=== PATIENT | male | born 1950 | race Caucasian/White ===

== ENCOUNTER 2023-02-26 17:50 | Inpatient (IN) | payer OTHER, SELFPAY ==
[2023-02-26] VITALS (25 sets, daily range): BP systolic 127–138; BP diastolic 64–78; PULSE 65–83; RESP 11–23; TEMP 36.7–37; O2SAT 95–100
--- NOTE | ~2023-02-26 | XR_ITS ---
EXAMINATION: XR chest 1V portable Exam Date/Time: 02/26/2023 20:55 CDT HISTORY: AMS Comparison: 12/03/2018. RESULT: Lines, tubes, and devices: None. Lungs and pleura: Senescent changes. Calcified right lower lung granuloma. Cardiomediastinal silhouette: Stable. Calcified right hilar nodes. Other: No acute osseous or upper abdominal finding. IMPRESSION: No acute cardiopulmonary process. Reviewed, dictated and finalized at location K.
--- NOTE | ~2023-02-26 | US_ITS ---
EXAMINATION: US renal BI DATE: 03/07/2023 17:05 INDICATION: Acute kidney injury. TECHNIQUE: Multiple ultrasound grayscale images of the kidneys were obtained. COMPARISON: CT 03/03/2023 FINDINGS: The right kidney measures 11.1 x 4.8 x 5.8 cm. The left kidney measures 11.1 x 6.1 x 5.4 cm. The kidn eys demonstrate normal parenchymal echogenicity. There is no hydronephrosis. The bladder is normal. IMPRESSION: 1. Normal kidney sizes. No hydronephrosis. Reviewed, dictated and finalized at location E.
--- NOTE | ~2023-02-26 | MR_ITS ---
EXAMINATION: MR brain/brain stem wo/w con DATE: 02/27/2023 10:21 INDICATION: Seizure. TECHNIQUE: Magnetic resonance imaging (MRI) of the brain and brainstem was performed without and with 15 mL MultiHance intravenous contrast. COMPARISON: Head CT 02/26/2023 FINDINGS: There is a focus of increased T2-weighted signal intensity in the left frontal lobe deep wh ite matter that is normal as an isolated finding. There is no intracranial hemorrhage, acute infarcti on, or abnormal intracranial mass lesion. The ventricles are normal in size. There is mild mucosal th ickening in the paranasal sinuses. The orbits are normal. The mastoid air cells are normal. IMPRESSION: 1. Normal brain. Reviewed, dictated and finalized at location A. IMPRESSION: 1. Normal brain.
--- NOTE | ~2023-02-26 | XR_ITS ---
EXAMINATION: XR chest 1V portable DATE: 03/02/2023 08:46 INDICATION: Shortness of breath. TECHNIQUE: A single frontal view of the chest was obtained. COMPARISON: Chest one view 02/28/2023, chest CT 02/26/2023 FINDINGS: There are interstitial opacities and airspace opacities in all lung zones bilaterally. A ca lcified right lung nodule is consistent with old granulomatous disease. No pleural effusion or pneumo thorax. The heart size is normal. IMPRESSION: 1. Diffuse lung disease, consistent with pulmonary edema versus pneumonia. Reviewed, dictated and finalized at location A.
--- NOTE | ~2023-02-26 | US_ITS ---
US abdomen limited INDICATION: Elevated liver function tests. PROCEDURE: Realtime right upper abdominal ultrasound. COMPARISON: No prior studies for comparison. FINDINGS: The pancreas is normal without focal mass or pancreatic ductal dilation. Liver echotexture is normal without focal mass or intrahepatic biliary dilatation. There is normal directional flow i n the portal vein. The gallbladder wall is thickened measuring 5 mm. No gallstones or pericholecystic fluid. Common ramiro e duct measures 5 mm. No sonographic Rowan's sign. IMPRESSION: 1: Gallbladder wall thickening measuring 5 mm. This could indicate interstitial edema, chronic liver disease or chronic cholecystitis. Reviewed, dictated and finalized at location B.
--- NOTE | ~2023-02-26 | XR_ITS ---
Left Knee Technique: AP and lateral views were obtained. Clinical History: Status post fall Findings: No fracture or dislocation is seen. Osseous alignment is anatomic. Joint spaces are preserv ed without degenerative or erosive change. Soft tissues are unremarkable. No joint effusion is seen. Impression: Unremarkable left knee radiographs. Reviewed, dictated and finalized at [facility]. Impression: Unremarkable left knee radiographs.
--- NOTE | ~2023-02-26 | XR_ITS ---
MODIFIED ESOPHAGRAM HISTORY: Aspiration TECHNIQUE: Modified barium esophagram was performed on 03/05/2023. I administered fluoroscopy and perfo rmed the exam with speech pathologist. Patient was seated for lateral fluoroscopic imaging for inges tion of thin liquids, pudding, solids and quantified amounts, followed by thin liquids in uncontrolle d amounts. This was recorded on tape. A single fluoroscopic spot image was also recorded. The DAP for this procedure was 1.863 Gycm2. The amount of fluoroscopy time used during this procedure was 2.8 mi nutes. FINDINGS: Oral stage: Adequate function. Pharyngeal stage: There is reduced laryngeal squeeze and tongue base retraction. There is mild residu e at the vallecula and piriform sinuses with solids. There was laryngeal penetration to the level of the vocal cords, potentially but not definitively with trace aspiration. Cervical/esophageal stage: Adequate function. IMPRESSION: Pharyngeal dysphagia with laryngeal penetration and possible but not definitive trace asp iration. Please correlate with speech pathologist findings and specific feeding recommendations. Reviewed, dictated and finalized at location A. IMPRESSION: Pharyngeal dysphagia with laryngeal penetration and possible but no t definitive trace aspiration. Please correlate with speech pathologist findin gs and specific feeding recommendations.
--- NOTE | ~2023-02-26 | CT_ITS ---
EXAMINATION: CT brain wo con DATE: 02/26/2023 20:53 INDICATION: AMS . TECHNIQUE: Computed tomography (CT) of the head was performed without intravenous contrast. The mA wa s adjusted according to patient size. Iterative reconstruction technique was employed. The dose-lengt h product was 983.67 mGy-cm. COMPARISON: None. FINDINGS: No acute intracranial hemorrhage or extra-axial fluid collection. No hydrocephalus, mass, or herniation. No acute ischemic infarct. Unremarkable dural venous sinus attenuation. No acute osseous abnormality. Right posterior scalp contusion. Left sphenoid retention cyst or polyp, the remaining aerated spaces are clear. Mild atrophy and chronic white matter change. Atherosclerotic intracranial calcification. IMPRESSION: No acute intracranial process. Reviewed, dictated and finalized at location K.
--- NOTE | ~2023-02-26 | XR_ITS ---
EXAMINATION: XR chest 1V portable DATE: 03/03/2023 10:00 INDICATION: Shortness of breath. TECHNIQUE: A single frontal view of the chest was obtained. COMPARISON: Chest single views 03/02/2023 FINDINGS: There are airspace and interstitial opacities throughout the lungs bilaterally. No pleural effusion or pneumothorax. The heart size is normal. IMPRESSION: 1. Stable diffuse lung disease, consistent with pulmonary edema versus pneumonia. Reviewed, dictated and finalized at location A. IMPRESSION: 1. Stable diffuse lung disease, consistent with pulmonary edema versus pneumoni a.
--- NOTE | ~2023-02-26 | XR_ITS ---
Portable chest x-ray Comparison: 02/26/2023 Clinical History: Shortness of breath Findings: Suspected minimal central congestive change and probable minimal alveolar pulmonary edema centrally. Cardiomediastinal silhouette is stable. Bones and soft tissues are unremarkable. Impression: Probable minimal pulmonary edema pattern, as above. Reviewed, dictated and finalized at [facility]. Impression: Probable minimal pulmonary edema pattern, as above.
--- NOTE | ~2023-02-26 | CT_ITS ---
EXAMINATION: CTA chest abdomen pelvis DATE: 02/26/2023 22:00 INDICATION: Found down, severe abdominal pain, seizure . TECHNIQUE: Computed tomography (CT) of the chest, abdomen, and pelvis was performed with 100 mL Omnip aque-350 intravenous contrast, in the arterial phase. Volume rendered imaging created by the brown gist on a separate workstation. Automated exposure control and iterative reconstruction technique wer e employed. The dose-length product was 556.20 mGy-cm. COMPARISON: None FINDINGS: CHEST: Thoracic aorta: No significant dilation. No dissection. Mild calcifications. Lung parenchyma and airways: Motion artifact in the lungs. Dependent atelectasis. Emphysematous gordillo e. Calcified right lung granuloma. Thoracic inlet, axillae and chest wall: No thyroid or soft tissue mass. No axillary lymphadenopathy. Mediastinum: No mass or lymphadenopathy. Heart and pericardium: Normal heart size. No pericardial effusion. Coronary artery calcifications: Mild. Pleura: No effusion or mass. Thoracic bones: Moderate height loss and inferior endplate deformity at T8. ABDOMEN/PELVIS: Liver: Diffuse fatty infiltration Biliary/Gallbladder: Gallbladder is mildly dilated, otherwise normal. No bile duct dilation. Pancreas: No mass or duct dilation. Spleen: Normal. Adrenals:No mass. Kidneys: No mass, stone, or hydronephrosis. GI tract: Uncomplicated appearing rectosigmoid anastomosis. Uniform bowel wall enhancement. Multiple air-fluid levels in the small bowel. No small or large bowel dilation. Appendix not confidently visua lized. Diverticulosis without diverticulitis. Mesentery/Peritoneum: No ascites, mass, or free air. Retroperitoneum: No mass Atherosclerotic abdominal aortic and/or arterial calcifications. No signific ant stenosis. No aneurysm or dissection. Pelvis: Pelvic organs are within normal limits Soft Tissues: Wide necked umbilical hernia containing loops of small bowel without inflammatory gordillo e. Abdominopelvic bones: No acute osseous finding in the abdomen/pelvis. IMPRESSION: Motion limited examination, particularly within the abdomen. Moderate compression deformity at T8, of uncertain age but likely chronic unless accompanied by acute pain/tenderness. Gallbladder hydrops. M ultiple air-fluid levels within nondilated small bowel, possibly secondary to enteritis in the [facility] clinical context. Reviewed, dictated and finalized at location K. IMPRESSION: Motion limited examination, particularly within the abdomen. Moderate compressi on deformity at T8, of uncertain age but likely chronic unless accompanied by a cute pain/tenderness. Gallbladder hydrops. Multiple air-fluid levels within non dilated small bowel, possibly secondary to enteritis in the appropriate clinica l context.
--- NOTE | ~2023-02-26 | CT_ITS ---
EXAMINATION: CT chest abdomen pelvis wo con DATE: 03/03/2023 12:14 INDICATION: Fever. Respiratory failure. TECHNIQUE: Computed tomography (CT) of the chest, abdomen, and pelvis was performed without intraveno us contrast. Automated exposure control and iterative reconstruction technique were employed. The dos e-length product was 1300.04 mGy-cm. COMPARISON: CT chest, abdomen, and pelvis 02/26/2023 FINDINGS: CHEST CT: There are small pleural effusions. There are airspace and interstitial opacities in the upper lobes a nd lower lobes. There is mild atelectasis in right middle lobe. A calcified right lung nodule and cari cified right hilar and mediastinal lymph nodes are consistent with old granulomatous disease. The hea rt size is normal. There are coronary artery calcifications. No pericardial effusion. There are stabl e compression fractures of T5 and T6. There is a stable burst fracture of T7. There is a compression fracture of T9, likely chronic. ABDOMEN/PELVIS CT: Calcifications in the liver and spleen are consistent with old granulomatous disease. The gallbladder is distended. The pancreas, adrenal glands, and kidneys are normal. There is no urolithiasis. The pr ostate is mildly enlarged. There is a Nam catheter in expected position. There is an anastomosis in the rectosigmoid. There is diverticulosis of the colon without evidence of diverticulitis. The appen silvia is not visualized. There are no pathologically enlarged lymph nodes. There is no free intraperito caesar fluid. There is severe lumbar spondylosis. IMPRESSION: 1. Diffuse lung disease, consistent with pneumonia. 2. Small pleural effusions. 3. Gallbladder distention, which may be secondary to fasting. Acute cholecystitis is less likely. 4. Age-indeterminate compression fractures of T5 and T6 and burst fracture of T7, stable from 3. Reviewed, dictated and finalized at location A. IMPRESSION: 1. Diffuse lung disease, consistent with pneumonia. 2. Small pleural effusions. 3. Gallbladder distention, which may be secondary to fasting. Acute cholecystit is is less likely. 4. Age-indeterminate compression fractures of T5 and T6 and burst fracture of T 7, stable from 02/26/2023.
--- NOTE | ~2023-02-26 | MR_ITS ---
MRI of the brain Clinical History: Seizure Technique: Axial and sagittal T1-weighted images were acquired. These were followed by axial T2-weigh chelsie, diffusion weighted, gradient, and FLAIR images. Postcontrast imaging was ordered, however patien t refused to complete postcontrast imaging sequences. COMPARISON: 02/27/2023 Findings: Exam mildly degraded by motion artifact. No acute infarct, trauma, or mass lesion identifie d. There is probable minimal chronic white matter change. Ventricles and subarachnoid spaces are unremarkable. Orbits are unremarkable. Paranasal sinuses and m astoid air cells are essentially clear. Major intracranial flow voids appear intact. Sagittal midline structures are intact. IMPRESSION: Probable minimal chronic white matter changes, otherwise unremarkable exam. Reviewed, dictated and finalized at location M.
--- NOTE | ~2023-02-26 | XR_ITS ---
Right Knee Technique: AP and lateral views were obtained. Clinical History: Status post fall Findings: No fracture or dislocation is seen. Osseous alignment is anatomic. Joint spaces are preserv ed without degenerative or erosive change. Soft tissues are unremarkable. No joint effusion is seen. Impression: Unremarkable right knee radiographs. Reviewed, dictated and finalized at [facility]. Impression: Unremarkable right knee radiographs.
--- NOTE | ~2023-02-26 | XR_ITS ---
EXAMINATION: XR hip BI 2V w AP pelvis DATE: 03/07/2023 13:28 INDICATION: Fall. TECHNIQUE: An anteroposterior view of the pelvis and 2 views of each hip were obtained. COMPARISON: None. FINDINGS: There is lumbar dextrocurvature and severe spondylosis. No fracture. There is mild osteoart hritis of the hips. IMPRESSION: 1. Mild osteoarthritis of the hips. Reviewed, dictated and finalized at location E.
--- NOTE | 2023-02-26 20:41 | ECG_ITS ---
Measurements Intervals [place] Rate: 72 P: 54 NE: 213 QRS: 75 QRSD: 97 T: 68 QT: 419 QTc: 459 Interpretive Statements SINUS RHYTHM WITH FIRST DEGREE AV BLOCK INCOMPLETE RIGHT BUNDLE BRANCH BLOCK ANTEROSEPTAL INFARCT, AGE INDETERMINATE ABNORMAL ECG NO PREVIOUS ECG AVAILABLE FOR COMPARISON Electronically Signed On 02-26-2023 21:27:43 CDT by Elieser Quesada D.O.
[2023-02-26] MEDS: SODIUM CHLORIDE 0.9% IV 2,000 ML 999 ML IV CONT (21:16)
[2023-02-26] MEDS: ACETAMINOPHEN 500 MG TABLET 1000 MG PO (21:18)
[2023-02-26 21:28] LABS: Basophils Percent Auto 0.2 % (0.2-1.2); Hematocrit 47.6 % (42.0-52.0); Hemoglobin 16.3 g/dL (14.0-18.0); Immature Granulocyte Percent A 0.6 % (0-0.5); Immature Platelet Fraction Pct 7.4 % (0.9-11.2); Lymphocytes Absolute Auto 1.61 K/mm3 (0.9-3.2); Lymphocytes Percent Auto 9.5 % (18.3-44.2); Mean Corpuscular HGB Conc 34.2 g/dl (32-36); Mean Corpuscular Hemoglobin 30.6 pg (26-34); Mean Corpuscular Volume 89.3 fl (80-100); Mean Platelet Volume 10.9 fl (7.4-10.4); Monocytes Percent Auto 5.6 % (2.6-8.5); Neutrophils Absolute Auto 14.3 K/mm3 (1.3-6.7); Neutrophils Percent Auto 84.1 % (45.5-73.1); Platelet Count Result 277 k/mm3 (150-375); Red Blood Count 5.33 M/mm3 (4.6-6.20); Red Cell Distribution Width 14.6 % (11.5-14.5)
--- NOTE | 2023-02-26 21:28 | P.HP_ITS ---
H&P: HPI History of Present Illness Date/Time: 02/26/23 21:28 Chief Complaint: 72 years old male with past medical history of alcohol abuse chronic narcotic dependence hypertension on diuretics presented to the hospital with a fall patient workup was found himself next to a bed patient bit his tongue has loss of consciousness denies chest pain or shortness of breath patient denies excessive alcohol abuse patient stated that he drinks 6 beers a week patient d enies history of seizure patient complains of pain between the shoulder plate worsening with movement denies fever or chills patient stated that he had urine incontinence denies stool incontinence at the ER patient was alert and oriented concern for seizure was admitted to the hospital for further evaluation and treatment since patient have pain between the shoulder plate CTA was done to rule out dissection and PE, also discussed with ER physician to get CT scan of the cervical spine. It Review of Systems Review of Systems: Twelve system review negative except above Meds Home Medications and Allergies Allergies Allergy/AdvReac Type Severity Reaction Status Date / Time No Known Allergies Allergy Unverified 12/02/18 00:17 Vital Signs Vital Signs - 24 hr 02/26/23 18:08 Temperature 98.0 F Pulse Rate 75 Respiratory Rate 20 Blood Pressure 137/69 Pulse Oximetry 98 Oxygen Delivery Room Air Exam Narrative: GENERAL: Well appearing, well-nourished, non-toxic, in no acute distress. HEAD: Positive tongue biting. NECK: Supple. No adenopathy, no masses. RESPIRATORY: Airway patent, respirations nonlabored. Clear to auscultation bilaterally, no rales, rhonchi, wheezing. CARDIOVASCULAR: Regular rate and rhythm without murmurs, rubs, or gallops. Peripheral pulses 2+ and equal bilaterally. ABDOMINAL: Soft, nontender, nondistended, no hepatosplenomegaly. Normoactive BS. MUSCULOSKELETAL: Tenderness on thoracic spine palpation. SKIN: Warm, dry, normal color. No rashes. NEURO: A&O X3. Speech clear. Cranial nerves II-XII grossly intact. Steady gait. No ataxic movements. PSYCHIATRIC: Appropriate mood and affect. Normal interaction. Assessment and Plan Assessment and plan (1) Hypertension: Code(s): I10 - Essential (primary) hypertension Status: Acute Assessment and Plan: Pending home medication reconciliation Added p.r.n. hydralazine (2) Alcohol abuse: Code(s): F10.10 - Alcohol abuse, uncomplicated Status: Acute Assessment and Plan: Alcohol withdrawal protocol Vitamin replacement Check CBC CMP magnesium Urine drug screen Alcohol level (3) Hyperlipidemia: Code(s): E78.5 - Hyperlipidemia, unspecified Status: Acute Assessment and Plan: Pending home medication reconciliation (4) Syncopal episodes: Code(s): R55 - Syncope and collapse Status: Acute Assessment and Plan: Probable seizure Seizure precaution [facility] Eeg MRI of the brain (5) Back pain: Code(s): M54.9 - Dorsalgia, unspecified Status: Acute Assessment and Plan: Pending CT of cervical spine and CTA of the chest Pain control
--- NOTE | 2023-02-26 21:41 | ED.GENADULT ---
HPI - General Adult General Chief complaint: Fall Stated complaint: woke up on floor Time Seen by Provider: 02/26/23 19:47 History of Present Illness HPI narrative: This is a 72-year-old male history of hypertension diabetes presenting ED after waking up on the floor. Patient does not remember how he got there. He says that he does have some pain across the top of his shoulders. He did bite his tongue and wet his pants. He says he was too weak to get back into bed was found by his daughter at approximately 1:30 p.m.. At this time the patient has no other complaints. While the patient is A&O x3 he does appear slightly confused when you are talking to him. Related Data Allergies Allergy/AdvReac Type Severity Reaction Status Date / Time No Known Allergies Allergy Unverified 12/02/18 00:17 [facility] Past Medical History Medical History Diabetes Hypertension Exam Narrative: APPEARANCE: Patient is disheveled and slightly confused Head: multiple bite pat to the tongue EYES: EOMI, NOSE: Atraumatic NECK: Trachea midline RESPIRATORY: No increased rate of breathing clear to auscultation CARDIOVASCULAR: RRR, no peripheral edema ABDOMINAL: Non-distended, soft nontender no guarding or rebound MUSCULOSKELETAl: No obvious deformities, Tenderness to palpation over the upper trapezius muscles. No midline spinal tenderness. NEURO: Alert. Cranial nerves 2-12 grossly intact. Sensation light touch, motor function cerebellar function intact for 4 extremities. Gait exam was deferred SKIN:: Warm, dry. Normal color PSYCHIATRIC: Normal affect Course Vital Signs Vital signs: Vital Signs Temperature 98.0 F 02/26/23 18:08 Pulse Rate 75 02/26/23 18:08 Respiratory Rate 20 02/26/23 18:08 Blood Pressure 137/69 02/26/23 18:08 Pulse Oximetry 98 02/26/23 18:08 Oxygen Delivery Room Air 02/26/23 18:08 Temperature 98.0 F 02/26/23 18:08 Pulse Rate 72 02/26/23 21:30 Respiratory Rate 20 02/26/23 21:30 Blood Pressure 138/78 02/26/23 19:51 Pulse Oximetry 98 02/26/23 21:30 Oxygen Delivery Room Air 02/26/23 18:08 Medical Decision Making MDM Narrative Medical decision making narrative: -Presentation: 72-year-old male presenting to ED after being found down on the ground at home. -DDX includes but is not limited to: Seizure, sepsis, pneumonia, UTI, rhabdo -Co-morbidities complicating care: hypertension, diabetes -Social determinants of health: lives with his daughter, retired -External Chart Review: none -Hx from independent Sources: daughter/EMS -Discussion of Management/Consultants: Miles - Hospitalist, Cardiology - Bakari Davis - Neurology -Independent interpretation of studies: CBC showed a white count of 17. Metabolic panel showed potassium 3.3. This will be repleted. Lactic is 2.3. phosphorus 2.1. UA was not indicative of infection. Troponin is 4.02. CPK is 2271. BNP 753 Independent EKG interpretation: Rhythm [sinus], Rate [69], [place] -[normal], [place] -[normal], QRS [narrow], QTC [normal], T waves -[negative for concerning inversions], ST Segments - [Negative for concerning elevations] Final interpretations: [Normal Sinus Rhythm - No STEMI criteria CTA revealed no evidence of pulmonary embolism or dissection. T8 compression fracture although the patient has no pain upon palpation in that area and his back pain is over the musculature. Dx tests considered but not ordered: None -Procedures: none -Interventions: Tylenol, 2 L normal saline, Dilaudid, ceftriaxone and vancomycin started by hospitalist -Shared decision making / Disposition: was discussed with Cardiology. Patient be started on heparin for NSTEMI. Cardiology will see the patient morning. Patient will be admitted to the hospitalist. -RX Vital Signs Vital Signs: Vital Signs Temperature 98.0 F 02/26/23 18:0
[2023-02-26 21:42] LABS: Alanine Aminotransferase 40 U/L (6-50); Albumin Level 4.7 g/dL (3.5-5.1); Alkaline Phosphatase 90 U/L (38-126); Anion Gap 6 mmol/L (8-16); Aspartate Amino Transferase 83 U/L (17-59); Bilirubin,Total 0.9 mg/dL (0.2-1.3); Blood Urea Nitrogen 17 mg/dL (9-20); Calcium 9.2 mg/dL (8.4-10.2); Carbon Dioxide 29 mmol/L (22-30); Chloride 99 mmol/L (98-107); Estimated CRCL calculation 61 ml/min; Estimated Glomerular Filt Rate > 60; Glucose 114 mg/dL (65-110); Lipase 33 U/L (23-300); Magnesium 2.3 mg/dL (1.6-2.3); Phosphorus 2.1 mg/dL (2.5-4.5); Potassium 3.3 mmol/L (3.4-5.0); Sodium 134 mmol/L (137-145)
[2023-02-26 21:46] LABS: Ethanol < 10 mg/dL (<10)
[2023-02-26 21:47] LABS: NT Pro B Type Natriuretic Pept 753 pg/mL (19.9-100)
[2023-02-26 21:51] LABS: Platelet Estimate Adequate (Adequate); Schistocytes None Seen (NORMAL)
[2023-02-26 21:56] LABS: Lactic Acid Reflex 2.3 mmol/L (0.7-2.0)
[2023-02-26 22:02] LABS: Influenza A QL RT-PCR Negative (Negative); Influenza B QL RT-PCR Negative (Negative); RSV RNA, RT-PCR Negative (Negative); SARS-CoV-2 RNA PCR Negative (Negative)
[2023-02-26] MEDS: HYDROmorphone HCL INJ (*CRX) 1 MG/ML SYR 0.5 MG IV PUSH (22:10)
[2023-02-26 22:32] LABS: Creatine Kinase 2271 U/L (55-170)
[2023-02-26 22:32] LABS: Appearance Urine Clear (Clear); Bacteria Urine None Seen /hpf; Bilirubin Urine Negative (Negative); Blood Urine 2+ (Negative); Color Urine Yellow (Yellow); Glucose Urine UA Negative (Negative); Ketones Urine 1+ mg/dL (Negative); Leukocyte Esterase Ur Negative LEU/UL (Negative); Nitrate Urine Negative (Negative); Non Pathogenic Casts 0-2; Protein Urine 1+ mg/dL (Negative); RBC Urine 0-2 /hpf (0-2); Squamous Epithelial Cell Urine None seen /hpf (Few); Urobilinogen Urine 0.2 mg/dL (<2.0); WBC Urine 0-5 /hpf; pH Urine 5.5 (5.0-9.0)
[2023-02-26 22:37] LABS: Specific Grav Ur 1.039 (1.001-1.035)
[2023-02-26 22:38] LABS: Add Urine Microscopic? YES
[2023-02-26 22:49] LABS: Amphetamine Screen Urine Negative (Negative); Barbiturate Screen Urine Negative (Negative); Benzodiazepines Screen Urine Negative (Negative); Cannabinoid Screen Urine Positive (Negative); Cocaine Screen Urine Negative (Negative); Methadone Screen Urine Negative (Negative); Opiate Screen Urine Negative (Negative); Phencyclidine Screen Urine Negative (Negative)
[2023-02-26 22:55] LABS: Creatinine Urine 81.2 mg/dL
[2023-02-26] MEDS: SODIUM CHLORIDE 0.9% IV 1,000 ML 999 ML IV CONT (23:04)
[2023-02-26] MEDS: MORPHINE SULFATE (*CRX) 2 MG/ML INJ IV PUSH (23:14)
[2023-02-26] MEDS: POTASSIUM CHLORIDE 20 MEQ TABLET 40 MEQ PO (23:14)
[2023-02-26 23:16] LABS: Partial Thromboplastin Time 30.6 SECONDS (22.3-36.8); Prothrombin Time 13.3 Seconds (11.1-14.7)
[2023-02-26] MEDS: HEPARIN SODIUM 5,000 UNITS/ML VIAL 4000 UNITS IV PUSH (23:22)
[2023-02-26] MEDS: HEPARIN SOD/D5W 100 UNITS/ML 25,000 UNITS/250 ML BAG 9 UNITS IV CONT (23:30)
[2023-02-26 23:33] LABS: Vitamin D 25 Hydroxy 44.9 ng/mL
[2023-02-26 23:47] LABS: Procalcitonin 0.1 ng/mL
--- NOTE | 2023-02-26 23:50 | ADMGEN ---
This patient, Wes Townsend, was admitted to IMU Room 205-01. Patient/family oriented to hospital policies and general routines including ID bracelet, bed and alarms, visiting hours, pain management, procedures, bathroom and other care routines, personal items, smoking policy, room service/diet, and visiting hours. Information on how to activate the Rapid Response Team has been discussed. Patient/Family are encouraged to report perceived risks to care and to ask questions if they do not understand what they are told or what they should do.
[2023-02-27] VITALS (14 sets, daily range): BP systolic 112–131; BP diastolic 57–68; PULSE 54–76; RESP 16–20; TEMP 36.2–36.9; O2SAT 94–96; BMI 24.8
[2023-02-27 00:24] LABS: Reflex Lactic Acid Yes or No Add Lactic
[2023-02-27] MEDS: HYDROcodone/acetaminophen (*CRX) 5-325 MG TABLET 1 TAB PO ×2 (00:52→05:50)
[2023-02-27 01:21] LABS: Lactic Acid 1.6 mmol/L (0.7-2.0)
[2023-02-27 01:40] LABS: Basophils Percent Auto 0.1 % (0.2-1.2); Hematocrit 43.1 % (42.0-52.0); Hemoglobin 14.5 g/dL (14.0-18.0); Immature Granulocyte Absolute 0.08 K/mm3 (0.00-0.031); Immature Granulocyte Percent A 0.5 % (0-0.5); Lymphocytes Absolute Auto 1.85 K/mm3 (0.9-3.2); Lymphocytes Percent Auto 12.1 % (18.3-44.2); Mean Corpuscular HGB Conc 33.6 g/dl (32-36); Mean Corpuscular Hemoglobin 30.7 pg (26-34); Mean Corpuscular Volume 91.3 fl (80-100); Mean Platelet Volume 11.4 fl (7.4-10.4); Monocytes Absolute Auto 0.9 K/mm3 (0.1-0.6); Monocytes Percent Auto 5.8 % (2.6-8.5); Neutrophils Absolute Auto 12.5 K/mm3 (1.3-6.7); Neutrophils Percent Auto 81.5 % (45.5-73.1); Platelet Count Result 227 k/mm3 (150-375); Red Blood Count 4.72 M/mm3 (4.6-6.20); Red Cell Distribution Width 14.5 % (11.5-14.5); White Blood Count 15.3 K/mm3 (4.5-10.0)
[2023-02-27 04:17] LABS: Basophils Percent Auto 0.1 % (0.2-1.2); Hematocrit 39.8 % (42.0-52.0); Hemoglobin 13.7 g/dL (14.0-18.0); Immature Granulocyte Absolute 0.09 K/mm3 (0.00-0.031); Immature Granulocyte Percent A 0.6 % (0-0.5); Lymphocytes Absolute Auto 2.15 K/mm3 (0.9-3.2); Lymphocytes Percent Auto 13.2 % (18.3-44.2); Mean Corpuscular HGB Conc 34.4 g/dl (32-36); Mean Corpuscular Hemoglobin 31.4 pg (26-34); Mean Corpuscular Volume 91.1 fl (80-100); Mean Platelet Volume 10.8 fl (7.4-10.4); Monocytes Absolute Auto 1.4 K/mm3 (0.1-0.6); Monocytes Percent Auto 8.5 % (2.6-8.5); Neutrophils Absolute Auto 12.6 K/mm3 (1.3-6.7); Neutrophils Percent Auto 77.6 % (45.5-73.1); Platelet Count Result 252 k/mm3 (150-375); Red Blood Count 4.37 M/mm3 (4.6-6.20); Red Cell Distribution Width 14.6 % (11.5-14.5); White Blood Count 16.3 K/mm3 (4.5-10.0)
[2023-02-27 04:31] LABS: Alanine Aminotransferase 39 U/L (6-50); Albumin Level 3.9 g/dL (3.5-5.1); Alkaline Phosphatase 80 U/L (38-126); Anion Gap 7 mmol/L (8-16); Aspartate Amino Transferase 105 U/L (17-59); Bilirubin,Total 0.7 mg/dL (0.2-1.3); Blood Urea Nitrogen 11 mg/dL (9-20); Calcium 7.9 mg/dL (8.4-10.2); Carbon Dioxide 22 mmol/L (22-30); Chloride 110 mmol/L (98-107); Estimated CRCL calculation 67 ml/min; Estimated Glomerular Filt Rate > 60; Glucose 132 mg/dL (65-110); Partial Thromboplastin Time 93.1 SECONDS (22.3-36.8); Potassium 3.2 mmol/L (3.4-5.0); Sodium 139 mmol/L (137-145)
[2023-02-27] MEDS: ONDANSETRON INJ 4 MG/2 ML VIAL IV PUSH (05:53)
--- NOTE | 2023-02-27 08:00 | ECHO_ITS ---
Patient Info Name: Wes Townsend Age: 72 years : 1950 Gender: Male Ht: 70 in Wt: 170 lbs BSA: 1.96 m2 HR: 62 bpm BP: 131 / 64 mmHg Heart Rhythm: Sinus Rhythm Technical Quality: Fair Exam Date: 02/27/2023 11:00 AM Exam Location: [facility] Pulmonary Patient Status: Inpatient Admit Date: 02/26/2023 Staff Ordering Physician: Jaky Guido M.A., MD Chip Separator: Ginna Sykes RDCS Attending Provider: Jaky Guido M.A., MD Referring Physician: Meng MONAE; Exam Type: CA echo doppler color flow Study Info Indications R55 - Syncope and collapse Complete two-dimensional, color flow and Doppler transthoracic echocardiogram is performed. Summary 1. Complete two-dimensional, color flow and Doppler transthoracic echocardiogram is performed. 2. Left ventricular chamber dimension is normal. 3. Left ventricular systolic function is normal, estimated at 55-60% with mid and basal anteroseptal, apical anterior, and apical septal hypokinesis.. 4. There is mildly increased left ventricular wall thickness. 5. The left ventricular diastolic function is normal. 6. There is mild tricuspid valve regurgitation. 7. Moderate pulmonary hypertension, estimated pulmonary arterial systolic pressure is 46 mmHg. 8. There is mild mitral valve regurgitation. Left Ventricle Left ventricular chamber dimension is normal. Left ventricular systolic function is normal, estimated at 55-60% with mid and basal anteroseptal, apical anterior, and apical septal hypokinesis.. There is mildly increased left ventricular wall thickness. The left ventricular diastolic function is normal. Right Ventricle Right ventricular chamber dimension is normal. Right ventricular systolic function is normal. Left Atria Left atrial chamber dimension is normal. Right Atria Right atrial chamber dimension is normal. Aortic Valve The aortic valve is trileaflet. There is mild aortic valve sclerosis. There is no aortic valve stenosis. There is no aortic valve regurgitation. Pulmonic Valve The pulmonic valve is not well visualized. There is mild pulmonic regurgitation. Mitral Valve The mitral valve has normal leaflets. There is mild mitral valve regurgitation. The mitral valve annulus is mildly calcified. Tricuspid Valve The tricuspid valve leaflets are normal. There is mild tricuspid valve regurgitation. Moderate pulmonary hypertension, estimated pulmonary arterial systolic pressure is 46 mmHg. Pericardium/Pleural The pericardium appears normal. There is no pericardial effusion. Inferior Vena Cava Dilated inferior vena cava with >50% collapse upon inspiration consistent with elevated right atrial pressure, 10 mmHg. Aorta The aortic root size at the sinus of Valsalva is mildly dilated. Consider CT chest if clinically indicated. There is mild aortic atherosclerosis. Tricuspid Valve Name Value Normal Estimated PAP/RSVP RA Pressure 10 mmHg <=5 PA Systolic Pressure 46 mmHg <36 Report Signatures
--- NOTE | 2023-02-27 08:45 | ECG_ITS ---
Measurements Intervals [place] Rate: 59 P: 15 MI: 198 QRS: 62 QRSD: 93 T: 101 QT: 468 QTc: 467 Interpretive Statements SINUS BRADYCARDIA INCOMPLETE RIGHT BUNDLE BRANCH BLOCK NONSPECIFIC ST & T-WAVE ABNORMALITY- ANT/HIGH LAT LEADS PROLONGED QT INTERVAL COMPARED TO ECG ABNORMAL ECG3 21:09:07 SINUS BRADYCARDIA NOW PRESENT ST-T WAVE ABNORMALITY NOW PRESENT PROLONGED QT INTERVAL NOW PRESENT Electronically Signed On 02-27-2023 13:39:10 CDT by Elieser Quesada D.O.
--- NOTE | 2023-02-27 08:47 | PM.CNCAR ---
Assessment and Plan Assessment and plan (1) Non-ST elevation [place] (NSTEMI): Code(s): I21.4 - Non-ST elevation (NSTEMI) myocardial infarction Status: Acute Assessment and Plan: Patient presents with an unusual history without clear anginal symptoms although cannot exclude upper back patent as anginal equivalent. Troponin is flat at presentation and significantly elevated with evidence of a prior anteroseptal infarction by ECG but without acute ischemic changes. Given significant troponin elevation at presentation with flag for if related to underlying acute coronary event will be consistent with late presentation subacute infarction possibly at peak troponin when he presented. In that instance I would expect troponin to decline on repeat assessment later today. Given his risk factors, elevated troponin, and abnormal ECG underlying CAD remains a significant likelihood to he does not report symptoms suggestive CHF, arrhythmic event, and/or myocarditis. Continue heparin infusion for now. Aspirin 81 mg daily, statin, beta-darci therapy. 2D echocardiogram to assess LV size/function, wall motion abnormalities, valve pathology pulmonary pressures. Continue neuro workup. MRI brain planned. Will review when available to exclude other contributions. Blood cultures pending. Repeat 12 lead ECG, CK and troponin for trend. If patient remains stable and relatively asymptomatic likely will allow him to eat today but keep NPO after midnight for anticipated coronary angiography if no other plausible explanation identified. Patient verbalized understanding and agreed with plan of care. Reviewed risks, benefits and alternatives with coronary angiography. He agreed with plan of care. Recommendation to follow after review of echocardiogram and patient's clinical course. (2) Altered mental status: Code(s): R41.82 - Altered mental status, unspecified Status: Acute Assessment and Plan: Resolved. Etiology remains unclear. Workup underway per primary service with differential including seizure, infection, and or myocardial infarction it highly unusual and atypical presentation in this regard. MRI of brain pending. CT head no acute hemorrhage or infarction noted. Minimize anxiolytics/sedatives as much as possible. (3) Rhabdomyolysis: Code(s): M62.82 - Rhabdomyolysis Status: Acute Assessment and Plan: Elevated CK 2271 related to his fall. Mild acute renal injury at presentation improved. Continue IV fluids. Repeat CK. Troponin elevation out of proportion to that which may be seen with significant CK elevation. Monitor electrolytes and renal function closely. (4) Diabetes: Qualifiers: Diabetes mellitus type: type 2 Diabetes mellitus registered representative insulin use: without registered representative use Diabetes mellitus complication status: with other specified complication Qualified Code(s): E11.69 - Type 2 diabetes mellitus with other specified complication Code(s): E11.9 - Type 2 diabetes mellitus without complications Status: Acute Assessment and Plan: Stable, management per primary service. Under documentation for severe hyperglycemia or hypoglycemia is a explanation. (5) Hypertension: Code(s): I10 - Essential (primary) hypertension Status: Acute Assessment and Plan: Kirstin has been hemodynamically stable. He takes triamterene hydrochlorothiazide at home for hypertension. I would hold off on additional diuretic medical therapy for his blood pressure the time being. May consider alternative as appropriate depending on patient's clinical course. (6) Hyperlipidemia: Code(s): E78.5 - Hyperlipidemia, unspecified Status: Acute Assessment and Plan: Check lipid panel. Continue atorvastatin 20 mg at bedtime. History of Present Illness History of Present Illness Consult date/time: Date of service: 02/27/23 08:47 Requesting physician: Jaky Guido M.A
[2023-02-27] MEDS: PARoxetine 10 MG TABLET 30 MG PO (08:51)
[2023-02-27] MEDS: POTASSIUM PHOS/SODIUM PHOS 250 MG TABLET PO ×3 (08:51→18:08)
[2023-02-27] MEDS: FAMOTIDINE 20 MG TABLET PO ×2 (08:52→20:02)
[2023-02-27 09:50] LABS: Creatine Kinase 5444 U/L (55-170)
--- NOTE | 2023-02-27 09:51 | P.NEURO_ITS ---
Neurology EEG Report General Information Date of Study: 02/27/23 TEST eeg DIAGNOSIS seizures CONDITION OF RECORDING awake drowsy and sleep EEG NUMBER [id number] CLINICAL HISTORY patient reports he woke up on the floor by his bed yesterday with blood in his mouth and felt very tired and disoriented. EEG DESCRIPTION Basic resting occipital frequency consists of low to medium voltage 8 to 10 hertz per 2nd alpha admixed with low-voltage 15 to 18 hertz per 2nd beta. Bilateral symmetrical sleep activity seen during sleep. Hyperventilation not done. Photic stimulation not done. Non paroxysmal. Nonfocal. Non lateralizing. IMPRESSION Normal record but the normal record does not rule out the possibility of seizures in the patient at this particular time. Clinical correlation recomme nded
[2023-02-27 11:04] LABS: Partial Thromboplastin Time 42.7 SECONDS (22.3-36.8)
[2023-02-27] MEDS: HEPARIN SODIUM 5,000 UNITS/ML VIAL 4000 UNITS IV PUSH (11:46)
[2023-02-27] MEDS: SODIUM CHLORIDE 0.9% IV 1,000 ML 100 ML IV CONT ×2 (11:46→11:52)
[2023-02-27] MEDS: ASPIRIN 81 MG ENTERIC TABLET PO (11:47)
--- NOTE | 2023-02-27 11:54 | WPDNEURCNPN ---
Assessment and Plan Assessment and plan (1) Seizure: Code(s): R56.9 - Unspecified convulsions Status: Acute (2) Altered mental status: Code(s): R41.82 - Altered mental status, unspecified Status: Acute (3) Diabetes: Qualifiers: Diabetes mellitus type: type 2 Diabetes mellitus snf insulin use: without snf use Diabetes mellitus complication status: with other specified complication Qualified Code(s): E11.69 - Type 2 diabetes mellitus with other specified complication Code(s): E11.9 - Type 2 diabetes mellitus without complications Status: Acute (4) Syncopal episodes: Code(s): R55 - Syncope and collapse Status: Acute Plan Diabetic with history of hypertension found on the floor at this stage echocardiogram is being done the MRI of the brain is negative he will be re-examined to see if he has ongoing diabetic neuropathy which could result in the gait dysfunction in the meantime evaluation will be as such Consult date: 02/27/23 HPI: Wes Townsend is a 72 year old male admitted to the hospital for the complaints of fall through the emergency room with ongoing history of 1. Hypertension 2. Diabetes mellitus he did complain of some pain across the top of his shoulder he did bit his tongue and that his pains but he was too weak to get back into his bed and was found by his daughter. He is not known to be allergic to any medication. Initial evaluation in the emergency room revealed a normal vital signs nonfocal neurological examination and evaluation in the ER documented CPK of 2271 with BNP 753 and troponin 4.02 with normal EKG without evidence of atrial fibrillation CTA of the chest revealed no embolism or dissection but there was a T8 compression fracture though he was not complaining of any pain in that area his routine lab studies were with WBC 22089 basic metabolic panel not very significant but sodium 134 potassium 3.3. MRI of the brain is normal so as the CT scan of the head. [facility] Past Medical History Medical History Diabetes Hypertension Social History Social History Smoking status: Never smoker Alcohol intake: current Drinks per week: 6 Substance use: current Substance use type: marijuana Lack of Transportation: No Lack of Food: Never True Current Housing: Decline to Answer Concerned About Future Housing: Decline to Answer Difficulty Paying Gas/Electric Bills: Decline to Answer Difficulty Paying for Meds: Decline to Answer Currently Unemployed: Decline to Answer Education: Don't Know Difficulty w/ Childcare or Family Care: No Spiritual care concerns: No Meds Home Medications and Allergies Home Medications Medication Instructions Recorded Confirmed Type atorvastatin 20 mg tablet 20 mg PO DAILY 02/27/23 02/27/23 History paroxetine HCl 30 mg tablet 30 mg PO DAILY 02/27/23 02/27/23 History tramadol 50 mg tablet 50 mg PO TID PRN Pain 02/27/23 02/27/23 History triamterene 37.5 1 cap PO DAILY 02/27/23 02/27/23 History mg-hydrochlorothiazide 25 mg capsule zolpidem 10 mg tablet 10 mg PO HS PRN Sleep 02/27/23 02/27/23 History Allergies Allergy/AdvReac Type Severity Reaction Status Date / Time No Known Allergies Allergy Unverified 12/02/18 00:17 Vital Signs Vital Signs - 24 hr 02/26/23 18:08 02/26/23 19:45 02/26/23 19:51 Temperature 36.7 C Pulse Rate 75 68 Respiratory Rate 20 22 H Blood Pressure 137/69 138/78 Pulse Oximetry 98 98 99 Oxygen Delivery Room Air 02/26/23 20:00 02/26/23 20:16 02/26/23 20:30 Temperature Pulse Rate 70 83 72 Respiratory Rate 19 Blood Pressure Pulse Oximetry 96 Oxygen Delivery 02/26/23 20:45 02/26/23 21:04 02/26/23 21:18 Temperature Pulse Rate 73 78 68 Respiratory Rate 11 L 21 H 16 Blood Pressure Pulse Oximetry
--- NOTE | 2023-02-27 16:46 | PM.IMPN ---
Progress Note: A&P Assessment and Plan (1) Hypertension: Code(s): I10 - Essential (primary) hypertension Status: Acute Assessment and Plan: Blood pressure reviewed 02/27 (2) Alcohol abuse: Code(s): F10.10 - Alcohol abuse, uncomplicated Status: Acute Assessment and Plan: Resolved (3) Hyperlipidemia: Code(s): E78.5 - Hyperlipidemia, unspecified Status: Acute Assessment and Plan: Stable, continue home meds (4) Syncopal episodes: Code(s): R55 - Syncope and collapse Status: Acute Assessment and Plan: Appreciate neurology consultation (5) Back pain: Code(s): M54.9 - Dorsalgia, unspecified Status: Acute Assessment and Plan: Pain resolved (6) Non-ST elevation [place] (NSTEMI): Code(s): I21.4 - Non-ST elevation (NSTEMI) myocardial infarction Status: Acute Assessment and Plan: Appreciate cardiology consultation, continue heparin drip Plan DVT prophylaxis with heparin GI prophylaxis with H2 darci Code status full code Subjective Date/time seen: 02/27/23 16:46 Interval history: 72 year old male with history of alcohol abuse presenting with a fall, +LOC, and tongue biting. No overnight events noted. No chest pain or shortness of breath. No nausea, vomiting or diarrhea. No fevers or chills. States he no longer feels confused. Review of Systems Review of Systems: 12 point review of systems was assessed and was negative except as noted in the HPI Exam Narrative: General: No acute distress, alert and oriented per baseline HEENT: Atraumatic, normocephalic, mucous membranes moist CV: Regular rate and rhythm, S1, S2 Lungs: Clear to auscultation bilaterally, no rales or crackles noted, no wheezes, good air entry Abdomen: Soft, nontender, nondistended Extremities: Normal to inspection Skin: No rashes noted, no lesions or wounds seen Psych: Euthymic, normal affect Objective Data Vital Signs Vital Signs: Vital Signs - 24 hr 02/26/23 18:08 02/26/23 19:45 02/26/23 19:51 Temperature 98.0 F Pulse Rate 75 68 Respiratory Rate 20 22 H Blood Pressure 137/69 138/78 Pulse Oximetry 98 98 99 Oxygen Delivery Room Air 02/26/23 20:00 02/26/23 20:16 02/26/23 20:30 Temperature Pulse Rate 70 83 72 Respiratory Rate 19 Blood Pressure Pulse Oximetry 96 Oxygen Delivery 02/26/23 20:45 02/26/23 21:04 02/26/23 21:18 Temperature Pulse Rate 73 78 68 Respiratory Rate 11 L 21 H 16 Blood Pressure Pulse Oximetry Oxygen Delivery 02/26/23 21:30 02/26/23 21:45 02/26/23 21:46 Temperature Pulse Rate 72 68 66 Respiratory Rate 20 17 Blood Pressure 134/72 Pulse Oximetry 98 100 100 Oxygen Delivery 02/26/23 22:07 02/26/23 22:20 02/26/23 22:30 Temperature Pulse Rate 70 68 70 Respiratory Rate 13 17 16 Blood Pressure Pulse Oximetry 99 95 Oxygen Delivery 02/26/23 22:31 02/26/23 22:45 02/26/23 22:46 Temperature Pulse Rate 71 69 68 Respiratory Rate 21 H 23 H 22 H Blood Pressure 134/75 131/65 Pulse Oximetry 99 99 Oxygen Delivery 02/26/23 23:00 02/26/23 23:01 02/26/23 23:59 Temperature 98.6 F Pulse Rate 66 68 71 Respiratory Rate 20 16 20 Blood Pressure 132/74 136/64 Pulse Oximetry 97 Oxygen Delivery 02/26/23 23:03 02/26/23 23:15 02/26/23 23:16 Temperature Pulse Rate 77 65 68 Respiratory Rate 15 18 Blood Pressure 127/66 Pulse Oximetry Oxygen Delivery 02/26/23 23:30 02/27/23 00:00 02/27/23 00:00 Temperature Pulse Rate 71 74 Respiratory Rate Blood Pressure Pulse Oximetry Oxygen Delivery Room Air 02/27/23 02:00 02/27/23 04:00 02/27/23 04:00 Temperature 98.5 F Pulse Rate 69 76 Respiratory Rate 16 Blood Pressure 131/64 Pulse Oximetry 94 Oxygen Delivery Room Air 02/27/23 04:00 02/27/23 06:00 02/27/23 09:19 Temperat
[2023-02-27 17:33] LABS: Glucose Point of Care 132 mg/dl (65-105)
[2023-02-27 18:28] LABS: Partial Thromboplastin Time 55.2 SECONDS (22.3-36.8)
[2023-02-27] MEDS: HEPARIN SODIUM 5,000 UNITS/ML VIAL 3000 UNITS IV PUSH (19:21)
[2023-02-27] MEDS: ZOLPIDEM TARTRATE (*CRX) 5 MG TABLET 10 MG PO (20:03)
[2023-02-27] MEDS: MORPHINE SULFATE (*CRX) 2 MG/ML INJ IV PUSH (20:03)
[2023-02-27 21:10] LABS: Glucose Point of Care 136 mg/dl (65-105)
[2023-02-27] MEDS: chlordiazePOXIDE (*CRX) 25 MG CAPSULE PO (22:45)
[2023-02-27] MEDS: LORazepam INJ (*CRX) 2 MG/ML VIAL IV PUSH (23:51)
[2023-02-28] VITALS (21 sets, daily range): BP systolic 117–153; BP diastolic 54–75; PULSE 58–108; RESP 18–34; TEMP 36.1–39.2; O2SAT 92–97
[2023-02-28] MEDS: SODIUM CHLORIDE 0.9% IV 1,000 ML 100 ML IV CONT ×3 (00:01→14:47)
[2023-02-28] MEDS: HEPARIN SOD/D5W 100 UNITS/ML 25,000 UNITS/250 ML BAG 14 UNITS IV CONT (00:02)
[2023-02-28 02:21] LABS: Partial Thromboplastin Time 110.5 SECONDS (22.3-36.8)
[2023-02-28] MEDS: LORazepam INJ (*CRX) 2 MG/ML VIAL IV PUSH ×3 (02:46→06:21)
[2023-02-28 05:18] LABS: Basophils Absolute Auto 0.1 K/mm3 (0.0-0.1); Basophils Percent Auto 0.3 % (0.2-1.2); Eosinophils Percent Auto 0.1 % (0-4.4); Hematocrit 36.4 % (42.0-52.0); Hemoglobin 12.3 g/dL (14.0-18.0); Immature Granulocyte Absolute 0.07 K/mm3 (0.00-0.031); Immature Granulocyte Percent A 0.4 % (0-0.5); Lymphocytes Absolute Auto 2.14 K/mm3 (0.9-3.2); Mean Corpuscular HGB Conc 33.8 g/dl (32-36); Mean Corpuscular Hemoglobin 31.1 pg (26-34); Mean Corpuscular Volume 92.2 fl (80-100); Mean Platelet Volume 11.6 fl (7.4-10.4); Monocytes Absolute Auto 1.5 K/mm3 (0.1-0.6); Monocytes Percent Auto 9.1 % (2.6-8.5); Neutrophils Absolute Auto 12.7 K/mm3 (1.3-6.7); Neutrophils Percent Auto 77.1 % (45.5-73.1); Platelet Count Result 215 k/mm3 (150-375); Red Blood Count 3.95 M/mm3 (4.6-6.20); Red Cell Distribution Width 14.7 % (11.5-14.5); White Blood Count 16.5 K/mm3 (4.5-10.0)
[2023-02-28 05:47] LABS: Alanine Aminotransferase 63 U/L (6-50); Albumin Level 3.6 g/dL (3.5-5.1); Alkaline Phosphatase 78 U/L (38-126); Anion Gap 5 mmol/L (8-16); Aspartate Amino Transferase 174 U/L (17-59); Bilirubin,Total 0.8 mg/dL (0.2-1.3); Blood Urea Nitrogen 8 mg/dL (9-20); Calcium 7.6 mg/dL (8.4-10.2); Carbon Dioxide 25 mmol/L (22-30); Chloride 108 mmol/L (98-107); Cholesterol 111 mg/dL (0-200); Estimated CRCL calculation 75 ml/min; Estimated Glomerular Filt Rate > 60; Glucose 117 mg/dL (65-110); HDL Direct 37 mg/dL; Potassium 2.7 mmol/L (3.4-5.0); Sodium 138 mmol/L (137-145); Triglycerides 110 mg/dL (<150)
[2023-02-28 05:48] LABS: LDL Cholesterol Direct 57 mg/dL
[2023-02-28] MEDS: POTASSIUM CHLORIDE INJ 40 MEQ in SODIUM CHLORIDE 0.9% IV 500 ML 130 MEQ IVPB (07:23)
[2023-02-28 07:36] LABS: Creatine Kinase 9149 U/L (55-170)
[2023-02-28 07:49] LABS: Glucose Point of Care 124 mg/dl (65-105)
[2023-02-28] MEDS: dexmedeTOMIDine 400 MCG/100 ML 400 MCG/100 ML BAG IV CONT (07:52)
--- NOTE | 2023-02-28 08:00 | PC.NURSE ---
This patient, Wes Townsend, was transferred to [ICU room 1 ] on 02/28/23 at 0710. Personal belongings sent with patient. Report given to [NELDA Schmidt ]. Appropriate documentation sent with patient. Notified pt's daughter that pt was transferred to ICU. Pt's daughter, January, states that from her perspective, Pt is not a heavy drinker, and maybe drinks 6 beers/week. January is concerned that pt could have dementia as it runs in their family and that pt was confused at home the day he was brought into the ED.
--- NOTE | 2023-02-28 08:50 | PCOTNOTE ---
Addendum entered by Jami Kaiser, OT 02/28/23 10:38: Spoke with hospitalist who is also in agreement with holding therapy today due to agitation. Original Note: Patient transferred to ICU over night for agitation, RN reports hold today due to being in restraints at this time.
[2023-02-28] MEDS: SODIUM CHLORIDE 0.9% IV 1,000 ML 999 ML IV CONT (08:54)
[2023-02-28] MEDS: FAMOTIDINE 20 MG/2 ML VIAL IV PUSH ×2 (08:56→19:45)
[2023-02-28 08:59] LABS: Partial Thromboplastin Time 33.8 SECONDS (22.3-36.8)
--- NOTE | 2023-02-28 09:53 | PCPTNOTE ---
Addendum entered by Lucía Arciniega, PT 02/28/23 12:41: Spoke with hospitalist who is also in agreement with holding therapy today due to agitation. Original Note: Patient transferred to ICU over night for agitation, RN reports hold today due to being in restraints at this time. Will follow.
[2023-02-28 10:30] LABS: Vancomycin Trough 6.2 ug/mL (10.0-20.0)
[2023-02-28] MEDS: DOXYCYCLINE 100 MG/NS 100 ML 100 MG/100 ML BAG IVPB ×2 (10:33→20:38)
--- NOTE | 2023-02-28 11:37 | PM.IMPN ---
Progress Note: A&P Assessment and Plan (1) Altered mental status: Code(s): R41.82 - Altered mental status, unspecified Status: Acute Assessment and Plan: Appreciate neurology consultation MRI wnl, CTA head and neck wnl, EEG wnl Cont restraints, appreciate parts advisor management Started on empiric abx of rocephin + azithromycin Check PCT, LA, CRP, UA, CXR for possible infectious etiology 02/28: placed in restraints overnight and moved to the ICU, required precedex drip and librium (2) Rhabdomyolysis: Code(s): M62.82 - Rhabdomyolysis Status: Acute Assessment and Plan: Mild elevation at admission with CK 2271, increasing to 5444 02/27, up to 9149 on 02/28 Increase IVF (3) Non-ST elevation [place] (NSTEMI): Code(s): I21.4 - Non-ST elevation (NSTEMI) myocardial infarction Status: Acute Assessment and Plan: Appreciate cardiology consultation, continue heparin drip Troponin has leveled off, slightly up 02/28 to 3.9 from 3.1 on 02/27 (4) Hypertension: Code(s): I10 - Essential (primary) hypertension Status: Acute Assessment and Plan: Blood pressure reviewed 02/28 (5) Alcohol abuse: Code(s): F10.10 - Alcohol abuse, uncomplicated Status: Acute Assessment and Plan: Stable, does not appear to be in withdrawal (6) Hyperlipidemia: Code(s): E78.5 - Hyperlipidemia, unspecified Status: Acute Assessment and Plan: Stable, continue home meds (7) Syncopal episodes: Code(s): R55 - Syncope and collapse Status: Acute (8) Back pain: Code(s): M54.9 - Dorsalgia, unspecified Status: Acute Assessment and Plan: Pain resolved Plan DVT prophylaxis with heparin GI prophylaxis with H2 darci Code status full code Subjective Date/time seen: 02/28/23 11:37 Interval history: 72 year old male with history of alcohol abuse presenting with a fall, +LOC, and tongue biting. Overnight patient became agitated and confused and was placed in restraints. This morning, he was moved to the ICU for closer monitoring. Review of Systems Review of Systems: unable to assess due to ams Exam Narrative: General: In restraints, confused, restless HEENT: Atraumatic, normocephalic, mucous membranes moist CV: Regular rate and rhythm, S1, S2 Lungs: Clear to auscultation bilaterally, no rales or crackles noted, no wheezes, good air entry Abdomen: Soft, nontender, nondistended Extremities: Normal to inspection Skin: No rashes noted, no lesions or wounds seen Psych: Unable to assess Objective Data Vital Signs Vital Signs: Vital Signs - 24 hr 02/27/23 11:51 02/27/23 12:00 02/27/23 16:00 Temperature 98.1 F 97.1 F L Pulse Rate 61 59 L Pulse Rate [Bilateral Pedal (Dorsalis Pedis) Palpation] Respiratory Rate 18 16 Blood Pressure 127/61 123/58 L Pulse Oximetry 96 96 Oxygen Delivery Room Air 02/27/23 12:00 02/27/23 14:00 02/27/23 16:00 Temperature Pulse Rate 59 L 62 59 L Pulse Rate [Bilateral Pedal (Dorsalis Pedis) Palpation] Respiratory Rate Blood Pressure Pulse Oximetry Oxygen Delivery 02/27/23 18:00 02/27/23 16:00 02/27/23 20:00 Temperature 97.6 F Pulse Rate 54 L 66 Pulse Rate [Bilateral Pedal (Dorsalis Pedis) Palpation] Respiratory Rate 20 Blood Pressure 112/57 L Pulse Oximetry 96 Oxygen Delivery Room Air 02/27/23 20:00 02/27/23 20:00 02/27/23 22:00 Temperature Pulse Rate 66 65 Pulse Rate [Bilateral Pedal (Dorsalis Pedis) Palpation] Respiratory Rate Blood Pressure Pulse Oximetry Oxygen Delivery Room Air 02/27/23 23:57 02/28/23 00:00 02/28/23 00:00 Temperature 97.4 F L Pulse Rate 66 65 Pulse Rate [Bilateral Pedal (Dorsalis Pedis) Palpation] Respiratory Rate 18 Blood Pressure 116/61 Pulse Oximetry 94 Oxygen Delivery Room Air 02/28/23 02:00 0
--- NOTE | 2023-02-28 11:44 | PM.PNCARD ---
Progress Note: A&P Assessment and Plan (1) Altered mental status: Code(s): R41.82 - Altered mental status, unspecified Status: Acute Assessment and Plan: Concern for withdrawal. Currently on Precedex drip. (2) Non-ST elevation [place] (NSTEMI): Code(s): I21.4 - Non-ST elevation (NSTEMI) myocardial infarction Status: Acute Assessment and Plan: Patient presented with an unusual history without clear anginal symptoms although cannot exclude upper back pain as anginal equivalent.? Troponin is flat at presentation and significantly elevated with evidence of a prior anteroseptal infarction by ECG but without acute ischemic changes. Given significant troponin elevation at presentation, concern if he had underlying acute coronary syndrome. Given his risk factors, elevated troponin, and abnormal ECG, underlying CAD remains a significant likelihood as he does not report symptoms suggestive CHF, arrhythmic event, and/or myocarditis. Echocardiogram showed LVEF 55-60% with mid and basal anteroseptal, apical anterior and apical septal hypokinesis. Upon our initial consultation on 02/27, Dr. Erwin recommended coronary angiography given concern for underlying CAD and with his significant troponin elevation on presentation. However, patient became quite agitated overnight on 02/27-02/28, and appeared to be going through withdrawal symptoms. He was transferred to the ICU and started on Precedex drip. Patient remains mentally altered. His CK level continues to rise as well. Given this, patient is not a candidate for coronary angiography at this time. Continue heparin infusion for now, recommend Heparin drip for total of 48 hours. To be stopped 02/27 23:59. Continue ASA 81mg once daily. Consider starting statin once his CK levels normalize. Beta darci therapy when able. (3) Rhabdomyolysis: Code(s): M62.82 - Rhabdomyolysis Status: Acute Assessment and Plan: Elevated CK 2271 related to his fall.? Mild acute renal injury at presentation improved.? Continue IV fluids.? Troponin elevation out of proportion to that which may be seen with significant CK elevation.? Monitor electrolytes and renal function closely. His CK level continues to rise at this time (2,271 --> 5,444 --> 9,149) Plan Recommendations / plan discussed with Caddy, Dr. Bush. Subjective Date/time seen: 02/28/23 11:44 Interval history: Reason for visit: Elevated troponin HPI: Patient is a 72-year-old male with a past medical history significant for hypertension, diabetes mellitus with no prior cardiovascular history per his report who presented to the emergency department he states at the behest of his family members after he reports waking up on the floor in his bedroom he believes having falling out of bed although he cannot recall how he got there.? It is reported that he bit his tongue and was incontinent of urine.? He states when he woke up somewhat confused was too weak to get back to bed and later found by his daughter around 130 in the afternoon.? Patient states he initially refused to go the ER in after his family insisted he eventually relented and presented last night.? Patient states he is otherwise very active playing basketball and other sports on a routine basis and has no recent or progressive complaints of dyspnea, chest discomfort, declining activity tolerance, near-syncope or syncope or palpitations.? He states he has never had anything like this happen before.? He has no history of seizures all this is in the differential for which he has been evaluated.? [place] [address], elevated lactic acid a mild hypokalemia.? Urinalysis unremarkable.? BNP was mildly elevated at 753 but CK was 2271 with a significant elevation in his troponin on for an flat on serial evaluation.? His EKG did not reveal acute ischemic changes and CT angio of the chest revealed no aortic dissection or pulmonary embolism.? A T8 com
[2023-02-28 12:02] LABS: Glucose Point of Care 120 mg/dl (65-105)
[2023-02-28 12:04] LABS: CRP 7.6 mg/dL (<1.0)
[2023-02-28 12:12] LABS: Procalcitonin 0.1 ng/mL
[2023-02-28] MEDS: HEPARIN SOD/D5W 100 UNITS/ML 25,000 UNITS/250 ML BAG 12 UNITS IV CONT (12:27)
[2023-02-28 12:35] LABS: Lactic Acid Reflex 1.9 mmol/L (0.7-2.0)
[2023-02-28 12:37] LABS: Appearance Urine Cloudy (Clear); Bacteria Urine None Seen /hpf; Bilirubin Urine Negative (Negative); Blood Urine 3+ (Negative); Color Urine Yellow (Yellow); Glucose Urine UA Negative (Negative); Ketones Urine 2+ mg/dL (Negative); Leukocyte Esterase Ur 2+ LEU/UL (NEGATIVE); Need Manual Microscopic Reviewed; Nitrate Urine Negative (Negative); Protein Urine 1+ mg/dL (Negative); RBC Urine 51-100 /hpf (0-2); Specific Grav Ur 1.018 (1.001-1.035); Squamous Epithelial Cell Urine Occasional /hpf (Few); WBC Urine 51-100 /hpf (0-3); pH Urine 5.5 (5.0-9.0)
[2023-02-28 12:44] LABS: Add Urine Microscopic? YES
--- NOTE | 2023-02-28 14:19 | WPDCNINT ---
Assessment and Plan Assessment and plan (1) Altered mental status: Qualifiers: Altered mental status type: delirium Qualified Code(s): R41.0 - Disorientation, unspecified Code(s): R41.82 - Altered mental status, unspecified Status: Acute Assessment and Plan: Patient with altered mental status, agitation, combativeness, anxious likely related to alcohol withdrawal symptoms, patient was kicking nurses in the intermediate Unit and had to be placed in four-point restraints -patient was transfer the ICU for further management, started on Precedex infusion, patient more calm at this time -will continue thiamine and folic acid -continue Precedex infusion -patient has been placed on Librium (2) Non-ST elevation [place] (NSTEMI): Code(s): I21.4 - Non-ST elevation (NSTEMI) myocardial infarction Status: Acute Assessment and Plan: NSTEMI with elevated troponins but no clear anginal symptoms, the patient was complaining of chest pain and upper back pain. EKG showed anteroseptal infarction without ischemic changes. Patient may have acute coronary syndrome, given risk factors he will require further cardiac workup -echocardiogram showed EF of 55-60% with mid and basal anteroseptal, apical anterior and apical septal hypokinesis -cardiology is recommending coronary angiogram at some point this admission -will continue heparin infusion for now per Cardiology -once his mental status improves he may be a candidate for coronary angiogram (3) Rhabdomyolysis: Code(s): M62.82 - Rhabdomyolysis Status: Acute Assessment and Plan: Rhabdomyolysis most likely related to his fall -CK levels trending up, patient did receive adequate amount of IV fluids, patient given additional 1 L IV fluid bolus 02/28/2023 -will increase maintenance IV fluids -recheck CK level (4) Diabetes: Qualifiers: Diabetes mellitus type: type 2 Diabetes mellitus custodial insulin use: without intermodal truck driver use Diabetes mellitus complication status: with other specified complication Qualified Code(s): E11.69 - Type 2 diabetes mellitus with other specified complication Code(s): E11.9 - Type 2 diabetes mellitus without complications Status: Acute Assessment and Plan: Accu-Cheks and sliding scale insulin (5) Hypertension: Code(s): I10 - Essential (primary) hypertension Status: Acute Assessment and Plan: Essential hypertension, antihypertensives as patient blood pressure is a well controlled since he is on Precedex infusion (6) Alcohol abuse: Code(s): F10.10 - Alcohol abuse, uncomplicated Status: Acute Assessment and Plan: History of alcohol abuse, counseled patient once he is more awake (7) Sepsis: Code(s): A41.9 - Sepsis, unspecified organism Status: Acute Assessment and Plan: Presents with leukocytosis, fever, UTI -ceftriaxone and vancomycin (02/28) 02/26: Blood cultures are negative x2 so far -will deescalate antibiotics Plan DVT prophylaxis: Heparin infusion Stress ulcer prophylaxis: Protonix Nutrition: NPO for now Code Status: Full code Critical Care Time Spent: 47 minutes Discuss with Cardiology, they will continue heparin infusion for a total of 48 hours Due to a high probability of clinically significant, life threatening deterioration, the patient required my highest level of preparedness to intervene emergently and I personally spent this critical care time directly and personally managing the patient. This critical care time included obtaining a history; examining the patient; pulse oximetry; ordering and review of studies; arranging urgent treatment with development of a management plan; evaluation of patient's response to treatment; frequent reassessment; and discussions with other providers. It was exclusive of separately billable procedures and treating other patients and teaching time. Please see Assessment and Plan se
[2023-02-28 14:55] LABS: Creatine Kinase 8014 U/L (55-170)
[2023-02-28 16:38] LABS: Glucose Point of Care 105 mg/dl (65-105)
[2023-02-28] MEDS: traMADol HCL (*CRX) 50 MG TABLET PO (18:31)
[2023-02-28 19:06] LABS: Partial Thromboplastin Time 62.6 SECONDS (22.3-36.8)
[2023-02-28] MEDS: chlordiazePOXIDE (*CRX) 25 MG CAPSULE 50 MG PO (20:00)
[2023-02-28] MEDS: ACETAMINOPHEN 325 MG TABLET 650 MG PO (21:15)
[2023-02-28 21:23] LABS: Glucose Point of Care 112 mg/dl (65-105)
[2023-03-01] VITALS (13 sets, daily range): BP systolic 103–144; BP diastolic 59–111; PULSE 57–91; RESP 19–32; TEMP 36.8–37.4; O2SAT 91–98
[2023-03-01] MEDS: SODIUM CHLORIDE 0.9% IV 1,000 ML 125 ML IV CONT ×2 (02:18→15:07)
[2023-03-01] MEDS: traMADol HCL (*CRX) 50 MG TABLET PO ×2 (02:19→20:46)
[2023-03-01] MEDS: chlordiazePOXIDE (*CRX) 25 MG CAPSULE 50 MG PO ×4 (02:20→20:47)
[2023-03-01 05:51] LABS: Glucose Point of Care 95 mg/dl (65-105)
[2023-03-01 07:13] LABS: Alanine Aminotransferase 63 U/L (6-50); Albumin Level 3.5 g/dL (3.5-5.1); Alkaline Phosphatase 83 U/L (38-126); Anion Gap 7 mmol/L (8-16); Aspartate Amino Transferase 110 U/L (17-59); Bilirubin,Total 1.7 mg/dL (0.2-1.3); Blood Urea Nitrogen 8 mg/dL (9-20); Calcium 7.4 mg/dL (8.4-10.2); Carbon Dioxide 21 mmol/L (22-30); Chloride 110 mmol/L (98-107); Estimated CRCL calculation 75 ml/min; Estimated Glomerular Filt Rate > 60; Glucose 89 mg/dL (65-110); Potassium 2.6 mmol/L (3.4-5.0); Sodium 138 mmol/L (137-145)
[2023-03-01 07:16] LABS: Basophils Absolute Auto 0.1 K/mm3 (0.0-0.1); Basophils Percent Auto 0.4 % (0.2-1.2); Eosinophils Percent Auto 0.1 % (0-4.4); Hematocrit 37.2 % (42.0-52.0); Hemoglobin 12.3 g/dL (14.0-18.0); Immature Granulocyte Absolute 0.11 K/mm3 (0.00-0.031); Immature Granulocyte Percent A 0.7 % (0-0.5); Lymphocytes Absolute Auto 2.69 K/mm3 (0.9-3.2); Mean Corpuscular HGB Conc 33.1 g/dl (32-36); Mean Corpuscular Hemoglobin 30.8 pg (26-34); Mean Platelet Volume 11.6 fl (7.4-10.4); Monocytes Absolute Auto 1.5 K/mm3 (0.1-0.6); Monocytes Percent Auto 9.1 % (2.6-8.5); Neutrophils Absolute Auto 12.4 K/mm3 (1.3-6.7); Neutrophils Percent Auto 73.7 % (45.5-73.1); Platelet Count Result 191 k/mm3 (150-375); Red Cell Distribution Width 14.7 % (11.5-14.5); White Blood Count 16.8 K/mm3 (4.5-10.0)
[2023-03-01] MEDS: POTASSIUM CHLORIDE 20 MEQ TABLET 40 MEQ PO (07:31)
[2023-03-01 07:35] LABS: Creatine Kinase 5264 U/L (55-170)
[2023-03-01] MEDS: POTASSIUM CHLORIDE INJ 40 MEQ in SODIUM CHLORIDE 0.9% IV 500 ML 130 MEQ IVPB (07:44)
[2023-03-01] MEDS: DOXYCYCLINE 100 MG/NS 100 ML 100 MG/100 ML BAG IVPB ×2 (08:11→22:00)
[2023-03-01] MEDS: PARoxetine 10 MG TABLET 30 MG PO (08:11)
[2023-03-01] MEDS: THIAMINE HCL 200 MG/2 ML VIAL 100 MG IV PUSH (08:12)
[2023-03-01] MEDS: ASPIRIN 81 MG ENTERIC TABLET PO (08:12)
[2023-03-01] MEDS: FAMOTIDINE 20 MG/2 ML VIAL IV PUSH ×2 (08:12→20:46)
[2023-03-01] MEDS: PANTOPRAZOLE SODIUM IV 40 MG VIAL IV PUSH (08:13)
[2023-03-01] MEDS: FOLIC ACID 1 MG/0.2 ML INJ IV PUSH (08:13)
--- NOTE | 2023-03-01 08:53 | WPDINTPN ---
Progress Note: A&P Assessment and Plan (1) Altered mental status: Qualifiers: Altered mental status type: delirium Qualified Code(s): R41.0 - Disorientation, unspecified Code(s): R41.82 - Altered mental status, unspecified Status: Acute Assessment and Plan: 02/28/2023: Patient with altered mental status, agitation, combativeness, anxious likely related to alcohol withdrawal symptoms, patient was kicking nurses in the intermediate Unit and had to be placed in four-point restraints, was transferred to the ICU for further management, started on Precedex infusion, patient more calm at this time -will continue thiamine and folic acid -off Precedex, calm and pleasant -continue Librium -p.r.n. Ativan (2) Non-ST elevation [place] (NSTEMI): Code(s): I21.4 - Non-ST elevation (NSTEMI) myocardial infarction Status: Acute Assessment and Plan: NSTEMI with elevated troponins but no clear anginal symptoms, the patient was complaining of chest pain and upper back pain. EKG showed anteroseptal infarction without ischemic changes. Patient may have acute coronary syndrome, given risk factors he will require further cardiac workup -echocardiogram showed EF of 55-60% with mid and basal anteroseptal, apical anterior and apical septal hypokinesis -cardiology is recommending coronary angiogram at some point this admission -patient has been off heparin infusion per Cardiology -will discuss with Cardiology regarding coronary angiogram -will add metoprolol (3) Rhabdomyolysis: Code(s): M62.82 - Rhabdomyolysis Status: Acute Assessment and Plan: Rhabdomyolysis most likely related to his fall -CK levels trending up, patient did receive adequate amount of IV fluids, patient given additional 1 L IV fluid bolus 02/28/2023 -continue maintenance IV fluids -CK levels trending down (4) Diabetes: Qualifiers: Diabetes mellitus type: type 2 Diabetes mellitus terminal gauger supervisor insulin use: without terminal gauger supervisor use Diabetes mellitus complication status: with other specified complication Qualified Code(s): E11.69 - Type 2 diabetes mellitus with other specified complication Code(s): E11.9 - Type 2 diabetes mellitus without complications Status: Acute Assessment and Plan: Accu-Cheks and sliding scale insulin (5) Hypertension: Code(s): I10 - Essential (primary) hypertension Status: Acute Assessment and Plan: Essential hypertension, -will add metoprolol (6) Alcohol abuse: Code(s): F10.10 - Alcohol abuse, uncomplicated Status: Acute Assessment and Plan: History of alcohol abuse, counseled patient on cessation of alcohol use (7) Sepsis: Code(s): A41.9 - Sepsis, unspecified organism Status: Acute Assessment and Plan: Presents with leukocytosis, fever, UTI -ceftriaxone and vancomycin (02/28) 02/26: Blood cultures are negative x2 so far 02/27: MRSA screen was negative (8) Electrolyte imbalance: Code(s): E87.8 - Other disorders of electrolyte and fluid balance, not elsewhere classified Status: Acute Assessment and Plan: Will replace potassium Plan DVT prophylaxis: Heparin infusion Stress ulcer prophylaxis: Protonix Nutrition: NPO for now Code Status: Full code Critical Care Time Spent: 33 minutes Updated patient with his condition and plan of care, he is aware that will be getting an angiogram some point this admission Due to a high probability of clinically significant, life threatening deterioration, the patient required my highest level of preparedness to intervene emergently and I personally spent this critical care time directly and personally managing the patient. This critical care time included obtaining a history; examining the patient; pulse oximetry; ordering and review of studies; arranging urgent treatment with development of a management plan; evaluation of patient's response to treatment;
[2023-03-01] MEDS: METOPROLOL TARTRATE 25 MG TABLET PO ×2 (09:59→20:46)
--- NOTE | 2023-03-01 10:09 | PM.PNCARD ---
Progress Note: A&P Assessment and Plan (1) Altered mental status: Qualifiers: Altered mental status type: delirium Qualified Code(s): R41.0 - Disorientation, unspecified Code(s): R41.82 - Altered mental status, unspecified Status: Acute Assessment and Plan: Resolved. Mental status is back to baseline now. (2) Non-ST elevation [place] (NSTEMI): Code(s): I21.4 - Non-ST elevation (NSTEMI) myocardial infarction Status: Acute Assessment and Plan: Patient presented with an unusual history without clear anginal symptoms although cannot exclude upper back pain as anginal equivalent.? Troponin is flat at presentation and significantly elevated with evidence of a prior anteroseptal infarction by ECG but without acute ischemic changes. Given significant troponin elevation at presentation, concern if he had underlying acute coronary syndrome. Given his risk factors, elevated troponin, and abnormal ECG, underlying CAD remains a significant likelihood as he does not report symptoms suggestive CHF, arrhythmic event, and/or myocarditis. Echocardiogram showed LVEF 55-60% with mid and basal anteroseptal, apical anterior and apical septal hypokinesis. Upon our initial consultation on 02/27, Dr. Erwin recommended coronary angiography given concern for underlying CAD and with his significant troponin elevation on presentation. However, patient became quite agitated overnight on 02/27-02/28, and appeared to be going through withdrawal symptoms. He was transferred to the ICU and started on Precedex drip. His CK level continued to rise as well. Given this, patient was not a candidate for coronary angiography at the time of my evaluation of 02/28. Completed Heparin drip x 48 hours. Continue ASA 81mg once daily. Consider starting statin once his CK levels normalize. Beta darci therapy when able. Will allow patient to recover more prior to coronary angiography. Tentatively will plan for coronary angiography on Sunday 03/04. (3) Rhabdomyolysis: Code(s): M62.82 - Rhabdomyolysis Status: Acute Assessment and Plan: Elevated CK 2271 related to his fall.? Mild acute renal injury at presentation improved.? Troponin elevation out of proportion to that which may be seen with significant CK elevation.? Monitor electrolytes and renal function closely. His CK level is now starting to go down (2,271 --> 5,444 --> 9,149 --> 5,264) Plan Recommendations / plan discussed with Service Station Cashier, Dr. Bush. Subjective Date/time seen: 03/01/23 10:09 Interval history: Reason for visit: Elevated troponin HPI: Patient is a 72-year-old male with a past medical history significant for hypertension, diabetes mellitus with no prior cardiovascular history per his report who presented to the emergency department he states at the behest of his family members after he reports waking up on the floor in his bedroom he believes having falling out of bed although he cannot recall how he got there.? It is reported that he bit his tongue and was incontinent of urine.? He states when he woke up somewhat confused was too weak to get back to bed and later found by his daughter around 130 in the afternoon.? Patient states he initially refused to go the ER in after his family insisted he eventually relented and presented last night.? Patient states he is otherwise very active playing basketball and other sports on a routine basis and has no recent or progressive complaints of dyspnea, chest discomfort, declining activity tolerance, near-syncope or syncope or palpitations.? He states he has never had anything like this happen before.? He has no history of seizures all this is in the differential for which he has been evaluated.? [place] [address], elevated lactic acid a mild hypokalemia.? Urinalysis unremarkable.? BNP was mildly elevated at 753 but CK was 2271 with a significant elevation in his troponin on for an flat on
[2023-03-01] MEDS: ENOXAPARIN 40 MG/0.4 ML SYRINGE SUB-Q (11:10)
--- NOTE | 2023-03-01 11:51 | PCOTNOTE ---
Per RN, patient not following commands very well and just got back into bed. Requested therapy try this PM to see patient for OT. Will continue plan of care.
[2023-03-01] MEDS: QUEtiapine FUMARATE 12.5 MG TABLET PO ×2 (16:10→20:48)
--- NOTE | 2023-03-01 19:35 | PM.IMPN ---
Progress Note: A&P Assessment and Plan (1) Altered mental status: Qualifiers: Altered mental status type: delirium Qualified Code(s): R41.0 - Disorientation, unspecified Code(s): R41.82 - Altered mental status, unspecified Status: Acute Assessment and Plan: Appreciate neurology consultation MRI wnl, CTA head and neck wnl, EEG wnl Cont restraints, appreciate die filer management Started on empiric abx of rocephin + azithromycin Check PCT, LA, CRP, UA, CXR for possible infectious etiology 02/28: placed in restraints overnight and moved to the ICU, required precedex drip and librium 03/01: weaned off Precedex drip, intermittently requiring restraints, start Seroquel, would likely need Aricept and Namenda at discharge for acute delirium superimposed on top of suspected dementia (2) Rhabdomyolysis: Code(s): M62.82 - Rhabdomyolysis Status: Acute Assessment and Plan: Mild elevation at admission with CK 2271, increasing to 5444 02/27, up to 9149 on 02/28, decreasing, monitor (3) Non-ST elevation [place] (NSTEMI): Code(s): I21.4 - Non-ST elevation (NSTEMI) myocardial infarction Status: Acute Assessment and Plan: Appreciate cardiology consultation, continue heparin drip Troponin has leveled off, slightly up 02/28 to 3.9 from 3.1 on 02/27 (4) Hypertension: Code(s): I10 - Essential (primary) hypertension Status: Acute Assessment and Plan: Blood pressure reviewed 03/01 (5) Alcohol abuse: Code(s): F10.10 - Alcohol abuse, uncomplicated Status: Acute Assessment and Plan: Stable, does not appear to be in withdrawal (6) Hyperlipidemia: Code(s): E78.5 - Hyperlipidemia, unspecified Status: Acute Assessment and Plan: Stable, continue home meds (7) Syncopal episodes: Code(s): R55 - Syncope and collapse Status: Acute (8) Back pain: Code(s): M54.9 - Dorsalgia, unspecified Status: Acute Assessment and Plan: Pain resolved Plan DVT prophylaxis with heparin GI prophylaxis with H2 darci Code status full code Subjective Date/time seen: 03/01/23 19:35 Interval history: 72 year old male with history of alcohol abuse presenting with a fall, +LOC, and tongue biting. Patient has been intermittently confused and combative. He states he is trying to get along with everyone but occasionally feels confused what is happening. He is especially triggered by his Nam catheter and IV fluids. Daughter came in and patient has been calm and cooperative since then. She relates a 6-12 month history of progressively worsening short-term memory loss and occasional confusion episodes. Dementia, specifically Alzheimer's, runs in the family. Review of Systems Review of Systems: 12 point review of systems was assessed and was negative except as noted in the HPI Exam Narrative: General: No acute distress, alert and oriented per baseline HEENT: Atraumatic, normocephalic, mucous membranes moist CV: Regular rate and rhythm, S1, S2 Lungs: Clear to auscultation bilaterally, no rales or crackles noted, no wheezes, good air entry Abdomen: Soft, nontender, nondistended Extremities: Normal to inspection Skin: No rashes noted, no lesions or wounds seen Psych: Appears to have limited judgment and insight but is cooperative and calm Objective Data Vital Signs Vital Signs: Vital Signs - 24 hr 02/28/23 20:00 02/28/23 20:00 02/28/23 20:00 Temperature 100.4 F H Pulse Rate 88 Pulse Rate [Bilateral Pedal (Dorsalis Pedis) Palpation] 74 Respiratory Rate 34 H Blood Pressure 152/66 H Pulse Oximetry 95 96 Oxygen Delivery Nasal Cannula Oxygen Flow Rate 4 02/28/23 21:15 02/28/23 20:00 02/28/23 21:59 Temperature 102.6 F H Pulse Rate 82 78 Pulse Rate [Bilateral Pedal (Dorsalis Pedis) Palpation] Respiratory Rate 26 H Blood
[2023-03-01] MEDS: LORazepam INJ (*CRX) 2 MG/ML VIAL IV PUSH ×2 (21:25→23:25)
[2023-03-01 22:28] LABS: Vancomycin Trough 13.1 ug/mL (10.0-20.0)
[2023-03-01] MEDS: HALOPERIDOL LACTATE 5 MG/ML VIAL IM (23:02)
[2023-03-02] VITALS (12 sets, daily range): BP systolic 103–149; BP diastolic 62–86; PULSE 63–96; RESP 14–37; TEMP 36.9–38.3; O2SAT 91–96
--- NOTE | 2023-03-02 00:57 | ECG_ITS ---
Measurements Intervals [place] Rate: 79 P: 57 CO: 164 QRS: 83 QRSD: 92 T: 88 QT: 402 QTc: 463 Interpretive Statements SINUS RHYTHM INCOMPLETE RIGHT BUNDLE BRANCH BLOCK ANTEROSEPTAL INFARCT, AGE INDETERMINATE BORDERLINE ST-T WAVE ABNORMALITY- ANTEROLAT/HIGH LAT LEADS BASELINE WANDER- V3-V6 ABNORMAL ECG COMPARED TO ECG 02/27/2023 13:09:55 NO SIGNIFICANT CHANGES Electronically Signed On 03-02-2023 8:47:19 CDT by Elieser Quesada D.O.
[2023-03-02] MEDS: diphenhydrAMINE HCl INJ 50 MG/ML VIAL IV PUSH (01:34)
[2023-03-02] MEDS: QUEtiapine FUMARATE 25 MG TABLET 75 MG PO (01:34)
[2023-03-02 05:59] LABS: Basophils Percent Auto 0.3 % (0.2-1.2); Eosinophils Percent Auto 0.2 % (0-4.4); Hematocrit 36.9 % (42.0-52.0); Hemoglobin 12.5 g/dL (14.0-18.0); Immature Granulocyte Absolute 0.08 K/mm3 (0.00-0.031); Immature Granulocyte Percent A 0.5 % (0-0.5); Lymphocytes Absolute Auto 2.32 K/mm3 (0.9-3.2); Lymphocytes Percent Auto 14.7 % (18.3-44.2); Mean Corpuscular HGB Conc 33.9 g/dl (32-36); Mean Corpuscular Hemoglobin 31.2 pg (26-34); Mean Platelet Volume 11.4 fl (7.4-10.4); Monocytes Absolute Auto 1.4 K/mm3 (0.1-0.6); Monocytes Percent Auto 8.9 % (2.6-8.5); Neutrophils Absolute Auto 11.9 K/mm3 (1.3-6.7); Neutrophils Percent Auto 75.4 % (45.5-73.1); Nucleated Red Blood Cells Perc 0.2 % (0.0-0.2); Platelet Count Result 220 k/mm3 (150-375); Red Blood Count 4.01 M/mm3 (4.6-6.20); Red Cell Distribution Width 14.6 % (11.5-14.5); White Blood Count 15.8 K/mm3 (4.5-10.0)
[2023-03-02 06:16] LABS: Alanine Aminotransferase 73 U/L (6-50); Albumin Level 3.7 g/dL (3.5-5.1); Alkaline Phosphatase 85 U/L (38-126); Anion Gap 10 mmol/L (8-16); Aspartate Amino Transferase 106 U/L (17-59); Bilirubin,Total 1.7 mg/dL (0.2-1.3); Blood Urea Nitrogen 8 mg/dL (9-20); Carbon Dioxide 25 mmol/L (22-30); Chloride 105 mmol/L (98-107); Estimated CRCL calculation 67 ml/min; Estimated Glomerular Filt Rate > 60; Glucose 95 mg/dL (65-110); Potassium 2.6 mmol/L (3.4-5.0); Sodium 140 mmol/L (137-145)
[2023-03-02 07:10] LABS: Creatine Kinase 4750 U/L (55-170)
[2023-03-02] MEDS: KCL 40 MEQ/0.9% SOD CHL 1,000 ML 100 ML IV CONT ×2 (07:15→17:41)
[2023-03-02 09:24] LABS: Base Excess ABG -1.3 mEq/l (+/-2.0); Fractional Inspired Oxygen 80 %; HCO3 ABG 21.1 mEq/l (22.0-26.0); Oxygen Content ABG 15.7 %vol (16.0-22.0); Oxygen Saturation ABG 90.9 % (95.0-100.0); PCO2 ABG 28.8 mmHg (35.0-45.0); PO2 ABG 54.2 mmHg (80.0-100.0); PO2 FiO2 Ratio Arterial Blood 0.68 %; Total Hemoglobin 12.7 g/dL (12.0-18.0); pH ABG 7.482 (7.350-7.450)
[2023-03-02] MEDS: FOLIC ACID 1 MG/0.2 ML INJ IV PUSH (09:24)
[2023-03-02] MEDS: ASPIRIN 81 MG ENTERIC TABLET PO (09:25)
[2023-03-02] MEDS: PARoxetine 10 MG TABLET 30 MG PO (09:25)
[2023-03-02] MEDS: FAMOTIDINE 20 MG/2 ML VIAL IV PUSH ×2 (09:25→21:13)
[2023-03-02] MEDS: METOPROLOL TARTRATE 25 MG TABLET PO (09:25)
[2023-03-02] MEDS: THIAMINE HCL 200 MG/2 ML VIAL 100 MG IV PUSH (09:25)
[2023-03-02 09:26] LABS: Oxyhemoglobin 87.7 % THb (90.0-100.0)
[2023-03-02] MEDS: ENOXAPARIN 40 MG/0.4 ML SYRINGE SUB-Q (09:26)
[2023-03-02 09:27] LABS: Device HIGH FLOW NASAL CANN; Modified Allen's Test Pass; Site Drawn LEFT RADIAL
[2023-03-02] MEDS: QUEtiapine FUMARATE 12.5 MG TABLET PO (09:27)
[2023-03-02] MEDS: PANTOPRAZOLE SODIUM IV 40 MG VIAL IV PUSH (09:27)
[2023-03-02] MEDS: chlordiazePOXIDE (*CRX) 25 MG CAPSULE 50 MG PO ×2 (09:30→15:08)
[2023-03-02] MEDS: DOXYCYCLINE 100 MG/NS 100 ML 100 MG/100 ML BAG IVPB (09:30)
[2023-03-02] MEDS: POTASSIUM CHLORIDE 20 MEQ TABLET 40 MEQ PO (09:30)
[2023-03-02 10:01] LABS: Magnesium 1.8 mg/dL (1.6-2.3)
--- NOTE | 2023-03-02 10:17 | PM.IMPN ---
Progress Note: A&P Assessment and Plan (1) Respiratory failure: Code(s): J96.90 - Respiratory failure, unspecified, unspecified whether with hypoxia or hypercapnia Status: Acute Assessment and Plan: Originally placed on ropcehin + azithro at admission 02/26, stable on room air at that time Oxygen requirement went up to 3-4L 02/28 with fevers, PCT 0.1, CXR benign, then fevers resolved and patient remained asymptomatic 03/01, then he jumped up to 12-14L hi juve 03/02 03/02: Abx escalated to vanc, zosyn, levaquin, concern for sepsis and asp pna, npo, swallow eval pending, COVID/flu/RSV pending, concern for intubation risk, ambulance attendant aware, start nebs and give lasix, patient noted to be volume overloaded on Is/Os (2) Altered mental status: Qualifiers: Altered mental status type: delirium Qualified Code(s): R41.0 - Disorientation, unspecified Code(s): R41.82 - Altered mental status, unspecified Status: Acute Assessment and Plan: Appreciate neurology consultation MRI wnl, CTA head and neck wnl, EEG wnl Cont restraints, appreciate ambulance attendant management Started on empiric abx of rocephin + azithromycin Check PCT, LA, CRP, UA, CXR for possible infectious etiology 02/28: placed in restraints overnight and moved to the ICU, required precedex drip and librium 03/01: weaned off Precedex drip, intermittently requiring restraints, start Seroquel, would likely need Aricept and Namenda at discharge for acute delirium superimposed on top of suspected dementia 03/02: overnight became combative again and was given benadryl 50 mg IV, seroquel 75 mg, haldol 5 mg, also had resp failure, hypotension and fever, swallow study when more alert, npo for now, concern for sepsis (3) Rhabdomyolysis: Code(s): M62.82 - Rhabdomyolysis Status: Acute Assessment and Plan: Mild elevation at admission with CK 2271, peaked at 9149 on 02/28, down to 4750 03/02, cont to monitor (4) Non-ST elevation [place] (NSTEMI): Code(s): I21.4 - Non-ST elevation (NSTEMI) myocardial infarction Status: Acute Assessment and Plan: Appreciate cardiology consultation, continue heparin drip Troponin has leveled off, slightly up 02/28 to 3.9 from 3.1 on 02/27 (5) Hypertension: Code(s): I10 - Essential (primary) hypertension Status: Acute Assessment and Plan: Blood pressure reviewed 03/02 (6) Alcohol abuse: Code(s): F10.10 - Alcohol abuse, uncomplicated Status: Acute Assessment and Plan: Stable, does not appear to be in withdrawal (7) Hyperlipidemia: Code(s): E78.5 - Hyperlipidemia, unspecified Status: Acute Assessment and Plan: Stable, continue home meds (8) Syncopal episodes: Code(s): R55 - Syncope and collapse Status: Acute (9) Back pain: Code(s): M54.9 - Dorsalgia, unspecified Status: Acute Assessment and Plan: Pain resolved (10) Hypokalemia: Code(s): E87.6 - Hypokalemia Status: Acute Assessment and Plan: Quite low, continue repletion and recheck, unsure of etiology, no diarrhea, check magnesium Plan DVT prophylaxis with heparin GI prophylaxis with H2 darci Code status full code Subjective Date/time seen: 03/02/23 10:17 Interval history: 72 year old male with history of alcohol abuse presenting with a fall, +LOC, and tongue biting. Worsened resp status overnight, satting 91% on 12L hi juve nc, up from 3L yesterday. Low grade fevers noted overnight, Tmax 99.2. Review of Systems Review of Systems: ROS unobtainable: Yes unobtainable due to mental status Exam Narrative: General: Somnolent, difficult to arouse HEENT: Atraumatic, normocephalic, mucous membranes moist CV: Regular rate and rhythm, S1, S2 Lungs: Coarse breath sounds throughout, upper airway gurgling noted Abdomen: Soft, nontender, nondistended Extremities: Normal to in
[2023-03-02] MEDS: FUROSEMIDE INJ 40 MG/4 ML VIAL IV PUSH (11:39)
[2023-03-02 11:52] LABS: Lactic Acid Reflex 0.9 mmol/L (0.7-2.0)
[2023-03-02 11:54] LABS: Potassium 2.7 mmol/L (3.4-5.0)
[2023-03-02 12:04] LABS: NT Pro B Type Natriuretic Pept 12500 pg/mL (19.9-100)
[2023-03-02 12:08] LABS: CRP 25.9 mg/dL (<1.0)
[2023-03-02 12:11] LABS: Magnesium 1.7 mg/dL (1.6-2.3)
[2023-03-02] MEDS: PIPERACILLN/TAZ 3.375GM/NS50ML 3.375 GM/50 ML BAG IVPB ×3 (12:35→23:23)
[2023-03-02 12:37] LABS: Procalcitonin 0.3 ng/mL
[2023-03-02] MEDS: IPRATROPIUM BR 0.02% INH SOLN 0.5 MG/2.5 ML VIAL INHALATION ×2 (13:09→21:00)
[2023-03-02] MEDS: LEVALBUTEROL NEB 1.25 MG/3 ML INHALATION ×2 (13:09→21:01)
[2023-03-02 15:55] LABS: Influenza A QL RT-PCR Negative (Negative); Influenza B QL RT-PCR Negative (Negative); RSV RNA, RT-PCR Negative (Negative); SARS-CoV-2 RNA PCR Negative (Negative)
[2023-03-02] MEDS: POTASSIUM CHLORIDE INJ 40 MEQ in SODIUM CHLORIDE 0.9% IV 500 ML 130 MEQ IVPB (17:00)
[2023-03-02] MEDS: ACETAMINOPHEN 325 MG TABLET 650 MG PO (17:19)
[2023-03-02 22:51] LABS: Vancomycin Trough 20.7 ug/mL (10.0-20.0)
[2023-03-03] VITALS (20 sets, daily range): BP systolic 109–147; BP diastolic 72–91; PULSE 74–91; RESP 16–32; TEMP 36.6–38; O2SAT 91–100
[2023-03-03] MEDS: IPRATROPIUM BR 0.02% INH SOLN 0.5 MG/2.5 ML VIAL INHALATION ×4 (02:43→20:27)
[2023-03-03] MEDS: LEVALBUTEROL NEB 1.25 MG/3 ML INHALATION ×4 (02:44→20:27)
[2023-03-03 03:38] LABS: Basophils Percent Auto 0.3 % (0.2-1.2); Eosinophils Absolute Auto 0.1 K/mm3 (0-0.3); Eosinophils Percent Auto 0.7 % (0-4.4); Hematocrit 37.8 % (42.0-52.0); Hemoglobin 12.7 g/dL (14.0-18.0); Immature Granulocyte Absolute 0.08 K/mm3 (0.00-0.031); Immature Granulocyte Percent A 0.6 % (0-0.5); Lymphocytes Absolute Auto 1.93 K/mm3 (0.9-3.2); Mean Corpuscular HGB Conc 33.6 g/dl (32-36); Mean Corpuscular Hemoglobin 30.9 pg (26-34); Mean Platelet Volume 10.8 fl (7.4-10.4); Monocytes Absolute Auto 1.3 K/mm3 (0.1-0.6); Monocytes Percent Auto 9.5 % (2.6-8.5); Neutrophils Absolute Auto 10.3 K/mm3 (1.3-6.7); Neutrophils Percent Auto 74.9 % (45.5-73.1); Platelet Count Result 254 k/mm3 (150-375); Red Blood Count 4.11 M/mm3 (4.6-6.20); Red Cell Distribution Width 14.6 % (11.5-14.5); White Blood Count 13.8 K/mm3 (4.5-10.0)
[2023-03-03 03:55] LABS: Alanine Aminotransferase 63 U/L (6-50); Albumin Level 3.3 g/dL (3.5-5.1); Alkaline Phosphatase 102 U/L (38-126); Anion Gap 7 mmol/L (8-16); Aspartate Amino Transferase 75 U/L (17-59); Bilirubin,Total 2.1 mg/dL (0.2-1.3); Blood Urea Nitrogen 7 mg/dL (9-20); Calcium 7.6 mg/dL (8.4-10.2); Carbon Dioxide 26 mmol/L (22-30); Chloride 107 mmol/L (98-107); Estimated CRCL calculation 67 ml/min; Estimated Glomerular Filt Rate > 60; Glucose 118 mg/dL (65-110); Potassium 2.7 mmol/L (3.4-5.0); Sodium 140 mmol/L (137-145)
[2023-03-03] MEDS: POTASSIUM CHLORIDE INJ 40 MEQ in SODIUM CHLORIDE 0.9% IV 500 ML 130 MEQ IVPB ×3 (05:16→19:50)
[2023-03-03] MEDS: PIPERACILLN/TAZ 3.375GM/NS50ML 3.375 GM/50 ML BAG IVPB (06:36)
[2023-03-03] MEDS: ASPIRIN 81 MG ENTERIC TABLET PO (09:29)
[2023-03-03] MEDS: chlordiazePOXIDE (*CRX) 25 MG CAPSULE 50 MG PO (09:29)
[2023-03-03] MEDS: THIAMINE HCL 200 MG/2 ML VIAL 100 MG IV PUSH (09:30)
[2023-03-03] MEDS: QUEtiapine FUMARATE 12.5 MG TABLET PO ×2 (09:30→20:36)
[2023-03-03] MEDS: FAMOTIDINE 20 MG/2 ML VIAL IV PUSH ×2 (09:30→20:36)
[2023-03-03] MEDS: ENOXAPARIN 40 MG/0.4 ML SYRINGE SUB-Q (09:30)
[2023-03-03] MEDS: PARoxetine 10 MG TABLET 30 MG PO (09:31)
[2023-03-03] MEDS: METOPROLOL TARTRATE 25 MG TABLET PO ×2 (09:31→20:37)
[2023-03-03] MEDS: PANTOPRAZOLE SODIUM IV 40 MG VIAL IV PUSH (09:31)
--- NOTE | 2023-03-03 09:38 | PM.IMPN ---
Progress Note: A&P Assessment and Plan (1) Respiratory failure: Code(s): J96.90 - Respiratory failure, unspecified, unspecified whether with hypoxia or hypercapnia Status: Acute Assessment and Plan: 02/26: Originally placed on rocephin + azithro at admission 02/26, stable on room air at that time Oxygen requirement went up to 3-4L 02/28 with fevers, PCT 0.1, CXR benign, then fevers resolved and patient remained asymptomatic 03/01, then he jumped up to 12-14L hi juve 03/02. 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 Give another dose of lasix. CXR + CT abd/pelvis consistent with pna vs pulm edema, no other source of infection identified. PCT up to 0.3 from 0.1. CRP up to 31 from 7. F/u blood cultures, cx from 02/26 NGTD, repeat cx from 03/02 pending, speech therapy consult pending. PT/OT. Recheck UA. (2) Altered mental status: Qualifiers: Altered mental status type: delirium Qualified Code(s): R41.0 - Disorientation, unspecified Code(s): R41.82 - Altered mental status, unspecified Status: Acute Assessment and Plan: Neurology consultation noted MRI wnl, CTA head and neck wnl, EEG wnl Cont restraints, appreciate steel detailer management 02/28: placed in restraints overnight and moved to the ICU, required precedex drip and librium 03/01: weaned off Precedex drip, intermittently requiring restraints, start Seroquel, would likely need Aricept and Namenda at discharge for acute delirium superimposed on top of suspected dementia 03/02: overnight became combative again and was given benadryl 50 mg IV, seroquel 75 mg, haldol 5 mg, also had resp failure, hypotension and fever, swallow study when more alert, npo for now, concern for sepsis 03/03: still somewhat altered from baseline, fever noted 100.4 overnight, leuk improving, cont current management, see above (3) Rhabdomyolysis: Code(s): M62.82 - Rhabdomyolysis Status: Acute Assessment and Plan: Mild elevation at admission with CK 2271, peaked at 9149 on 02/28, down to 4750 03/02 Off IVF due to volume overload and receiving lasix, monitor closely (4) Hypokalemia: Code(s): E87.6 - Hypokalemia Status: Acute Assessment and Plan: Quite low, continue repletion and recheck, unsure of etiology, no diarrhea, check magnesium Unsure of etiology, continues to be low despite repletion (5) Non-ST elevation [place] (NSTEMI): Code(s): I21.4 - Non-ST elevation (NSTEMI) myocardial infarction Status: Acute Assessment and Plan: Appreciate cardiology consultation, continue heparin drip Troponin has leveled off, slightly up 02/28 to 3.9 from 3.1 on 02/27 (6) Hypertension: Code(s): I10 - Essential (primary) hypertension Status: Acute Assessment and Plan: Blood pressure reviewed 03/03 (7) Alcohol abuse: Code(s): F10.10 - Alcohol abuse, uncomplicated Status: Acute Assessment and Plan: Stable, does not appear to be in withdrawal Daughter and family state patient is not a daily drinker, no concern for alcohol abuse per family or patient, no signs of alcohol withdrawal, will d/c CIWA D/c librium (8) Hyperlipidemia: Code(s): E78.5 - Hyperlipidemia, unspecified Status: Acute Assessment and Plan: Stable, continue home meds (9) Syncopal episodes: Code(s): R55 - Syncope and collapse Status: Acute (10) Back pain: Code(s): M54.9 - Dorsalgia, unspecified Status: Acute Assessment and Plan: Pain resolved Plan DVT prophylaxis with heparin GI prophylaxis with H2 darci Code status full code Sub
[2023-03-03 10:54] LABS: Lactic Acid Reflex 1.4 mmol/L (0.7-2.0)
[2023-03-03 11:02] LABS: Creatine Kinase 2204 U/L (55-170)
[2023-03-03 11:10] LABS: Procalcitonin 0.3 ng/mL
[2023-03-03 11:25] LABS: CRP 31.6 mg/dL (<1.0)
[2023-03-03] MEDS: FUROSEMIDE INJ 40 MG/4 ML VIAL IV PUSH (11:39)
[2023-03-03] MEDS: FOLIC ACID 1 MG/0.2 ML INJ IV PUSH (11:45)
--- NOTE | 2023-03-03 14:21 | PCSTNOTE ---
Please refer to the Bedside Swallow Evaluation in the EMR. Please note, silent aspiration cannot be ruled out at bedside.
[2023-03-03] MEDS: MEROPENEM 500 MG in SODIUM CHLORIDE 0.9% IV 100 ML 200 ML IVPB ×2 (15:14→23:21)
[2023-03-03 17:59] LABS: Appearance Urine Clear (Clear); Bilirubin Urine Negative (Negative); Color Urine Yellow (Yellow); Glucose Urine UA Negative (Negative); Ketones Urine 1+ mg/dL (Negative); Leukocyte Esterase Ur 1+ LEU/UL (NEGATIVE); Nitrate Urine Negative (Negative); Protein Urine Negative (Negative); Specific Grav Ur 1.011 (1.001-1.035)
[2023-03-03 18:01] LABS: Bacteria Urine None Seen /hpf; Need Manual Microscopic Reviewed; RBC Urine 0-2 /hpf (0-2); Squamous Epithelial Cell Urine None seen /hpf (Few); WBC Urine 0-5 /hpf (0-3)
[2023-03-03 18:02] LABS: Add Urine Microscopic? YES
--- NOTE | 2023-03-03 18:38 | PC.NURSE ---
This patient, Wes Townsend, was received from ICU on 03/03/23 at 1839. Report received from Bisi. Patient/family oriented to unit policies and routines
--- NOTE | 2023-03-03 18:57 | PC.NURSE ---
This patient, Wes Townsend, was transferred to [facility] on 03/03/23 at 1830. Personal belongings sent with patient. Report given to Lucía LUTZ. Appropriate documentation sent with patient.
--- NOTE | 2023-03-03 20:16 | PC.NURSE ---
Had a lengthy conversation with patient's daughter, January soon after patient was brought over from ICU. Daughter was very upset she was not notified of patient being transferred and also let me know that the nurses in ICU have not been updating them on patient test results. I went over patient chest x-ray, plan of care/ treatment for pneumonia, pulmonary edema, speech therapy, as well as potassium replacement. Daughter also expresses concern for patient safety. I explained to them that he has padding on bed incase of thrashing/ seizure precaution, bed alarm, sitter until 11 pm and soft restraints. I notified them that we do hourly assessments on restrained patients. Assured her that he is going to be taken care of to the best of our ability and that we will call her with any concerns over overnight. Notified Sandi (Charge Nurse) who is also primary nurse for this patient.
[2023-03-03] MEDS: LORazepam INJ (*CRX) 2 MG/ML VIAL IV PUSH (21:14)
[2023-03-03] MEDS: KCL 40 MEQ/0.9% SOD CHL 1,000 ML 100 ML IV CONT (23:21)
[2023-03-04] VITALS (17 sets, daily range): BP systolic 107–138; BP diastolic 68–90; PULSE 67–91; RESP 17–25; TEMP 36.4–37.1; O2SAT 90–96
[2023-03-04] MEDS: LORazepam INJ (*CRX) 2 MG/ML VIAL IV PUSH (03:18)
[2023-03-04 03:21] LABS: Basophils Absolute Auto 0.1 K/mm3 (0.0-0.1); Basophils Percent Auto 0.3 % (0.2-1.2); Eosinophils Absolute Auto 0.3 K/mm3 (0-0.3); Eosinophils Percent Auto 1.8 % (0-4.4); Hematocrit 38.9 % (42.0-52.0); Hemoglobin 13.3 g/dL (14.0-18.0); Immature Granulocyte Absolute 0.08 K/mm3 (0.00-0.031); Immature Granulocyte Percent A 0.5 % (0-0.5); Lymphocytes Absolute Auto 1.91 K/mm3 (0.9-3.2); Lymphocytes Percent Auto 11.7 % (18.3-44.2); Mean Corpuscular HGB Conc 34.2 g/dl (32-36); Mean Corpuscular Hemoglobin 31.1 pg (26-34); Mean Corpuscular Volume 91.1 fl (80-100); Mean Platelet Volume 10.5 fl (7.4-10.4); Monocytes Absolute Auto 1.7 K/mm3 (0.1-0.6); Monocytes Percent Auto 10.6 % (2.6-8.5); Neutrophils Absolute Auto 12.3 K/mm3 (1.3-6.7); Neutrophils Percent Auto 75.1 % (45.5-73.1); Platelet Count Result 323 k/mm3 (150-375); Red Blood Count 4.27 M/mm3 (4.6-6.20); Red Cell Distribution Width 14.7 % (11.5-14.5); White Blood Count 16.3 K/mm3 (4.5-10.0)
[2023-03-04 03:37] LABS: Alanine Aminotransferase 67 U/L (6-50); Albumin Level 3.3 g/dL (3.5-5.1); Alkaline Phosphatase 117 U/L (38-126); Anion Gap 8 mmol/L (8-16); Aspartate Amino Transferase 63 U/L (17-59); Bilirubin,Total 1.3 mg/dL (0.2-1.3); Blood Urea Nitrogen 8 mg/dL (9-20); Carbon Dioxide 23 mmol/L (22-30); Chloride 106 mmol/L (98-107); Creatine Kinase 1161 U/L (55-170); Estimated CRCL calculation 75 ml/min; Estimated Glomerular Filt Rate > 60; Glucose 115 mg/dL (65-110); Potassium 3.9 mmol/L (3.4-5.0); Sodium 137 mmol/L (137-145)
[2023-03-04 03:59] LABS: Vancomycin Trough 17.8 ug/mL (10.0-20.0)
[2023-03-04] MEDS: MEROPENEM 500 MG in SODIUM CHLORIDE 0.9% IV 100 ML 200 ML IVPB ×3 (06:31→18:49)
--- NOTE | 2023-03-04 09:07 | PM.IMPN ---
Progress Note: A&P Assessment and Plan (1) Sepsis: Code(s): A41.9 - Sepsis, unspecified organism Status: Acute Assessment and Plan: 02/26: Originally placed on rocephin + azithro at admission 02/26, stable on room air at that time Oxygen requirement went up to 3-4L 02/28 with fevers, PCT 0.1, CXR benign, then fevers resolved and patient remained asymptomatic 03/01, then he jumped up to 12-14L hi juve 03/02. 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 Give another dose of lasix. CXR + CT abd/pelvis consistent with pna vs pulm edema, no other source of infection identified. PCT up to 0.3 from 0.1. CRP up to 31 from 7. F/u blood cultures, cx from 02/26 NGTD, repeat cx from 03/02 pending, speech therapy consult pending. PT/OT. Recheck UA. 03/04: Afebrile, weaned to room air, leuk cont to rise, recheck CRP + PCT 03/05, LFTs improving, check RUQ US. Cont abx with vanc, meropenem, levaquin. D/c vanc tomorrow if leuk comes down and CRP + PCT trending down, MRSA swab negative. Could also wean meropenem and add flagyl. RSV/flu/COVID repeat still negative. Hepatitis panel negative. ST eval pending when patient more alert. (2) Respiratory failure: Code(s): J96.90 - Respiratory failure, unspecified, unspecified whether with hypoxia or hypercapnia Status: Acute Assessment and Plan: Likely 2/2 aspiration pneumonia Weaned to room air 03/04 Given lasix prn, Lasix 40 mg IV x 1 03/04 Cont bronchodilators, ipratropium, no need for steroids See above for details 5/8: IVF started overnight, these were d/c and lasix given this morning, concern for nutrition status, if he cannot pass swallow study tomorrow, he will need ngt and tube feeds to be started (3) Non-ST elevation TN (NSTEMI): Code(s): I21.4 - Non-ST elevation (NSTEMI) myocardial infarction Status: Acute Assessment and Plan: Appreciate cardiology consultation, continue heparin drip--weaned off drip at this time, appreciate cardio consult Troponin has leveled off, slightly up 02/28 to 3.9 from 3.1 on 02/27 Potential [facility] 03/04 if stable Echo from 02/27 showed an EF of 55-60% with normal diastolic function and moderate pulmonary hypertension, no significant valvular disease noted Lasix given p.r.n. (4) Altered mental status: Qualifiers: Altered mental status type: delirium Qualified Code(s): R41.0 - Disorientation, unspecified Code(s): R41.82 - Altered mental status, unspecified Status: Acute Assessment and Plan: Neurology consultation noted MRI wnl, CTA head and neck wnl, EEG wnl Appears to be acute delirium in the setting of chronic dementia, no signs of alcohol withdrawal, managed with seroquel + haldol, sitter and redirection as able 02/28: placed in restraints overnight and moved to the ICU, required precedex drip and librium 03/01: weaned off Precedex drip, intermittently requiring restraints, start Seroquel, would likely need Aricept and Namenda at discharge for acute delirium superimposed on top of suspected dementia 03/02: overnight became combative again and was given benadryl 50 mg IV, seroquel 75 mg, haldol 5 mg, also had resp failure, hypotension and fever, swallow study when more alert, npo for now, concern for sepsis from asp pna 03/03: still somewhat altered from baseline, fever noted 100.4 overnight, leuk improving, cont current management, see above 03/04: improving, afebrile, d/c restraints today, ambien QHS, haldol as needed, avoid benzos, seroquel increased to 25 mg QHS. see above for details. (5) Rhabdomyolysis: Code(s): M62.82 - Rhabdomyolysis Status: Acute Assessment and Plan: Mild el
[2023-03-04] MEDS: ENOXAPARIN 40 MG/0.4 ML SYRINGE SUB-Q (09:38)
[2023-03-04] MEDS: ASPIRIN 81 MG ENTERIC TABLET PO (09:38)
[2023-03-04] MEDS: FAMOTIDINE 20 MG/2 ML VIAL IV PUSH ×2 (09:38→21:51)
[2023-03-04] MEDS: FOLIC ACID 1 MG/0.2 ML INJ IV PUSH (09:39)
[2023-03-04] MEDS: METOPROLOL TARTRATE 25 MG TABLET PO ×2 (09:39→22:06)
[2023-03-04] MEDS: PARoxetine 10 MG TABLET 30 MG PO (09:40)
[2023-03-04] MEDS: PANTOPRAZOLE SODIUM IV 40 MG VIAL IV PUSH (09:40)
[2023-03-04] MEDS: THIAMINE HCL 200 MG/2 ML VIAL 100 MG IV PUSH (09:41)
[2023-03-04] MEDS: QUEtiapine FUMARATE 12.5 MG TABLET PO (09:41)
[2023-03-04] MEDS: LEVALBUTEROL NEB 1.25 MG/3 ML INHALATION ×2 (10:21→20:00)
[2023-03-04] MEDS: IPRATROPIUM BR 0.02% INH SOLN 0.5 MG/2.5 ML VIAL INHALATION ×2 (10:21→20:00)
[2023-03-04 10:31] LABS: Hepatitis B Surface Antigen Negative (Negative)
[2023-03-04 10:37] LABS: HAV RESULT Negative (Negative); Hepatitis B Core IgM Result Negative (Negative)
[2023-03-04 10:48] LABS: Hepatitis C Virus Antibody Negative (Negative)
[2023-03-04] MEDS: FUROSEMIDE INJ 40 MG/4 ML VIAL IV PUSH (11:41)
--- NOTE | 2023-03-04 11:49 | ECG_ITS ---
Measurements Intervals [place] Rate: 83 P: -1 AL: 143 QRS: 51 QRSD: 85 T: 98 QT: 433 QTc: 511 Interpretive Statements SINUS RHYTHM T WAVE ABNORMALITY IN ANT/HIGH LAT LEADS- CONSIDER ISCHEMIA ABNORMAL ECG COMPARED TO ECG 03/02/2023 01:05:32 T WAVE ABNORMALITY NOW PRESENT Electronically Signed On 03-04-2023 13:55:18 CDT by Elieser Quesada D.O.
--- NOTE | 2023-03-04 12:50 | PCSTNOTE ---
Patient has order for modified barium swallow study (MBSS), per nursing patient had Ativan this morning and is not alert enough today. Will plan for MBSS to be done tomorrow.
--- NOTE | 2023-03-04 15:19 | PCCCNOTE ---
On 03/04/23, the student, [Anais Back ], provided care and completed [facility] on [facility]. I have reviewed the student's documentation and agree with the findings.
[2023-03-04] MEDS: SALINE LOCK FLUSH 10 ML IV PUSH ×2 (16:14→22:06)
--- NOTE | 2023-03-04 16:24 | PCRCNOTE ---
past time of scheduled administration. see next scheduled administration.
[2023-03-04] MEDS: ZOLPIDEM TARTRATE (*CRX) 5 MG TABLET PO (22:06)
[2023-03-04] MEDS: QUEtiapine FUMARATE 25 MG TABLET PO (22:07)
[2023-03-05] VITALS (20 sets, daily range): BP systolic 111–129; BP diastolic 44–72; PULSE 64–92; RESP 14–22; TEMP 36.6–37.3; O2SAT 90–97; BMI 24.8
[2023-03-05] MEDS: MEROPENEM 1 GM in SODIUM CHLORIDE 0.9% IV 100 ML 200 ML IVPB ×2 (02:49→21:03)
[2023-03-05] MEDS: SALINE LOCK FLUSH 10 ML IV PUSH ×3 (05:25→21:02)
[2023-03-05 06:06] LABS: Alanine Aminotransferase 58 U/L (6-50); Alkaline Phosphatase 98 U/L (38-126); Anion Gap 8 mmol/L (8-16); Aspartate Amino Transferase 53 U/L (17-59); Blood Urea Nitrogen 17 mg/dL (9-20); Calcium 7.9 mg/dL (8.4-10.2); Carbon Dioxide 20 mmol/L (22-30); Chloride 105 mmol/L (98-107); Creatine Kinase 377 U/L (55-170); Estimated CRCL calculation 44 ml/min; Estimated Glomerular Filt Rate 50; Glucose 123 mg/dL (65-110); Potassium 3.8 mmol/L (3.4-5.0); Sodium 133 mmol/L (137-145)
[2023-03-05] MEDS: IPRATROPIUM BR 0.02% INH SOLN 0.5 MG/2.5 ML VIAL INHALATION ×3 (06:54→20:12)
[2023-03-05 06:55] LABS: Basophils Absolute Auto 0.1 K/mm3 (0.0-0.1); Basophils Percent Auto 0.5 % (0.2-1.2); Eosinophils Absolute Auto 0.5 K/mm3 (0-0.3); Eosinophils Percent Auto 3.4 % (0-4.4); Hematocrit 41.8 % (42.0-52.0); Hemoglobin 13.7 g/dL (14.0-18.0); Immature Granulocyte Absolute 0.07 K/mm3 (0.00-0.031); Immature Granulocyte Percent A 0.5 % (0-0.5); Lymphocytes Absolute Auto 1.86 K/mm3 (0.9-3.2); Lymphocytes Percent Auto 13.6 % (18.3-44.2); Mean Corpuscular HGB Conc 32.8 g/dl (32-36); Mean Corpuscular Hemoglobin 30.3 pg (26-34); Mean Corpuscular Volume 92.5 fl (80-100); Mean Platelet Volume 10.3 fl (7.4-10.4); Monocytes Absolute Auto 1.3 K/mm3 (0.1-0.6); Monocytes Percent Auto 9.8 % (2.6-8.5); Neutrophils Absolute Auto 9.9 K/mm3 (1.3-6.7); Neutrophils Percent Auto 72.2 % (45.5-73.1); Platelet Count Result 361 k/mm3 (150-375); Red Blood Count 4.52 M/mm3 (4.6-6.20); Red Cell Distribution Width 14.7 % (11.5-14.5); White Blood Count 13.7 K/mm3 (4.5-10.0)
[2023-03-05] MEDS: LEVALBUTEROL NEB 1.25 MG/3 ML INHALATION ×3 (06:55→20:12)
--- NOTE | 2023-03-05 07:41 | PM.IMPN ---
Progress Note: A&P Assessment and Plan (1) Sepsis: Code(s): A41.9 - Sepsis, unspecified organism Status: Acute Assessment and Plan: Originally placed on rocephin + azithro admission 02/26, CXR clear and stable on room air at that time, CT abd+pelvis non acute, possible enteritis noted, no diarrhea/abdominal complaints. LFTs mildly elevated, hepatitis panel negative, trending down, RUQ US non acute, possible chronic carlos eduardo? Surgery consult if doesn't improve vs outpatient eval? Repeat CXR + CT abd/pelvis 03/03 consistent with pna vs pulm edema, no other source of infection identified. Blood cx 02/26 negative, repeat blood cx 03/02 NGTD. COVID/flu/RSV negative. MRSA swab negative. 03/02 Increased oxygen requirement to 12-14L hi juve, edema vs asp pna, given lasix + abx escalated to vanc, zosyn, levaquin. 03/03 Still febrile, oxygen weaned to room air, suspect asp pna, change abx to vanc, meropenem and levaquin. 03/04 finally afebrile, stable on room air. 03/05: Leuk down to 13 from 16. D/c vanc. Day 8 total of antibiotics, day 2 of being afebrile, cont meropenem + levaquin for now. Would de-escalate meropenem to flagyl tomorrow and observe if he continues to improve, switch to po as soon as possible. MBS showed need for thickened liquids for now, will advance diet as able, need to re-assess MBS in a couple days. (2) Respiratory failure: Code(s): J96.90 - Respiratory failure, unspecified, unspecified whether with hypoxia or hypercapnia Status: Acute Assessment and Plan: Likely 2/2 aspiration pneumonia Weaned to room air 03/04 Cont bronchodilators, ipratropium, no need for steroids See above for details 03/05: IVF bolus given x 1, recheck BMP this afternoon (3) Non-ST elevation [place] (NSTEMI): Code(s): I21.4 - Non-ST elevation (NSTEMI) myocardial infarction Status: Acute Assessment and Plan: Troponin has leveled off, slightly up 02/28 to 3.9 from 3.1 on 02/27 Potential C on outpatient basis Echo from 02/27 showed an EF of 55-60% with normal diastolic function and moderate pulmonary hypertension, no significant valvular disease noted Appreciate cardiology consultation, s/p heparin drip x 48 hours, cont aspirin 81 mg daily, start statin 5/10 if CK levels normalized and continue metoprolol tartate 25 mg BID (4) Altered mental status: Qualifiers: Altered mental status type: delirium Qualified Code(s): R41.0 - Disorientation, unspecified Code(s): R41.82 - Altered mental status, unspecified Status: Acute Assessment and Plan: Neurology consultation noted, MRI wnl, CTA head and neck wnl, EEG wnl. Appears to be acute delirium in the setting of chronic dementia, was in the ICU on precedex and restraints, no signs of alcohol withdrawal, now on the floor and managed with seroquel + haldol, sitter and redirection as able. Improving. Dementia would be a new diagnosis, family reports 6-12 months of worsening memory issues and concerns, follow up outpatient, consider starting aricept and namenda at discharge. 03/04: improving, afebrile, d/c restraints today, ambien QHS, haldol as needed, avoid benzos, seroquel increased to 25 mg QHS. see above for details. 03/05: continues to slowly improve, off sedation other than seroquel QHS, doing well on ambien, avoid benzos. still quite confused with odd affect, slowed and erratic movements at times, appreciate neuro consult, will recheck MRI w/ and w/o contrast, consider repeating EEG, possibly post ictal states due to tongue biting episode prior to admission? do not suspect infectious etiology nor substance withdrawal contributing to ams, likely delirium, but would like to try to rule out other etiologies, b12 and TSH wnl. could consider LP, but will defer to neuro for final determination. (5) Rhabdomyolysis: Code(s): M62.82 - Rhabdomyolysis Status: Acute Assessment and Plan: Resolved Mild elevation at admission with CK
--- NOTE | 2023-03-05 07:49 | ECG_ITS ---
Measurements Intervals [place] Rate: 73 P: -8 AL: 144 QRS: 55 QRSD: 89 T: 98 QT: 457 QTc: 505 Interpretive Statements SINUS RHYTHM CONSIDER ANTEROSEPTAL INFARCT, AGE INDETERMINATE BORDERLINE T WAVE ABNORMALITY- ANT/HIGH LAT LEADS BASELINE WANDER- I, II ABNORMAL ECG COMPARED TO ECG 03/04/2023 13:27:35 NO SIGNIFICANT CHANGES Electronically Signed On 03-05-2023 12:13:05 CDT by Elieser Quesada D.O.
[2023-03-05] MEDS: SODIUM CHLORIDE 0.9% IV 500 ML IV CONT (08:19)
[2023-03-05] MEDS: ENOXAPARIN 40 MG/0.4 ML SYRINGE SUB-Q (08:21)
[2023-03-05] MEDS: ASPIRIN 81 MG ENTERIC TABLET PO (08:21)
[2023-03-05] MEDS: METOPROLOL TARTRATE 25 MG TABLET PO ×2 (08:21→21:06)
[2023-03-05] MEDS: FOLIC ACID 1 MG/0.2 ML INJ IV PUSH (08:21)
[2023-03-05] MEDS: FAMOTIDINE 20 MG/2 ML VIAL IV PUSH ×2 (08:21→21:01)
[2023-03-05] MEDS: THIAMINE HCL 200 MG/2 ML VIAL 100 MG IV PUSH (08:22)
[2023-03-05] MEDS: PANTOPRAZOLE SODIUM IV 40 MG VIAL IV PUSH (08:22)
[2023-03-05] MEDS: PARoxetine 10 MG TABLET 30 MG PO (08:22)
[2023-03-05 09:26] LABS: CRP 18.4 mg/dL (<1.0)
[2023-03-05 09:31] LABS: Procalcitonin 0.2 ng/mL
[2023-03-05 09:39] LABS: Troponin I 0.132 ng/mL (0.000-0.034)
--- NOTE | 2023-03-05 09:55 | PM.PNCARD ---
Progress Note: A&P Assessment and Plan (1) Altered mental status: Qualifiers: Altered mental status type: delirium Qualified Code(s): R41.0 - Disorientation, unspecified Code(s): R41.82 - Altered mental status, unspecified Status: Acute Assessment and Plan: Resolved. Mental status is back to baseline now. (2) Non-ST elevation CT (NSTEMI): Code(s): I21.4 - Non-ST elevation (NSTEMI) myocardial infarction Status: Acute Assessment and Plan: Patient presented with an unusual history without clear anginal symptoms although cannot exclude upper back pain as anginal equivalent.? Troponin is flat at presentation and significantly elevated with evidence of a prior anteroseptal infarction by ECG but without acute ischemic changes. Given significant troponin elevation at presentation, concern if he had underlying acute coronary syndrome. Given his risk factors, elevated troponin, and abnormal ECG, underlying CAD remains a significant likelihood as he does not report symptoms suggestive CHF, arrhythmic event, and/or myocarditis. Echocardiogram showed LVEF 55-60% with mid and basal anteroseptal, apical anterior and apical septal hypokinesis. Upon our initial consultation on 02/27, Dr. Erwin recommended coronary angiography given concern for underlying CAD and with his significant troponin elevation on presentation. However, patient became quite agitated overnight on 02/27-02/28, and appeared to be going through withdrawal symptoms. He was transferred to the ICU and started on Precedex drip. His CK level continued to rise as well. Given this, patient was not a candidate for coronary angiography at the time of my evaluation of 02/28. Patient became febrile over the weekend with leukocytosis and is being treated for sepsis. Will allow patient to recover more prior to coronary angiography. In the absence of any chest pain, reasonable to plan for outpatient angiogram after patient recovers from sepsis. Completed Heparin drip x 48 hours. Continue ASA 81mg once daily. Consider starting statin once his CK levels normalize. Beta darci therapy when able. Cardiology will sign off. Please do not hesitate to call with questions (3) Rhabdomyolysis: Code(s): M62.82 - Rhabdomyolysis Status: Acute Assessment and Plan: Elevated CK 2271 related to his fall.? Mild acute renal injury at presentation improved.? Troponin elevation out of proportion to that which may be seen with significant CK elevation.? Monitor electrolytes and renal function closely. Subjective Date/time seen: 03/05/23 09:55 Interval history: Reason for visit: Elevated troponin HPI: Patient is a 72-year-old male with a past medical history significant for hypertension, diabetes mellitus with no prior cardiovascular history per his report who presented to the emergency department he states at the behest of his family members after he reports waking up on the floor in his bedroom he believes having falling out of bed although he cannot recall how he got there.? It is reported that he bit his tongue and was incontinent of urine.? He states when he woke up somewhat confused was too weak to get back to bed and later found by his daughter around 130 in the afternoon.? Patient states he initially refused to go the ER in after his family insisted he eventually relented and presented last night.? Patient states he is otherwise very active playing basketball and other sports on a routine basis and has no recent or progressive complaints of dyspnea, chest discomfort, declining activity tolerance, near-syncope or syncope or palpitations.? He states he has never had anything like this happen before.? He has no history of seizures all this is in the differential for which he has been evaluated.? [place] [address], elevated lactic acid a mild hypokalemia.? Urinalysis unremarkable.? BNP was mildly elevated at 753 but CK was
--- NOTE | 2023-03-05 11:01 | PCSTNOTE ---
Please refer to the Modified Barium Swallow Evaluation in the EMR.
[2023-03-05] MEDS: MEROPENEM 1 GM in SODIUM CHLORIDE 0.9% IV 100 ML IVPB (11:04)
[2023-03-05] MEDS: ACETAMINOPHEN 500 MG TABLET 1000 MG PO (18:37)
[2023-03-05] MEDS: ZOLPIDEM TARTRATE (*CRX) 5 MG TABLET PO (21:06)
[2023-03-05] MEDS: QUEtiapine FUMARATE 25 MG TABLET PO (21:07)
[2023-03-05] MEDS: MAGNES & ALUM HYD/SIMETH/DIPHENHYD/LIDOCAINE 119 ML MOUTHWASH BY MOUTH (21:07)
[2023-03-06] VITALS (21 sets, daily range): BP systolic 109–154; BP diastolic 57–82; PULSE 56–86; RESP 16–18; TEMP 36.3–36.8; O2SAT 93–98
[2023-03-06] MEDS: IPRATROPIUM BR 0.02% INH SOLN 0.5 MG/2.5 ML VIAL INHALATION ×4 (02:00→20:45)
[2023-03-06] MEDS: LEVALBUTEROL NEB 1.25 MG/3 ML INHALATION ×4 (02:00→21:21)
[2023-03-06 04:09] LABS: Anion Gap 10 mmol/L (8-16); Blood Urea Nitrogen 18 mg/dL (9-20); Calcium 8.5 mg/dL (8.4-10.2); Carbon Dioxide 22 mmol/L (22-30); Chloride 104 mmol/L (98-107); Estimated CRCL calculation 39 ml/min; Estimated Glomerular Filt Rate 43; Glucose 117 mg/dL (65-110); Potassium 3.7 mmol/L (3.4-5.0); Sodium 136 mmol/L (137-145)
[2023-03-06] MEDS: MAGNES & ALUM HYD/SIMETH/DIPHENHYD/LIDOCAINE 119 ML MOUTHWASH BY MOUTH ×6 (06:18→21:25)
[2023-03-06 06:19] LABS: Basophils Absolute Auto 0.1 K/mm3 (0.0-0.1); Basophils Percent Auto 0.4 % (0.2-1.2); Eosinophils Absolute Auto 0.5 K/mm3 (0-0.3); Eosinophils Percent Auto 4.7 % (0-4.4); Hemoglobin 13.7 g/dL (14.0-18.0); Immature Granulocyte Absolute 0.08 K/mm3 (0.00-0.031); Immature Granulocyte Percent A 0.7 % (0-0.5); Lymphocytes Absolute Auto 1.53 K/mm3 (0.9-3.2); Lymphocytes Percent Auto 13.4 % (18.3-44.2); Mean Corpuscular HGB Conc 33.4 g/dl (32-36); Mean Corpuscular Hemoglobin 30.8 pg (26-34); Mean Corpuscular Volume 92.1 fl (80-100); Neutrophils Absolute Auto 8.2 K/mm3 (1.3-6.7); Neutrophils Percent Auto 71.8 % (45.5-73.1); Platelet Count Result 439 k/mm3 (150-375); Red Blood Count 4.45 M/mm3 (4.6-6.20); Red Cell Distribution Width 14.8 % (11.5-14.5); White Blood Count 11.5 K/mm3 (4.5-10.0)
[2023-03-06] MEDS: SALINE LOCK FLUSH 10 ML IV PUSH ×3 (06:19→21:25)
--- NOTE | 2023-03-06 06:24 | PC.NURSE ---
DOWNTIME TONIGHT FROM [id number] CHARTED ON PAPER AND THEN WAS ABLE TO IN THE COMPUTER. PT WAS RESTLESS ALL NIGHT. AT ONE POINT PT THREW ORANGE JUICE AT THE SITTER. SITTERS CLOTHING WAS SOAKED IN ORANGE JUICE AND PT WAS SUSPICIOUS TO WHY SHE WAS IN THE ROOM. PT AGITATED. DURING MORNING MED PASS PT WAS MORE ALERT AND APOLOGETIC ABOUT BEHAVIOR OVERNIGHT
[2023-03-06 06:41] LABS: Alanine Aminotransferase 58 U/L (6-50); Albumin Level 3.4 g/dL (3.5-5.1); Alkaline Phosphatase 105 U/L (38-126); Anion Gap 6 mmol/L (8-16); Aspartate Amino Transferase 42 U/L (17-59); Bilirubin,Total 0.9 mg/dL (0.2-1.3); Blood Urea Nitrogen 20 mg/dL (9-20); Carbon Dioxide 29 mmol/L (22-30); Chloride 105 mmol/L (98-107); Creatine Kinase 164 U/L (55-170); Estimated CRCL calculation 39 ml/min; Estimated Glomerular Filt Rate 43; Glucose 112 mg/dL (65-110); Potassium 3.6 mmol/L (3.4-5.0); Sodium 140 mmol/L (137-145)
[2023-03-06] MEDS: THIAMINE HCL 100 MG TABLET PO (08:53)
[2023-03-06] MEDS: PARoxetine 10 MG TABLET 30 MG PO (08:53)
[2023-03-06] MEDS: METOPROLOL TARTRATE 25 MG TABLET PO ×2 (08:53→21:25)
[2023-03-06] MEDS: ASPIRIN 81 MG ENTERIC TABLET PO (08:54)
[2023-03-06] MEDS: ENOXAPARIN 40 MG/0.4 ML SYRINGE SUB-Q (08:55)
[2023-03-06] MEDS: MEROPENEM 1 GM in SODIUM CHLORIDE 0.9% IV 100 ML 200 ML IVPB (09:03)
[2023-03-06] MEDS: PANTOPRAZOLE 40 MG TABLET PO (09:54)
--- NOTE | 2023-03-06 10:04 | WPDNEUROPN ---
Progress Note: A&P Assessment and Plan (1) Altered mental status: Qualifiers: Altered mental status type: delirium Qualified Code(s): R41.0 - Disorientation, unspecified Code(s): R41.82 - Altered mental status, unspecified Status: Acute (2) Sepsis: Code(s): A41.9 - Sepsis, unspecified organism Status: Acute (3) Alcohol abuse: Code(s): F10.10 - Alcohol abuse, uncomplicated Status: Acute (4) Non-ST elevation TN (NSTEMI): Code(s): I21.4 - Non-ST elevation (NSTEMI) myocardial infarction Status: Acute Plan Mr. Townsend is a 72 year old male with a history of alcohol abuse, currently admitted due to sepsis thought to be due to aspiration pneumonia. Course has been complicated by altered mental status of unclear etiology. MRI brain and initial routine EEG were normal. Patient overall seems to be clinically improved. Suspect likely delirium related. - As long as mentation continues to improve, I do not feel that lumbar puncture or routine EEG is indicated at this time Subjective Date/time seen: 03/06/23 10:04 Interval history: Mr. Townsend is a 72 year old male with a history of alcohol abuse who presented after sustaining a fall, resulting in loss of consciousness. He was also noted to have an episode of tongue biting. Work-up revealed evidence of rhabdomyolysis and NSTEMI, as well as aspiration pneumonia. There have been ongoing concerns regarding patient's mental status during admission. He became so agitated that he had to be transferred to the ICU for Precedex infusion and four point restraints. His work up including MRI brain and routine EEG were normal. He was initially receiving Librium in the ICU, but now has scheduled Ambien and Seroquel 25mg qhs. Mental status seems to be slowly improving with time. He is still being treated with IV antibiotics (meropenem), for presumed aspiration pneumonia. Additional there have been ongoing concerns in the past year for patient's worsening memory. TSH and B12 levels from this admission are normal. He is receiving maintenance dose Thiamine. Patient's daughter is at bedside this morning. They feels that he has greatly improved, but is still not quite back to baseline. Review of Systems Constitutional: Constitutional: Reports no additional constitutional complaints Eyes: Eyes: Reports no additional eye complaints ENT: Reports system reviewed and no additional complaints, except as documented Cardiovascular: Cardiovascular: Reports no additional cardiovascular complaints Respiratory: Respiratory: Reports no additional respiratory complaints Gastrointestinal: Gastrointestinal: Reports no additional gastrointestinal complaints Genitourinary: Genitourinary: Reports no additional male genitourinary complaints Musculoskeletal: Musculoskeletal: Reports no additional musculoskeletal complaints Integumentary/Breasts: Skin/Breast: Reports system reviewed and no additional complaints, except as docu Neurologic: Reports confusion Psychiatric: Psychiatric: Reports behavioral changes Exam Const: General: comfortable and no acute distress HENMT: Mouth: Yes moist mucous membranes Eyes: EOM: EOMs intact bilaterally Resp: Effort & Inspection: normal respiratory effort Urinary Catheter: Urinary Catheter: patent and draining Skin: General skin exam: normal color Neuro: Other: Awake, alert, oriented to self, hospital, city, and year. Speech is clear and comprehension appears to be intact. Some tangential speech. Face is symmetric, right upper extremity strength is 3/5 (chronic); LUE, LLE, and RLE strength is intact. Sensation is symmetrical throughout. FNF is normal bilaterally. Extrem: General: normal to inspection Psych: Mental Status: mental status grossly normal Objective Data Vital Signs Vital Signs: Vital Signs - 24 hr 03/05/23 10:06 03/05/23 12:00 03/05/23 13:04 Temperature 36.8 C Pulse Rate 72 66 72
[2023-03-06] MEDS: ACETAMINOPHEN 500 MG TABLET 1000 MG PO (12:44)
--- NOTE | 2023-03-06 14:19 | PM.IMPN ---
Progress Note: A&P Assessment and Plan (1) Sepsis: Code(s): A41.9 - Sepsis, unspecified organism Status: Acute Assessment and Plan: Originally placed on rocephin + azithro admission 02/26, CXR clear and stable on room air at that time, CT abd+pelvis non acute, possible enteritis noted, no diarrhea/abdominal complaints. LFTs mildly elevated, hepatitis panel negative, trending down, RUQ US non acute, possible chronic carlos eduardo? Surgery consult if doesn't improve vs outpatient eval? Repeat CXR + CT abd/pelvis 03/03 consistent with pna vs pulm edema, no other source of infection identified. Blood cx 02/26 negative, repeat blood cx 03/02 NGTD. COVID/flu/RSV negative. MRSA swab negative. 03/02 Increased oxygen requirement to 12-14L hi juve, edema vs asp pna, given lasix + abx escalated to vanc, zosyn, levaquin. 03/03 Still febrile, oxygen weaned to room air, suspect asp pna, change abx to vanc, meropenem and levaquin. 03/04 finally afebrile, stable on room air. 03/05: Leuk down to 13 from 16. D/c vanc. Day 8 total of antibiotics, day 2 of being afebrile, cont meropenem + levaquin for now. Would de-escalate meropenem to flagyl tomorrow and observe if he continues to improve, switch to po as soon as possible. MBS showed need for thickened liquids for now, will advance diet as able, need to re-assess MBS in a couple days. 03/06: WBC down to 11.5.. No fevers. Feels well. Remains on room air. Plan to change meropenem to Flagyl. Continue Levaquin and renally dose (2) Respiratory failure: Code(s): J96.90 - Respiratory failure, unspecified, unspecified whether with hypoxia or hypercapnia Status: Acute Assessment and Plan: Resp failure likely 2/2 aspiration pneumonia Weaned to room air 03/04 Cont bronchodilators, ipratropium, no need for steroids See above for details 03/05: IVF bolus given x 1, recheck BMP this afternoon 03/06: Resolved. Follow (3) Non-ST elevation [place] (NSTEMI): Code(s): I21.4 - Non-ST elevation (NSTEMI) myocardial infarction Status: Acute Assessment and Plan: Troponin has leveled off, slightly up 02/28 to 3.9 from 3.1 on 02/27 Echo 02/27 showed an EF of 55-60% with normal diastolic function and moderate pulmonary hypertension, no significant valvular disease noted Appreciate cardiology consultation, s/p heparin drip x 48 hours, cont aspirin 81 mg daily, start statin 03/06 if CK levels normalized and continue metoprolol tartate 25 mg BID. Potential LHC on outpatient basis. 03/06: Cards has signed off. Add statin. QTc prolonged. Stop Seroquel. Repeat EKG in the morning. Stop levaquin if persistently elevated. Only has one more dose of Levaquin. (4) Altered mental status: Qualifiers: Altered mental status type: delirium Qualified Code(s): R41.0 - Disorientation, unspecified Code(s): R41.82 - Altered mental status, unspecified Status: Acute Assessment and Plan: Neurology consultation noted, MRI wnl, CTA head and neck wnl, EEG wnl. Appears to be acute delirium in the setting of chronic dementia, was in the ICU on precedex and restraints, no signs of alcohol withdrawal, now on the floor and managed with seroquel + haldol, sitter and redirection as able. Improving. Dementia would be a new diagnosis, family reports 6-12 months of worsening memory issues and concerns, follow up outpatient, consider starting aricept and namenda at discharge. 03/04: improving, afebrile, d/c restraints today, ambien QHS, haldol as needed, avoid benzos, seroquel increased to 25 mg QHS. see above for details. 03/05: continues to slowly improve, off sedation other than seroquel QHS, doing well on ambien, avoid benzos. still quite confused with odd affect, slowed and erratic movements at times, appreciate neuro consult, will recheck MRI w/ and w/o contrast, consider repeating EEG, possibly post ictal states due to tongue biting episode prior to admission? do not suspect infectious etiology nor substance withdrawal contributing to am
--- NOTE | 2023-03-06 20:54 | PC.NURSE ---
2049 CLIN ASST CALLED STATING SHE NEEDED CLAIMS ATTORNEY FOR THE ED. PT HAS BEEN COOPERATIVE ALL DAY WITH NO JUMPING OR AGITATION. WILL SIT IN ROOM IF NEEDED
[2023-03-06] MEDS: ZOLPIDEM TARTRATE (*CRX) 5 MG TABLET PO (21:25)
[2023-03-06] MEDS: metroNIDAZOLE 250 MG TABLET 500 MG PO (21:25)
[2023-03-07] VITALS (21 sets, daily range): BP systolic 118–130; BP diastolic 54–77; PULSE 57–97; RESP 16–20; TEMP 36.3–36.7; O2SAT 94–98
[2023-03-07] MEDS: SALINE LOCK FLUSH 10 ML IV PUSH ×3 (05:08→20:28)
[2023-03-07] MEDS: MAGNES & ALUM HYD/SIMETH/DIPHENHYD/LIDOCAINE 119 ML MOUTHWASH BY MOUTH ×5 (05:08→20:27)
[2023-03-07] MEDS: metroNIDAZOLE 250 MG TABLET 500 MG PO ×2 (05:08→18:35)
[2023-03-07 05:15] LABS: Basophils Absolute Auto 0.1 K/mm3 (0.0-0.1); Basophils Percent Auto 0.5 % (0.2-1.2); Eosinophils Absolute Auto 0.4 K/mm3 (0-0.3); Eosinophils Percent Auto 3.8 % (0-4.4); Hematocrit 36.4 % (42.0-52.0); Hemoglobin 12.4 g/dL (14.0-18.0); Immature Granulocyte Absolute 0.07 K/mm3 (0.00-0.031); Immature Granulocyte Percent A 0.7 % (0-0.5); Lymphocytes Absolute Auto 1.63 K/mm3 (0.9-3.2); Lymphocytes Percent Auto 16.4 % (18.3-44.2); Mean Corpuscular HGB Conc 34.1 g/dl (32-36); Mean Corpuscular Hemoglobin 31.2 pg (26-34); Mean Corpuscular Volume 91.7 fl (80-100); Mean Platelet Volume 9.6 fl (7.4-10.4); Monocytes Absolute Auto 1.1 K/mm3 (0.1-0.6); Monocytes Percent Auto 10.9 % (2.6-8.5); Neutrophils Absolute Auto 6.7 K/mm3 (1.3-6.7); Neutrophils Percent Auto 67.7 % (45.5-73.1); Platelet Count Result 435 k/mm3 (150-375); Red Blood Count 3.97 M/mm3 (4.6-6.20); Red Cell Distribution Width 14.7 % (11.5-14.5); White Blood Count 9.9 K/mm3 (4.5-10.0)
[2023-03-07 05:26] LABS: Alanine Aminotransferase 50 U/L (6-50); Albumin Level 3.1 g/dL (3.5-5.1); Alkaline Phosphatase 101 U/L (38-126); Anion Gap 4 mmol/L (8-16); Aspartate Amino Transferase 40 U/L (17-59); Bilirubin,Total 0.6 mg/dL (0.2-1.3); Blood Urea Nitrogen 20 mg/dL (9-20); Calcium 8.6 mg/dL (8.4-10.2); Carbon Dioxide 28 mmol/L (22-30); Chloride 105 mmol/L (98-107); Estimated CRCL calculation 39 ml/min; Estimated Glomerular Filt Rate 43; Glucose 118 mg/dL (65-110); Potassium 3.9 mmol/L (3.4-5.0); Sodium 137 mmol/L (137-145)
[2023-03-07] MEDS: IPRATROPIUM BR 0.02% INH SOLN 0.5 MG/2.5 ML VIAL INHALATION ×2 (07:18→13:36)
[2023-03-07] MEDS: LEVALBUTEROL NEB 1.25 MG/3 ML INHALATION ×2 (07:18→13:36)
--- NOTE | 2023-03-07 08:00 | ECG_ITS ---
Measurements Intervals [place] Rate: 68 P: -6 [place]: 169 QRS: 36 QRSD: 88 T: 62 QT: 448 QTc: 479 Interpretive Statements SINUS RHYTHM WITH SINUS ARRHYTHMIA PROLONGED QT INTERVAL ABNORMAL ECG COMPARED TO ECG 03/05/2023 12:03:04 SINUS ARRHYTHMIA NOW PRESENT PROLONGED QT INTERVAL NOW PRESENT Electronically Signed On 03-07-2023 11:19:21 CDT by Elieser Quesada D.O.
[2023-03-07] MEDS: PANTOPRAZOLE 40 MG TABLET PO (08:38)
[2023-03-07] MEDS: ASPIRIN 81 MG ENTERIC TABLET PO (08:38)
[2023-03-07] MEDS: PARoxetine 10 MG TABLET 30 MG PO (08:38)
[2023-03-07] MEDS: METOPROLOL TARTRATE 25 MG TABLET PO ×2 (08:39→20:27)
[2023-03-07] MEDS: ATORVASTATIN 40 MG TABLET PO (08:39)
[2023-03-07] MEDS: ENOXAPARIN 40 MG/0.4 ML SYRINGE SUB-Q (08:40)
[2023-03-07] MEDS: THIAMINE HCL 100 MG TABLET PO (08:40)
--- NOTE | 2023-03-07 09:45 | PCNFU ---
Nutrition Follow-Up Complete: Inadequate intake related to acute illness, swallowing difficulties as evidenced by intakes 0-50%, need for modified diet/thickened liquids. goal: Adequate PO intake at least 50% meals Maintain weight during admission Patient is progressing towards goal. We will continue current goal. Pt current nutrition is Minced and Moist 5/Mildly Thick Level 2. Last recorded weight is 84.5 kg. Bowel Motility: +BM reported 03/06 Labs Reviewed:Glu 118, GFR 43, BUN 1.6, Alb 3.1,Hct 36.5,Hgb 12.4 Meds Noted: Lipitor, Protonix, Lopressor, Thiamine Skin: WNL Additional Notes:Patient diet orders has upgraded to Minced and Moist, Level 5 with Mild Thick Liquids, Level 2. Oral Intake has been fair/poor eating 0-50% of meals. Diet supplements added of Ensure Compact BID providing an additional 220 kcals and 8 gms protein. PO intake encouraged. Monitor intakes, weights, labs, swallowing issues, Follow up in 5 days
--- NOTE | 2023-03-07 11:55 | PM.IMPN ---
Progress Note: A&P Assessment and Plan (1) Sepsis: Code(s): A41.9 - Sepsis, unspecified organism Status: Acute Assessment and Plan: Originally placed on rocephin + azithro on admission 02/26, CXR was clear and stable on room air at that time, CT abd+pelvis non acute, possible enteritis noted but no diarrhea/abdominal complaints so felt unlikely to have enteritis. LFTs mildly elevated, hepatitis panel negative. RUQ US non acute, possible chronic carlos eduardo? Surgery consult if doesn't improve vs outpatient eval? Repeat CXR + CT abd/pelvis 03/03 consistent with pna vs pulm edema, no other source of infection identified. Blood cx 02/26 negative, repeat blood cx 03/02 NGTD. COVID/flu/RSV negative. MRSA swab negative. 03/02 Increased oxygen requirement to 12-14L hi juve, edema vs asp pna, given lasix + abx escalated to vanc, zosyn, levaquin. 03/03 Still febrile, oxygen weaned to room air, suspect asp pna, change abx to vanc, meropenem and levaquin. 03/04 finally afebrile, stable on room air. 03/05: Leuk down to 13 from 16. D/c vanc. Day 8 total of antibiotics, day 2 of being afebrile, cont meropenem + levaquin for now. Would de-escalate meropenem to flagyl tomorrow and observe if he continues to improve, switch to po as soon as possible. MBS showed need for thickened liquids for now, will advance diet as able, need to re-assess MBS in a couple days. 03/06: WBC down to 11.5.. No fevers. Feels well. Remains on room air. Plan to change meropenem to Flagyl. Continue Levaquin and renally dose 03/07: WBC normal now. Abx adjusted to Levaquin and Flagyl. Sepsis has resolved (2) Respiratory failure: Code(s): J96.90 - Respiratory failure, unspecified, unspecified whether with hypoxia or hypercapnia Status: Acute Assessment and Plan: Resp failure likely 2/2 aspiration pneumonia Weaned to room air 03/04 Cont bronchodilators, ipratropium, no need for steroids 03/05: IVF bolus given x 1 See above for details Resolved. Follow (3) Non-ST elevation [place] (NSTEMI): Code(s): I21.4 - Non-ST elevation (NSTEMI) myocardial infarction Status: Acute Assessment and Plan: Troponin up to 4.6 Echo 02/27 showed an EF of 55-60% with normal diastolic function and moderate pulmonary hypertension, no significant valvular disease noted s/p heparin drip x 48 hours Cont aspirin 81 mg daily, metoprolol tartate 25 mg BID, lipitor. EKG showing QTc prolonged. Seroquel stopped. Repeat EKG this morning reviewed showing QTc prolonged but better than prior EKG. Bradycardia noted at night and he has a positive Apnea link. ABG does not show CO2 retention. He will need a sleep study arranged as outpatient. This probably explains his bradycardia. He is having runs of narrow complex tachycardia. Check mag level. Notify cards. Appreciate cardiology consultation, Potential LHC on outpatient basis. (4) JOSELUIS (acute kidney injury): Code(s): N17.9 - Acute kidney failure, unspecified Status: Acute Assessment and Plan: Normal baseline Cr. Cr climbed to 1.6 and has remained stable. Related to rhabdomyolysis? Check urine studies and renal US. (5) Altered mental status: Qualifiers: Altered mental status type: delirium Qualified Code(s): R41.0 - Disorientation, unspecified Code(s): R41.82 - Altered mental status, unspecified Status: Acute Assessment and Plan: Neurology consultation noted, MRI wnl, CTA head and neck wnl, EEG wnl. Appears to be acute delirium in the setting of chronic dementia. Was in the ICU on precedex and restraints, no signs of alcohol withdrawal, now on the floor and was managed with seroquel + haldol, sitter and redirection as able. Improving. Dementia would be a new diagnosis, family reports 6-12 months of worsening memory issues and concerns, follow up outpatient, consider starting aricept and namenda at discharge. Seroquel stopped due to prolonged QTc (also on levaquin). Has [facility] ordered as well.
[2023-03-07 12:41] LABS: Magnesium 2.2 mg/dL (1.6-2.3)
[2023-03-07] MEDS: POTASSIUM CHLORIDE 10 MEQ TABLET PO (12:56)
[2023-03-07 13:51] LABS: Creatinine Urine 67.1 mg/dL; Sodium Urine Random 64 meq/L
[2023-03-07 13:56] LABS: Eosinophil Urine None Seen % (None Seen)
[2023-03-07 13:58] LABS: Urine Eos QC 2nd Tech Confirmed
[2023-03-07] MEDS: ZOLPIDEM TARTRATE (*CRX) 5 MG TABLET PO (20:27)
[2023-03-08] VITALS (12 sets, daily range): BP systolic 110–134; BP diastolic 59–71; PULSE 58–78; RESP 14–18; TEMP 36.6–36.7; O2SAT 95–97
--- NOTE | 2023-03-08 01:54 | PC.NURSE ---
PT REQUESTED NOT TO BE DISTURBED AFTER HE GOES TO SLEEP. PT HAS BEEN RESTLESS PAST FEW NIGHTS. NON ADMINISTERED OVER NIGHT MEDS BECAUSE PT WAS SLEEPING.
[2023-03-08] MEDS: MAGNES & ALUM HYD/SIMETH/DIPHENHYD/LIDOCAINE 119 ML MOUTHWASH BY MOUTH ×5 (05:26→22:17)
[2023-03-08] MEDS: metroNIDAZOLE 250 MG TABLET 500 MG PO ×3 (05:26→22:17)
[2023-03-08] MEDS: SALINE LOCK FLUSH 10 ML IV PUSH ×3 (05:27→22:18)
[2023-03-08 05:36] LABS: Basophils Percent Auto 0.3 % (0.2-1.2); Eosinophils Absolute Auto 0.4 K/mm3 (0-0.3); Eosinophils Percent Auto 4.2 % (0-4.4); Hematocrit 36.6 % (42.0-52.0); Hemoglobin 12.2 g/dL (14.0-18.0); Immature Granulocyte Absolute 0.06 K/mm3 (0.00-0.031); Immature Granulocyte Percent A 0.7 % (0-0.5); Lymphocytes Absolute Auto 1.68 K/mm3 (0.9-3.2); Lymphocytes Percent Auto 19.5 % (18.3-44.2); Mean Corpuscular HGB Conc 33.3 g/dl (32-36); Mean Corpuscular Hemoglobin 30.6 pg (26-34); Mean Corpuscular Volume 91.7 fl (80-100); Mean Platelet Volume 9.7 fl (7.4-10.4); Monocytes Percent Auto 12.1 % (2.6-8.5); Neutrophils Absolute Auto 5.5 K/mm3 (1.3-6.7); Neutrophils Percent Auto 63.2 % (45.5-73.1); Platelet Count Result 484 k/mm3 (150-375); Red Blood Count 3.99 M/mm3 (4.6-6.20); Red Cell Distribution Width 14.7 % (11.5-14.5); White Blood Count 8.6 K/mm3 (4.5-10.0)
[2023-03-08 05:45] LABS: Alanine Aminotransferase 47 U/L (6-50); Albumin Level 3.1 g/dL (3.5-5.1); Alkaline Phosphatase 100 U/L (38-126); Anion Gap 6 mmol/L (8-16); Aspartate Amino Transferase 43 U/L (17-59); Bilirubin,Total 0.5 mg/dL (0.2-1.3); Blood Urea Nitrogen 20 mg/dL (9-20); Calcium 8.4 mg/dL (8.4-10.2); Carbon Dioxide 25 mmol/L (22-30); Chloride 106 mmol/L (98-107); Estimated CRCL calculation 41 ml/min; Estimated Glomerular Filt Rate 46; Glucose 122 mg/dL (65-110); Potassium 3.9 mmol/L (3.4-5.0); Sodium 137 mmol/L (137-145)
[2023-03-08] MEDS: PARoxetine 10 MG TABLET 30 MG PO (09:04)
[2023-03-08] MEDS: METOPROLOL TARTRATE 25 MG TABLET PO ×2 (09:05→22:17)
[2023-03-08] MEDS: ENOXAPARIN 40 MG/0.4 ML SYRINGE SUB-Q (09:05)
[2023-03-08] MEDS: levoFLOXacin 750 MG TABLET PO (09:05)
[2023-03-08] MEDS: ASPIRIN 81 MG ENTERIC TABLET PO (09:05)
[2023-03-08] MEDS: ATORVASTATIN 40 MG TABLET PO (09:05)
[2023-03-08] MEDS: PANTOPRAZOLE 40 MG TABLET PO (09:06)
[2023-03-08] MEDS: THIAMINE HCL 100 MG TABLET PO (09:06)
--- NOTE | 2023-03-08 11:53 | PM.IMPN ---
Progress Note: A&P Assessment and Plan (1) SVT (supraventricular tachycardia): Code(s): I47.1 - Supraventricular tachycardia Status: Acute (2) Rhabdomyolysis: Qualifiers: Rhabdomyolysis type: non-traumatic Qualified Code(s): M62.82 - Rhabdomyolysis Code(s): M62.82 - Rhabdomyolysis Status: Acute (3) Non-ST elevation [place] (NSTEMI): Code(s): I21.4 - Non-ST elevation (NSTEMI) myocardial infarction Status: Acute (4) Electrolyte imbalance: Code(s): E87.8 - Other disorders of electrolyte and fluid balance, not elsewhere classified Status: Acute Plan # sepsis secondary to aspiration pneumonia -antibiotics: Will continue Levaquin, Flagyl, sepsis resolved -patient had extended hospitalization requiring IV vancomycin, meropenem, ICU hospitalization -speech therapy evaluate patient with modified barium swallow 03/05 recommending thickened liquids # likely obstructive sleep apnea -will need outpatient sleep study, positive ApneaLink # elevated troponins # acute kidney injury, likely prerenal # rhabdomyolysis -cardiology recommending outpatient heart catheterization, no chest pain, echo showed normal EF 55% troponin may be elevated due to rhabdomyolysis -outpatient catheterization -creatinine improved to 1.5 -normal kidneys on ultrasound -Lipitor 40 mg daily (CK normalized, okay to take statin), aspirin This metoprolol tartrate # respiratory failure -secondary to aspiration pneumonia -wean to room air on 03/04/2023 -bronchodilators as needed # delirium -resolved -brain MRI probable minimal chronic white matter changes -continue Paxil # hypokalemia -repleted # essential hypertension -metoprolol started Diet: NDD5 minced and moist, thickened liquids DVT prophylaxis: Lovenox GI prophylaxis: Protonix Code status: Full code Disposition: Home with home health tomorrow Subjective Date/time seen: 03/08/23 11:53 Interval history: Patient seen examined. He is doing well with no new complaints, no overnight events. Anticipate discharge tomorrow. He will need outpatient sleep study, outpatient heart catheterization. He will be going home with home health. Vitals stable. Creatinine down to 1.5. Family updated bedside. Review of Systems Review of Systems: 10 point ROS complete, negative other than what is specified in HPI. Exam Narrative: - GENERAL: Pleasant male no acute distress. Well-nourished. - EYES: EOMI. Anicteric. - HENT: Moist mucous membranes. - LUNGS: Clear to auscultation bilaterally, no wheezing, rhonchi, or rales. - CARDIOVASCULAR: Regular rate and rhythm. No murmur. No JVD. - ABDOMEN: Soft, non-tender and non-distended. No palpable masses. - EXTREMITIES: No edema. Peripheral pulses 2+. Non-tender. Right extremity weakness, decreased range of motion - NEUROLOGIC: No focal neurological deficits. CN II-XII grossly intact. - PSYCHIATRIC: Awake, Alert and oriented x 3. Appropriate mood and affect. - SKIN: No rashes or lesions. Warm. - LYMPH: No cervical lymphadenopathy. Objective Data Vital Signs Vital Signs: Vital Signs - 24 hr 03/07/23 13:39 03/07/23 13:46 03/07/23 14:15 Temperature 36.7 C Pulse Rate 65 68 62 Respiratory Rate 16 16 18 Blood Pressure 125/64 Pulse Oximetry 94 Oxygen Delivery 03/07/23 12:00 03/07/23 16:00 03/07/23 18:44 Temperature 36.4 C Pulse Rate 63 65 97 Respiratory Rate 18 Blood Pressure 125/61 Pulse Oximetry 97 Oxygen Delivery 03/07/23 20:27 03/07/23 21:30 03/07/23 20:00 Temperature 36.6 C Pulse Rate 65 63 Respiratory Rate 20 Blood Pressure 130/77 Pulse Oximetry 98 Oxygen Delivery Room Air 03/07/23 20:00 03/08/23 00:00 03/08/23 04:00 Temperature Pulse Rate 64 68 58 L Respiratory Rate Blood Pressure Pulse Oximetry Oxygen Delivery 03/08/23 05:32 03/08/23 10:00 Temperature 36.7 C 36.7 C Pulse Rate 64 62 Respiratory Rat
[2023-03-08] MEDS: ZOLPIDEM TARTRATE (*CRX) 5 MG TABLET PO (22:17)
[2023-03-09] VITALS (8 sets, daily range): BP systolic 102–130; BP diastolic 60–73; PULSE 55–70; RESP 16–18; TEMP 36.5–37.1; O2SAT 94–98
[2023-03-09] MEDS: metroNIDAZOLE 250 MG TABLET 500 MG PO ×2 (06:05→14:09)
[2023-03-09] MEDS: MAGNES & ALUM HYD/SIMETH/DIPHENHYD/LIDOCAINE 119 ML MOUTHWASH BY MOUTH ×3 (06:06→14:10)
[2023-03-09] MEDS: SALINE LOCK FLUSH 10 ML IV PUSH ×2 (06:06→14:10)
[2023-03-09 06:31] LABS: Basophils Percent Auto 0.5 % (0.2-1.2); Eosinophils Absolute Auto 0.3 K/mm3 (0-0.3); Eosinophils Percent Auto 3.8 % (0-4.4); Hematocrit 39.2 % (42.0-52.0); Hemoglobin 12.9 g/dL (14.0-18.0); Immature Granulocyte Absolute 0.05 K/mm3 (0.00-0.031); Immature Granulocyte Percent A 0.6 % (0-0.5); Lymphocytes Absolute Auto 1.81 K/mm3 (0.9-3.2); Lymphocytes Percent Auto 21.3 % (18.3-44.2); Mean Corpuscular HGB Conc 32.9 g/dl (32-36); Mean Corpuscular Volume 91.2 fl (80-100); Mean Platelet Volume 9.8 fl (7.4-10.4); Monocytes Percent Auto 12.3 % (2.6-8.5); Neutrophils Absolute Auto 5.2 K/mm3 (1.3-6.7); Neutrophils Percent Auto 61.5 % (45.5-73.1); Platelet Count Result 530 k/mm3 (150-375); Red Cell Distribution Width 14.6 % (11.5-14.5); White Blood Count 8.5 K/mm3 (4.5-10.0)
[2023-03-09 06:47] LABS: Alanine Aminotransferase 62 U/L (6-50); Albumin Level 3.5 g/dL (3.5-5.1); Alkaline Phosphatase 102 U/L (38-126); Anion Gap 5 mmol/L (8-16); Aspartate Amino Transferase 81 U/L (17-59); Bilirubin,Total 0.5 mg/dL (0.2-1.3); Blood Urea Nitrogen 23 mg/dL (9-20); Carbon Dioxide 29 mmol/L (22-30); Chloride 104 mmol/L (98-107); Estimated CRCL calculation 44 ml/min; Estimated Glomerular Filt Rate 50; Glucose 111 mg/dL (65-110); Potassium 4.1 mmol/L (3.4-5.0); Sodium 138 mmol/L (137-145)
[2023-03-09] MEDS: ASPIRIN 81 MG ENTERIC TABLET PO (10:18)
[2023-03-09] MEDS: ENOXAPARIN 40 MG/0.4 ML SYRINGE SUB-Q (10:19)
[2023-03-09] MEDS: METOPROLOL TARTRATE 25 MG TABLET PO (10:19)
[2023-03-09] MEDS: PANTOPRAZOLE 40 MG TABLET PO (10:19)
[2023-03-09] MEDS: PARoxetine 10 MG TABLET 30 MG PO (10:19)
[2023-03-09] MEDS: THIAMINE HCL 100 MG TABLET PO (10:19)
[2023-03-09] MEDS: ATORVASTATIN 40 MG TABLET PO (10:19)
--- NOTE | 2023-03-09 13:42 | PM.DS ---
DS: Admitting Diagnosis Discharge Date 03/09/23 Admitting Diagnosis Syncope, probable seizure DS: Discharge Diagnosis Discharge Diagnosis (1) JOSELUIS (acute kidney injury): Code(s): N17.9 - Acute kidney failure, unspecified Status: Acute (2) Sepsis: Code(s): A41.9 - Sepsis, unspecified organism Status: Acute (3) Hypokalemia: Code(s): E87.6 - Hypokalemia Status: Acute (4) Respiratory failure: Code(s): J96.90 - Respiratory failure, unspecified, unspecified whether with hypoxia or hypercapnia Status: Acute (5) Electrolyte imbalance: Code(s): E87.8 - Other disorders of electrolyte and fluid balance, not elsewhere classified Status: Acute (6) Altered mental status: Qualifiers: Altered mental status type: delirium Qualified Code(s): R41.0 - Disorientation, unspecified Code(s): R41.82 - Altered mental status, unspecified Status: Acute (7) Seizure: Code(s): R56.9 - Unspecified convulsions Status: Acute (8) Non-ST elevation [place] (NSTEMI): Code(s): I21.4 - Non-ST elevation (NSTEMI) myocardial infarction Status: Acute Plan # sepsis secondary to aspiration pneumonia, resolved -antibiotics:? completed antibiotics Levaquin and Flagyl on discharge -patient had extended hospitalization requiring IV vancomycin, meropenem, ICU hospitalization -speech therapy evaluate patient with modified barium swallow 03/05 recommending thickened liquids - he completed antibiotics prior to discharge # likely obstructive sleep apnea -will need outpatient sleep study, positive ApneaLink # elevated troponins # acute kidney injury, likely prerenal # rhabdomyolysis -cardiology recommending outpatient heart catheterization, no chest pain, echo showed normal EF 55% troponin may be elevated due to rhabdomyolysis -outpatient heart catheterization to be set up by Cardiology -creatinine improved to 1.4, will recheck BMP in a week -normal kidneys on ultrasound -Lipitor 40 mg daily (CK normalized, okay to take statin) - for elevated troponin started on aspirin and beta-darci # respiratory failure -secondary to aspiration pneumonia -wean to room air on 03/04/2023 -bronchodilators as needed - adviser sales had been following # delirium -resolved -brain MRI probable minimal chronic white matter changes -continue Paxil - appreciate neurology recommendations # hypokalemia -repleted # essential hypertension -metoprolol started, held his hydrochlorothiazide and triamterene Diet:? NDD5 minced and moist, thickened liquids, to follow up with speech therapy Code status: Full code Disposition: Home with home health DS: Summary Hospital Course Reason for hospitalization: syncope versus seizure Hospital Course: Patient is a 72-year-old male with possible history of alcohol abuse, chronic narcotic dependence, history of diabetes and hypertension presents to ED being found on the ground. There was some report of him being incontinent of urine and is very confused. EEG showed normal record without seizure findings. On initial workup he had elevated CK concerning for rhabdomyolysis and elevated troponins without chest pain. Rhabdomyolysis CK elevation has resolved with IV fluids and supportive care. Cardiology had recommended starting aspirin 81 mg daily, metoprolol b.i.d., statin when CK levels stabilized, 48 hours of heparin drip. his troponin started to downtrend and recommendation was for outpatient heart catheterization when renal function improves. patient had some altered mental status which was thought to be delirium, was temporarily in ICU on Precedex drip thinking this may be alcohol withdrawal related. Patient also had triggered sepsis and was placed on antibiotics Rocephin azithromycin from 02/26/23, was then transitioned to meropenem and Flagyl for concern of aspiration pneumonia, then finally Levaquin and Flagyl, has completed final course of an
== END 2023-03-09 16:55 | disposition home health service (06) | DRG 871 ==
LOC: ANHED 22:57 → ANHIMU 23:22 → ANHICU 02-28 07:25 → ANH2MED 03-03 18:18
PROVIDERS: Internal Medicine; Internal Medicine Cardiovascular Disease; Nurse Practitioner; Student in an Organized Health Care Education/Training Program; Admitting Provider Internal Medicine; Emergency Provider Emergency Medicine; Visit Provider Student in an Organized Health Care Education/Training Program
DX: A41.9 Sepsis, unspecified organism (principal); I21.4 Non-ST elevation (NSTEMI) myocardial infarction; J18.9 Pneumonia, unspecified organism; J69.0 Pneumonitis due to inhalation of food and vomit; J96.90 Respiratory failure, unspecified, unspecified whether with hypoxia or hypercapnia; N17.9 Acute kidney failure, unspecified; M62.82 Rhabdomyolysis; M48.54XA Collapsed vertebra, not elsewhere classified, thoracic region, initial encounter for fracture; F10.139 Alcohol abuse with withdrawal, unspecified; F05 Delirium due to known physiological condition; R55 Syncope and collapse; F03.90 Unspecified dementia, unspecified severity, without behavioral disturbance, psychotic disturbance, mood disturbance, and anxiety; E87.6 Hypokalemia; R56.9 Unspecified convulsions; Z20.822 Contact with and (suspected) exposure to COVID-19; G47.33 Obstructive sleep apnea (adult) (pediatric); I10 Essential (primary) hypertension; R13.10 Dysphagia, unspecified; E78.5 Hyperlipidemia, unspecified; F10.10 Alcohol abuse, uncomplicated; M54.9 Dorsalgia, unspecified; W19.XXXA Unspecified fall, initial encounter; E11.9 Type 2 diabetes mellitus without complications; D72.829 Elevated white blood cell count, unspecified; Z78.1 Physical restraint status
CPT/HCPCS: 36415; 36569; 36600; 70450; 70553; 71045; 71250; 71275; 73521; 73560; 74174; 74176; 76705; 76775; 80048; 80053; 80061; 80074; 80202; 80307; 81001; 82306; 82550; 82570; 82607; 82746; 82805; 82948; 83605; 83690; 83735; 83880; 84100; 84132; 84145; 84300; 84443; 84484; 85025; 85055; 85610; 85730; 85999; 86140; 87040; 87081; 87637; 92526; 92610; 92611; 93005; 93306; 94640; 94762; 95816; 96374; 96375; 97110; 97161; 97165; 97530; 97535; 99291; A9270; A9577; C1751; C9113; J0696; J1170; J1200; J1630; J1644; J1650; J1940; J1956; J2060; J2185; J2270; J2405; J2543; J3370; J3411; J3475; J3480; J7030; J7040; Q9967

== ENCOUNTER 2023-07-16 04:22 | Day surgery (SDC) | payer OTHER, MEDICAID, SELFPAY ==
[2023-07-15 15:54] VITALS: BMI 23.1
[2023-07-16] VITALS (11 sets, daily range): BP systolic 123–160; BP diastolic 60–92; PULSE 40–46; RESP 12–19; TEMP 36.6; O2SAT 94–98; BMI 23.1
[2023-07-16 07:32] LABS: Basophils Percent Auto 0.4 % (0.2-1.2); Eosinophils Absolute Auto 0.4 K/mm3 (0-0.3); Eosinophils Percent Auto 4.4 % (0-4.4); Hematocrit 47.9 % (42.0-52.0); Hemoglobin 15.9 g/dL (14.0-18.0); Immature Granulocyte Absolute 0.04 K/mm3 (0.00-0.031); Immature Granulocyte Percent A 0.4 % (0-0.5); Lymphocytes Absolute Auto 3.29 K/mm3 (0.9-3.2); Mean Corpuscular HGB Conc 33.2 g/dl (32-36); Mean Corpuscular Hemoglobin 31.1 pg (26-34); Mean Corpuscular Volume 93.7 fl (80-100); Mean Platelet Volume 10.8 fl (7.4-10.4); Monocytes Absolute Auto 0.9 K/mm3 (0.1-0.6); Neutrophils Absolute Auto 4.7 K/mm3 (1.3-6.7); Neutrophils Percent Auto 49.8 % (45.5-73.1); Platelet Count Result 268 k/mm3 (150-375); Red Blood Count 5.11 M/mm3 (4.6-6.20); Red Cell Distribution Width 15.1 % (11.5-14.5); White Blood Count 9.4 K/mm3 (4.5-10.0)
[2023-07-16 07:43] LABS: Anion Gap 6 mmol/L (8-16); Blood Urea Nitrogen 16 mg/dL (9-20); Calcium 9.5 mg/dL (8.4-10.2); Carbon Dioxide 27 mmol/L (22-30); Chloride 105 mmol/L (98-107); Estimated CRCL calculation 62 ml/min; Estimated Glomerular Filt Rate > 60; Glucose 106 mg/dL (65-110); Potassium 4.1 mmol/L (3.4-5.0); Sodium 138 mmol/L (137-145)
--- NOTE | 2023-07-16 09:10 | PM.IMHP ---
H&P: HPI History of Present Illness Date/Time: 07/16/23 09:10 Chief Complaint: Abnormal stress test Narrative: Patient is a 73 year old male who is referred for elective outpatient cardiac catheterization for abnormal stress test. Review of Systems Review of Systems: No chest pain, shortness of breath, palpitations, orthopnea, lower extremity edema PMFSH Past Medical History Medical History Diabetes Hypertension Social History Social History Smoking status: Never smoker Alcohol intake: never Drinks per week: 6 Substance use: current Substance use type: marijuana Last use: 07/14/23 Lack of Transportation: No Lack of Food: Never True Current Housing: Decline to Answer Concerned About Future Housing: Decline to Answer Difficulty Paying Gas/Electric Bills: Decline to Answer Difficulty Paying for Meds: Decline to Answer Currently Unemployed: Decline to Answer Education: Don't Know Difficulty w/ Childcare or Family Care: No Living arrangements: with family Spiritual care concerns: No Meds Home Medications and Allergies Home Medications Medication Instructions Recorded Confirmed Type atorvastatin 20 mg tablet 20 mg PO DAILY 02/27/23 07/16/23 History paroxetine HCl 30 mg tablet 30 mg PO DAILY 02/27/23 07/16/23 History tramadol 50 mg tablet 50 mg PO TID PRN Pain 02/27/23 07/15/23 History zolpidem 10 mg tablet 10 mg PO HS PRN Sleep 02/27/23 07/15/23 History aspirin 81 mg tablet,delayed 81 mg PO QAM 30 days #30 tabs 03/09/23 07/16/23 Rx release metoprolol tartrate 25 mg tablet 25 mg PO Q12HR 30 days #60 tabs 03/09/23 07/16/23 Rx multivit 37-iron 27 mg-Lmfolate 1 cap PO DAILY 07/15/23 07/15/23 History 1.13 mg-algaloil,soy 581.28 mg capsule Allergies Allergy/AdvReac Type Severity Reaction Status Date / Time No Known Allergies Allergy Verified 07/16/23 07:25 Vital Signs Vital Signs - 24 hr 07/16/23 07:27 Temperature 36.6 C Pulse Rate 46 L Respiratory Rate 12 Blood Pressure 140/66 Pulse Oximetry 98 Oxygen Delivery Room Air Exam Const: General: comfortable and no acute distress HENMT: Mouth: Yes moist mucous membranes Eyes: General: appearance normal, both eyes and all related structures Sclera: sclerae normal Neck: Neck: supple Resp: Effort & Inspection: normal respiratory effort Auscultation: clear to auscultation bilaterally Cardio: Rate: regular rate Rhythm: regular rhythm Skin: General skin exam: normal color Neuro: Speech: normal speech Psych: Mental Status: mental status grossly normal Affect: normal affect H&P: Results Labs Labs: Short CBC 07/16/23 Range/Units 07:24 WBC 9.4 (4.5-10.0) K/mm3 Hgb 15.9 D (14.0-18.0) g/dL Hct 47.9 (42.0-52.0) % Plt Count 268 (150-375) k/mm3 [facility] 07/16/23 07:24 Sodium 138 Potassium 4.1 Chloride 105 Carbon Dioxide 27 BUN 16 Creatinine 1.00 Glucose 106 Calcium 9.5 Assessment and Plan Assessment and plan (1) Abnormal stress test: Code(s): R94.39 - Abnormal result of other cardiovascular function study Status: Acute Plan Proceed with [facility]
--- NOTE | 2023-07-16 09:12 | WPDMODSED ---
Moderate Sedation Note-Pt Data Patient Data Diagnosis: Abnormal stress test Present Complaint: Abnormal stress test Procedure to be performed/Plan: Coronary angiography, left heart cath, +/- PCI Allergies Allergy/AdvReac Type Severity Reaction Status Date / Time No Known Allergies Allergy Verified 07/16/23 07:25 Home Medications Medication Instructions Recorded Confirmed Type atorvastatin 20 mg tablet 20 mg PO DAILY 02/27/23 07/16/23 History paroxetine HCl 30 mg tablet 30 mg PO DAILY 02/27/23 07/16/23 History tramadol 50 mg tablet 50 mg PO TID PRN Pain 02/27/23 07/15/23 History zolpidem 10 mg tablet 10 mg PO HS PRN Sleep 02/27/23 07/15/23 History aspirin 81 mg tablet,delayed 81 mg PO QAM 30 days #30 tabs 03/09/23 07/16/23 Rx release metoprolol tartrate 25 mg tablet 25 mg PO Q12HR 30 days #60 tabs 03/09/23 07/16/23 Rx multivit 37-iron 27 mg-Lmfolate 1 cap PO DAILY 07/15/23 07/15/23 History 1.13 mg-algaloil,soy 581.28 mg capsule Current Medications: Active Medications Sodium Chloride (Normal Saline Iv) 500 mls @ 100 mls/hr IV CONT .Q5H MARSHA Sedation/Anesthesia: No previous sedation/anesthesia problems (including family history). [facility] Past Medical History Medical History Diabetes Hypertension Social History Social History Smoking status: Never smoker Alcohol intake: never Drinks per week: 6 Substance use: current Substance use type: marijuana Last use: 07/14/23 Lack of Transportation: No Lack of Food: Never True Current Housing: Decline to Answer Concerned About Future Housing: Decline to Answer Difficulty Paying Gas/Electric Bills: Decline to Answer Difficulty Paying for Meds: Decline to Answer Currently Unemployed: Decline to Answer Education: Don't Know Difficulty w/ Childcare or Family Care: No Living arrangements: with family Spiritual care concerns: No Mod Sed Physical Exam Physical Exam Pre Procedural Exam: Normal: Appearance, Lungs, Heart Rate, Heart Rhythm, Neuro Exam, Abdomen, Extremities and Skin Hours since solid foods: 12 Hours since liquid intake: 8 Mallampati Classification: class II Internal Medicine - PN: Obj Da Vital Signs Vital Signs: Vital Signs - 24 hr 07/16/23 07:27 Temperature 36.6 C Pulse Rate 46 L Respiratory Rate 12 Blood Pressure 140/66 Pulse Oximetry 98 Oxygen Delivery Room Air Meds/Results Medications: Active Medications Generic Name Dose Route Start Last Admin Trade Name Freq PRN Reason Stop Dose Admin Sodium Chloride 500 mls @ 100 mls/hr 07/16/23 07:00 Normal Saline Iv IV CONT .Q5H MARSHA Labs 07/16/23 07:24 07/16/23 07:24 Labs: Laboratory Results - last 24 hr 07/16/23 07:24 WBC 9.4 RBC 5.11 Hgb 15.9 D Hct 47.9 MCV 93.7 MCH 31.1 MCHC 33.2 RDW 15.1 H Plt Count 268 MPV 10.8 H Immature Gran % (Auto) 0.4 Neut % (Auto) 49.8 Lymph % (Auto) 35.0 [place] % (Auto) 10.0 H Eos % (Auto) 4.4 Baso % (Auto) 0.4 Lymph # (Auto) 3.29 H [place] # (Auto) 0.9 H Eos # (Auto) 0.4 H Baso # (Auto) 0.0 Abs Immat Gran (auto) 0.04 H Absolute Neuts (auto) 4.7 Absolute Nucleated RBC 0.0 Nucleated RBC % 0.0 Sodium 138 Potassium 4.1 Chloride 105 Carbon Dioxide 27 Anion Gap 6 L BUN 16 Creatinine 1.00 Estim Creat Clear Calc 62 Estimated GFR > 60 Glucose 106 Calcium 9.5 ASA Classification/Sedation ASA Classification/Sedation ASA Class: II Emergent: No Risks: Risks, benefits and alternatives explained and patient/family accepted plan for sedation. Patient re-evaluated immediately prior to sedation.
--- NOTE | 2023-07-16 09:38 | WPDCARDPROC ---
Cardiac Cath Procedure Note Date of procedure:: 07/16/23 Performing physician:: CATHETERIZATION LABORATORY REPORT Procedure Date: 07/16/2023 Psychopaedic Nurse: Eddie Brian M.D., [facility]? Referring Physician: Trav Erwin M.D. Anesthesia: Versed and Fentanyl were ordered and given in my presence at 09:15, procedure ended at 09:35. Supervision of nurse monitored moderate sedation with Versed and Fentanyl was provided for 20 minutes. Total of Versed 2mg and Fentanyl 50mcg were administered by the Rn Procedures RN Rachell Valdez. Pre-op Diagnosis: Coronary artery disease Post-op Diagnosis: 1. Non-obstructive coronary artery disease. Slow flow noted in the LAD. 2. Left ventricular end-diastolic pressure of 21mmHg Procedure(s): 1. Moderate sedation 2. Ultrasound-guided access of the right radial artery 3. Coronary angiography 4. Left heart cath Access Site: Right radial artery Brief History and Clinical Indications: Patient is a 73 year old male who is referred for elective outpatient [facility] for abnormal stress test. All risks, benefits and alternatives to left heart catheterization with or without percutaneous coronary intervention was discussed at length with the patient. Risk of complications including but not limited to bleeding, infection, arrhythmia, stroke, worsening kidney function, blood loss, groin hematoma, limb loss, emergency coronary artery bypass grafting, and even were discussed with the patient and all questions were answered. The patient understood and wished to proceed. Time out called, patient name, date of , medical record number, allergies, procedure performed, identify Psychopaedic Nurse, patient and staff member concurred with accurate data, procedure carried on. Findings: LEFT HEART CATHETERIZATION FINDINGS: 1. Left main: The left main coronary artery is widely patent without any significant obstructive disease. 2. Left anterior descending: The LAD is a large caliber vessel with mild luminal irregularities without any significant obstructive angiographic disease. Slow flow noted in the LAD. The first diagonal branch is a small caliber vessel without obstructive disease. The second diagonal branch is a small caliber vessel with a moderate 50-60% stenosis in its mid portion. 3. Ramus: Large caliber vessel. Mild luminal irregularities. No significant obstructive angiographic disease. 4. Left circumflex: Large caliber vessel. The left circumflex has mild luminal irregularities. The AV groove circumflex is small caliber and without obstructive angiographic disease. After the bifurcation of the AV groove circumflex, the vessel continues on as obtuse marginal branch. There is mild 30-40% disease immediately distal to the bifurcation. 5. Right coronary artery: Large caliber vessel. The RCA is the dominant vessel. The proximal portion has luminal irregularities. The mid portion has diffuse mild disease. The distal portion has luminal irregularities. The RPDA and RPLV have luminal irregularities. 6. Left ventricle: A. End-diastolic pressure 21mmHg. B. LV gram deferred. C. No significant gradient across aortic valve on catheter pullback. Description of Procedure: Informed consent signed and placed in the chart. Patient transferred to crime laboratory analyst room. Prepped and draped in usual sterile fashion. 2% lidocaine injected subcutaneously in right wrist area. 22-gauge venipuncture catheter used to access the right radial artery under ultrasound guidance. 6-FR slender sheath placed in right radial artery. Nitroglycerine and Verapamil were given intraarterial through the sheath. Versacore wire advanced under fluoroscopy 5F Tig 4 diagnostic catheter engaged Left Main Coronary Artery. 5F Tig 4 diagnostic catheter engaged Right Coronary Artery Multiple orthogonal angiogram obtained and reviewed 5F Pigtail diagnostic catheter crossed aortic valve to obtain LVEDP, LV angiogram deferred. Hemostasis was achieved by ap
== END 2023-07-16 13:17 | disposition home or self-care (01) ==
PROVIDERS: Visit Provider Internal Medicine
PROC: 4A023N7 Measurement of Cardiac Sampling and Pressure, Left Heart, Percutaneous Approach (ICD-10-PCS; CPT 93452; principal; 2023-07-16 08:30)
DX: I25.10 Atherosclerotic heart disease of native coronary artery without angina pectoris (principal); R94.39 Abnormal result of other cardiovascular function study; I10 Essential (primary) hypertension; E11.9 Type 2 diabetes mellitus without complications; F12.90 Cannabis use, unspecified, uncomplicated
CPT/HCPCS: 36415; 80048; 85025; 93458; A9270; C1769; C1887; C1894; J1644; J2250; J2305; J3010; J7040

== ENCOUNTER 2024-01-20 11:41 | Inpatient (IN) | payer OTHER, MEDICAID, SELFPAY ==
[2024-01-20] VITALS (22 sets, daily range): BP systolic 108–144; BP diastolic 71–104; PULSE 69–113; RESP 10–34; TEMP 35.9–36.4; O2SAT 86–98; BMI 23.1
--- NOTE | ~2024-01-20 | XR_ITS ---
EXAMINATION: XR barium swallow modified DATE: 01/29/2024 12:26 INDICATION: Dysphagia. TECHNIQUE: The patient was given barium-containing material of multiple consistencies to swallow by jared mccarty speech pathologist while I performed fluoroscopy. Dose-area product was 1 Gy-cm2. 1.3 minutes fluoroscopy time FINDINGS: Oral Stage: Within functional limits Pharyngeal Phase: Reduced laryngeal elevation Reduced tongue base retraction Moderate vallecular and minimal performed sinus residue Laryngeal penetration with thin liquids, no aspiration Cervical/Esophageal Stage: Within functional limits IMPRESSION: Modified esophagram findings as above. Please refer to the speech therapy report for spec ific recommendations. Reviewed, dictated and finalized at Location A. Reviewed, dictated and finalized at location B. IMPRESSION: Modified esophagram findings as above. Please refer to the speech t herapy report for specific recommendations.
--- NOTE | ~2024-01-20 | XR_ITS ---
EXAMINATION: XR barium swallow modified DATE: 02/07/2024 13:09 INDICATION: Dysphagia. TECHNIQUE: The patient was given barium-containing material of multiple consistencies to swallow by t he speech pathologist while I performed fluoroscopy. Fluoroscopy exposure time was 1.5 minutes. The n umber of fluoroscopy images saved to the PACS was 1. Dose-area product was 1.48 Gy-cm^2. FINDINGS: There is reduced laryngeal elevation. There is laryngeal penetration with thin liquids and nectar thi ck liquids. IMPRESSION: 1. Laryngeal penetration. 2. Please refer to the speech therapy report for recommendations. Reviewed, dictated and finalized at location A.
--- NOTE | ~2024-01-20 | US_ITS ---
EXAMINATION: US abdomen limited DATE: 01/23/2024 17:09 INDICATION: Abnormal liver function tests. TECHNIQUE: Multiple grayscale and Doppler ultrasound images of the abdomen were obtained. COMPARISON: CT abdomen and pelvis 03/03/2023 FINDINGS: The visualized portions of the head of the pancreas are normal. The liver is normal without focal lesion. There is antegrade flow in main portal vein. The gallbladder is distended. No visible gallstones. Gallbladder wall thickening is noted. The common duct is normal and measures 6 mm. There is a right pleural effusion. IMPRESSION: 1. Gallbladder distention and gallbladder wall thickening, which may be secondary to fasting and inte rstitial edema. Acute cholecystitis cannot be excluded. If there is clinical concern for acute cholec ystitis, consider hepatobiliary scintigraphy. 2. Right pleural effusion. Reviewed, dictated and finalized at location A. IMPRESSION: 1. Gallbladder distention and gallbladder wall thickening, which may be seconda ry to fasting and interstitial edema. Acute cholecystitis cannot be excluded. I f there is clinical concern for acute cholecystitis, consider hepatobiliary sci ntigraphy. 2. Right pleural effusion.
--- NOTE | ~2024-01-20 | MR_ITS ---
EXAMINATION: MR brain/brain stem wo/w con DATE: 01/22/2024 14:50 INDICATION: Altered mental status. TECHNIQUE: Magnetic resonance imaging (MRI) of the brain and brainstem was performed without and with 13 mL MultiHance intravenous contrast. COMPARISON: Brain MRI 03/05/2023, head CT 01/20/2024 FINDINGS: There is no intracranial hemorrhage, acute infarction, or abnormal intracranial mass lesion . The ventricles are normal in size. There is mild mucosal thickening in the paranasal sinuses. The o rbits are normal. The mastoid air cells are normal. IMPRESSION: 1. Normal brain. Reviewed, dictated and finalized at location A. IMPRESSION: 1. Normal brain.
--- NOTE | ~2024-01-20 | XR_ITS ---
EXAMINATION: XR chest 1V portable DATE: 01/23/2024 11:08 INDICATION: Pulmonary edema. Dyspnea. TECHNIQUE: A single frontal view of the chest was obtained. COMPARISON: Chest single view 01/22/2024 FINDINGS: A calcified right lung nodule and calcified right hilar lymph nodes are consistent with old granulomatous disease. There is a diffuse interstitial pattern in the lungs, consistent with mild pu lmonary edema. There is a small right pleural effusion. No pneumothorax. The heart size is normal. IMPRESSION: 1. Worsened mild pulmonary edema. 2. Worsened small right pleural effusion. Reviewed, dictated and finalized at location A.
--- NOTE | ~2024-01-20 | XR_ITS ---
EXAMINATION: XR abdomen obstructive series DATE: 01/27/2024 08:31 INDICATION: Acute respiratory failure. TECHNIQUE: Upright and supine views of the abdomen on 3 radiographs were obtained. COMPARISON: None. FINDINGS: There are no dilated loops of bowel. The nasogastric tube tip is in the stomach. No free in traperitoneal gas. Endotracheal tube tip is 3.1 cm above the dante. A right upper extremity peripher ally inserted central venous catheter (PICC) is seen with tip in the superior vena cava. There is a s mall right pleural effusion. There are airspace opacities at the lung bases. IMPRESSION: 1. Nonobstructive bowel gas pattern. 2. Small right pleural effusion. 3. Airspace opacities at the lung bases, consistent with atelectasis versus pneumonia. Reviewed, dictated and finalized at location A. IMPRESSION: 1. Nonobstructive bowel gas pattern. 2. Small right pleural effusion. 3. Airspace opacities at the lung bases, consistent with atelectasis versus pne umonia.
--- NOTE | ~2024-01-20 | XR_ITS ---
EXAMINATION: XR chest 1V portable INDICATION: Respiratory failure TECHNIQUE: Portable AP chest at 0512 hours COMPARISON: 01/23/2024 FINDINGS: The endotracheal tube ends approximately 3.5 cm above the dante. The nasogastric tube is i n the stomach. There is a mild diffuse interstitial pattern without significant change. A small left pleural effusion is present. The cardiomediastinal silhouette is stable. IMPRESSION: 1. Cardiomegaly with stable pulmonary edema. 2. Small left pleural effusion. Reviewed, dictated and finalized at location A.
--- NOTE | ~2024-01-20 | XR_ITS ---
XR chest ET placement 01/23/2024 11:32 Indication: Respiratory distress. Intubation. Procedure: AP portable chest Comparison: Comparison to multiple prior studies sequentially, with oldest reviewed study dated 04/2023. Findings: Endotracheal tube tip 2 cm above the dante. NG tube in the stomach. Cardiomegaly. Mild int erstitial edema no pleural effusion. No pneumothorax. No acute osseous abnormality. Impression: 1: Cardiomegaly with interstitial edema. Reviewed, dictated and finalized at location L. Impression: 1: Cardiomegaly with interstitial edema.
--- NOTE | ~2024-01-20 | XR_ITS ---
XR abdomen/kub 1V DATE: 01/26/2024 06:50 INDICATION: Hypoactive bowel TECHNIQUE: Portable supine AP views COMPARISON: 01/15/2024 limited abdominal ultrasound examination FINDINGS: NG tube tip overlies the distal body or antrum of the stomach. The psoas shadows are intact. No visceromegaly is evident. No evidence of bowel obstruction. Infiltrates and/atelectasis in the lower lung zones, especially evidence of left lower lobe atelectas is. Fracture deformities, including T8 and L1. Prominent degenerative disc disease at L4-5. IMPRESSION: No evidence of bowel obstruction NG tube overlying distal stomach Reviewed, dictated and finalized at Location A. Reviewed, dictated and finalized at location A.
--- NOTE | ~2024-01-20 | XR_ITS ---
EXAMINATION: XR chest 1V portable DATE: 01/22/2024 05:31 INDICATION: Worsening hypoxia. TECHNIQUE: A single frontal view of the chest was obtained. COMPARISON: Chest single view 01/20/2024 FINDINGS: The patient is rotated to his left. A calcified right lung nodule and calcified right hilar lymph nodes are consistent with old granulomatous disease. There are interstitial opacities in right upper lobe. No pleural effusion or pneumothorax. The heart size is normal. IMPRESSION: 1. Interstitial opacities in right upper lobe, likely mild pulmonary edema. Reviewed, dictated and finalized at location A.
--- NOTE | ~2024-01-20 | XR_ITS ---
EXAMINATION: XR chest PICC line INDICATION: PICC insertion TECHNIQUE: Portable AP chest at 0816 hours COMPARISON: 0512 hours FINDINGS: The endotracheal tube ends approximately 2.0 cm above the dante. The nasogastric tube is f ollowed as far as the stomach. Its tip is beyond the inferior margin of the radiograph. A left upper extremity PICC has been inserted which ends with its tip in the distal superior vena cava. The cardio mediastinal silhouette is stable. A mild diffuse interstitial pattern is unchanged. IMPRESSION: 1. Right upper extremity PICC ending in the distal superior vena cava. Otherwise, no significant saleh ge. Reviewed, dictated and finalized at location A. IMPRESSION: 1. Right upper extremity PICC ending in the distal superior vena cava. Otherwis e, no significant change.
--- NOTE | ~2024-01-20 | XR_ITS ---
EXAMINATION: XR lumbar puncture diagnostic DATE: 01/23/2024 14:25 INDICATION: Encephalopathy. Sepsis. TECHNIQUE: Consent was provided by the patient's family member. The skin overlying the L2-L3 level wa s prepped and draped in usual sterile fashion. Subcutaneous 1% lidocaine was used for local anesthes ia. A 20 gauge spinal needle was advanced under fluoroscopic guidance. The needle was removed and th e entry site was cleaned and dressed. There were no immediate complications. Fluoroscopy exposure ti me was 0.1 minutes. The total number of images was 1. FINDINGS: Real-time fluoroscopy demonstrates the needle at the L2-L3 level. The opening pressure was 22 cm water (Normal range is variably defined as 6-20 cm water and up to 25 cm water in obese patient s. Pressure >25 cm water is one of the modified Dandy criteria for idiopathic intracranial hypertensi on). 13 mL of clear, colorless fluid was collected in 4 tubes. IMPRESSION: 1. Successful fluoro-guided lumbar puncture. Reviewed, dictated and finalized at location A.
--- NOTE | ~2024-01-20 | CT_ITS ---
EXAMINATION: CT brain wo con DATE: 01/20/2024 12:43 INDICATION: Altered mental status. TECHNIQUE: Computed tomography (CT) of the head was performed without intravenous contrast. The mA wa s adjusted according to patient size. Iterative reconstruction technique was employed. The dose-lengt h product was 1210.67 mGy-cm. COMPARISON: Head CT 02/26/2023 FINDINGS: There is no intracranial hemorrhage, acute infarction, or abnormal intracranial mass lesion . The ventricles are normal in size. There is mild mucosal thickening in the paranasal sinuses. The o rbits are normal. The mastoid air cells are normal. IMPRESSION: 1. Normal brain. Reviewed, dictated and finalized at location E. IMPRESSION: 1. Normal brain.
--- NOTE | ~2024-01-20 | XR_ITS ---
XR chest 1V portable DATE: 01/26/2024 06:50 INDICATION: Intubation TECHNIQUE: Portable AP chest on 01/26/2024 at 0541 hours COMPARISON: 01/25/2024 portable AP chest at 0514 hours FINDINGS: ET tube in satisfactory position 3.4 cm above dante. NG tube in satisfactory position of t he stomach. Right upper extremity PIC catheter tip overlies the superior vena cava. There is pulmonary vascular congestion and bilateral pulmonary infiltrates, mildly improved since 12/28. There is infiltrate or atelectasis in the lower lung zones, especially left lower lobe. Possi ble minor fissure is consistent with some residual subpleural edema. IMPRESSION: Mild improvement of bilateral pulmonary infiltrates since 01/25/2024 Reviewed, dictated and finalized at location A.
--- NOTE | ~2024-01-20 | XR_ITS ---
Portable chest x-ray Comparison: 01/28/2024 Clinical History: Respiratory failure Findings: Probable minimal pleural effusions and mild bilateral pulmonary edema. Right-sided PICC li ne in place. Cardiomediastinal silhouette is stable. Bones and soft tissues are unremarkable. Impression: Mild pulmonary edema pattern and minimal pleural effusions. Right-sided PICC line. Reviewed, dictated and finalized at location . Impression: Mild pulmonary edema pattern and minimal pleural effusions. Right-sided PICC line.
--- NOTE | ~2024-01-20 | XR_ITS ---
EXAM: XR abdomen gastric tube rechec DATE: 02/01/2024 15:48 HISTORY: pt pulled NG tube partially out . COMPARISON: 02/01/2024. FINDINGS: Left basilar atelectasis/consolidation. NG tube, tip over the stomach, side port at the GE junction. Normal upper abdominal bowel gas pattern. Degenerative changes in the spine. IMPRESSION: Shallow NG tube positioning, consider advancing by 5 cm. Reviewed, dictated and finalized at location K.
--- NOTE | ~2024-01-20 | XR_ITS ---
Portable chest x-ray Comparison: 01/26/2024 Clinical History: Respiratory failure Findings: Endotracheal tube, NG tube, and right-sided PICC line are in place. Small bilateral pleura l effusions are present with moderate pulmonary edema pattern and probable bibasilar atelectasis. Ca rdiomediastinal silhouette is stable. Bones and soft tissues are unremarkable. Impression: Support tubes, as above. Small pleural effusions with probable moderate pulmonary edema pattern and bibasilar atelectasis. Reviewed, dictated and finalized at location M. Impression: Support tubes, as above. Small pleural effusions with probable moderate pulmonary edema pattern and biba silar atelectasis.
--- NOTE | ~2024-01-20 | XR_ITS ---
EXAMINATION: XR chest 1V portable DATE: 01/27/2024 06:06 INDICATION: Intubation. TECHNIQUE: A single frontal view of the chest was obtained on 2 radiographs. COMPARISON: Chest single view 01/26/2024, chest CT 03/03/2023 FINDINGS: There is a diffuse interstitial pattern in the lungs. A calcified right lung nodule and cari cified right hilar lymph nodes are consistent with old granulomatous disease. There are airspace opac ities in the perihilar regions. There is mild peripheral scarring at left lung upper lobe. There are small pleural effusions. No pneumothorax. The heart size is normal. The endotracheal tube tip is 3.8 cm above the dante. A right upper extremity peripherally inserted central venous catheter (PICC) is seen with tip in the superior vena cava. The nasogastric tube tip is in the stomach. There is an old healed fracture of right clavicle. IMPRESSION: 1. Mildly worsened diffuse lung disease, consistent with pulmonary edema versus pneumonia. 2. Stable small pleural effusions. Reviewed, dictated and finalized at location A.
--- NOTE | ~2024-01-20 | XR_ITS ---
XR abdomen gastric tube insert DATE: 02/01/2024 12:14 INDICATION: NG tube placement TECHNIQUE: Portable AP view on February 01, 2024 at 1210 hours COMPARISON: 01/23/2024 KUB FINDINGS: NG tube extends approximately 8 cm into the upper body of the stomach. Radiopaque contrast material is noted in the colon. IMPRESSION: NG tube extends 8 cm into the upper stomach. Reviewed, dictated and finalized at Location A. Reviewed, dictated and finalized at location A.
--- NOTE | ~2024-01-20 | XR_ITS ---
EXAMINATION: XR barium swallow modified DATE: 01/31/2024 10:33 INDICATION: Recent intubation. TECHNIQUE: The patient was given barium-containing material of multiple consistencies to swallow by t bibiana speech pathologist while I performed fluoroscopy. Fluoroscopy exposure time was 3.6 minutes. The n umber of fluoroscopy images saved to the PACS was 1. Dose-area product was 3.338 Gy-cm^2. FINDINGS: There is reduced laryngeal elevation, reduced tongue base retraction, vallecular residue, pyriform si nus residue, pharyngeal wall residue, laryngeal penetration, and aspiration. IMPRESSION: 1. Aspiration. 2. Please refer to the speech therapy report for recommendations. Reviewed, dictated and finalized at location A.
--- NOTE | ~2024-01-20 | XR_ITS ---
EXAMINATION: XR chest 1V DATE: 01/20/2024 12:44 INDICATION: Confusion. TECHNIQUE: A single frontal view of the chest was obtained. COMPARISON: Chest one view 03/03/2023 FINDINGS: A calcified right lung nodule is consistent with old granulomatous disease. No pleural effu paulino or pneumothorax. The heart size is normal. IMPRESSION: 1. No acute cardiopulmonary disease. Reviewed, dictated and finalized at location E.
--- NOTE | ~2024-01-20 | XR_ITS ---
XR chest 1V portable DATE: 01/25/2024 05:26 INDICATION: Intubation TECHNIQUE: Portable AP chest on 01/25/2024 at 0514 hours COMPARISON: 01/23/2014 portable AP chest at 0816 hours FINDINGS: Tip of ET tube is 1.9 cm above dante; ideal range is 205 cm. NG tube in stomach in satisfactory position. Right upper extremity PIC catheter tip overlies superior vena cava. There bilateral infiltrates including patchy infiltrate throughout most of the right lung, most promi nent infiltrate and/or atelectasis in the right mid and both lower lung zones. The infiltrates appear relatively stable on the left, increased on the right. Small pleural effusions are suggested. Heart size appears within normal limits. Aortic arch calcification. IMPRESSION: ET tube tip 1.9 cm above dante NG tube in stomach Bilateral infiltrates, right greater than left, mildly increased since 01/24/2024 Reviewed, dictated and finalized at location A. IMPRESSION: ET tube tip 1.9 cm above dante NG tube in stomach Bilateral infiltrates, right greater than left, mildly increased since 4
--- NOTE | ~2024-01-20 | XR_ITS ---
EXAMINATION: XR abdomen gastric tube insert INDICATION: OG tube insertion TECHNIQUE: Portable AP KUB-NG at 1127 hours COMPARISON: None available FINDINGS: The OG tube is in the stomach. The visualized lung bases demonstrate minimal airspace opaci ties. The bowel gas pattern is unremarkable. IMPRESSION: 1. A G-tube in the stomach. Reviewed, dictated and finalized at location F. IMPRESSION: 1. A G-tube in the stomach.
--- NOTE | ~2024-01-20 | XR_ITS ---
Portable chest x-ray Comparison: 01/29/2024 Clinical History: Respiratory failure Findings: New nodular area of consolidation the right upper lobe, compatible with worsening pneumoni a. There is mild bibasilar haziness which is similar to prior exam, with probable minimal left pleura l effusion. Right-sided PICC line in place. Cardiomediastinal silhouette is stable. Bones and soft t issues are unremarkable. Impression: New nodular consolidation right upper lobe, likely worsening pneumonia. Mild bibasilar pulmonary edema and/or infection. Minimal left pleural effusion. Right-sided PICC line. Reviewed, dictated and finalized at location . Impression: New nodular consolidation right upper lobe, likely worsening pneumonia. Mild bibasilar pulmonary edema and/or infection. Minimal left pleural effusion. Right-sided PICC line.
--- NOTE | ~2024-01-20 | XR_ITS ---
EXAM: XR abdomen gastric tube insert DATE: 02/03/2024 18:18 HISTORY: NG tube placement verification . COMPARISON: 02/01/2024. FINDINGS: Bilateral reticular and left basilar airspace disease. NG tube, tip and side port project over the expected location of the stomach. Normal bowel gas pattern. Contrast in the colon. Enlarged liver. Degenerative changes in the spine. IMPRESSION: NG tube, in good position. Reviewed, dictated and finalized at location K. IMPRESSION: NG tube, in good position.
--- NOTE | 2024-01-20 11:46 | ECG_ITS ---
Measurements Intervals [place] Rate: 87 P: MN: 0 QRS: 5 QRSD: 101 T: 78 QT: 375 QTc: 453 Interpretive Statements SINUS RHYTHM BORDERLINE AV CONDUCTION DELAY DELAYED PRECORDIAL R/S TRANSITION BASELINE ARTIFACT- II, III, AVR, AVL, AVF, V3, V5-V6 BORDERLINE ECG COMPARED TO ECG 03/07/2023 10:15:06 NO SIGNIFICANT CHANGES Electronically Signed On 01-20-2024 12:07:13 CDT by Elieser Quesada D.O.
--- NOTE | 2024-01-20 11:48 | ED.AMS ---
HPI - Altered Mental Status General Chief Complaint: Altered Mental Status Stated Complaint: AMS Time Seen by Provider: 01/20/24 11:45 History of Present Illness HPI narrative: Pt presents with altered mental status and confusion from home by EMS today. Some question of pt smoking something but unable to verify. Pt bit tongue so seizure is possible but no known seizure history. Pt is combative and confused yelling help me but not following commands. Related Data Home Medications Medication Instructions Recorded Confirmed paroxetine HCl 30 mg tablet 30 mg PO DAILY 02/27/23 01/20/24 tramadol 50 mg tablet 50 mg PO TID PRN Pain 02/27/23 01/20/24 zolpidem 10 mg tablet 10 mg PO HS PRN Insomnia 02/27/23 01/20/24 atorvastatin 80 mg tablet 80 mg PO HS 01/20/24 01/20/24 Allergies Allergy/AdvReac Type Severity Reaction Status Date / Time No Known Allergies Allergy Verified 07/16/23 07:25 Review of Systems Review of Systems: ROS unobtainable: Yes unobtainable due to mental status PMFSH Past Medical History Medical History (Updated 01/20/24 @ 14:22 by Lorena Paniagua PA-C) Diabetes Diverticulitis Hyperlipidemia Hypertension Seizure Small bowel obstruction Surgical History Surgical History (Updated 01/20/24 @ 14:24 by Lorena Paniagua PA-C) History of appendectomy History of cardiac catheterization (06/2023) Nonobstructive coronary artery disease, slow flow noted in LAD. History of exploratory laparotomy History of incisional hernia repair History of partial colectomy History of tonsillectomy Family History Family History (Updated 01/20/24 @ 14:22 by Lorena Paniagua PA-C) Other Acute myocardial infarction Alzheimer's dementia Breast cancer Hypertension Social History Social History (Updated 01/20/24 @ 14:45 by Lorena Paniagua PA-C) Social History: Surrogate medical decision maker: Briana Townsend, daughter. Code status: Full code. Smoking status: Never smoker Alcohol intake: current Drinks per week: 3 Substance use: current Substance use type: marijuana Last use: 07/14/23 Do You Feel Safe in your Home?: Yes Lack of Transportation: No Lack of Food: Never True Current Housing: I Have Housing Concerned About Future Housing: No Difficulty Paying Gas/Electric Bills: No Difficulty Paying for Meds: No Currently Unemployed: No Education: High School Diploma/GED Difficulty w/ Childcare or Family Care: No Living arrangements: with family Spiritual care concerns: No Exam Const: General: no acute distress and confusion Limitations: altered mental status HENMT: Head: normal to inspection Eyes: Conjunctivae: conjunctivae normal Resp: Effort & Inspection: normal respiratory effort Auscultation: clear to auscultation bilaterally Cardio: Rate: regular rate Rhythm: regular rhythm GI: GI Palp: Yes Soft to palpation Auscultation: normal bowel sounds Skin: General skin exam: normal color Rashes: no rashes Wounds: no wounds Neuro: General: moves all extremities and no focal motor deficits Extrem: General: normal to inspection and no clubbing, cyanosis or edema Psych: Other: pt combative and confused Course Vital Signs Vital signs: Vital Signs Temperature 97.2 F L 01/20/24 11:44 Pulse Rate 100 01/20/24 11:44 Respiratory Rate 22 H 01/20/24 11:44 Blood Pressure 144/97 H 01/20/24 11:44 Pulse Oximetry 96 01/20/24 11:44 Temperature 96.7 F L 01/20/24 15:04 Pulse Rate 110 H 01/20/24 18:00 Respiratory Rate 20 01/20/24 16:48 Blood Pressure 142/76 H 01/20/24 15:04 Pulse Oximetry 86 L 01/20/24 17:00 Oxygen Delivery High Flow Nasal Cannula 01/20/24 17:00 Oxygen Flow Rate 6 01/20/24 17:00 MDM - Altered Mental Status MDM Narrative Medical decision making narrative: Pt confused and combative bit tongue so could be seizure but no known history. could also be substance abuse related or sepsis or
[2024-01-20] MEDS: HALOPERIDOL LACTATE 5 MG/ML VIAL IM (11:49)
[2024-01-20] MEDS: LORazepam INJ (*CRX) 2 MG/ML VIAL IM (11:50)
[2024-01-20 12:05] LABS: Alveolar/Arterial O2 Gradient 54.4 mmHg; Base Excess ABG -13.2 mEq/l (+/-2.0); Fractional Inspired Oxygen 21 %; HCO3 ABG 8.7 mEq/l (22.0-26.0); Oxygen Saturation ABG 95.6 % (95.0-100.0); Oxyhemoglobin 93.5 % THb (90.0-100.0); PO2 ABG 77.1 mmHg (80.0-100.0); PO2 FiO2 Ratio Arterial Blood 3.67 %; Total Hemoglobin 15.2 g/dL (12.0-18.0); pH ABG 7.377 (7.350-7.450)
[2024-01-20 12:08] LABS: PCO2 ABG 15.2 mmHg (35.0-45.0); Site Drawn LEFT RADIAL
[2024-01-20 12:09] LABS: Device ROOM AIR; Modified Allen's Test Pass
[2024-01-20 12:14] LABS: Basophils Absolute Auto 0.1 K/mm3 (0.0-0.1); Basophils Percent Auto 0.5 % (0.2-1.2); Eosinophils Percent Auto 0.1 % (0-4.4); Hematocrit 44.6 % (42.0-52.0); Hemoglobin 14.6 g/dL (14.0-18.0); Immature Granulocyte Absolute 0.65 K/mm3 (0.00-0.031); Immature Granulocyte Percent A 3.6 % (0-0.5); Lymphocytes Absolute Auto 2.83 K/mm3 (0.9-3.2); Lymphocytes Percent Auto 15.6 % (18.3-44.2); Mean Corpuscular HGB Conc 32.7 g/dl (32-36); Mean Corpuscular Hemoglobin 31.5 pg (26-34); Mean Corpuscular Volume 96.1 fl (80-100); Mean Platelet Volume 11.3 fl (7.4-10.4); Monocytes Absolute Auto 0.5 K/mm3 (0.1-0.6); Neutrophils Percent Auto 77.2 % (45.5-73.1); Nucleated Red Blood Cells Perc 0.1 % (0.0-0.2); Platelet Count Result 235 k/mm3 (150-375); Red Blood Count 4.64 M/mm3 (4.6-6.20); Red Cell Distribution Width 14.5 % (11.5-14.5); White Blood Count 18.1 K/mm3 (4.5-10.0)
[2024-01-20 12:24] LABS: Acetaminophen < 10 ug/mL (10-30); Ammonia 69 umol/L (9-30); Ethanol < 10 mg/dL (<10); Salicylate < 1.0 mg/dL (2-20)
[2024-01-20 12:25] LABS: INR 1.1; Prothrombin Time 14.9 Seconds (11.1-14.7)
[2024-01-20 12:26] LABS: Albumin Level 4.4 g/dL (3.5-5.1); Alkaline Phosphatase 126 U/L (38-126); Anion Gap 19 mmol/L (8-16); Aspartate Amino Transferase 36 U/L (17-59); Bilirubin,Total 0.6 mg/dL (0.2-1.3); Blood Urea Nitrogen 14 mg/dL (9-20); Calcium 9.2 mg/dL (8.4-10.2); Carbon Dioxide 13 mmol/L (22-30); Chloride 105 mmol/L (98-107); Estimated CRCL calculation 52 ml/min; Estimated Glomerular Filt Rate 59; Glucose 256 mg/dL (65-110); Partial Thromboplastin Time 38.6 Seconds (22.3-36.8); Sodium 137 mmol/L (137-145)
--- NOTE | 2024-01-20 12:28 | PC.NURSE ---
Pt daughter, January, called for update at [phone]. She states he has hx of CVA, HTN. Denies substance abuse this AM.
[2024-01-20 12:30] LABS: Bacteria Urine None Seen /hpf; RBC Urine 0-2 /hpf (0-2); Squamous Epithelial Cell Urine Occasional /hpf (Few); WBC Urine 0-5 /hpf (0-3)
[2024-01-20 12:33] LABS: Add Urine Microscopic? YES; Appearance Urine Clear (Clear); Bilirubin Urine Negative (Negative); Blood Urine 1+ (Negative); Color Urine Yellow (Yellow); Glucose Urine UA Trace mg/dL (Negative); Ketones Urine Trace mg/dL (Negative); Leukocyte Esterase Ur Negative LEU/UL (Negative); Nitrate Urine Negative (Negative); Protein Urine 3+ mg/dL (Negative); Specific Grav Ur >= 1.030 (1.001-1.035); Urobilinogen Urine 0.2 mg/dL (<2.0)
[2024-01-20 12:36] LABS: Troponin I 0.021 ng/mL (0.000-0.034)
[2024-01-20 12:39] LABS: Alanine Aminotransferase 38 U/L (6-50)
[2024-01-20 12:40] LABS: Amphetamine Screen Urine Negative (Negative); Barbiturate Screen Urine Negative (Negative); Benzodiazepines Screen Urine Negative (Negative); Cannabinoid Screen Urine Positive (Negative); Cocaine Screen Urine Negative (Negative); Methadone Screen Urine Negative (Negative); Opiate Screen Urine Negative (Negative); Phencyclidine Screen Urine Negative (Negative)
[2024-01-20 12:49] LABS: Lactic Acid Reflex 13.1 mmol/L (0.7-2.0)
[2024-01-20] MEDS: SODIUM CHLORIDE 0.9% IV 1,000 ML 999 ML IV CONT ×2 (13:29→14:03)
--- NOTE | 2024-01-20 13:53 | PC.NURSE ---
staff to room, pt thrashing, not making sense. possibly hallucinating. pt placed in soft restraints, versed 2 mg ivp x1 from Dr Pressley
[2024-01-20] MEDS: MIDAZOLAM HCL (*CRX) 2 MG/2 ML VIAL IV PUSH (13:55)
--- NOTE | 2024-01-20 14:16 | PM.IMHP ---
H&P: HPI History of Present Illness Date/Time: 01/20/24 14:30 Chief Complaint: Altered mental status. Narrative: This is a 73-year-old male with history of suspected seizure in February 2023 with normal MRI and EEG, previously documented history of alcohol abuse although he has cut his alcohol back significantly, hypertension, hyperlipidemia, depression, and anxiety presented to the emergency department via EMS home for evaluation of altered mental status. He is not able to provide an accurate history and a majority the following is obtained via a review of his EMR as well as information provided by his daughter Briana. The last couple of days he has been complaining of an upset stomach and reportedly had several episodes of emesis. He put himself on a bland diet but was back to eating chips yesterday and she presumed that his symptoms had improved. He was in his usual state of health when he went to bed last night. This morning when daughter was talking to him he seemed to not be feeling well and approximately 15 minutes before EMS was summoned he seemed to be confused almost suddenly. Not long thereafter the patient's grandson found him not responsive in bed with profuse sweats and some tremors. Briana ran to his bedside and reports that he was in and out of consciousness and by the time EMS arrived he was more alert but was very confused and agitated. He had similar symptoms last February and it was thought that he perhaps had a seizure but he was not started on any seizure medications. Since that time he has had several ?spells? where he becomes confused and unresponsive for a few seconds. On arrival to the ED repeatedly yelled ?help me? but is unable to provide any meaningful history. He was noted to have dry blood in his mouth with suspected tongue bite. He had also urinated on himself. Prior to his 1st seizure last February he was drinking beer every day but he has cut back significantly. He now only drinks 1 shot of alcohol a couple of times a week. He smokes marijuana but does not use any other illicit substances. Briana does not think he has had any recent change in medications and she is unaware of any fever, lack of sleep, or falls. In the ED: He was afebrile on arrival with stable blood pressures. He has been tachycardic in the low 100s and mildly tachypneic. He was difficult to reorient due to confusion and was combative and uncooperative. He received to mg IM lorazepam, 5 mg IM Haldol and 2 mg IV midazolam. Labs were significant for WBC count of 18.1, lactic acid 13.1, carbon dioxide 13, glucose 256, ammonia 69, troponin 0.021, TSH 1.420. Urine drug screen was positive for cannabinoids. Ethyl alcohol, acetaminophen, and salicylate levels were undetectable. Brain CT showed normal brain and chest x-ray was normal as well. He is being admitted in this setting for further treatment and evaluation. Review of Systems Review of Systems: Unable to be obtained given clinical condition. [facility] Past Medical History Medical History (Updated 01/20/24 @ 20:16 by Lorena Paniagua PA-C) Diverticulitis Hyperlipidemia Hypertension Prediabetes Seizure Small bowel obstruction Surgical History Surgical History (Updated 01/20/24 @ 14:24 by Lorena Paniagua PA-C) History of appendectomy History of cardiac catheterization (06/2023) Nonobstructive coronary artery disease, slow flow noted in LAD. History of exploratory laparotomy History of incisional hernia repair History of partial colectomy History of tonsillectomy Family History Family History (Updated 01/20/24 @ 14:22 by Lorena Paniagua PA-C) Other Acute myocardial infarction Alzheimer's dementia Breast cancer Hypertension Social History Social History (Updated 01/20/24 @ 14:45 by Lorena Paniagua PA-C) Social History: Surrogate medical decision maker: Briana Townsend, daughter. Code status: Full code. Smoking status: Never smoker Alcohol intake: current Drinks per week: 3 Substa
[2024-01-20 15:12] LABS: Reflex Lactic Acid Yes or No Add Lactic
[2024-01-20] MEDS: THIAMINE HCL 200 MG/2 ML VIAL 100 MG IV PUSH (15:12)
[2024-01-20] MEDS: levETIRAcetam 1000MG/NACL100ML 1,000 MG/100 ML BAG 400 MG IVPB (15:12)
[2024-01-20 15:29] LABS: Ammonia < 9 umol/L (9-30); Magnesium 1.8 mg/dL (1.6-2.3)
--- NOTE | 2024-01-20 15:33 | ADMGEN ---
This patient, Wes Townsend, was admitted to IMU Room 231-01. Patient/family oriented to hospital policies and general routines including ID bracelet, bed and alarms, visiting hours, pain management, procedures, bathroom and other care routines, personal items, smoking policy, room service/diet, and visiting hours. Information on how to activate the Rapid Response Team has been discussed. Patient/Family are encouraged to report perceived risks to care and to ask questions if they do not understand what they are told or what they should do.
[2024-01-20] MEDS: LACTATED RINGERS 1,000 ML 999 ML IV CONT ×2 (15:41→16:24)
--- NOTE | 2024-01-20 15:45 | PC.NURSE ---
JORGE Lloyd notified of CIWA score of 18. No new orders received at this time
[2024-01-20 18:18] LABS: Creatine Kinase 1382 U/L (55-170)
[2024-01-20 18:50] LABS: Anion Gap 7 mmol/L (8-16); Blood Urea Nitrogen 12 mg/dL (9-20); Calcium 8.5 mg/dL (8.4-10.2); Carbon Dioxide 18 mmol/L (22-30); Chloride 113 mmol/L (98-107); Estimated CRCL calculation 62 ml/min; Estimated Glomerular Filt Rate > 60; Glucose 124 mg/dL (65-110); Potassium 3.4 mmol/L (3.4-5.0); Sodium 138 mmol/L (137-145)
[2024-01-20 21:28] LABS: Creatine Kinase 232 U/L (55-170)
[2024-01-20] MEDS: LACTATED RINGERS 1,000 ML 100 ML IV CONT (22:09)
[2024-01-20] MEDS: levETIRAcetam 500MG/NACL 100ML 500 MG/100 ML BAG 400 MG IVPB (22:13)
[2024-01-20] MEDS: METOPROLOL TARTRATE 25 MG TABLET PO (23:27)
[2024-01-21] VITALS (18 sets, daily range): BP systolic 92–135; BP diastolic 67–93; PULSE 69–108; RESP 20–32; TEMP 36–36.4; O2SAT 90–96
[2024-01-21 05:12] LABS: Hematocrit 40.7 % (42.0-52.0); Hemoglobin 12.8 g/dL (14.0-18.0); Mean Corpuscular HGB Conc 31.4 g/dl (32-36); Mean Corpuscular Hemoglobin 30.8 pg (26-34); Mean Corpuscular Volume 98.1 fl (80-100); Mean Platelet Volume 12.3 fl (7.4-10.4); Platelet Count Result 199 k/mm3 (150-375); Red Blood Count 4.15 M/mm3 (4.6-6.20); Red Cell Distribution Width 14.8 % (11.5-14.5)
[2024-01-21 05:35] LABS: Lactic Acid Reflex 9.3 mmol/L (0.7-2.0)
[2024-01-21 05:44] LABS: Albumin Level 3.7 g/dL (3.5-5.1); Alkaline Phosphatase 78 U/L (38-126); Anion Gap 16 mmol/L (8-16); Aspartate Amino Transferase 310 U/L (17-59); Bilirubin,Total 1.6 mg/dL (0.2-1.3); Blood Urea Nitrogen 14 mg/dL (9-20); Calcium 8.6 mg/dL (8.4-10.2); Carbon Dioxide 14 mmol/L (22-30); Chloride 111 mmol/L (98-107); Estimated CRCL calculation 50 ml/min; Estimated Glomerular Filt Rate > 60; Glucose 221 mg/dL (65-110); Potassium 3.9 mmol/L (3.4-5.0); Sodium 141 mmol/L (137-145)
[2024-01-21 06:04] LABS: Alanine Aminotransferase 76 U/L (6-50)
[2024-01-21 06:39] LABS: Creatine Kinase > 16000 U/L (55-170)
[2024-01-21] MEDS: LACTATED RINGERS 1,000 ML 100 ML IV CONT (07:39)
[2024-01-21 08:08] LABS: Reflex Lactic Acid Yes or No Add Lactic
[2024-01-21 08:38] LABS: Lactic Acid 6.7 mmol/L (0.7-2.0)
[2024-01-21] MEDS: levETIRAcetam 500MG/NACL 100ML 500 MG/100 ML BAG 400 MG IVPB ×2 (09:24→20:23)
[2024-01-21] MEDS: ASPIRIN 81 MG ENTERIC TABLET PO (09:38)
[2024-01-21] MEDS: METOPROLOL TARTRATE 25 MG TABLET PO ×2 (09:38→20:06)
[2024-01-21] MEDS: PARoxetine 10 MG TABLET 30 MG PO (09:38)
--- NOTE | 2024-01-21 12:07 | WPDNEURCNPN ---
Assessment and Plan Assessment and plan (1) Seizure disorder: Code(s): G40.909 - Epilepsy, unspecified, not intractable, without status epilepticus Status: Acute Plan 1. Change in the mental status most likely secondary to seizures though at present he is arousable and more communicative etiology likely alcohol withdrawal but other etiology needs to be ruled out patient has already been loaded with Keppra. Routine EEG also needed Consult date: 01/21/24 HPI: Wes Townsend is a 73 year old male Admitted to the hospital for the complaints of change in the mental status also with information that he was smoking something but was unable to verify. Patient bit his tongue though he has no history of seizures in the past he was yelling and confused and not following verbal commands. His medications included paroxetine 30mg daily, zolpidem 10mg HS p.r.n., atorvastatin 80mg HS, and tramadol 50mg 3 times a day on PRN basis. he has ongoing history of diabetes mellitus, hypertension, in addition to seizure disorder and also has undergone multiple surgeries in the past as outlined he is never a smoker currently alcohol intake or at least 3 drinks per week also substance use initial exam in the emergency room noted him to be combative and confused, vital signs were normal with him being afebrile but respiration 22 CBC WBCs 18.1 BMP with blood sugar 256 lactic acid 13.1 drug screen on the urine positive for cannabinoids and alcohol level less than 10 he was restrained on arrival with soft restraints , CT of the head negative for the bleed or enlargement of the ventricles also chest x-ray negative has been taking his medication as such in addition to Keppra 500mg q.12 hours, Review of Systems Review of Systems: All systems reviewed & are unremarkable except as noted in HPI and below [facility] Past Medical History Medical History (Updated 01/20/24 @ 20:16 by Lorena Paniagua PA-C) Diverticulitis Hyperlipidemia Hypertension Prediabetes Seizure Small bowel obstruction Surgical History Surgical History (Updated 01/20/24 @ 14:24 by Lorena Paniagua PA-C) History of appendectomy History of cardiac catheterization (06/2023) Nonobstructive coronary artery disease, slow flow noted in LAD. History of exploratory laparotomy History of incisional hernia repair History of partial colectomy History of tonsillectomy Family History Family History (Updated 01/20/24 @ 14:22 by Lorena Paniagua PA-C) Other Acute myocardial infarction Alzheimer's dementia Breast cancer Hypertension Social History Social History (Updated 01/20/24 @ 14:45 by Lorena Paniagua PA-C) Social History: Surrogate medical decision maker: Briana Townsend, daughter. Code status: Full code. Smoking status: Never smoker Alcohol intake: current Drinks per week: 3 Substance use: current Substance use type: marijuana Last use: 07/14/23 Do You Feel Safe in your Home?: Yes Lack of Transportation: No Lack of Food: Never True Current Housing: I Have Housing Concerned About Future Housing: No Difficulty Paying Gas/Electric Bills: No Difficulty Paying for Meds: No Currently Unemployed: No Education: High School Diploma/GED Difficulty w/ Childcare or Family Care: No Living arrangements: with family Spiritual care concerns: No Meds Home Medications and Allergies Home Medications Medication Instructions Recorded Confirmed Type paroxetine HCl 30 mg tablet 30 mg PO DAILY 02/27/23 01/20/24 History tramadol 50 mg tablet 50 mg PO TID PRN Pain 02/27/23 01/20/24 History zolpidem 10 mg tablet 10 mg PO HS PRN Insomnia 02/27/23 01/20/24 History aspirin 81 mg tablet,delayed 81 mg PO QAM 30 days #30 tabs 03/09/23 01/20/24 Rx release metoprolol tartrate 25 mg tablet 25 mg PO Q12HR 30 days #60 tabs 03/09/23 01/20/24 Rx atorvastatin 80 mg tablet 80 mg PO HS 01/20/24 01/20/24 History Allergies Allergy/AdvReac Type Severity
--- NOTE | 2024-01-21 13:09 | PCSTNOTE ---
Please refer to the Bedside Swallow Evaluation in the EMR. Please note, silent aspiration cannot be ruled out at bedside.
[2024-01-21] MEDS: LORazepam INJ (*CRX) 2 MG/ML VIAL 1 MG IV PUSH (13:15)
--- NOTE | 2024-01-21 14:37 | PM.IMPN ---
Progress Note: A&P Assessment and Plan (1) Lactic acidosis: Code(s): E87.20 - Acidosis, unspecified Status: Acute (2) Seizure: Code(s): R56.9 - Unspecified convulsions Status: Acute (3) Acute alteration in mental status: Code(s): R41.82 - Altered mental status, unspecified Status: Acute (4) Hyperlipidemia: Code(s): E78.5 - Hyperlipidemia, unspecified Status: Acute (5) Seizure disorder: Code(s): G40.909 - Epilepsy, unspecified, not intractable, without status epilepticus Status: Acute (6) Electrolyte imbalance: Code(s): E87.8 - Other disorders of electrolyte and fluid balance, not elsewhere classified Status: Acute (7) Rhabdomyolysis: Qualifiers: Rhabdomyolysis type: non-traumatic Qualified Code(s): M62.82 - Rhabdomyolysis Code(s): M62.82 - Rhabdomyolysis Status: Acute (8) Leukocytosis: Code(s): D72.829 - Elevated white blood cell count, unspecified Status: Acute (9) Hypertension: Code(s): I10 - Essential (primary) hypertension Status: Acute (10) Alcohol withdrawal delirium: Code(s): F10.931 - Alcohol use, unspecified with withdrawal delirium Status: Acute Plan Admit patient to IMU under full inpatient status Patient likely has the alcohol withdrawal delirium which may have resulted in withdrawal seizure in the ER Patient started on CIWA protocol last night; Added Ativan coverage as per protocol Continous cardiopulmonary tele monitoring Consider neurology evaluation if patient has recurrent alcohol withdrawal seizures while admitted in the hospital Patient has dehydration with with increasing anion gap with lactic acidosis and rhabdomyolysis Her CPK level was more than 16,000 in the ED Patient received 2 L of IV hydration in the ER Monitor lactic acid and CPK levels closely Lactic acid level is slowly downtrending with IV hydration 13-6-9-7 Continue with IV hydration, increased to 125 cc per hour Monitor IV normal saline bolus ordered Strict I&Os Patient started on IV banana bag daily Ordered oral multi multivitamins supplementation daily PRN meds for nausea and vomiting Patient has mildly elevated LFTs secondary to alcoholic liver disease Started patient on Librium 50 mg p.o. q.6 hours ordered to be titrated down once patient is more stable Monitor labs daily Neurology consult reviewed and appreciated Follow-up closely with neurology regarding seizure workup Obtain MRI of the brain and EEG once patient is more stable and out of his delirium state PT/OT consult when patient is more stable Care coordination consults to be given for coordination with patient regarding placement in an alcohol rehab facility ? Patient seen and examined at bedside during my morning rounds ? Collaborated with patient's nurse at the bedside in detail and addressed all concerns ? Labs, electrolytes, radiology, investigations and test results reviewed ? Consult/Nursing/Ancilliary notes on the chart reviewed and appreciated ? Spoke with patient/family at the bedside and answered all the questions that they had Repeat labs in a.m. Electrolyte replacement as per protocol. Patient will be monitored very closely on the floor. Further recommendations as per the hospital course. Time Spent With Patient Time with patient: 25 - 35 minutes Subjective Date/time seen: 01/21/24 14:37 Interval history: Patient seen and evaluated at bedside earlier today. He remained pleasantly confused since admission yesterday. We ordered 1 dose of IV Ativan on-call to the MRI, but he was jumping off the rails of the MRI bed. He was brought back and and put in soft restraints. No witnessed seizures since admission. He has a history of chronic alcohol use and likely going through withdrawals. Review of Systems Review of Systems: Unable to be obtained. Patient is pleasantly confused All systems reviewed & are unremark
[2024-01-21] MEDS: HALOPERIDOL LACTATE 5 MG/ML VIAL 2 MG IM (14:41)
[2024-01-21] MEDS: SODIUM CHLORIDE 0.9% IV 1,000 ML 999 ML IV CONT (15:14)
[2024-01-21 15:16] LABS: Ammonia < 9 umol/L (9-30)
[2024-01-21 15:32] LABS: Lactic Acid Reflex 6.2 mmol/L (0.7-2.0)
[2024-01-21 18:38] LABS: Creatine Kinase > 16000 U/L (55-170)
[2024-01-21] MEDS: chlordiazePOXIDE (*CRX) 25 MG CAPSULE 50 MG PO (20:06)
--- NOTE | 2024-01-21 20:23 | PC.NURSE ---
1150 - Dr. Villegas into see pt - pt follows simple instructions- disoriented to place/time- oriented to self only.
--- NOTE | 2024-01-21 20:24 | PC.NURSE ---
1200 Unable to do proper CWAL score due to pt Altered mental status
--- NOTE | 2024-01-21 21:21 | PC.NURSE ---
1510- pt increased agitation and confusion- try to get out bed- pulling at Nam-unable to redirect pt- order received for soft wrist restraints; updated on pt urine output since this am,
[2024-01-21] MEDS: OLANZapine 5 MG TABLET PO (22:12)
[2024-01-22] VITALS (22 sets, daily range): BP systolic 102–125; BP diastolic 66–93; PULSE 65–100; RESP 16–28; TEMP 36.4–37.2; O2SAT 90–100
[2024-01-22] MEDS: SODIUM CHLORIDE 0.9% IV 1,000 ML 125 ML IV CONT (00:13)
[2024-01-22] MEDS: chlordiazePOXIDE (*CRX) 25 MG CAPSULE 50 MG PO ×5 (02:05→17:52)
[2024-01-22 04:42] LABS: Alveolar/Arterial O2 Gradient 273.4 mmHg; Base Excess ABG -5.2 mEq/l (+/-2.0); Carboxyhemoglobin 0.3 % THb (0-2.0); Fractional Inspired Oxygen 50 %; HCO3 ABG 17.1 mEq/l (22.0-26.0); Methemoglobin ABG 0.3 %THb (0-1.5); Oxygen Content ABG 16.2 %vol (16.0-22.0); Oxygen Saturation ABG 90.7 % (95.0-100.0); Reduced Hemoglobin 12.6 %THb (0-5.0); Total Hemoglobin 13.3 g/dL (12.0-18.0); pH ABG 7.452 (7.350-7.450)
[2024-01-22 04:45] LABS: Oxyhemoglobin 86.8 % THb (90.0-100.0)
[2024-01-22 04:46] LABS: Modified Allen's Test Pass; Site Drawn RIGHT FEMORAL
[2024-01-22 04:47] LABS: Device HIGH FLOW NASAL CANN
--- NOTE | 2024-01-22 05:00 | PM.EVENT ---
Event Note Event Note Event Note: Nursing staff called as the patient was having multiple episodes of apnea. He would fall asleep and then jerk awake. He seemed to be gasping for air. His oxygen requirement had increased up to 7 L high-flow. Patient was not having any cough. He does have a significant white count but has not had any fevers. A stat ABG was ordered and respiratory therapy had difficulty obtaining so I obtained ABG with femoral stick which demonstrated respiratory alkalosis with underlying metabolic acidosis with low PO2 of 55. Patient's oxygen was increased up to 8 L high-flow. Stat chest x-ray was performed which was relatively unremarkable. The patient is in over rhabdomyolysis with CK greater than 16,000. The patient's serum bicarb on labs from yesterday is down to 14. Patient has had low urine output with only 250 mL of urine output for the shift. Patient had mildly decreased breath sounds anteriorly and moderate tachypnea. He was difficult to redirect, no obvious facial asymmetry, pupils were equal. He was moving all extremities equally and had equal strength. Patient does have multiple abdominal scars but had hyperactive bowel sounds on exam and actually swung at this provider when I was examining his abdomen. A.m. labs had already been ordered but had not yet been obtained. Patient evidently had increased agitation after Ativan administration. Nursing staff reported the patient calmed down after Zyprexa. Patient's clinical condition is consistent with metabolic encephalopathy. Postictal versus withdrawal situation not excluded. Patient did not have any obvious signs of asterixis. The patient is already receiving IV thiamin. At this time of going to discontinue the patient's banana bag and normal saline fluids. Instead of place patient on bicarb drip given his markedly elevated CK and persistent metabolic acidosis. I suspect a portion of the patient's encephalopathy is due to the degree of his metabolic acidosis. A.m. labs are still pending at the time of this documentation. 35 minute spent in critical care activities. Due to a high probability of clinically significant, life threatening deterioration, the patient required my highest level of preparedness to intervene emergently and I personally spent this critical care time directly and personally managing the patient. This critical care time included obtaining a history; examining the patient; pulse oximetry; ordering and review of studies; arranging urgent treatment with development of a management plan; evaluation of patient's response to treatment; frequent reassessment; and discussions with other providers. It was exclusive of separately billable procedures and treating other patients and teaching time. Please see Assessment and Plan section and the rest of the note for further information on patient assessment and treatment.
--- NOTE | 2024-01-22 05:11 | PC.NURSE ---
Spoke to Dr. Scott in patient's room at the beginning of this shift regarding patient not responding well to ativan and continuing to be restless, anxious, confused. New orders received. Spoke to Lorena Paniagua mid shift via telephone. Orders received. Spoke to Dr. Hemphill toward the end of the shift. Dr. Hemphill assessed patient and orders received.
--- NOTE | 2024-01-22 05:14 | WPDPROCEDUR ---
Procedures Other Procedures Procedure 1: Other Procedure: Right femoral ABG performed. Area was senna ties to with rubbing alcohol provided within the kit. Femoral needle was used landmark technique was utilized with sample obtained on 1st attempt. Adequate hemostasis post procedure.
[2024-01-22] MEDS: SODIUM BICARBONATE 8.4% 150 MEQ in DEXTROSE 5% 1,000 ML 950 ML 125 MEQ IV CONT ×2 (05:58→15:45)
[2024-01-22 06:02] LABS: Basophils Percent Auto 0.1 % (0.2-1.2); Hemoglobin 12.1 g/dL (14.0-18.0); Immature Granulocyte Absolute 0.13 K/mm3 (0.00-0.031); Immature Granulocyte Percent A 0.7 % (0-0.5); Lymphocytes Absolute Auto 1.96 K/mm3 (0.9-3.2); Lymphocytes Percent Auto 9.8 % (18.3-44.2); Mean Corpuscular HGB Conc 32.7 g/dl (32-36); Mean Corpuscular Hemoglobin 30.8 pg (26-34); Mean Corpuscular Volume 94.1 fl (80-100); Mean Platelet Volume 11.9 fl (7.4-10.4); Monocytes Absolute Auto 1.2 K/mm3 (0.1-0.6); Neutrophils Absolute Auto 16.6 K/mm3 (1.3-6.7); Neutrophils Percent Auto 83.4 % (45.5-73.1); Nucleated Red Blood Cells Perc 0.4 % (0.0-0.2); Platelet Count Result 176 k/mm3 (150-375); Red Blood Count 3.93 M/mm3 (4.6-6.20); Red Cell Distribution Width 14.7 % (11.5-14.5); White Blood Count 19.9 K/mm3 (4.5-10.0)
[2024-01-22 06:12] LABS: Lactic Acid Reflex 2.7 mmol/L (0.7-2.0)
[2024-01-22 07:20] LABS: Alanine Aminotransferase 246 U/L (6-50); Albumin Level 3.4 g/dL (3.5-5.1); Alkaline Phosphatase 84 U/L (38-126); Anion Gap 6 mmol/L (4-12); Aspartate Amino Transferase 706 U/L (17-59); Bilirubin,Total 1.6 mg/dL (0.2-1.3); Blood Urea Nitrogen 26 mg/dL (9-20); Calcium 8.4 mg/dL (8.4-10.2); Carbon Dioxide 21 mmol/L (22-30); Chloride 115 mmol/L (98-107); Estimated CRCL calculation 46 ml/min; Estimated Glomerular Filt Rate 59; Glucose 121 mg/dL (65-110); Lipase 25 U/L (23-300); Magnesium 2.2 mg/dL (1.6-2.3); Phosphorus 1.9 mg/dL (2.5-4.5); Potassium 3.9 mmol/L (3.4-5.0); Sodium 142 mmol/L (137-145)
[2024-01-22 07:39] LABS: Creatine Kinase > 16000 U/L (55-170)
[2024-01-22 08:58] LABS: Reflex Lactic Acid Yes or No Add Lactic
[2024-01-22] MEDS: PARoxetine 10 MG TABLET 30 MG PO (09:51)
[2024-01-22] MEDS: ASPIRIN 81 MG ENTERIC TABLET PO (09:51)
[2024-01-22 09:52] LABS: Lactic Acid 1.9 mmol/L (0.7-2.0)
[2024-01-22] MEDS: THERAPEUTIC MULTIVITAMINS/MINERALS TAB (*BKC) 1 TABLET PO (09:52)
[2024-01-22] MEDS: METOPROLOL TARTRATE 25 MG TABLET PO ×2 (09:52→20:58)
[2024-01-22] MEDS: levETIRAcetam 500MG/NACL 100ML 500 MG/100 ML BAG 400 MG IVPB ×2 (09:52→20:58)
[2024-01-22] MEDS: POTASSIUM PHOS,M-BASIC-D-BASIC 40 MMOL in SODIUM CHLORIDE 0.9% IV 250 ML 43.89 MMOL IVPB (11:00)
[2024-01-22 11:39] LABS: Glucose Point of Care 153 mg/dl (65-105)
--- NOTE | 2024-01-22 12:40 | PM.CNNEP ---
Assessment and Plan Assessment and plan (1) Rhabdomyolysis: Qualifiers: Rhabdomyolysis type: non-traumatic Qualified Code(s): M62.82 - Rhabdomyolysis Code(s): M62.82 - Rhabdomyolysis Status: Acute Assessment and Plan: as noted by elevated CPK though to be secondary to seizure activity(?) fortunately, renal function remains relatively stable better urine output noted in the last 24 hours statin on hold agree with bicarb gtt for now consider switching to normal saline if CO2 overcorrects follow trend of CPK (2) Metabolic acidosis: Code(s): E87.20 - Acidosis, unspecified Status: Acute Assessment and Plan: due to lactic acidosis from seizure compensating with bicarbonate gtt follow acidosis (3) Seizure: Code(s): R56.9 - Unspecified convulsions Status: Acute Assessment and Plan: Neurology following further testing as outlined - MRI of brain and EEG on antiepiletics at this time (4) Altered mental status: Qualifiers: Altered mental status type: delirium Qualified Code(s): R41.0 - Disorientation, unspecified Code(s): R41.82 - Altered mental status, unspecified Status: Acute Assessment and Plan: due to seizure and possibl alcohol withdrawal on CIWA protocol follow mentation (5) Hypertension: Code(s): I10 - Essential (primary) hypertension Status: Chronic Assessment and Plan: reasonable control follow trend of hemodynamics I will continue to follow the patient with you while he remains hospitalized and make further recommendations as deemed necessary. Thank you for allowing me to participate in the care of this patient. History of Present Illness Reason for Consult Consult date: 01/22/24 Reason for consult: metabolic acidosis and Other (rhabdomyolysis) Chief Complaint Chief complaint: Altered Mental Status History of Present Illness Narrative: The majority of information that have obtained is from review of the electronic medical records as well as discussion with the physicians/nurses involved the patient's care as the patient is unable to provide me with a clear history as to the events that led to this admission given his altered mental status. The patient is a 73-year-old male with a past medical history as outlined below who presented to [facility] Emergency room via EMS from home for further evaluation of altered mental status. Apparently, for the last couple of days, patient has been having issues and problems with a upset stomach in association with nausea and vomiting. An effort to treat these symptoms, he put himself on a bland diet and this seemed to improve his overall clinical situation and he started eating regular food again yesterday. On the morning of admission, the patient's daughter was talking to him and he reportedly admitted to her that he was not feeling very well. He then acutely and suddenly became altered in terms of his mentation. Not long after that, he became unresponsive in association with significant diaphoresis and tremors. He apparently was fluctuating in and out of consciousness when this was occurring and given this acute change in his status, 911 was called and EMS was summoned to their home. By the time of EMS arrival, seen more awake and alert but still was confused and agitated. He was subsequently transferred to the emergency room for further assessment. Workup and evaluation in the emergency room demonstrated the patient to be hemodynamically stable although he was slightly tachycardic and mildly tachypneic. His confusion and agitation limited his exam in general. He received intramuscular lorazepam for his agitation and possible seizure activity and routine blood test demonstrated a centrally normal CBC other than mild anemia with a mildly elevated white blood cell count but he had a significant lactic acidosis of 13.1.
[2024-01-22 18:27] LABS: Albumin Level 3.3 g/dL (3.5-5.1); Anion Gap 6 mmol/L (4-12); Blood Urea Nitrogen 22 mg/dL (9-20); Calcium 8.4 mg/dL (8.4-10.2); Carbon Dioxide 26 mmol/L (22-30); Chloride 112 mmol/L (98-107); Estimated CRCL calculation 55 ml/min; Estimated Glomerular Filt Rate > 60; Glucose 147 mg/dL (65-110); Phosphorus 3.3 mg/dL (2.5-4.5); Potassium 4.1 mmol/L (3.4-5.0); Sodium 144 mmol/L (137-145)
--- NOTE | 2024-01-22 20:48 | PM.IMPN ---
Progress Note: A&P Assessment and Plan (1) Lactic acidosis: Code(s): E87.20 - Acidosis, unspecified Status: Acute (2) Seizure: Code(s): R56.9 - Unspecified convulsions Status: Acute (3) Acute alteration in mental status: Code(s): R41.82 - Altered mental status, unspecified Status: Acute (4) Hyperlipidemia: Code(s): E78.5 - Hyperlipidemia, unspecified Status: Acute (5) Seizure disorder: Code(s): G40.909 - Epilepsy, unspecified, not intractable, without status epilepticus Status: Acute (6) Electrolyte imbalance: Code(s): E87.8 - Other disorders of electrolyte and fluid balance, not elsewhere classified Status: Acute (7) Rhabdomyolysis: Qualifiers: Rhabdomyolysis type: non-traumatic Qualified Code(s): M62.82 - Rhabdomyolysis Code(s): M62.82 - Rhabdomyolysis Status: Acute (8) Leukocytosis: Code(s): D72.829 - Elevated white blood cell count, unspecified Status: Acute (9) Hypertension: Code(s): I10 - Essential (primary) hypertension Status: Acute (10) Alcohol withdrawal delirium: Code(s): F10.931 - Alcohol use, unspecified with withdrawal delirium Status: Acute Plan Admit patient to IMU under full inpatient status Patient likely has the alcohol withdrawal delirium which may have resulted in withdrawal seizure in the ER Patient started on CIWA protocol last night; Added Ativan coverage as per protocol Continous cardiopulmonary tele monitoring Consider neurology evaluation if patient has recurrent alcohol withdrawal seizures while admitted in the hospital Patient has dehydration with with increasing anion gap with lactic acidosis and rhabdomyolysis Her CPK level was still more than 16,000 on the floor Patient received 2 L of IV hydration in the ER Patient received another 1 L normal saline bolus Continue with aggressive IV hydration Lactic acid level is slowly downtrending with IV hydration and now resolved ( 23-1-3-7-6-3-2) Monitor CPK levels closely Strict I&Os Patient started on IV banana bag daily Ordered oral multi multivitamins supplementation daily PRN meds for nausea and vomiting Patient has mildly elevated LFTs secondary to alcoholic liver disease which we will follow Started patient on Librium 50 mg p.o. q.6 hours ordered to be titrated down once patient is more stable Patient has leukocytosis ranging between 18 and 21 over last 3 days, likely reactive in nature Monitor labs daily Neurology consult reviewed and appreciated Follow-up closely with neurology regarding seizure workup Obtain MRI of the brain and EEG once patient is more stable and out of his delirium state PT/OT consult when patient is more stable Care coordination consults to be given for coordination with patient regarding placement in an alcohol rehab facility ? Patient seen and examined at bedside during my morning rounds ? Collaborated with patient's nurse at the bedside in detail and addressed all concerns ? Labs, electrolytes, radiology, investigations and test results reviewed ? Consult/Nursing/Ancilliary notes on the chart reviewed and appreciated ? Spoke with patient/family at the bedside and answered all the questions that they had Repeat labs in a.m. Electrolyte replacement as per protocol. Patient will be monitored very closely on the floor. Further recommendations as per the hospital course. Time Spent With Patient Time with patient: 25 - 35 minutes Subjective Date/time seen: 01/22/24 20:48 Interval history: Patient remains pleasantly confused, getting more at ease today. He is tolerating IV fluid. Nephrology consult given for evaluation regarding his severe rhabdomyolysis and metabolic acidosis. Spoke with patient's sister at bedside. Events from last night noted. Review of Systems Review of Systems: Unable to be obtained. Patient is pleasantly confused All systems reviewed & are un
[2024-01-23] VITALS (36 sets, daily range): BP systolic 83–134; BP diastolic 57–92; PULSE 59–78; RESP 14–36; TEMP 36.2–39; O2SAT 94–100
[2024-01-23] MEDS: SODIUM BICARBONATE 8.4% 150 MEQ in DEXTROSE 5% 1,000 ML 950 ML 70 MEQ IV CONT (01:00)
[2024-01-23 05:07] LABS: Basophils Percent Auto 0.1 % (0.2-1.2); Hematocrit 37.1 % (42.0-52.0); Hemoglobin 12.4 g/dL (14.0-18.0); Immature Granulocyte Percent A 0.6 % (0-0.5); Lymphocytes Absolute Auto 1.96 K/mm3 (0.9-3.2); Lymphocytes Percent Auto 12.2 % (18.3-44.2); Mean Corpuscular HGB Conc 33.4 g/dl (32-36); Mean Corpuscular Hemoglobin 31.5 pg (26-34); Mean Corpuscular Volume 94.2 fl (80-100); Mean Platelet Volume 12.2 fl (7.4-10.4); Monocytes Percent Auto 6.4 % (2.6-8.5); Neutrophils Percent Auto 80.7 % (45.5-73.1); Nucleated Red Blood Cells Perc 3.7 % (0.0-0.2); Platelet Count Result 155 k/mm3 (150-375); Red Blood Count 3.94 M/mm3 (4.6-6.20); Red Cell Distribution Width 14.7 % (11.5-14.5); White Blood Count 16.1 K/mm3 (4.5-10.0)
[2024-01-23 05:35] LABS: Alanine Aminotransferase 663 U/L (6-50); Albumin Level 3.2 g/dL (3.5-5.1); Alkaline Phosphatase 91 U/L (38-126); Anion Gap 1 mmol/L (4-12); Bilirubin,Total 1.4 mg/dL (0.2-1.3); Blood Urea Nitrogen 19 mg/dL (9-20); Calcium 8.4 mg/dL (8.4-10.2); Carbon Dioxide 35 mmol/L (22-30); Chloride 108 mmol/L (98-107); Estimated CRCL calculation 56 ml/min; Estimated Glomerular Filt Rate > 60; Glucose 143 mg/dL (65-110); Lipase 35 U/L (23-300); Magnesium 2.2 mg/dL (1.6-2.3); Phosphorus 2.7 mg/dL (2.5-4.5); Potassium 3.6 mmol/L (3.4-5.0); Sodium 144 mmol/L (137-145)
[2024-01-23 05:54] LABS: Aspartate Amino Transferase 787 U/L (17-59)
[2024-01-23] MEDS: chlordiazePOXIDE (*CRX) 25 MG CAPSULE 50 MG PO (06:11)
[2024-01-23] MEDS: SODIUM CHLORIDE 0.9% IV 1,000 ML 75 ML IV CONT (06:49)
[2024-01-23 07:00] LABS: Creatine Kinase > 16000 U/L (55-170)
[2024-01-23 08:04] LABS: Glucose Point of Care 132 mg/dl (65-105)
[2024-01-23] MEDS: levETIRAcetam 500MG/NACL 100ML 500 MG/100 ML BAG 400 MG IVPB ×2 (08:24→20:07)
[2024-01-23] MEDS: METOPROLOL TARTRATE 25 MG TABLET PO (08:42)
[2024-01-23] MEDS: ASPIRIN 81 MG ENTERIC TABLET PO (08:42)
[2024-01-23] MEDS: THERAPEUTIC MULTIVITAMINS/MINERALS TAB (*BKC) 1 TABLET PO (08:42)
[2024-01-23] MEDS: PARoxetine 10 MG TABLET 30 MG PO (08:42)
--- NOTE | 2024-01-23 11:07 | WPDNEUROPN ---
Progress Note: A&P Assessment and Plan (1) Acute alteration in mental status: Code(s): R41.82 - Altered mental status, unspecified Status: Acute (2) Seizure: Code(s): R56.9 - Unspecified convulsions Status: Acute (3) Acute respiratory failure: Code(s): J96.00 - Acute respiratory failure, unspecified whether with hypoxia or hypercapnia Status: Acute (4) Fever: Code(s): R50.9 - Fever, unspecified Status: Acute Plan Mr. Townsend is a year old male with a history of chronic alcohol use, SVT, NSTEMI, DM, HTN presenting due to concerns for seizure-like activity. He had similar episode in February 2023, but at that time, thought to be seizure in the setting of alcohol withdrawal. Per family, patient now rarely drinks so seems less likely to be alcohol withdrawal related at this point. Mental status also continued to decline during the admission without clear etiology. WBC and CK elevated on admission, thought to be due to seizure. He had lactic acidosis, which has now normalized. Blood cultures are normal. Patient had further decline in mental status today with respiratory failure, requiring intubation. He was also notably febrile to 102.5. Suspect underlying infectious process. With the seizure, mental status changes, and now fever, have to think about meningitis/encephalitis. - Recommend starting meningitic antibiotics -- Rocephin, ampicillin, vancomycin - Start acyclovir - Recommend lumbar puncture for evaluation of bacterial/viral BUTT MAKER infection - Continue Keppra 500mg BID Subjective Date/time seen: 01/23/24 11:07 Interval history: Mr. Townsend is a year old male with a history of chronic alcohol use, SVT, NSTEMI, DM, HTN presenting due to concerns for seizure-like activity. Patient was brought in due to an episode that was witnessed by his daughter -- Initially suddenly confused, followed by unresponsiveness, diaphoresis, and tremors. Unclear how long the episode lasted. EMS was called and by that time, patient was more alert but quite agitated. In the ER he continued to remain altered. He was noted to have dry blood in his mouth, concerning for tongue bite. He had also urinated on himself. In the ED, CT head was unrevealing. Labs were significant for elevated WBC of 18.1, elevated lactic acid of 13.1, CK >16K. UDS was positive for cannabinoids. Alcohol level was negative. Patient received Ativan, Haldol, and Versed for agitation. MRI brain has been done which was read as normal. Patient is currently being treated for rhabdomyolysis. WBC peaked at 21 on 01/20 and has been downtrending, with WBC of 16 today. Lactic acid has normalized. Of note, patient had an admission in February 2023 for altered mental status, in the setting of tongue bite followed by agitation. He was a heavy drinker at the time so the concern was that he had an alcohol withdrawal seizure. His routine EEG and MRI brain were normal. Patient has reportedly cut down on his alcohol intake, and apparently drinks 1 shot of hard liquor a couple of times a week. Patient has been started on Keppra 500mg BID. Spoke with patients nurse -- he was minimally responsive this morning -- with [place] hopkins breathing patter, he was bradycardic down to 30s, making gurgling noises, but she did not witness any seizure like activity. He was transferred to the ICU where he was intubated and started on propofol. He has been febrile to 102.5 today. EEG done today showed slowing but no discharges or electrographic seizures. Review of Systems Review of Systems: ROS unobtainable: Yes unobtainable due to endotracheal tube, unobtainable due to medical condition and unobtainable due to mental status Exam Const: Other: sedated with propofol HENMT: Mouth: Yes moist mucous membranes Eyes: Pupils: Equal, round and reactive pupils present Resp: Other: intubated, mechanically ventillated Skin: General skin exam: normal color Neuro: Other
[2024-01-23] MEDS: PROPOFOL IV EMULSION 100 ML 2.1 MG IV CONT (11:30)
[2024-01-23] MEDS: ETOMIDATE 20 MG/10 ML AMPUL IV PUSH (11:35)
[2024-01-23] MEDS: ROCURONIUM BROMIDE 50 MG/5 ML VIAL IV PUSH (11:35)
--- NOTE | 2024-01-23 11:38 | WPDPROCEDUR ---
Procedures Intubation Intubation Date: 01/23/24 Intubation Time: 11:38 A pre-procedural Time-Out was completed immediately before starting the procedure and confirmed: Patient Identification, Site, Procedure, Patient Position and the Availability of Requisite Equipment: Yes Sedative: etomidate Paralytic: rocuronium Laryngoscope: fiber optic video scope Assist device used: fiber optic device ET tube size: 8 Tube secured depth (cm): 25 Tube secured location: lips Tube placement confirmation: visualized tube passing through cords, equal breath sounds bilaterally, no breath sounds over epigastrium and confirmation by capnometry Patient tolerated procedure: well Intubation complications: none
--- NOTE | 2024-01-23 11:39 | PC.NURSE ---
This patient, Wes Townsend, was received from [[id number]] on 01/23/24 at 1110. Patient/family oriented to unit policies and routines.
--- NOTE | 2024-01-23 11:40 | PC.NURSE ---
Patient minimally responsive, [place] respirations, and heart rate is intermittently bradycardic in the 30's. Dr. Scott notified, and a consult for the meat market manager was ordered. Dr. Mejia notified, and upon assessment noted that the patient needed to be intubated. Dr. Bush notified and patient was transferred to ICU for intubation.
--- NOTE | 2024-01-23 11:40 | WPDCNINT ---
Assessment and Plan Assessment and plan (1) Acute respiratory failure: Code(s): J96.00 - Acute respiratory failure, unspecified whether with hypoxia or hypercapnia Status: Acute Assessment and Plan: Patient with acute respiratory failure likely related to pulmonary edema, aspiration pneumonia, altered mental status, 01/22: Patient intubated for airway protection and hypoxia and increasing oxygen requirement -currently on CMV mode of ventilation, peep of 8 -ABGs showed a mixed venous, will obtain another ABG and adjust ventilator accordingly -will start patient on bronchodilators -chest x-ray has been reviewed -sedation with propofol, maintain RASS of 0 to -2 -daily spontaneous awakening trials and daily spontaneous breathing trials (2) Altered mental status: Qualifiers: Altered mental status type: delirium Qualified Code(s): R41.0 - Disorientation, unspecified Code(s): R41.82 - Altered mental status, unspecified Status: Acute Assessment and Plan: Altered mental status could be multifactorial, seizure activity versus possible alcohol withdrawal (but patient has cut down alcohol significantly according the family) -patient presented with elevated WBC count, lactic acidosis, sepsis -will request interventional radiology to perform an LP -will start antibiotics as below (3) Sepsis: Qualifiers: Sepsis type: sepsis due to unspecified organism Sepsis acute organ dysfunction status: unspecified Qualified Code(s): A41.9 - Sepsis, unspecified organism Code(s): A41.9 - Sepsis, unspecified organism Status: Acute Assessment and Plan: Patient presented with lactic acidosis, leukocytosis, altered mental status rhabdomyolysis -shows could be meningitis versus pneumonia -LP has been ordered per Interventional Radiology -started patient on ceftriaxone, vancomycin, Unasyn, acyclovir (01/22) -lactic acid is normalized, patient has received adequate amount of IV fluids -continue to monitor urine output, maintain adequate blood pressures (4) Seizure disorder: Code(s): G40.909 - Epilepsy, unspecified, not intractable, without status epilepticus Status: Acute Assessment and Plan: Patient has a history of seizures past with negative MRI and negative EEG -this admission again suspect seizure activity given elevated lactic acidosis, tremor-like movements observed by family -01/22: EEG normal but slow, no seizure activities were noted -continue Keppra 500 IV q.12 hours (5) Rhabdomyolysis: Qualifiers: Rhabdomyolysis type: non-traumatic Qualified Code(s): M62.82 - Rhabdomyolysis Code(s): M62.82 - Rhabdomyolysis Status: Acute Assessment and Plan: Patient presented with rhabdomyolysis likely related to possible seizure activity or being unresponsive on the bed. -CK levels remain elevated despite patient receiving adequate IV fluid -patient currently has pulmonary edema, will decrease IV fluids to 50 mL/hour -nephrology following the patient (6) Alcohol withdrawal delirium: Code(s): F10.931 - Alcohol use, unspecified with withdrawal delirium Status: Acute Assessment and Plan: Unknown of this is really alcohol withdrawal delayed able as patient's family states he has cut down alcohol only drinks 1 shot of alcohol a couple of times a week. -continue multivitamin -will add thiamine and folic acid -alcohol levels on admission were negative Plan DVT prophylaxis: SCDs, hold chemoprophylaxis for lumbar puncture Stress ulcer prophylaxis: Protonix IV Nutrition: NPO for now Code Status: Full code Critical Care Time Spent: 51 minutes Discussed with patient's sister and updated her with patient's condition and plan of care. The cyst is aware that patient was supposed to be intubated rightfully due to airway protection in oxygenation to which she was agreeable. I answered all her questions Due to a high probabi
--- NOTE | 2024-01-23 11:50 | WPDNEUROLOGY ---
Neurology EEG Report General Information Date of Study: 01/23/24 TEST Routine EEG DIAGNOSIS Altered mental status, suspected seizure CONDITION OF RECORDING Patient is still clinically encephalopathic. Presence of artifact in posterior leads due to frequent head movement EEG NUMBER [id number] CLINICAL HISTORY Patient presented after episode of confusion and unresponsiveness at home. Noted to have blood in mouth in the ER, raising concern for seizure. He has been agitated since admission and still not at baseline. EEG DESCRIPTION Background consists of mostly alpha and theta range rhythm. Well formed posterior dominant rhythm is not observed. No significant asymmetries of background activities are noted. Sleep spindles are present occasionally throughout recording indicating presence of stage II sleep. There are no epileptiform discharges or seizures during this recording. Hyperventilation and photic stimulation were not performed due to patient's clinical status. There is movement artifact noted intermittently throughout the recording. IMPRESSION This is an abnormal routine EEG due to the absence of normal wake background as evidenced by lack of well-formed posterior dominant rhythm. This can be seen in the setting of mild encephalopathy due to unspecified cause. No epileptiform features or electrographic seizures were noted. Clinical correlation is recommended.
[2024-01-23 12:46] LABS: Alveolar/Arterial O2 Gradient 614.1 mmHg; Base Excess ABG 3.4 mEq/l (+/-2.0); Carboxyhemoglobin 0.3 % THb (0-2.0); Fractional Inspired Oxygen 100 %; HCO3 ABG 28.7 mEq/l (22.0-26.0); Methemoglobin ABG 0.6 %THb (0-1.5); Oxygen Content ABG 15.8 %vol (16.0-22.0); PCO2 ABG 46.3 mmHg (35.0-45.0); PO2 ABG 52.6 mmHg (80.0-100.0); PO2 FiO2 Ratio Arterial Blood 0.53 %; Reduced Hemoglobin 16.6 %THb (0-5.0); Total Hemoglobin 13.6 g/dL (12.0-18.0)
[2024-01-23 12:51] LABS: Oxygen Saturation ABG 87.3 % (95.0-100.0); Oxyhemoglobin 82.5 % THb (90.0-100.0)
[2024-01-23 12:53] LABS: Device VENTILATOR; Site Drawn LEFT RADIAL
[2024-01-23 12:54] LABS: Arterial Blood Gas PEEP 8 cmH2O; Arterial Blood Gas Tidal Volume 400 ml; Arterial Blood Gas Vent Mode CMV; Arterial Blood Gas Ventilator rate 24 /MIN
[2024-01-23 13:16] LABS: Hepatitis B Surface Antigen Negative (Negative)
[2024-01-23 13:19] LABS: Base Excess ABG 3.3 mEq/l (+/-2.0); Carboxyhemoglobin 0.3 % THb (0-2.0); Fractional Inspired Oxygen 100 %; HCO3 ABG 26.7 mEq/l (22.0-26.0); Methemoglobin ABG 0.3 %THb (0-1.5); Oxygen Content ABG 18.2 %vol (16.0-22.0); Oxygen Saturation ABG 98.1 % (95.0-100.0); Oxyhemoglobin 96.6 % THb (90.0-100.0); PCO2 ABG 36.6 mmHg (35.0-45.0); PO2 ABG 103.4 mmHg (80.0-100.0); PO2 FiO2 Ratio Arterial Blood 1.03 %; Reduced Hemoglobin 2.8 %THb (0-5.0); Total Hemoglobin 13.3 g/dL (12.0-18.0); pH ABG 7.481 (7.350-7.450)
--- NOTE | 2024-01-23 13:20 | PM.PNNEP ---
Progress Note: A&P Assessment and Plan (1) Rhabdomyolysis: Qualifiers: Rhabdomyolysis type: non-traumatic Qualified Code(s): M62.82 - Rhabdomyolysis Code(s): M62.82 - Rhabdomyolysis Status: Acute Assessment and Plan: as noted by elevated CPK though to be secondary to seizure activity(?) The CK is above 16,000. The AST and ALT are not improving. Most likely these 2 labs are high because of the rhabdo as the muscle enzymes release AST and ALT. This is usually a reasonable surrogate for the CK. However the numbers are not improving so I wonder if there still something causing a high CK. His atorvastatin was discontinued. He has not had any seizures lately. Consider polymyositis? Will check anti CONSTANCE. Anti LA not available. follow trend of CPK and ALT/AST (2) Metabolic acidosis: Code(s): E87.20 - Acidosis, unspecified Status: Acute Assessment and Plan: resolved. (3) Seizure: Code(s): R56.9 - Unspecified convulsions Status: Acute Assessment and Plan: Neurology following further testing as outlined - MRI of brain and EEG on antiepiletics at this time (4) Altered mental status: Qualifiers: Altered mental status type: delirium Qualified Code(s): R41.0 - Disorientation, unspecified Code(s): R41.82 - Altered mental status, unspecified Status: Acute Assessment and Plan: due to seizure and possibl alcohol withdrawal on WA protocol follow mentation (5) Hypertension: Code(s): I10 - Essential (primary) hypertension Status: Chronic Assessment and Plan: reasonable control follow trend of hemodynamics Subjective Date/time seen: 01/23/24 13:20 Interval history: Patient developed shortness of breath this morning and was intubated. Now in the ICU Exam Narrative: WDWN male on the ventilator in the ICU in NAD skin no rash head ncat lungs mildly coarse cor reg no rub or gallop abd BS+ nontender and soft ext no edema. Objective Data Vital Signs Vital Signs: Vital Signs - 24 hr 01/22/24 14:00 01/22/24 16:00 01/22/24 16:00 Temperature 98.1 F Pulse Rate 68 73 76 Pulse Rate [Monitor] Respiratory Rate 20 Blood Pressure 119/77 Pulse Oximetry 98 Oxygen Delivery Oxygen Flow Rate Fraction of Inspired Oxygen 01/22/24 16:00 01/22/24 18:00 01/22/24 20:52 Temperature 97.5 F L Pulse Rate 79 81 Pulse Rate [Monitor] Respiratory Rate 20 Blood Pressure 104/66 Pulse Oximetry 97 91 Oxygen Delivery High Flow Nasal Cannula Oxygen Flow Rate 9 Fraction of Inspired Oxygen 01/22/24 20:00 01/22/24 20:58 01/22/24 20:00 Temperature Pulse Rate 87 78 Pulse Rate [Monitor] 100 Respiratory Rate Blood Pressure Pulse Oximetry 97 Oxygen Delivery High Flow Nasal Cannula Oxygen Flow Rate 9 Fraction of Inspired Oxygen 01/23/24 00:00 01/23/24 00:00 01/23/24 00:00 Temperature 97.6 F Pulse Rate 78 78 Pulse Rate [Monitor] 64 Respiratory Rate 20 Blood Pressure 105/73 Pulse Oximetry 95 97 Oxygen Delivery High Flow Nasal Cannula Oxygen Flow Rate 9 Fraction of Inspired Oxygen 01/22/24 20:00 01/22/24 22:00 01/23/24 00:00 Temperature Pulse Rate 76 70 68 Pulse Rate [Monitor] Respiratory Rate Blood Pressure Pulse Oximetry Oxygen Delivery Oxygen Flow Rate Fraction of Inspired Oxygen 01/23/24 02:00 01/23/24 04:00 01/23/24 04:00 Temperature 97.2 F L Pulse Rate 66 74 65 Pulse Rate [Monitor] Respiratory Rate 20 Blood Pressure 102/74 Pulse Oximetry 94 Oxygen Delivery Oxygen Flow Rate Fraction of Inspired Oxygen 01/23/24 04:00 01/23/24 04:00 01/23/24 06:00 Temperature Pulse Rate 69 68 Pulse Rate [Monitor] 64 Respiratory Rate Blood Pressure Pulse Oximetry 94 Oxygen Delivery High Flow Nasal Cannula Oxygen Flow Rate
[2024-01-23 13:21] LABS: HAV RESULT Negative (Negative); Hepatitis B Core IgM Result Negative (Negative)
[2024-01-23 13:22] LABS: Device VENTILATOR; Site Drawn RIGHT FEMORAL
[2024-01-23 13:23] LABS: Arterial Blood Gas PEEP 8 cmH2O; Arterial Blood Gas Vent Mode CMV; Arterial Blood Gas Ventilator rate 24 /MIN
[2024-01-23 13:24] LABS: Arterial Blood Gas Tidal Volume 400 ml
[2024-01-23 13:33] LABS: Hepatitis C Virus Antibody Negative (Negative)
[2024-01-23] MEDS: PANTOPRAZOLE SODIUM IV 40 MG VIAL IV PUSH (13:36)
[2024-01-23] MEDS: cefTRIAXone 2 GM/NS 100 ML 2 GM/100 ML BAG IVPB (13:37)
[2024-01-23] MEDS: SODIUM CHLORIDE 0.9% IV 1,000 ML 50 ML IV CONT (14:29)
[2024-01-23] MEDS: VANCOMYCIN 1,750 MG/NS 500 ML 1,750 MG/500 ML BAG 250 MG IVPB (14:29)
[2024-01-23] MEDS: ACYCLOVIR SODIUM IVPB 700 MG in DEXTROSE 5% IN WATER 250 ML 250 MG IVPB ×2 (14:30→22:00)
[2024-01-23 14:33] LABS: Triglycerides 101 mg/dL (<150)
[2024-01-23] MEDS: IPRATROPIUM 0.5 MG/ALBUTEROL SULFATE 2.5 MG AMPUL.NEB 3 ML INHALATION ×2 (14:47→19:57)
[2024-01-23 14:50] LABS: Glucose CSF 94 mg/dL (40-70); Total Protein CSF 58 mg/dL (12-60)
[2024-01-23] MEDS: AMPICILLIN SULB 3 GM/NS 100 ML 3 GM/100 ML VIAL IVPB ×2 (14:55→18:55)
[2024-01-23 15:19] LABS: Appearance CSF Clear (Clear); CSF source CSF; Color CSF Colorless (Colorless); Nucleated Cell CSF 1 /uL (0-5); Red Blood Cell CSF 0 (0-2)
[2024-01-23 15:20] LABS: Lymphocytes CSF 62 % (40-80); Monocytes CSF 24 % (15-45); Neutrophils CSF 14 % (0-6)
[2024-01-23 15:30] LABS: Influenza A QL RT-PCR Negative (Negative); Influenza B QL RT-PCR Negative (Negative); RSV RNA, RT-PCR Negative (Negative); SARS-CoV-2 RNA PCR Negative (Negative)
[2024-01-23 16:04] LABS: MRSA (PCR) NOT DETECTED (NOT DETECTE)
[2024-01-23] MEDS: ACETAMINOPHEN ELIXIR 325 MG/10.15 ML UDC 650 MG FEED TUBE (16:26)
[2024-01-23 17:16] LABS: Glucose Point of Care 125 mg/dl (65-105)
--- NOTE | 2024-01-23 17:59 | PM.IMPN ---
Progress Note: A&P Assessment and Plan (1) Lactic acidosis: Code(s): E87.20 - Acidosis, unspecified Status: Acute (2) Seizure: Code(s): R56.9 - Unspecified convulsions Status: Acute (3) Acute alteration in mental status: Code(s): R41.82 - Altered mental status, unspecified Status: Acute (4) Hyperlipidemia: Code(s): E78.5 - Hyperlipidemia, unspecified Status: Acute (5) Seizure disorder: Code(s): G40.909 - Epilepsy, unspecified, not intractable, without status epilepticus Status: Acute (6) Electrolyte imbalance: Code(s): E87.8 - Other disorders of electrolyte and fluid balance, not elsewhere classified Status: Acute (7) Rhabdomyolysis: Qualifiers: Rhabdomyolysis type: non-traumatic Qualified Code(s): M62.82 - Rhabdomyolysis Code(s): M62.82 - Rhabdomyolysis Status: Acute (8) Leukocytosis: Code(s): D72.829 - Elevated white blood cell count, unspecified Status: Acute (9) Hypertension: Code(s): I10 - Essential (primary) hypertension Status: Chronic (10) Alcohol withdrawal delirium: Code(s): F10.931 - Alcohol use, unspecified with withdrawal delirium Status: Acute Plan 01/23/2024: Patient seen and evaluated at bedside. He was hyperventilating and barely maintaining his sats in 90s on high-flow oxygen. Pulmonary consult given for evaluation who recommended escalation to ICU for higher level of care. Spoke with high lift mule operator and ordered a stat portable chest x-ray which confirmed worsening pulmonary congestion with pulmonary edema. IV fluid discontinued, patient given Lasix 40 mg IV x1 dose, high lift mule operator evaluated the patient at the bedside and patient transferred to ICU for immediate intubation with vent support. Further critical care management as per high lift mule operator in ICU. HOSPITAL COURSE & PLAN ... Date of Admission - 01/22/2024: Admit patient to IMU under full inpatient status Patient likely has the alcohol withdrawal delirium which may have resulted in withdrawal seizure in the ER Patient started on CIWA protocol last night; Added Ativan coverage as per protocol Continous cardiopulmonary tele monitoring Consider neurology evaluation if patient has recurrent alcohol withdrawal seizures while admitted in the hospital Patient has dehydration with with increasing anion gap with lactic acidosis and rhabdomyolysis Her CPK level remains above 16,000 Monitor CPK levels closely Nephrology consult obtained for evaluation of severe rhabdomyolysis Patient received 2 L of IV hydration in the ER Continue with aggressive IV hydration as per Nephrology Lactic acid level is slowly downtrending with IV hydration and now resolved ( 28-9-6-7-6-3-2) Strict I&Os Patient started on IV banana bag daily Ordered oral multi multivitamins supplementation daily PRN meds for nausea and vomiting Patient has mildly elevated LFTs secondary to alcoholic liver disease which we will follow Started patient on Librium 50 mg p.o. q.6 hours ordered to be titrated down once patient is more stable Patient has leukocytosis ranging between 18 and 21 for 3 days since admission, downtrending to 16.1 today Monitor labs daily Neurology consult reviewed and appreciated Follow-up closely with neurology regarding seizure workup Obtain MRI of the brain and EEG once patient is more stable and out of his delirium state PT/OT consult when patient is more stable Care coordination consults to be given for coordination with patient regarding placement in an alcohol rehab facility ? Patient seen and examined at bedside during my morning rounds ? Collaborated with patient's nurse at the bedside in detail and addressed all concerns ? Labs, electrolytes, radiology, investigations and test results reviewed ? Consult/Nursing/Ancilliary notes on the chart reviewed and appreciated ? Spoke with patient/family at the bedside and answered all the questions that t
[2024-01-23] MEDS: MIDAZOLAM 100MG/NS 100ML(*CRX) 100 MG/100 ML BAG IV CONT (18:53)
[2024-01-23] MEDS: FENTANYL 2,500MCG/NS250ML(*CRX 2,500 MCG/250 ML BAG IV CONT (18:54)
--- NOTE | 2024-01-23 19:21 | PM.CNPUL ---
Assessment and Plan Assessment and plan (1) Respiratory failure: Code(s): J96.90 - Respiratory failure, unspecified, unspecified whether with hypoxia or hypercapnia Status: Acute Assessment and Plan: The patient is unable to protect his airway. He was hypoxemic on 15 liters/minute saturation just at 90-91% with [place] respirations. Patient has less of a pulmonary problem than a mental status problem and needs his airway protected. I discussed with Dr. Cuca newell who took over the situation and shortly thereafter intubated the patient. I will see the patient as needed; Dr Bush will manage his acute respiraotyr failure, I can see him when he is less acute and extubated. (2) Altered mental status: Qualifiers: Altered mental status type: delirium Qualified Code(s): R41.0 - Disorientation, unspecified Code(s): R41.82 - Altered mental status, unspecified Status: Acute Assessment and Plan: History of Present Illness History of Present Illness Consult date: 01/23/24 Requesting physician: Kevin Scott MD Chief complaint: worsening respiratory distress, hypoxemia Narrative: Patient was seen January 23, 2024 at 10:35 am in Room 231. I was called urgently to the room by the unit operator, RN is at the bedside. NEW: Wes Townsend is a 73-year-old man admitted January 19 with suspected alcohol withdrawal, rhabdomyolysis, with increased difficulty breathing, on O2 @ 15 L with saturation around 91%. He is not verbally responsive, has [place] respirations, cannot follow commands. Initial head CT was negative on admission. His white blood cell count was 18.1. he initially received Ativan, Haldol and some Versed for agitation. He has severe deterioration, and will need airway protection. I contacted Dr Bush who took over his care with immediate intubation. PMH: Diabetes mellitus, hypertension, SVT, NSTEMI, chronic alcohol use, admitted with sudden confusion and unresponsiveness with diaphoresis and tremors. He arrived by EMS. Review of Systems Review of Systems: ROS unobtainable: Yes unobtainable due to mental status PMFSH Past Medical History Medical History (Updated 01/23/24 @ 16:39 by Amberly Jones MD) Diverticulitis Hyperlipidemia Hypertension Prediabetes Seizure Small bowel obstruction Surgical History Surgical History (Updated 01/20/24 @ 14:24 by Lorena Paniagua PA-C) History of appendectomy History of cardiac catheterization (06/2023) Nonobstructive coronary artery disease, slow flow noted in LAD. History of exploratory laparotomy History of incisional hernia repair History of partial colectomy History of tonsillectomy Family History Family History (Updated 01/20/24 @ 14:22 by Lorena Paniagua PA-C) Other Acute myocardial infarction Alzheimer's dementia Breast cancer Hypertension Social History Social History (Updated 01/20/24 @ 14:45 by Lorena Paniagua PA-C) Social History: Surrogate medical decision maker: Briana Townsend, daughter. Code status: Full code. Smoking status: Never smoker Alcohol intake: current Drinks per week: 3 Substance use: current Substance use type: marijuana Last use: 07/14/23 Do You Feel Safe in your Home?: Yes Lack of Transportation: No Lack of Food: Never True Current Housing: I Have Housing Concerned About Future Housing: No Difficulty Paying Gas/Electric Bills: No Difficulty Paying for Meds: No Currently Unemployed: No Education: High School Diploma/GED Difficulty w/ Childcare or Family Care: No Living arrangements: with family Spiritual care concerns: No Meds Home Medications and Allergies Home Medications Medication Instructions Recorded Confirmed Type paroxetine HCl 30 mg tablet 30 mg PO DAILY 02/27/23 01/20/24 H
[2024-01-23] MEDS: MINERAL OIL/WHITE PETROLATUM OINTMENT 1 APPLIC EACH EYE (20:07)
[2024-01-23 23:50] LABS: Glucose Point of Care 128 mg/dl (65-105)
[2024-01-24] VITALS (82 sets, daily range): BP systolic 73–127; BP diastolic 53–87; PULSE 60–74; RESP 17–34; TEMP 37.4–38.2; O2SAT 10–100; BMI 26.6
--- NOTE | 2024-01-24 | ECHO_ITS ---
Patient Info Name: Wes Townsend Age: 73 years : 1950 Gender: Male Ht: 68 in Wt: 175 lbs BSA: 1.97 m2 HR: 64 bpm BP: 91 / 63 mmHg Heart Rhythm: Sinus Rhythm Technical Quality: Good Exam Date: 01/24/2024 8:54 AM Exam Location: Echo Lab Patient Status: Inpatient Admit Date: 01/22/2024 Staff Ordering Physician: Mauricio Bush MD Limited Radiology Technician: Ginna Sykes RDCS Attending Provider: Kevin Scott MD Referring Physician: Eleazar RODRÍGUEZ; Exam Type: CA echo doppler color flow Study Info Indications - septic shock Complete two-dimensional, color flow and Doppler transthoracic echocardiogram is performed. Summary 1. Complete two-dimensional, color flow and Doppler transthoracic echocardiogram is performed. 2. Mild LV enlargement with significant systolic dysfunction, akinesis of the mid to apical anterior wall and septum ejection fraction 30-35%. 3. Grade 1 diastolic noncompliance. 4. Right ventricular enlargement with systolic dysfunction. 5. Mild left atrial enlarged. 6. No aortic or mitral valve disease of significance. 7. Compared with echocardiogram done in 2022 left ventricular and right ventricular systolic function have declined. Left Ventricle Left ventricular chamber dimension is mildly enlarged. Left ventricular systolic function is severely reduced, estimated at 30-35%. The left ventricular diastolic function is grade I diastolic dysfunction. Right Ventricle Right ventricular chamber dimension is moderately enlarged. Right ventricular systolic function is reduced. Left Atria Left atrial chamber dimension is mildly enlarged. Right Atria Right atrial chamber dimension is mildly enlarged. Aortic Valve The aortic valve is normal. Pulmonic Valve The pulmonic valve is normal. Mitral Valve The mitral valve has normal leaflets. Tricuspid Valve The tricuspid valve leaflets are normal. There is mild tricuspid valve regurgitation. Moderate pulmonary hypertension, estimated pulmonary arterial systolic pressure is 45 mmHg. Pericardium/Pleural The pericardium appears normal. Aorta The aortic root size at the sinus of Valsalva is normal. Left Ventricular Outflow Tract Name Value Normal LVOT 2D LVOT Diameter 2.3 cm LVOT Doppler LVOT Peak Gradient 2 mmHg LVOT Mean Gradient 1 mmHg LVOT VTI 13 cm LVOT VTI/AV VTI Ratio 0.9 LVOT Stroke Volume 55 ml LVOT CO 3.7 l/min LVOT CI 1.9 l/min/m2 Pulmonic Valve Name Value Normal RVOT Doppler RVOT Peak Gradient 1 mmHg PV Doppler PV Peak Gradient 2 mmHg Mitral Valve Name
[2024-01-24] MEDS: AMPICILLIN SULB 3 GM/NS 100 ML 3 GM/100 ML VIAL IVPB ×5 (00:13→23:15)
[2024-01-24] MEDS: cefTRIAXone 2 GM/NS 100 ML 2 GM/100 ML BAG IVPB ×2 (00:52→13:00)
[2024-01-24] MEDS: IPRATROPIUM 0.5 MG/ALBUTEROL SULFATE 2.5 MG AMPUL.NEB 3 ML INHALATION ×4 (02:31→20:12)
[2024-01-24 03:57] LABS: Basophils Percent Auto 0.2 % (0.2-1.2); Eosinophils Percent Auto 0.2 % (0-4.4); Hematocrit 37.4 % (42.0-52.0); Hemoglobin 12.1 g/dL (14.0-18.0); Immature Granulocyte Absolute 0.05 K/mm3 (0.00-0.031); Immature Granulocyte Percent A 0.4 % (0-0.5); Lymphocytes Absolute Auto 1.69 K/mm3 (0.9-3.2); Lymphocytes Percent Auto 13.7 % (18.3-44.2); Mean Corpuscular HGB Conc 32.4 g/dl (32-36); Mean Corpuscular Hemoglobin 31.3 pg (26-34); Mean Corpuscular Volume 96.6 fl (80-100); Mean Platelet Volume 12.1 fl (7.4-10.4); Monocytes Absolute Auto 0.9 K/mm3 (0.1-0.6); Monocytes Percent Auto 7.2 % (2.6-8.5); Neutrophils Absolute Auto 9.6 K/mm3 (1.3-6.7); Neutrophils Percent Auto 78.3 % (45.5-73.1); Nucleated Red Blood Cells Perc 4.8 % (0.0-0.2); Platelet Count Result 141 k/mm3 (150-375); Red Blood Count 3.87 M/mm3 (4.6-6.20); Red Cell Distribution Width 14.8 % (11.5-14.5); White Blood Count 12.3 K/mm3 (4.5-10.0)
[2024-01-24 04:13] LABS: Lactic Acid Reflex 2.1 mmol/L (0.7-2.0)
[2024-01-24 04:21] LABS: Alanine Aminotransferase 551 U/L (6-50); Alkaline Phosphatase 113 U/L (38-126); Anion Gap 0 mmol/L (4-12); Aspartate Amino Transferase 409 U/L (17-59); Blood Urea Nitrogen 18 mg/dL (9-20); Calcium 7.8 mg/dL (8.4-10.2); Carbon Dioxide 32 mmol/L (22-30); Chloride 112 mmol/L (98-107); Estimated CRCL calculation 69 ml/min; Estimated Glomerular Filt Rate > 60; Glucose 111 mg/dL (65-110); Lipase 55 U/L (23-300); Magnesium 2.3 mg/dL (1.6-2.3); Phosphorus 2.9 mg/dL (2.5-4.5); Potassium 3.2 mmol/L (3.4-5.0); Sodium 144 mmol/L (137-145)
[2024-01-24 04:41] LABS: Creatine Kinase 10948 U/L (55-170)
[2024-01-24 04:49] LABS: Alveolar/Arterial O2 Gradient 273.6 mmHg; Base Excess ABG 4.1 mEq/l (+/-2.0); Carboxyhemoglobin 0.3 % THb (0-2.0); Fractional Inspired Oxygen 60 %; HCO3 ABG 28.5 mEq/l (22.0-26.0); Methemoglobin ABG 0.4 %THb (0-1.5); Oxygen Content ABG 16.7 %vol (16.0-22.0); Oxygen Saturation ABG 98.1 % (95.0-100.0); Oxyhemoglobin 96.6 % THb (90.0-100.0); PCO2 ABG 42.1 mmHg (35.0-45.0); PO2 ABG 107.9 mmHg (80.0-100.0); Reduced Hemoglobin 2.7 %THb (0-5.0); Total Hemoglobin 12.2 g/dL (12.0-18.0); pH ABG 7.449 (7.350-7.450)
[2024-01-24 04:53] LABS: Device VENTILATOR; Modified Allen's Test Pass; Site Drawn LEFT RADIAL
[2024-01-24 04:54] LABS: Arterial Blood Gas PEEP 8 cmH2O; Arterial Blood Gas Tidal Volume 400 ml; Arterial Blood Gas Vent Mode CMV; Arterial Blood Gas Ventilator rate 22 /MIN
[2024-01-24] MEDS: ACYCLOVIR SODIUM IVPB 700 MG in DEXTROSE 5% IN WATER 250 ML 250 MG IVPB ×3 (06:40→22:12)
[2024-01-24 06:55] LABS: Reflex Lactic Acid Yes or No Add Lactic
[2024-01-24 07:41] LABS: Lactic Acid 1.5 mmol/L (0.7-2.0)
--- NOTE | 2024-01-24 07:55 | WPDINTPN ---
Progress Note: A&P Assessment and Plan (1) Acute respiratory failure: Code(s): J96.00 - Acute respiratory failure, unspecified whether with hypoxia or hypercapnia Status: Acute Assessment and Plan: Patient with acute respiratory failure likely related to pulmonary edema, aspiration pneumonia, altered mental status, 01/22: Patient intubated for airway protection and hypoxia and increasing oxygen requirement -currently on CMV mode of ventilation, peep of 8 -chest x-ray this mornin. Cardiomegaly with stable pulmonary edema.2. Small left pleural effusion. -ABGs reviewed continue bronchodilators -sedated with fentanyl and Versed infusion, maintain RASS of 0 to -2 -daily spontaneous awakening trials and daily spontaneous breathing trials (2) Altered mental status: Qualifiers: Altered mental status type: delirium Qualified Code(s): R41.0 - Disorientation, unspecified Code(s): R41.82 - Altered mental status, unspecified Status: Acute Assessment and Plan: Altered mental status could be multifactorial, seizure activity versus possible alcohol withdrawal (but patient has cut down alcohol significantly according the family) -patient presented with elevated WBC count, lactic acidosis, sepsis -01/22 LP was performed by intervention Radiology -CSF Gram stain did not show any organisms, rare wbc's -CSF cultures are pending -CSF analysis insert WBC of 1, CSF neutrophils 14, CSF glucose is 94 CSF total protein 58 does not reflect bacterial meningitis, could be viral meningitis/encephalitis -Continue abx as under (3) Sepsis: Qualifiers: Sepsis type: sepsis due to unspecified organism Sepsis acute organ dysfunction status: unspecified Qualified Code(s): A41.9 - Sepsis, unspecified organism Code(s): A41.9 - Sepsis, unspecified organism Status: Acute Assessment and Plan: Patient presented with lactic acidosis, leukocytosis, altered mental status rhabdomyolysis -shows could be meningitis versus pneumonia -LP as above -Continue ceftriaxone, vancomycin, Unasyn, acyclovir (01/22) -lactic acid is normalized, patient has received adequate amount of IV fluids -continue to monitor urine output, maintain adequate blood pressures (4) Seizure disorder: Code(s): G40.909 - Epilepsy, unspecified, not intractable, without status epilepticus Status: Acute Assessment and Plan: Patient has a history of seizures past with negative MRI and negative EEG -this admission again suspect seizure activity given elevated lactic acidosis, tremor-like movements observed by family -01/22: EEG normal but slow, no seizure activities were noted -continue Keppra 500 IV q.12 hours -no seizure activities since admission (5) Rhabdomyolysis: Qualifiers: Rhabdomyolysis type: non-traumatic Qualified Code(s): M62.82 - Rhabdomyolysis Code(s): M62.82 - Rhabdomyolysis Status: Acute Assessment and Plan: Patient presented with rhabdomyolysis likely related to possible seizure activity or being unresponsive on the bed. -patient currently has pulmonary edema, continue IV fluids to 50 mL/hour -CK levels trending down, continue fall -nephrology following the patient (6) Alcohol withdrawal delirium: Code(s): F10.931 - Alcohol use, unspecified with withdrawal delirium Status: Acute Assessment and Plan: Unknown of this is really alcohol withdrawal delayed able as patient's family states he has cut down alcohol only drinks 1 shot of alcohol a couple of times a week. -continue multivitamin -continue thiamine and folic acid -alcohol levels on admission were negative Plan DVT prophylaxis: SCDs, restart Lovenox Stress ulcer prophylaxis: Protonix IV Nutrition: Will start tube feeds today Code Status: Full code Critical Care Time Spent: 34 minutes Will discuss with family Due to a high probability of clinically significant, life threatening de
[2024-01-24] MEDS: PANTOPRAZOLE SODIUM IV 40 MG VIAL IV PUSH (08:29)
[2024-01-24] MEDS: ASPIRIN 81 MG ENTERIC TABLET PO (08:29)
[2024-01-24] MEDS: PARoxetine 10 MG TABLET 30 MG PO (08:29)
[2024-01-24] MEDS: THERAPEUTIC MULTIVITAMINS/MINERALS TAB (*BKC) 1 TABLET PO (08:29)
[2024-01-24] MEDS: THIAMINE HCL 200 MG/2 ML VIAL 100 MG IV PUSH (08:29)
[2024-01-24] MEDS: VANCOMYCIN 1,500 MG/NS 500 ML 1,500 MG/500 ML BAG 250 MG IVPB (08:29)
[2024-01-24] MEDS: POTASSIUM CHLORIDE 20 MEQ PACKET (FOR LIQUID) 40 MEQ FEED TUBE (08:30)
[2024-01-24] MEDS: levETIRAcetam 500MG/NACL 100ML 500 MG/100 ML BAG 400 MG IVPB ×2 (08:30→22:06)
[2024-01-24] MEDS: MINERAL OIL/WHITE PETROLATUM OINTMENT 1 APPLIC EACH EYE ×2 (08:30→22:00)
[2024-01-24] MEDS: SODIUM CHLORIDE 0.9% IV 1,000 ML 50 ML IV CONT (08:40)
[2024-01-24] MEDS: ENOXAPARIN 40 MG/0.4 ML SYRINGE SUB-Q (09:30)
[2024-01-24] MEDS: FOLIC ACID 1 MG/0.2 ML INJ IV PUSH (09:30)
--- NOTE | 2024-01-24 09:47 | P.PNNP_ITS ---
Progress Note: A&P Assessment and Plan (1) Rhabdomyolysis: Qualifiers: Rhabdomyolysis type: non-traumatic Qualified Code(s): M62.82 - Rhabdomyolysis Code(s): M62.82 - Rhabdomyolysis Status: Acute Assessment and Plan: * as noted by elevated CPK * though to be secondary to seizure activity(?) * The CK has finally dropped below 16,000. Today it is 10,000. * The AST and ALT improved as well * His atorvastatin was discontinued. He has not had any seizures lately. * Kidneys are tolerating this quite well. * I talked with Dr. Bush. Since his CK is coming down these getting IV fluids his kidneys should probably do okay. I will sign off. Me know if there is anything I can do in the future. (2) Metabolic acidosis: Code(s): E87.20 - Acidosis, unspecified Status: Acute Assessment and Plan: * resolved. (3) Seizure: Code(s): R56.9 - Unspecified convulsions Status: Acute Assessment and Plan: * Neurology following * further testing as outlined - MRI of brain and EEG * on antiepiletics at this time (4) Altered mental status: Qualifiers: Altered mental status type: delirium Qualified Code(s): R41.0 - Disorientation, unspecified Code(s): R41.82 - Altered mental status, unspecified Status: Acute Assessment and Plan: * due to seizure and possibl alcohol withdrawal * on [facility] protocol * Now on sedative (5) Hypertension: Code(s): I10 - Essential (primary) hypertension Status: Chronic Assessment and Plan: * Blood pressure a little soft. * He is getting IV fluids Subjective Date/time seen: 01/24/24 09:47 Interval history: Patient is on the ventilator and sedated. He is getting an echo Exam Narrative: WDWN male on the ventilator in the ICU in NAD skin no rash or subQ nodules head ncat lungs mildly coarse bilaterally cor reg no rub or gallop abd BS+ nontender and soft ext no edema or cyanosis. Objective Data Vital Signs Vital Signs: Vital Signs - 24 hr 01/23/24 11:30 01/23/24 11:15 01/23/24 11:25 Temperature Pulse Rate 65 73 Respiratory Rate 24 H 24 H Blood Pressure 112/79 Pulse Oximetry 98 Oxygen Delivery Mechanical Ventilation Fraction of Inspired Oxygen 100 01/23/24 13:29 01/23/24 14:48 01/23/24 14:20 Temperature Pulse Rate 63 66 66 Respiratory Rate 31 H Blood Pressure Pulse Oximetry 98 98 Oxygen Delivery Mechanical Ventilation Mechanical Ventilation Fraction of Inspired Oxygen 70 70 01/23/24 12:00 01/23/24 14:00 01/23/24 15:00 Temperature Pulse Rate 75 71 69 Respiratory Rate 32 H Blood Pressure Pulse Oximetry Oxygen Delivery Fraction of Inspired Oxygen 01/23/24 12:00 01/23/24 12:00 01/23/24 16:26 Temperature 99.2 F 102 F H Pulse Rate 75 75 Respiratory Rate 24 H 24 H Blood Pressure 126/92 H Pulse Oximetry 100 100 Oxygen Delivery Mechanical Ventilation Fraction of Inspired Oxygen 70 01/23/24 16:00 01/23/24 16:00 01/23/24 1
--- NOTE | 2024-01-24 09:47 | PM.PNNEP ---
Progress Note: A&P Assessment and Plan (1) Rhabdomyolysis: Qualifiers: Rhabdomyolysis type: non-traumatic Qualified Code(s): M62.82 - Rhabdomyolysis Code(s): M62.82 - Rhabdomyolysis Status: Acute Assessment and Plan: as noted by elevated CPK though to be secondary to seizure activity(?) The CK has finally dropped below 16,000. Today it is 10,000. The AST and ALT improved as well His atorvastatin was discontinued. He has not had any seizures lately. Kidneys are tolerating this quite well. I talked with Dr. Bush. Since his CK is coming down these getting IV fluids his kidneys should probably do okay. I will sign off. Me know if there is anything I can do in the future. (2) Metabolic acidosis: Code(s): E87.20 - Acidosis, unspecified Status: Acute Assessment and Plan: resolved. (3) Seizure: Code(s): R56.9 - Unspecified convulsions Status: Acute Assessment and Plan: Neurology following further testing as outlined - MRI of brain and EEG on antiepiletics at this time (4) Altered mental status: Qualifiers: Altered mental status type: delirium Qualified Code(s): R41.0 - Disorientation, unspecified Code(s): R41.82 - Altered mental status, unspecified Status: Acute Assessment and Plan: due to seizure and possibl alcohol withdrawal on CIWA protocol Now on sedative (5) Hypertension: Code(s): I10 - Essential (primary) hypertension Status: Chronic Assessment and Plan: Blood pressure a little soft. He is getting IV fluids Subjective Date/time seen: 01/24/24 09:47 Interval history: Patient is on the ventilator and sedated. He is getting an echo Exam Narrative: WDWN male on the ventilator in the ICU in NAD skin no rash or subQ nodules head ncat lungs mildly coarse bilaterally cor reg no rub or gallop abd BS+ nontender and soft ext no edema or cyanosis. Objective Data Vital Signs Vital Signs: Vital Signs - 24 hr 01/23/24 11:30 01/23/24 11:15 01/23/24 11:25 Temperature Pulse Rate 65 73 Respiratory Rate 24 H 24 H Blood Pressure 112/79 Pulse Oximetry 98 Oxygen Delivery Mechanical Ventilation Fraction of Inspired Oxygen 100 01/23/24 13:29 01/23/24 14:48 01/23/24 14:20 Temperature Pulse Rate 63 66 66 Respiratory Rate 31 H Blood Pressure Pulse Oximetry 98 98 Oxygen Delivery Mechanical Ventilation Mechanical Ventilation Fraction of Inspired Oxygen 70 70 01/23/24 12:00 01/23/24 14:00 01/23/24 15:00 Temperature Pulse Rate 75 71 69 Respiratory Rate 32 H Blood Pressure Pulse Oximetry Oxygen Delivery Fraction of Inspired Oxygen 01/23/24 12:00 01/23/24 12:00 01/23/24 16:26 Temperature 99.2 F 102 F H Pulse Rate 75 75 Respiratory Rate 24 H 24 H Blood Pressure 126/92 H Pulse Oximetry 100 100 Oxygen Delivery Mechanical Ventilation Fraction of Inspired Oxygen 70 01/23/24 16:00 01/23/24 16:00 01/23/24 16:00 Temperature 101.8 F H Pulse Rate 70 70 Respiratory Rate 26 H Blood Pressure 96/67 L Pulse Oximetry 100 Oxygen Delivery Fraction of Inspired Oxygen 70 01/23/24 16:00 01/23/24 17:26 01/23/24 12:00 Temperature 102.2 F H Pulse Rate 70 75 Respiratory Rate 26 H 24 H Blood Pressure Pulse Oximetry 100 Oxygen Delivery Mechanical Ventilation Fraction of Inspired Oxygen 70 01/23/24 12:45 01/23/24 14:00 01/23/24 16:00 Temperature Pulse Rate 63 71 70 Respiratory Rate 31 H 14 32 H Blood Pressure Pulse Oximetry Oxygen Delivery Fraction of Inspired Oxygen 01/23/24 17:30 01/23/24 17:59 01/23/24 17:18 Temperature Pulse Rate 69 69 69 Respiratory Rate 36 H 26 H Blood Pressure Pulse Oximetry 99 Oxygen Delivery Mechanical Ventilation Fraction of Inspired Oxygen 70 01/23/24 18:00 01/23/24 18:00 01/23/24 1
[2024-01-24] MEDS: CENTRAL LINE FLUSH 10 ML IV PUSH ×2 (13:01→22:05)
--- NOTE | 2024-01-24 14:43 | WPDNEUROPN ---
Progress Note: A&P Assessment and Plan (1) Acute respiratory failure: Code(s): J96.00 - Acute respiratory failure, unspecified whether with hypoxia or hypercapnia Status: Acute (2) Metabolic acidosis: Code(s): E87.20 - Acidosis, unspecified Status: Acute (3) Alcohol withdrawal delirium: Code(s): F10.931 - Alcohol use, unspecified with withdrawal delirium Status: Acute (4) History of seizure: Code(s): Z87.898 - Personal history of other specified conditions Status: Acute (5) Lactic acidosis: Code(s): E87.20 - Acidosis, unspecified Status: Acute (6) Acute alteration in mental status: Code(s): R41.82 - Altered mental status, unspecified Status: Acute Plan The patient is clearly complex with due to multiple medical problems. Liver enzymes were high. He also has gone through spinal tap which did not support diagnosis of any meningitis or encephalitis 3 MRI of the brain and EEG were previously performed did not show any significant abnormalities. He did have a seizure and was started on Keppra and should be continued. He has had 2 years of age station. Lactic acid level also fairly high. I spoke to set up worker physician in charge and discuss the findings with him. The source of infection could be somewhere else but certainly so far there does not appear to be any clear evidence for meningitis or encephalitis. Thank you very much. Subjective Date/time seen: 01/24/24 14:43 Interval history: patient remains unresponsive and on ventilatory support. He does not respond to deep painful stimuli at this time. As the set up worker are attempting to reduce the sedatives to see if this helps. He has not had any witnessed seizures. EEG also did not any evidence for electrographic seizures. Review of Systems Review of Systems: ROS unobtainable: Yes unobtainable due to mental status Exam Narrative: Patient is on ventilator support. Pupils her small and unreactive. Limbs appear to maintain tone but no asymmetry. No posturing was noted. No activity suggestive of seizure was noted. Objective Data Vital Signs Vital Signs: Vital Signs - 24 hr 01/23/24 14:48 01/23/24 15:00 01/23/24 16:26 Temperature 38.8 C H Pulse Rate 66 69 Respiratory Rate 31 H 32 H Blood Pressure Pulse Oximetry Oxygen Delivery Fraction of Inspired Oxygen 01/23/24 16:00 01/23/24 16:00 01/23/24 16:00 Temperature 38.8 C H Pulse Rate 70 70 Respiratory Rate 26 H Blood Pressure 96/67 L Pulse Oximetry 100 Oxygen Delivery Fraction of Inspired Oxygen 70 01/23/24 16:00 01/23/24 17:26 01/23/24 16:00 Temperature 39.0 C H Pulse Rate 70 70 Respiratory Rate 26 H 32 H Blood Pressure Pulse Oximetry 100 Oxygen Delivery Mechanical Ventilation Fraction of Inspired Oxygen 70 01/23/24 17:30 01/23/24 17:59 01/23/24 17:18 Temperature Pulse Rate 69 69 69 Respiratory Rate 36 H 26 H Blood Pressure Pulse Oximetry 99 Oxygen Delivery Mechanical Ventilation Fraction of Inspired Oxygen 70 01/23/24 18:00 01/23/24 18:00 01/23/24 18:15 Temperature Pulse Rate 67 67 66 Respiratory Rate 29 H 28 H Blood Pressure 88/61 L Pulse Oximetry 100 Oxygen Delivery Fraction of Inspired Oxygen 01/23/24 18:37 01/23/24 18:53 01/23/24 18:54 Temperature Pulse Rate 63 66 67 Respiratory Rate 27 H 31 H 29 H Blood Pressure Pulse Oximetry Oxygen Delivery Fraction of Inspired Oxygen 01/23/24 19:58 01/23/24 20:00 01/23/24 20:00 Temperature Pulse Rate 68 66 66 Respiratory Rate 28 H 27 H Blood Pressure Pulse Oximetry 97 Oxygen Delivery Mechanical Ventilation Fraction of Inspired Oxygen 70 01/23/24 20:00 01/23/24 20:20 01/23/24 20:30 Temperature Pulse Rate 67 69 67 Respiratory Rate 29 H 27 H 28 H Blood Pressure Pulse Oximetry Oxygen Delivery Fraction of Insp
[2024-01-24] MEDS: ACETAMINOPHEN ELIXIR 325 MG/10.15 ML UDC 650 MG FEED TUBE (16:02)
--- NOTE | 2024-01-24 17:23 | PM.IMPN ---
Progress Note: A&P Assessment and Plan (1) Lactic acidosis: Code(s): E87.20 - Acidosis, unspecified Status: Acute (2) Seizure: Code(s): R56.9 - Unspecified convulsions Status: Acute (3) Acute alteration in mental status: Code(s): R41.82 - Altered mental status, unspecified Status: Acute (4) Hyperlipidemia: Code(s): E78.5 - Hyperlipidemia, unspecified Status: Acute (5) Seizure disorder: Code(s): G40.909 - Epilepsy, unspecified, not intractable, without status epilepticus Status: Acute (6) Electrolyte imbalance: Code(s): E87.8 - Other disorders of electrolyte and fluid balance, not elsewhere classified Status: Acute (7) Rhabdomyolysis: Qualifiers: Rhabdomyolysis type: non-traumatic Qualified Code(s): M62.82 - Rhabdomyolysis Code(s): M62.82 - Rhabdomyolysis Status: Acute (8) Leukocytosis: Code(s): D72.829 - Elevated white blood cell count, unspecified Status: Acute (9) Hypertension: Code(s): I10 - Essential (primary) hypertension Status: Chronic (10) Alcohol withdrawal delirium: Code(s): F10.931 - Alcohol use, unspecified with withdrawal delirium Status: Acute Plan 01/24/2024: Patient remains intubated and sedated Monitored closely by manual writer Leukocytosis is slowly downtrending 21 -> 12.3 Electrolytes being replaced In continue with IV antibiotics Weaning off vent as per manual writer 01/23/2024: Patient seen and evaluated at bedside. He was hyperventilating and barely maintaining his sats in 90s on high-flow oxygen. Pulmonary consult given for evaluation who recommended escalation to ICU for higher level of care. Spoke with manual writer and ordered a stat portable chest x-ray which confirmed worsening pulmonary congestion with pulmonary edema. IV fluid discontinued, patient given Lasix 40 mg IV x1 dose, manual writer evaluated the patient at the bedside and patient transferred to ICU for immediate intubation with vent support. Further critical care management as per manual writer in ICU. HOSPITAL COURSE & PLAN ... Date of Admission - 01/22/2024: Admit patient to IMU under full inpatient status Patient likely has the alcohol withdrawal delirium which may have resulted in withdrawal seizure in the ER Patient started on CIWA protocol last night; Added Ativan coverage as per protocol Continous cardiopulmonary tele monitoring Consider neurology evaluation if patient has recurrent alcohol withdrawal seizures while admitted in the hospital Patient has dehydration with with increasing anion gap with lactic acidosis and rhabdomyolysis Her CPK level remains above 16,000 Monitor CPK levels closely Nephrology consult obtained for evaluation of severe rhabdomyolysis Patient received 2 L of IV hydration in the ER Continue with aggressive IV hydration as per Nephrology Lactic acid level is slowly downtrending with IV hydration and now resolved ( 98-4-6-7-6-3-2) Strict I&Os Patient started on IV banana bag daily Ordered oral multi multivitamins supplementation daily PRN meds for nausea and vomiting Patient has mildly elevated LFTs secondary to alcoholic liver disease which we will follow Started patient on Librium 50 mg p.o. q.6 hours ordered to be titrated down once patient is more stable Patient has leukocytosis ranging between 18 and 21 for 3 days since admission, downtrending to 16.1 today Monitor labs daily Neurology consult reviewed and appreciated Follow-up closely with neurology regarding seizure workup Obtain MRI of the brain and EEG once patient is more stable and out of his delirium state PT/OT consult when patient is more stable Care coordination consults to be given for coordination with patient regarding placement in an alcohol rehab facility ? Patient seen and examined at bedside during my morning rounds ? Collaborated with patient's nurse at the bedside in detail and addressed all amarilys
[2024-01-24] MEDS: SODIUM CHLORIDE 0.9% IV 1,000 ML 75 ML IV CONT (22:10)
[2024-01-25] VITALS (94 sets, daily range): BP systolic 74–144; BP diastolic 52–101; PULSE 53–97; RESP 19–95; TEMP 36.9–37.9; O2SAT 24–100
[2024-01-25] MEDS: cefTRIAXone 2 GM/NS 100 ML 2 GM/100 ML BAG IVPB ×2 (00:20→12:31)
[2024-01-25] MEDS: IPRATROPIUM 0.5 MG/ALBUTEROL SULFATE 2.5 MG AMPUL.NEB 3 ML INHALATION ×4 (02:21→20:00)
[2024-01-25 02:44] LABS: Vancomycin Trough 6.7 ug/mL (10.0-20.0)
[2024-01-25] MEDS: VANCOMYCIN 2,000 MG/NS 500 ML 2,000 MG/500 ML BAG 250 MG IVPB ×2 (03:13→13:59)
[2024-01-25] MEDS: AMPICILLIN SULB 3 GM/NS 100 ML 3 GM/100 ML VIAL IVPB ×3 (05:24→17:26)
[2024-01-25] MEDS: CENTRAL LINE FLUSH 10 ML IV PUSH ×3 (05:25→22:00)
[2024-01-25 05:41] LABS: Alveolar/Arterial O2 Gradient 153.7 mmHg; Base Excess ABG 0.4 mEq/l (+/-2.0); Carboxyhemoglobin 0.2 % THb (0-2.0); Device VENTILATOR; Fractional Inspired Oxygen 40 %; HCO3 ABG 24.6 mEq/l (22.0-26.0); Methemoglobin ABG 0.3 %THb (0-1.5); Modified Allen's Test Pass; Oxygen Content ABG 19.3 %vol (16.0-22.0); Oxygen Saturation ABG 96.9 % (95.0-100.0); Oxyhemoglobin 95.3 % THb (90.0-100.0); PCO2 ABG 38.3 mmHg (35.0-45.0); PO2 ABG 87.5 mmHg (80.0-100.0); PO2 FiO2 Ratio Arterial Blood 2.19 %; Reduced Hemoglobin 4.2 %THb (0-5.0); Site Drawn LEFT RADIAL; Total Hemoglobin 14.4 g/dL (12.0-18.0); pH ABG 7.426 (7.350-7.450)
[2024-01-25 05:42] LABS: Arterial Blood Gas PEEP 8 cmH2O; Arterial Blood Gas Tidal Volume 400 ml; Arterial Blood Gas Vent Mode CMV; Arterial Blood Gas Ventilator rate 22 /MIN
[2024-01-25] MEDS: ACYCLOVIR SODIUM IVPB 700 MG in DEXTROSE 5% IN WATER 250 ML 250 MG IVPB ×3 (06:08→23:47)
[2024-01-25 06:29] LABS: Basophils Percent Auto 0.2 % (0.2-1.2); Eosinophils Absolute Auto 0.5 K/mm3 (0-0.3); Eosinophils Percent Auto 3.7 % (0-4.4); Hematocrit 35.7 % (42.0-52.0); Hemoglobin 11.5 g/dL (14.0-18.0); Immature Granulocyte Absolute 0.05 K/mm3 (0.00-0.031); Immature Granulocyte Percent A 0.4 % (0-0.5); Lymphocytes Absolute Auto 3.02 K/mm3 (0.9-3.2); Lymphocytes Percent Auto 23.1 % (18.3-44.2); Mean Corpuscular HGB Conc 32.2 g/dl (32-36); Mean Corpuscular Hemoglobin 31.6 pg (26-34); Mean Corpuscular Volume 98.1 fl (80-100); Mean Platelet Volume 12.1 fl (7.4-10.4); Monocytes Percent Auto 7.3 % (2.6-8.5); Neutrophils Absolute Auto 8.6 K/mm3 (1.3-6.7); Neutrophils Percent Auto 65.3 % (45.5-73.1); Platelet Count Result 173 k/mm3 (150-375); Red Blood Count 3.64 M/mm3 (4.6-6.20); White Blood Count 13.1 K/mm3 (4.5-10.0)
[2024-01-25 06:39] LABS: Lactic Acid Reflex 1.8 mmol/L (0.7-2.0)
[2024-01-25 06:42] LABS: Alanine Aminotransferase 349 U/L (6-50); Albumin Level 2.6 g/dL (3.5-5.1); Alkaline Phosphatase 123 U/L (38-126); Anion Gap 3 mmol/L (4-12); Aspartate Amino Transferase 152 U/L (17-59); Bilirubin,Total 0.7 mg/dL (0.2-1.3); Blood Urea Nitrogen 13 mg/dL (9-20); Calcium 7.5 mg/dL (8.4-10.2); Carbon Dioxide 26 mmol/L (22-30); Chloride 112 mmol/L (98-107); Estimated CRCL calculation 78 ml/min; Estimated Glomerular Filt Rate > 60; Glucose 129 mg/dL (65-110); Lipase 152 U/L (23-300); Magnesium 2.2 mg/dL (1.6-2.3); Phosphorus 3.5 mg/dL (2.5-4.5); Potassium 3.1 mmol/L (3.4-5.0); Sodium 141 mmol/L (137-145)
--- NOTE | 2024-01-25 07:15 | PHAR ---
Fentanyl and Versed drips help for sedation holiday.
[2024-01-25 07:30] LABS: Creatine Kinase 2924 U/L (55-170)
[2024-01-25] MEDS: KCL 40 MEQ/WATER 100 ML 100 ML 25 ML IVPB (07:59)
[2024-01-25] MEDS: PARoxetine 10 MG TABLET 30 MG PO (08:00)
[2024-01-25] MEDS: ASPIRIN 81 MG ENTERIC TABLET PO (08:00)
[2024-01-25] MEDS: ENOXAPARIN 40 MG/0.4 ML SYRINGE SUB-Q (08:00)
[2024-01-25] MEDS: PANTOPRAZOLE SODIUM IV 40 MG VIAL IV PUSH (08:00)
[2024-01-25] MEDS: THIAMINE HCL 200 MG/2 ML VIAL 100 MG IV PUSH (08:00)
[2024-01-25] MEDS: POTASSIUM CHLORIDE 20 MEQ PACKET (FOR LIQUID) 40 MEQ FEED TUBE (08:00)
[2024-01-25] MEDS: THERAPEUTIC MULTIVITAMINS/MINERALS TAB (*BKC) 1 TABLET PO (08:01)
[2024-01-25] MEDS: levETIRAcetam 500MG/NACL 100ML 500 MG/100 ML BAG 400 MG IVPB ×2 (08:01→20:10)
[2024-01-25] MEDS: MINERAL OIL/WHITE PETROLATUM OINTMENT 1 APPLIC EACH EYE ×3 (08:02→20:14)
[2024-01-25] MEDS: FOLIC ACID 1 MG/0.2 ML INJ IV PUSH (08:04)
--- NOTE | 2024-01-25 08:16 | WPDINTPN ---
Progress Note: A&P Assessment and Plan (1) Acute respiratory failure: Code(s): J96.00 - Acute respiratory failure, unspecified whether with hypoxia or hypercapnia Status: Acute Assessment and Plan: Patient with acute respiratory failure likely related to pulmonary edema, aspiration pneumonia, altered mental status, 01/22: Patient intubated for airway protection and hypoxia and increasing oxygen requirement -currently on CMV mode of ventilation, peep of 8 -chest x-ray this morning: ET tube tip 1.9 cm above dante,NG tube in stomach. Bilateral infiltrates, right greater than left, mildly increased since 01/24/2024 -ABGs reviewed -continue bronchodilators -sedated with fentanyl and Versed infusion, maintain RASS of 0 to -2 -daily spontaneous awakening trials and daily spontaneous breathing trials (2) Altered mental status: Qualifiers: Altered mental status type: delirium Qualified Code(s): R41.0 - Disorientation, unspecified Code(s): R41.82 - Altered mental status, unspecified Status: Acute Assessment and Plan: Altered mental status could be multifactorial, seizure activity versus possible alcohol withdrawal (but patient has cut down alcohol significantly according the family) -patient presented with elevated WBC count, lactic acidosis, sepsis -01/22 LP was performed by intervention Radiology -01/22: CSF Gram stain did not show any organisms, rare wbc's -01/22: CSF cultures are pending -CSF analysis : WBC of 1, CSF neutrophils 14, CSF glucose is 94, CSF total protein 58 does not reflect bacterial meningitis, could be viral meningitis/encephalitis -Continue abx as under (3) Sepsis: Qualifiers: Sepsis type: sepsis due to unspecified organism Sepsis acute organ dysfunction status: unspecified Qualified Code(s): A41.9 - Sepsis, unspecified organism Code(s): A41.9 - Sepsis, unspecified organism Status: Acute Assessment and Plan: Patient presented with lactic acidosis, leukocytosis, altered mental status rhabdomyolysis -shows could be meningitis versus pneumonia -LP as above -Continue ceftriaxone, vancomycin, Unasyn, acyclovir (01/22) -lactic acid is normalized, patient has received adequate amount of IV fluids -continue to monitor urine output, maintain adequate blood pressures -01/23: Sputum culture healthcare representative of lower respiratory tract -01/19: Blood cultures negative x2 (4) Seizure disorder: Code(s): G40.909 - Epilepsy, unspecified, not intractable, without status epilepticus Status: Acute Assessment and Plan: Patient has a history of seizures past with negative MRI and negative EEG -this admission again suspect seizure activity given elevated lactic acidosis, tremor-like movements observed by family -01/22: EEG normal but slow, no seizure activities were noted -continue Keppra 500 IV q.12 hours -no seizure activities since admission (5) Rhabdomyolysis: Qualifiers: Rhabdomyolysis type: non-traumatic Qualified Code(s): M62.82 - Rhabdomyolysis Code(s): M62.82 - Rhabdomyolysis Status: Acute Assessment and Plan: Patient presented with rhabdomyolysis likely related to possible seizure activity or being unresponsive on the bed. -patient currently has pulmonary edema, continue IV fluids to 50 mL/hour -CK levels trending down nicely, continue to monitor -nephrology following the patient (6) Alcohol withdrawal delirium: Code(s): F10.931 - Alcohol use, unspecified with withdrawal delirium Status: Acute Assessment and Plan: Unknown of this is really alcohol withdrawal delayed able as patient's family states he has cut down alcohol only drinks 1 shot of alcohol a couple of times a week. -continue multivitamin -continue thiamine and folic acid -alcohol levels on admission were negative Plan DVT prophylaxis: SCDs, Lovenox SQ Stress ulcer prophylaxis: Protonix IV Nutrition: Tolerating tube fe
[2024-01-25] MEDS: ACETAMINOPHEN ELIXIR 325 MG/10.15 ML UDC 650 MG FEED TUBE (08:49)
[2024-01-25] MEDS: dexmedeTOMIDine 400 MCG/100 ML 400 MCG/100 ML BAG IV CONT (09:05)
--- NOTE | 2024-01-25 10:06 | PM.CNCAR ---
Assessment and Plan Assessment and plan (1) Cardiomyopathy: Code(s): I42.9 - Cardiomyopathy, unspecified Status: Acute Assessment and Plan: New moderate LV systolic dysfunction EF 30-35% previously EF greater than 55% by echocardiogram February 2023. Nonobstructive CAD by [facility] 02/2023. Patient presents critically ill with multiorgan system failure rhabdomyolysis, altered mental status, acute respiratory failure requiring intubation, concern for meningitis versus pneumonia and septic shock requiring pressor support. LV dysfunction may be secondary to acute critical illness no clear evidence for acute myocardial infarction is contribution at this time. Unable to initiate guideline directed medical therapy given septic shock/hypotension requiring pressors at this time. Patient has mild peripheral edema but does not appear to be acutely or significant volume overloaded at this time. Continue to monitor volume status closely as patient will be at elevated risk for heart failure. When able will initiate guideline directed medical therapy with further recommendations to follow as appropriate. Continue conservative medical management at present. Monitor renal function electrolytes closely. When able plan to change metoprolol tartrate to metoprolol succinate, GERARD-inhibitor versus ARB At this time, patient remains critically ill complicated by new LV dysfunction. Further recommendation to follow. Will follow with you as appropriate. Please not hesitate to contact us with any additional questions or concerns. (2) CAD (coronary artery disease): Code(s): I25.10 - Atherosclerotic heart disease of [place] coronary artery without angina pectoris Status: Acute Assessment and Plan: History of nonobstructive CAD by [facility] 02/2023. Continue aspirin 81 mg daily, resume atorvastatin when able given significant LFT elevation this has been on hold. Unable resume beta-darci therapy however would prefer metoprolol succinate. (3) Septic shock: Code(s): A41.9 - Sepsis, unspecified organism; R65.21 - Severe sepsis with septic shock Status: Acute Assessment and Plan: Management per critical care. Wean pressor support as able. Continue broad-spectrum IV antibiotics with IV vancomycin, ceftriaxone, ampicillin. (4) Acute respiratory failure: Code(s): J96.00 - Acute respiratory failure, unspecified whether with hypoxia or hypercapnia Status: Acute Assessment and Plan: Respiratory management per Critical Care. As above, continue IV vancomycin, ceftriaxone, ampicillin. Continue bronchodilator therapy. Wean ventilator support as able. (5) Rhabdomyolysis: Qualifiers: Rhabdomyolysis type: non-traumatic Qualified Code(s): M62.82 - Rhabdomyolysis Code(s): M62.82 - Rhabdomyolysis Status: Acute Assessment and Plan: CKD remains elevated but improving. Renal function stable. (6) JOSELUIS (acute kidney injury): Code(s): N17.9 - Acute kidney failure, unspecified Status: Acute Assessment and Plan: Stable at this time. Continue to monitor by BMP. (7) Altered mental status: Qualifiers: Altered mental status type: delirium Qualified Code(s): R41.0 - Disorientation, unspecified Code(s): R41.82 - Altered mental status, unspecified Status: Acute Assessment and Plan: Remains problematic. Patient continues to be unresponsive off sedation. Neurology following. EEG results noted. Continue Kewendyra. (8) Diabetes: Qualifiers: Diabetes mellitus complication status: with other specified complication Diabetes mellitus usp insulin use: without ad terminal makeup operator use Diabetes mellitus type: type 2 Qualified Code(s): E11.69 - Type 2 diabetes mellitus with other specified complication Code(s): E11.9 - Type 2 diabetes mellitus without complications Status: Acute Assessment and Plan: Management per primary service.
--- NOTE | 2024-01-25 10:09 | PM.IMPN ---
Progress Note: A&P Assessment and Plan (1) Acute respiratory failure: Code(s): J96.00 - Acute respiratory failure, unspecified whether with hypoxia or hypercapnia Status: Acute Assessment and Plan: 01/25/2024 Patient with acute respiratory failure likely related to pulmonary edema, aspiration pneumonia, altered mental status, Will continue with vent support and monitor oxygenation closely. (2) Altered mental status: Qualifiers: Altered mental status type: delirium Qualified Code(s): R41.0 - Disorientation, unspecified Code(s): R41.82 - Altered mental status, unspecified Status: Acute Assessment and Plan: Altered mental status could be multifactorial, seizure activity versus possible alcohol withdrawal (but patient has cut down alcohol significantly according the family) -patient presented with elevated WBC count, lactic acidosis, sepsis -01/22 LP was performed by intervention Radiology -01/22: CSF Gram stain did not show any organisms, rare wbc's -01/22: CSF cultures are pending -CSF analysis : WBC of 1, CSF neutrophils 14, CSF glucose is 94, CSF total protein 58 does not reflect bacterial meningitis, could be viral meningitis/encephalitis -continue antibiotics and monitor cultures. (3) Sepsis: Qualifiers: Sepsis type: sepsis due to unspecified organism Sepsis acute organ dysfunction status: unspecified Qualified Code(s): A41.9 - Sepsis, unspecified organism Code(s): A41.9 - Sepsis, unspecified organism Status: Acute Assessment and Plan: Patient presented with lactic acidosis, leukocytosis, altered mental status rhabdomyolysis -shows could be meningitis versus pneumonia -LP as above -Continue ceftriaxone, vancomycin, Unasyn, acyclovir (01/22) -lactic acid is normalized, patient has received adequate amount of IV fluids -continue to monitor urine output, maintain adequate blood pressures -blood culture negative so far. (4) Seizure disorder: Code(s): G40.909 - Epilepsy, unspecified, not intractable, without status epilepticus Status: Acute Assessment and Plan: Patient has a history of seizures past with negative MRI and negative EEG -continue Keppra 500 IV q.12 hours -no seizure activities since admission (5) Rhabdomyolysis: Qualifiers: Rhabdomyolysis type: non-traumatic Qualified Code(s): M62.82 - Rhabdomyolysis Code(s): M62.82 - Rhabdomyolysis Status: Acute Assessment and Plan: Patient presented with rhabdomyolysis likely related to possible seizure activity or being unresponsive on the bed. -patient currently has pulmonary edema, continue IV fluids to 50 mL/hour -CK levels trending down nicely, continue to monitor -nephrology following the patient (6) Alcohol withdrawal delirium: Code(s): F10.931 - Alcohol use, unspecified with withdrawal delirium Status: Acute Assessment and Plan: Stable, continue vitamins and IV fluid Plan DVT prophylaxis: SCDs, Lovenox SQ Stress ulcer prophylaxis: Protonix IV Nutrition: Tolerating tube feeds Code Status: Full code Subjective Date/time seen: 01/25/24 10:09 Interval history: Patient was seen during the morning rounds today. Patient remains intubated and sedated. No new overnight complaints. Review of Systems Review of Systems: Unable to obtain. Patient is intubated and sedated All systems reviewed & are unremarkable except as noted in HPI and below ROS unobtainable: Yes unobtainable due to endotracheal tube, unobtainable due to medical condition and unobtainable due to mental status Exam Narrative: General: Intubated and sedated HEENT:? Pupils equal reactive, sclera is clear, ETT in place Neck:? Supple Respiratory:? Air entry decreased, few rales at bases. Cardiac:? S1-S2 normal, regular rate and rhythm Abdomen:? Soft, nontender, nondistended, hypoactive bowel sounds Extremities:? No edema, palpable peda
[2024-01-25 12:57] LABS: Triglycerides 104 mg/dL (<150)
[2024-01-25 16:20] LABS: Cryptococcus Antigen Not Detected (Not Detected); Cryptococcus Specimen Source CSF
[2024-01-25] MEDS: SODIUM CHLORIDE 0.9% IV 1,000 ML 75 ML IV CONT (17:26)
[2024-01-26] VITALS (108 sets, daily range): BP systolic 83–152; BP diastolic 54–115; PULSE 48–88; RESP 15–36; TEMP 36.3–37.7; O2SAT 94–100
[2024-01-26] MEDS: AMPICILLIN SULB 3 GM/NS 100 ML 3 GM/100 ML VIAL IVPB ×5 (00:28→23:21)
[2024-01-26] MEDS: cefTRIAXone 2 GM/NS 100 ML 2 GM/100 ML BAG IVPB ×2 (01:04→12:13)
[2024-01-26] MEDS: IPRATROPIUM 0.5 MG/ALBUTEROL SULFATE 2.5 MG AMPUL.NEB 3 ML INHALATION ×4 (02:02→21:27)
[2024-01-26] MEDS: VANCOMYCIN 1,500 MG/NS 500 ML 1,500 MG/500 ML BAG 250 MG IVPB ×3 (03:04→18:37)
[2024-01-26 05:33] LABS: Alveolar/Arterial O2 Gradient 89.4 mmHg; Base Excess ABG -2.5 mEq/l (+/-2.0); Carboxyhemoglobin 0.3 % THb (0-2.0); Fractional Inspired Oxygen 30 %; HCO3 ABG 20.9 mEq/l (22.0-26.0); Methemoglobin ABG 0.2 %THb (0-1.5); Oxygen Content ABG 16.9 %vol (16.0-22.0); Oxyhemoglobin 95.5 % THb (90.0-100.0); PCO2 ABG 31.9 mmHg (35.0-45.0); Total Hemoglobin 12.5 g/dL (12.0-18.0); pH ABG 7.434 (7.350-7.450)
[2024-01-26 05:34] LABS: Device VENTILATOR; Modified Allen's Test Unable to perform; Site Drawn RIGHT RADIAL
[2024-01-26 05:35] LABS: Arterial Blood Gas PEEP 8 cmH2O; Arterial Blood Gas Tidal Volume 400 ml; Arterial Blood Gas Vent Mode CMV; Arterial Blood Gas Ventilator rate 22 /MIN
[2024-01-26 06:10] LABS: Basophils Percent Auto 0.1 % (0.2-1.2); Eosinophils Absolute Auto 0.4 K/mm3 (0-0.3); Hematocrit 35.7 % (42.0-52.0); Hemoglobin 11.4 g/dL (14.0-18.0); Immature Granulocyte Absolute 0.08 K/mm3 (0.00-0.031); Immature Granulocyte Percent A 0.6 % (0-0.5); Lymphocytes Absolute Auto 2.86 K/mm3 (0.9-3.2); Lymphocytes Percent Auto 21.1 % (18.3-44.2); Mean Corpuscular HGB Conc 31.9 g/dl (32-36); Mean Corpuscular Hemoglobin 31.1 pg (26-34); Mean Corpuscular Volume 97.3 fl (80-100); Mean Platelet Volume 11.4 fl (7.4-10.4); Monocytes Absolute Auto 1.2 K/mm3 (0.1-0.6); Monocytes Percent Auto 8.6 % (2.6-8.5); Neutrophils Percent Auto 66.6 % (45.5-73.1); Nucleated Red Blood Cells Perc 1.9 % (0.0-0.2); Platelet Count Result 204 k/mm3 (150-375); Red Blood Count 3.67 M/mm3 (4.6-6.20); Red Cell Distribution Width 15.4 % (11.5-14.5); White Blood Count 13.6 K/mm3 (4.5-10.0)
[2024-01-26] MEDS: ACYCLOVIR SODIUM IVPB 700 MG in DEXTROSE 5% IN WATER 250 ML 250 MG IVPB ×3 (06:14→22:22)
[2024-01-26] MEDS: dexmedeTOMIDine 400 MCG/100 ML 400 MCG/100 ML BAG IV CONT (06:18)
[2024-01-26 06:19] LABS: Lactic Acid Reflex 1.5 mmol/L (0.7-2.0)
[2024-01-26] MEDS: CENTRAL LINE FLUSH 10 ML IV PUSH ×3 (06:38→20:37)
[2024-01-26 07:22] LABS: Alanine Aminotransferase 246 U/L (6-50); Albumin Level 2.5 g/dL (3.5-5.1); Alkaline Phosphatase 146 U/L (38-126); Anion Gap 3 mmol/L (4-12); Aspartate Amino Transferase 98 U/L (17-59); Bilirubin,Total 0.6 mg/dL (0.2-1.3); Blood Urea Nitrogen 11 mg/dL (9-20); CRP 20.4 mg/dL (<1.0); Calcium 7.8 mg/dL (8.4-10.2); Carbon Dioxide 24 mmol/L (22-30); Chloride 113 mmol/L (98-107); Creatine Kinase 1904 U/L (55-170); Estimated CRCL calculation 69 ml/min; Estimated Glomerular Filt Rate > 60; Glucose 116 mg/dL (65-110); Lipase 143 U/L (23-300); Magnesium 2.2 mg/dL (1.6-2.3); Phosphorus 3.2 mg/dL (2.5-4.5); Potassium 3.6 mmol/L (3.4-5.0); Sodium 140 mmol/L (137-145)
--- NOTE | 2024-01-26 07:52 | WPDINTPN ---
Progress Note: A&P Assessment and Plan (1) Acute respiratory failure: Code(s): J96.00 - Acute respiratory failure, unspecified whether with hypoxia or hypercapnia Status: Acute Assessment and Plan: Patient with acute respiratory failure likely related to pulmonary edema, aspiration pneumonia, altered mental status, 01/22: Patient intubated for airway protection and hypoxia and increasing oxygen requirement -currently on CMV mode of ventilation, peep of 8 -chest x-ray this morning: Stable Bilateral infiltrates -ABGs reviewed -continue bronchodilators -sedated with Precedex infusion, maintain RASS of 0 to -2 -daily spontaneous awakening trials and daily spontaneous breathing trials (2) Altered mental status: Qualifiers: Altered mental status type: delirium Qualified Code(s): R41.0 - Disorientation, unspecified Code(s): R41.82 - Altered mental status, unspecified Status: Acute Assessment and Plan: Altered mental status could be multifactorial, seizure activity versus possible alcohol withdrawal (but patient has cut down alcohol significantly according the family), according the patient's daughter she states that he has been having some cognitive impairment, early dementia -patient presented with elevated WBC count, lactic acidosis, sepsis -01/22 LP was performed by intervention Radiology -01/22: CSF Gram stain did not show any organisms, rare wbc's -01/22: CSF cultures are pending -CSF analysis : WBC of 1, CSF neutrophils 14, CSF glucose is 94, CSF total protein 58 does not reflect bacterial meningitis, could be viral meningitis/encephalitis -Continue abx as under (3) Sepsis: Qualifiers: Sepsis type: sepsis due to unspecified organism Sepsis acute organ dysfunction status: unspecified Qualified Code(s): A41.9 - Sepsis, unspecified organism Code(s): A41.9 - Sepsis, unspecified organism Status: Acute Assessment and Plan: Patient presented with lactic acidosis, leukocytosis, altered mental status rhabdomyolysis -shows could be meningitis versus pneumonia -LP as above -Continue ceftriaxone, vancomycin, Unasyn, acyclovir (01/22) -lactic acid is normalized, patient has received adequate amount of IV fluids -continue to monitor urine output, maintain adequate blood pressures -01/19: Blood cultures negative x2 -01/23: Sputum culture growing staph aureus (MSSA), pansensitive -currently on Jhony-Synephrine, maintain mean arterial pressures > 65 mmHg or SBP > 100 mmHg for adequate end organ perfusion -will switch Jhony-Synephrine to Levophed (4) Seizure disorder: Code(s): G40.909 - Epilepsy, unspecified, not intractable, without status epilepticus Status: Acute Assessment and Plan: Patient has a history of seizures in the past with negative MRI and negative EEG -this admission again suspect seizure activity given elevated lactic acidosis, tremor-like movements observed by family -01/22: EEG normal but slow, no seizure activities were noted -continue Keppra 500 IV q.12 hours -no seizure activities since admission (5) Rhabdomyolysis: Qualifiers: Rhabdomyolysis type: non-traumatic Qualified Code(s): M62.82 - Rhabdomyolysis Code(s): M62.82 - Rhabdomyolysis Status: Acute Assessment and Plan: Patient presented with rhabdomyolysis likely related to possible seizure activity or being unresponsive on the bed. -decrease IV fluids to 50 mL/hour for total of 1000 ml -CK levels trending down nicely, continue to monitor -nephrology following the patient -renal function is within normal limits (6) Alcohol withdrawal delirium: Code(s): F10.931 - Alcohol use, unspecified with withdrawal delirium Status: Acute Assessment and Plan: Unknown of this is really alcohol withdrawal delayed able as patient's family states he has cut down alcohol only drinks 1 shot of alcohol a couple of times a week. -continue multivitamin
[2024-01-26] MEDS: SODIUM CHLORIDE 0.9% IV 1,000 ML 50 ML IV CONT (07:58)
[2024-01-26] MEDS: NOREPINEPHRINE 8 MG/D5W 250 ML 8 MG/250 ML BAG 9.38 MG IV CONT (07:58)
[2024-01-26] MEDS: THERAPEUTIC MULTIVITAMINS/MINERALS TAB (*BKC) 1 TABLET PO (08:03)
[2024-01-26] MEDS: levETIRAcetam 500MG/NACL 100ML 500 MG/100 ML BAG 400 MG IVPB ×2 (08:03→20:37)
[2024-01-26] MEDS: PANTOPRAZOLE SODIUM IV 40 MG VIAL IV PUSH (08:03)
[2024-01-26] MEDS: ASPIRIN 81 MG ENTERIC TABLET PO (08:04)
[2024-01-26] MEDS: ENOXAPARIN 40 MG/0.4 ML SYRINGE SUB-Q (08:04)
[2024-01-26] MEDS: THIAMINE HCL 200 MG/2 ML VIAL 100 MG IV PUSH (08:04)
[2024-01-26] MEDS: MINERAL OIL/WHITE PETROLATUM OINTMENT 1 APPLIC EACH EYE ×2 (08:05→20:56)
[2024-01-26] MEDS: POTASSIUM CHLORIDE 20 MEQ PACKET (FOR LIQUID) 40 MEQ FEED TUBE (08:18)
[2024-01-26] MEDS: PARoxetine 10 MG TABLET 30 MG PO (08:19)
[2024-01-26] MEDS: polyethylene glycoL 3350 17 GM POWD.PACK PO (08:22)
[2024-01-26] MEDS: SENNA/DOCUSATE SODIUM TABLET 1 TAB PO ×2 (08:22→20:33)
[2024-01-26] MEDS: FOLIC ACID 1 MG/0.2 ML INJ IV PUSH (08:22)
[2024-01-26 09:35] LABS: JO 1 Antibody <1.0
--- NOTE | 2024-01-26 10:22 | PM.IMPN ---
Progress Note: A&P Assessment and Plan (1) Acute respiratory failure: Code(s): J96.00 - Acute respiratory failure, unspecified whether with hypoxia or hypercapnia Status: Acute Assessment and Plan: Patient with acute respiratory failure likely related to pulmonary edema, aspiration pneumonia, altered mental status, 01/26/2024 Patient intubated for airway protection and hypoxia and increasing oxygen requirement -currently on CMV mode of ventilation, peep of 8 -chest x-ray this morning: Stable Bilateral infiltrates -ABGs reviewed -continue bronchodilators -sedated with Precedex infusion, maintain RASS of 0 to -2 -daily spontaneous awakening trials and daily spontaneous breathing trials (2) Altered mental status: Qualifiers: Altered mental status type: delirium Qualified Code(s): R41.0 - Disorientation, unspecified Code(s): R41.82 - Altered mental status, unspecified Status: Acute Assessment and Plan: Intubated and sedated Continue antibiotics (3) Sepsis: Qualifiers: Sepsis type: sepsis due to unspecified organism Sepsis acute organ dysfunction status: unspecified Qualified Code(s): A41.9 - Sepsis, unspecified organism Code(s): A41.9 - Sepsis, unspecified organism Status: Acute Assessment and Plan: Patient presented with lactic acidosis, leukocytosis, altered mental status rhabdomyolysis -shows could be meningitis versus pneumonia -LP as above -Continue ceftriaxone, vancomycin, Unasyn, acyclovir (01/22) (4) Seizure disorder: Code(s): G40.909 - Epilepsy, unspecified, not intractable, without status epilepticus Status: Acute Assessment and Plan: Stable on current medication, continue current treatmen (5) Rhabdomyolysis: Qualifiers: Rhabdomyolysis type: non-traumatic Qualified Code(s): M62.82 - Rhabdomyolysis Code(s): M62.82 - Rhabdomyolysis Status: Acute Assessment and Plan: Improving (6) Alcohol withdrawal delirium: Code(s): F10.931 - Alcohol use, unspecified with withdrawal delirium Status: Acute Assessment and Plan: Unknown of this is really alcohol withdrawal delayed able as patient's family states he has cut down alcohol only drinks 1 shot of alcohol a couple of times a week. -continue multivitamin -continue thiamine and folic acid -alcohol levels on admission were negative (7) Cardiomyopathy: Code(s): I42.9 - Cardiomyopathy, unspecified Status: Acute Assessment and Plan: New LV dysfunction with EF of 30 through 35% on echocardiogram is under. Previous EF was 55% by echocardiogram in February 2023. -patient also has a nonobstructive CAD coronary artery disease, status post left heart catheterization in February 2023 -appreciate cardiology evaluation and recommendations -unable to start any guideline directed medical therapy for cardiomyopathy given patient on pressors -continue aspirin -hold atorvastatin given elevated LFTs. Will resume once LFTs normalize ? Plan DVT prophylaxis: SCDs, Lovenox SQ Stress ulcer prophylaxis: Protonix IV Nutrition: Tube feeds on a high tube feed residuals, patient's QT prolonged, so no Reglan for now. Last bowel movement on 01/23. 01/25: Obstructive series with evidence of bowel obstruction Code Status: Full code Subjective Date/time seen: 01/26/24 10:22 Interval history: 01/22: Intubated 01/22: Lumbar puncture was done by IR 01/26/2024 Patient was seen during the morning rounds today. Still intubated, slightly awake. No new overnight complaints. Review of Systems Review of Systems: Unable to obtain. Patient is intubated and sedated All systems reviewed & are unremarkable except as noted in HPI and below ROS unobtainable: Yes unobtainable due to endotracheal tube, unobtainable due to medical condition and unobtainable due to mental status Exam Narrative: General: Intubated and s
[2024-01-26] MEDS: MIDAZOLAM HCL (*CRX) 2 MG/2 ML VIAL IV PUSH (12:12)
[2024-01-26 14:08] LABS: Herpes Simplex Type 1 DNA PCR Not Detected (Not Detected); Herpes Simplex Type 2 DNA PCR Not Detected (Not Detected)
[2024-01-26 14:25] LABS: Varicella IgG Antibody >4000.00 Index (>=165.00); Varicella IgM Antibody <=0.90 (<=0.90)
[2024-01-26 15:29] LABS: Epstein Barr Virus DNA PCR Not Detected (Not Detected); Source Epstein Barr Virus CSF
[2024-01-26] MEDS: dexmedeTOMIDine 400 MCG/100 ML 400 MCG/100 ML BAG 6.57 MCG IV CONT (19:01)
[2024-01-26] MEDS: LORazepam INJ (*CRX) 2 MG/ML VIAL 1 MG IV PUSH (20:32)
[2024-01-26 20:58] LABS: Glucose Point of Care 121 mg/dl (65-105)
[2024-01-27] VITALS (81 sets, daily range): BP systolic 85–133; BP diastolic 56–88; PULSE 55–92; RESP 14–40; TEMP 36.5–37.6; O2SAT 94–100
[2024-01-27] MEDS: cefTRIAXone 2 GM/NS 100 ML 2 GM/100 ML BAG IVPB ×2 (00:15→12:41)
[2024-01-27] MEDS: IPRATROPIUM 0.5 MG/ALBUTEROL SULFATE 2.5 MG AMPUL.NEB 3 ML INHALATION ×4 (02:51→20:45)
[2024-01-27] MEDS: VANCOMYCIN 1,500 MG/NS 500 ML 1,500 MG/500 ML BAG 250 MG IVPB (03:52)
[2024-01-27] MEDS: SODIUM CHLORIDE 0.9% IV 1,000 ML 50 ML IV CONT (03:57)
[2024-01-27 04:21] LABS: Lactic Acid Reflex 1.1 mmol/L (0.7-2.0)
[2024-01-27 04:25] LABS: Alanine Aminotransferase 173 U/L (6-50); Albumin Level 2.3 g/dL (3.5-5.1); Alkaline Phosphatase 136 U/L (38-126); Anion Gap 4 mmol/L (4-12); Aspartate Amino Transferase 74 U/L (17-59); Bilirubin,Total 0.5 mg/dL (0.2-1.3); Blood Urea Nitrogen 7 mg/dL (9-20); Calcium 7.7 mg/dL (8.4-10.2); Carbon Dioxide 21 mmol/L (22-30); Chloride 111 mmol/L (98-107); Creatine Kinase 1165 U/L (55-170); Estimated CRCL calculation 69 ml/min; Estimated Glomerular Filt Rate > 60; Glucose 108 mg/dL (65-110); Phosphorus 3.4 mg/dL (2.5-4.5); Potassium 3.6 mmol/L (3.4-5.0); Sodium 136 mmol/L (137-145)
[2024-01-27 04:41] LABS: CRP 16.6 mg/dL (<1.0)
[2024-01-27 04:45] LABS: Basophils Percent Auto 0.2 % (0.2-1.2); Eosinophils Absolute Auto 0.3 K/mm3 (0-0.3); Eosinophils Percent Auto 3.3 % (0-4.4); Hematocrit 31.9 % (42.0-52.0); Hemoglobin 10.3 g/dL (14.0-18.0); Immature Granulocyte Absolute 0.04 K/mm3 (0.00-0.031); Immature Granulocyte Percent A 0.5 % (0-0.5); Lymphocytes Absolute Auto 1.72 K/mm3 (0.9-3.2); Lymphocytes Percent Auto 19.8 % (18.3-44.2); Mean Corpuscular HGB Conc 32.3 g/dl (32-36); Mean Corpuscular Hemoglobin 30.9 pg (26-34); Mean Corpuscular Volume 95.8 fl (80-100); Mean Platelet Volume 11.3 fl (7.4-10.4); Monocytes Absolute Auto 0.9 K/mm3 (0.1-0.6); Monocytes Percent Auto 10.1 % (2.6-8.5); Neutrophils Absolute Auto 5.7 K/mm3 (1.3-6.7); Neutrophils Percent Auto 66.1 % (45.5-73.1); Platelet Count Result 227 k/mm3 (150-375); Red Blood Count 3.33 M/mm3 (4.6-6.20); Red Cell Distribution Width 15.4 % (11.5-14.5); White Blood Count 8.7 K/mm3 (4.5-10.0)
[2024-01-27] MEDS: AMPICILLIN SULB 3 GM/NS 100 ML 3 GM/100 ML VIAL IVPB (05:03)
[2024-01-27] MEDS: dexmedeTOMIDine 400 MCG/100 ML 400 MCG/100 ML BAG 8.76 MCG IV CONT (05:18)
[2024-01-27 05:34] LABS: Alveolar/Arterial O2 Gradient 98.8 mmHg; Base Excess ABG -1.4 mEq/l (+/-2.0); Carboxyhemoglobin 0.4 % THb (0-2.0); Fractional Inspired Oxygen 30 %; HCO3 ABG 22.4 mEq/l (22.0-26.0); Methemoglobin ABG 0.4 %THb (0-1.5); Oxygen Content ABG 19.3 %vol (16.0-22.0); Oxygen Saturation ABG 95.3 % (95.0-100.0); Oxyhemoglobin 92.7 % THb (90.0-100.0); PCO2 ABG 35.1 mmHg (35.0-45.0); PO2 ABG 73.9 mmHg (80.0-100.0); PO2 FiO2 Ratio Arterial Blood 2.46 %; Reduced Hemoglobin 6.5 %THb (0-5.0); Total Hemoglobin 14.8 g/dL (12.0-18.0); pH ABG 7.423 (7.350-7.450)
[2024-01-27 05:35] LABS: Arterial Blood Gas Vent Mode CMV; Arterial Blood Gas Ventilator rate 20 /MIN; Device VENTILATOR; Modified Allen's Test Pass; Site Drawn LEFT RADIAL
[2024-01-27 05:36] LABS: Arterial Blood Gas PEEP 8 cmH2O; Arterial Blood Gas Tidal Volume 400 ml
[2024-01-27] MEDS: ACYCLOVIR SODIUM IVPB 700 MG in DEXTROSE 5% IN WATER 250 ML 250 MG IVPB (06:01)
[2024-01-27] MEDS: CENTRAL LINE FLUSH 10 ML IV PUSH ×3 (06:02→22:36)
[2024-01-27] MEDS: ASPIRIN 81 MG ENTERIC TABLET PO (08:13)
[2024-01-27] MEDS: PARoxetine 10 MG TABLET 30 MG PO (08:13)
[2024-01-27] MEDS: levETIRAcetam 500MG/NACL 100ML 500 MG/100 ML BAG 400 MG IVPB ×2 (08:15→22:24)
[2024-01-27] MEDS: THIAMINE HCL 200 MG/2 ML VIAL 100 MG IV PUSH (08:18)
[2024-01-27] MEDS: PANTOPRAZOLE SODIUM IV 40 MG VIAL IV PUSH (08:18)
--- NOTE | 2024-01-27 08:40 | WPDINTPN ---
Progress Note: A&P Assessment and Plan (1) Acute respiratory failure: Code(s): J96.00 - Acute respiratory failure, unspecified whether with hypoxia or hypercapnia Status: Acute Assessment and Plan: Patient with acute respiratory failure likely related to pulmonary edema, aspiration pneumonia, altered mental status, 01/22: Patient intubated for airway protection and hypoxia and increasing oxygen requirement -currently on CMV mode of ventilation, peep of 8 -chest x-ray this mornin. Mildly worsened diffuse lung disease, consistent with pulmonary edema versus pneumonia. 2. Stable small pleural effusions. -ABGs reviewed -continue bronchodilators -sedated with Precedex infusion, maintain RASS of 0 to -2 -daily spontaneous awakening trials and daily spontaneous breathing trials -will diurese patient today -placed patient on ASV mode of ventilation (2) Altered mental status: Qualifiers: Altered mental status type: delirium Qualified Code(s): R41.0 - Disorientation, unspecified Code(s): R41.82 - Altered mental status, unspecified Status: Acute Assessment and Plan: Altered mental status could be multifactorial, seizure activity versus possible alcohol withdrawal (but patient has cut down alcohol significantly according the family), according the patient's daughter she states that he has been having some cognitive impairment, early dementia -patient presented with elevated WBC count, lactic acidosis, sepsis -01/22 LP was performed by intervention Radiology -01/22: CSF Gram stain did not show any organisms, rare wbc's -01/22: CSF cultures pending -CSF analysis : WBC of 1, CSF neutrophils 14, CSF glucose is 94, CSF total protein 58 does not reflect bacterial meningitis, could be viral meningitis/encephalitis -CSF EBV, CSF herpes 1 and CSF herpes 2 1 not detected -CSF cryptococcus Ag not detected -CSF VDRL, [place] pending -Continue abx as under (3) Sepsis: Qualifiers: Sepsis type: sepsis due to unspecified organism Sepsis acute organ dysfunction status: unspecified Qualified Code(s): A41.9 - Sepsis, unspecified organism Code(s): A41.9 - Sepsis, unspecified organism Status: Acute Assessment and Plan: Patient presented with lactic acidosis, leukocytosis, altered mental status, rhabdomyolysis - could be meningitis versus pneumonia -LP as above -Continue ceftriaxone, vancomycin, Unasyn, acyclovir (01/22) -lactic acid has normalized, patient has received adequate amount of IV fluids -continue to monitor urine output, maintain adequate blood pressures -01/19: Blood cultures negative x2 -01/23: Sputum culture growing staph aureus (MSSA), pansensitive -remains on low-dose Levophed infusion, maintain SBP > 100 mmHg (4) Seizure disorder: Code(s): G40.909 - Epilepsy, unspecified, not intractable, without status epilepticus Status: Acute Assessment and Plan: Patient has a history of seizures in the past with negative MRI and negative EEG -this admission again suspect seizure activity given elevated lactic acidosis, tremor-like movements observed by family -01/22: EEG normal but slow, no seizure activities were noted -continue Keppra 500 IV q.12 hours -no seizure activities since admission (5) Rhabdomyolysis: Qualifiers: Rhabdomyolysis type: non-traumatic Qualified Code(s): M62.82 - Rhabdomyolysis Code(s): M62.82 - Rhabdomyolysis Status: Acute Assessment and Plan: Patient presented with rhabdomyolysis likely related to possible seizure activity or being unresponsive on the bed. -CK levels trending down nicely, continue to monitor -nephrology following the patient -renal function is within normal limits -DC IV fluids (6) Alcohol withdrawal delirium: Code(s): F10.931 - Alcohol use, unspecified with withdrawal delirium Status: Acute Assessment and Plan: Unknown if this is really alcohol withdrawal
[2024-01-27] MEDS: THERAPEUTIC MULTIVITAMINS/MINERALS TAB (*BKC) 1 TABLET PO (08:50)
[2024-01-27] MEDS: MINERAL OIL/WHITE PETROLATUM OINTMENT 1 APPLIC EACH EYE ×2 (08:51→22:36)
[2024-01-27] MEDS: KCL 40 MEQ/WATER 100 ML 100 ML 25 ML IVPB (09:00)
[2024-01-27] MEDS: FUROSEMIDE INJ 40 MG/4 ML VIAL IV PUSH (09:01)
[2024-01-27] MEDS: FOLIC ACID 1 MG/0.2 ML INJ IV PUSH (09:08)
[2024-01-27] MEDS: LORazepam INJ (*CRX) 2 MG/ML VIAL IV PUSH ×2 (09:08→19:26)
[2024-01-27] MEDS: NOREPINEPHRINE 8 MG/D5W 250 ML 8 MG/250 ML BAG 5.63 MG IV CONT (09:30)
[2024-01-27] MEDS: ENOXAPARIN 40 MG/0.4 ML SYRINGE SUB-Q (09:51)
[2024-01-27] MEDS: SENNA/DOCUSATE SODIUM TABLET 1 TAB PO ×2 (09:51→22:24)
[2024-01-27] MEDS: polyethylene glycoL 3350 17 GM POWD.PACK PO (09:52)
[2024-01-27 10:14] LABS: Triglycerides 138 mg/dL (<150)
--- NOTE | 2024-01-27 10:45 | PCFNICU ---
ICU Rounding Note: Pt current nutrition is Vital AF 1.2. Nutrition recommendation: Plans to restart tube feedings at 10 ml/hr. Last recorded weight is 85 kg, up from 79.6 kg on admit. Bowel Motility: Last BM reported 01/23-Reglan started. Labs Reviewed: Na 136, Hct 31.9, Hgb 10.3,Alb 2.3 Meds Noted:Reglan, Lasix,Levophed, Precedex, Miralax, Folic Acid, MVI, Thiamine. Skin: WNL Additional Notes: Patient remains on mechanical vent. Tube feedings have been off due to elevated residuals. Plans to restart tube feedings at 10 ml/hr and Reglan has been added for GI Motility. Agree with diet orders. Following daily in ICU rounds. Monitoring labs, weights, tube feeding tolerance, plan of care and reassess Tuesdays and Fridays per policy.
[2024-01-27] MEDS: METOCLOPRAMIDE HCL INJ 10 MG/2 ML VIAL IV PUSH (11:00)
[2024-01-27 11:28] LABS: Glucose Point of Care 130 mg/dl (65-105)
[2024-01-27] MEDS: dexmedeTOMIDine 400 MCG/100 ML 400 MCG/100 ML BAG 13.14 MCG IV CONT ×2 (13:07→20:45)
[2024-01-27 15:43] LABS: West Nile Virus, IgM <0.90 index (<0.90)
[2024-01-27 17:43] LABS: Source CSF
[2024-01-27 20:37] LABS: RNP Antibodies <1.0
[2024-01-28] VITALS (42 sets, daily range): BP systolic 83–127; BP diastolic 50–90; PULSE 55–92; RESP 14–30; TEMP 36.6–38.2; O2SAT 96–100
[2024-01-28] MEDS: dexmedeTOMIDine 400 MCG/100 ML 400 MCG/100 ML BAG 13.14 MCG IV CONT ×2 (01:07→06:53)
[2024-01-28] MEDS: cefTRIAXone 2 GM/NS 100 ML 2 GM/100 ML BAG IVPB ×2 (01:11→12:54)
[2024-01-28] MEDS: IPRATROPIUM 0.5 MG/ALBUTEROL SULFATE 2.5 MG AMPUL.NEB 3 ML INHALATION ×4 (02:14→19:55)
[2024-01-28 05:19] LABS: Base Excess ABG -1.6 mEq/l (+/-2.0); Carboxyhemoglobin 0.3 % THb (0-2.0); Fractional Inspired Oxygen 30 %; HCO3 ABG 21.7 mEq/l (22.0-26.0); Methemoglobin ABG 0.4 %THb (0-1.5); Oxygen Saturation ABG 95.4 % (95.0-100.0); Oxyhemoglobin 92.7 % THb (90.0-100.0); PCO2 ABG 31.9 mmHg (35.0-45.0); PO2 ABG 72.4 mmHg (80.0-100.0); PO2 FiO2 Ratio Arterial Blood 2.41 %; Reduced Hemoglobin 6.6 %THb (0-5.0); Total Hemoglobin 11.5 g/dL (12.0-18.0)
[2024-01-28 05:20] LABS: Arterial Blood Gas PEEP 5 cmH2O; Arterial Blood Gas Vent Mode ASV; Device VENTILATOR; Modified Allen's Test Unable to perform; Site Drawn RIGHT RADIAL
[2024-01-28 06:03] LABS: Basophils Percent Auto 0.3 % (0.2-1.2); Eosinophils Absolute Auto 0.2 K/mm3 (0-0.3); Hematocrit 30.6 % (42.0-52.0); Immature Granulocyte Absolute 0.06 K/mm3 (0.00-0.031); Immature Granulocyte Percent A 0.9 % (0-0.5); Lymphocytes Absolute Auto 1.35 K/mm3 (0.9-3.2); Lymphocytes Percent Auto 20.4 % (18.3-44.2); Mean Corpuscular HGB Conc 32.7 g/dl (32-36); Mean Corpuscular Hemoglobin 30.9 pg (26-34); Mean Corpuscular Volume 94.4 fl (80-100); Mean Platelet Volume 10.6 fl (7.4-10.4); Monocytes Absolute Auto 0.7 K/mm3 (0.1-0.6); Monocytes Percent Auto 10.6 % (2.6-8.5); Neutrophils Absolute Auto 4.3 K/mm3 (1.3-6.7); Neutrophils Percent Auto 64.8 % (45.5-73.1); Nucleated Red Blood Cells Perc 0.5 % (0.0-0.2); Platelet Count Result 261 k/mm3 (150-375); Red Blood Count 3.24 M/mm3 (4.6-6.20); Red Cell Distribution Width 15.2 % (11.5-14.5); White Blood Count 6.6 K/mm3 (4.5-10.0)
[2024-01-28] MEDS: CENTRAL LINE FLUSH 10 ML IV PUSH ×3 (06:25→22:51)
[2024-01-28 06:37] LABS: Alanine Aminotransferase 125 U/L (6-50); Albumin Level 2.4 g/dL (3.5-5.1); Alkaline Phosphatase 126 U/L (38-126); Anion Gap 7 mmol/L (4-12); Aspartate Amino Transferase 63 U/L (17-59); Bilirubin,Total 0.6 mg/dL (0.2-1.3); Blood Urea Nitrogen 8 mg/dL (9-20); Calcium 7.9 mg/dL (8.4-10.2); Carbon Dioxide 21 mmol/L (22-30); Chloride 108 mmol/L (98-107); Creatine Kinase 624 U/L (55-170); Estimated CRCL calculation 78 ml/min; Estimated Glomerular Filt Rate > 60; Glucose 108 mg/dL (65-110); Phosphorus 3.7 mg/dL (2.5-4.5); Sodium 136 mmol/L (137-145)
[2024-01-28 06:40] LABS: Potassium 3.4 mmol/L (3.4-5.0)
[2024-01-28 07:19] LABS: Vancomycin Trough 10.4 ug/mL (10.0-20.0)
[2024-01-28] MEDS: SODIUM CHLORIDE 0.9% IV 1,000 ML 50 ML IV CONT (07:24)
[2024-01-28] MEDS: SENNA/DOCUSATE SODIUM TABLET 1 TAB PO (08:19)
[2024-01-28] MEDS: PARoxetine 10 MG TABLET 30 MG PO (08:19)
[2024-01-28] MEDS: THERAPEUTIC MULTIVITAMINS/MINERALS TAB (*BKC) 1 TABLET PO (08:19)
[2024-01-28] MEDS: PANTOPRAZOLE SODIUM IV 40 MG VIAL IV PUSH (08:19)
[2024-01-28] MEDS: polyethylene glycoL 3350 17 GM POWD.PACK PO (08:19)
[2024-01-28] MEDS: THIAMINE HCL 200 MG/2 ML VIAL 100 MG IV PUSH (08:19)
[2024-01-28] MEDS: ENOXAPARIN 40 MG/0.4 ML SYRINGE SUB-Q (08:19)
[2024-01-28] MEDS: levETIRAcetam 500MG/NACL 100ML 500 MG/100 ML BAG 400 MG IVPB ×2 (08:20→20:47)
[2024-01-28] MEDS: MINERAL OIL/WHITE PETROLATUM OINTMENT 1 APPLIC EACH EYE ×2 (08:20→22:51)
[2024-01-28] MEDS: ASPIRIN 81 MG ENTERIC TABLET PO (08:21)
[2024-01-28] MEDS: FOLIC ACID 1 MG/0.2 ML INJ IV PUSH (08:24)
[2024-01-28] MEDS: METOCLOPRAMIDE HCL 10 MG/10 ML SOLN UDC PO ×2 (08:55→13:53)
--- NOTE | 2024-01-28 08:59 | WPDINTPN ---
Progress Note: A&P Assessment and Plan (1) Acute respiratory failure: Code(s): J96.00 - Acute respiratory failure, unspecified whether with hypoxia or hypercapnia Status: Acute Assessment and Plan: Patient with acute respiratory failure likely related to pulmonary edema, aspiration pneumonia, altered mental status, 01/22: Patient intubated for airway protection and hypoxia and increasing oxygen requirement -currently on ASV mode of ventilation, peep of 5 30% FiO2. ABG reviewed -chest x-ray reviewed - Support tubes, as above.Small pleural effusions with probable moderate pulmonary edema pattern and bibasilar atelectasis. -continue bronchodilators -sedated with Precedex infusion, maintain RASS of 0 to -2 -will try spontaneous awakening trials and spontaneous breathing trial -continue diuretics. DC IV fluids -placed patient on ASV mode of ventilation (2) Altered mental status: Qualifiers: Altered mental status type: delirium Qualified Code(s): R41.0 - Disorientation, unspecified Code(s): R41.82 - Altered mental status, unspecified Status: Acute Assessment and Plan: Altered mental status could be multifactorial, seizure activity versus possible alcohol withdrawal (but patient has cut down alcohol significantly according the family), according the patient's daughter she states that he has been having some cognitive impairment, early dementia -patient presented with elevated WBC count, lactic acidosis, sepsis -01/22 LP was performed by [facility] -01/22: CSF Gram stain did not show any organisms, rare wbc's -01/22: CSF cultures pending negative till now -CSF analysis : WBC of 1, CSF neutrophils 14, CSF glucose is 94, CSF total protein 58 does not reflect bacterial meningitis, could be viral meningitis/encephalitis -CSF EBV, CSF herpes 1 and CSF herpes 2 1 not detected, [place] RNA negative -CSF cryptococcus Ag not detected -CSF VDRL pending -Continue abx as under -brain MRI was negative -ammonia has normalized -patient does have history of seizures and is on Keppra (3) Sepsis: Qualifiers: Sepsis type: sepsis due to unspecified organism Sepsis acute organ dysfunction status: unspecified Qualified Code(s): A41.9 - Sepsis, unspecified organism Code(s): A41.9 - Sepsis, unspecified organism Status: Acute Assessment and Plan: Patient presented with lactic acidosis, leukocytosis, altered mental status, rhabdomyolysis - could be meningitis versus pneumonia -LP as above -patient was initially started on ceftriaxone, vancomycin, Unasyn, acyclovir (01/22) -lactic acid has normalized, patient has received adequate amount of IV fluids -continue to monitor urine output, maintain adequate blood pressures -01/19: Blood cultures negative x2 -01/23: Sputum culture growing staph aureus (MSSA), pansensitive -continue ceftriaxone but off of other antiviral and antibiotics -remains on low-dose Levophed infusion, maintain SBP > 100 mmHg (4) Seizure disorder: Code(s): G40.909 - Epilepsy, unspecified, not intractable, without status epilepticus Status: Acute Assessment and Plan: Patient has a history of seizures in the past with negative MRI and negative EEG -this admission again suspect seizure activity given elevated lactic acidosis, tremor-like movements observed by family -01/22: EEG normal but slow, no seizure activities were noted -continue Keppra 500 IV q.12 hours -no seizure activities since admission (5) Rhabdomyolysis: Qualifiers: Rhabdomyolysis type: non-traumatic Qualified Code(s): M62.82 - Rhabdomyolysis Code(s): M62.82 - Rhabdomyolysis Status: Acute Assessment and Plan: Patient presented with rhabdomyolysis likely related to possible seizure activity or being unresponsive on the bed. -CK levels trending down nicely, continue to monitor -nephrology following the patient -renal function is within normal l
--- NOTE | 2024-01-28 09:09 | ECG_ITS ---
Measurements Intervals [place] Rate: 58 P: 2 LA: 189 QRS: 38 QRSD: 84 T: 50 QT: 455 QTc: 451 Interpretive Statements SINUS BRADYCARDIA SEPTAL MYOCARDIAL INFARCTION [40+ ms Q WAVE IN V1/V2], OF INDETERMINATE AGE MODERATE T-WAVE ABNORMALITY, CONSIDER ANTERIOR ISCHEMIA [-0.1+ mV T WAVE IN V3/V4] COMPARED TO ECG 01/20/2024 11:49:13 SINUS BRADYCARDIA NOW PRESENT Electronically Signed On 01-28-2024 12:34:21 CDT by Eddie Brian M.D.
--- NOTE | 2024-01-28 09:56 | PM.PNCARD ---
Progress Note: A&P Assessment and Plan (1) Cardiomyopathy: Code(s): I42.9 - Cardiomyopathy, unspecified Status: Acute Assessment and Plan: New moderate LV systolic dysfunction EF 30-35%, previously EF greater than 55% by echocardiogram February 2023.? Nonobstructive CAD by [facility] 02/2023.? Patient presents critically ill with multiorgan system failure rhabdomyolysis, altered mental status, acute respiratory failure requiring intubation, concern for meningitis versus pneumonia and septic shock requiring pressor support.? LV dysfunction may be secondary to acute critical illness; no clear evidence for acute myocardial infarction is contribution at this time.? Unable to initiate guideline directed medical therapy given septic shock/hypotension requiring pressors at this time.? When able will initiate guideline directed medical therapy with further recommendations to follow as appropriate.? Continue conservative medical management at present.? Monitor renal function electrolytes closely. When able plan to change metoprolol tartrate to metoprolol succinate, GERARD-inhibitor versus ARB versus ARNI. At this time, patient remains critically ill complicated by new LV dysfunction.? Further recommendation to follow.? Will follow with you as appropriate.? Please not hesitate to contact us with any additional questions or concerns. (2) CAD (coronary artery disease): Code(s): I25.10 - Atherosclerotic heart disease of [place] coronary artery without angina pectoris Status: Acute Assessment and Plan: History of nonobstructive CAD by [facility] 02/2023.? Continue aspirin 81 mg daily, resume atorvastatin when LFTs improve.? Unable to resume beta-darci therapy given pressor requirment, however, would prefer metoprolol succinate. (3) Septic shock: Code(s): A41.9 - Sepsis, unspecified organism; R65.21 - Severe sepsis with septic shock Status: Acute Assessment and Plan: Management per critical care.? Wean pressor support as able. (4) Acute respiratory failure: Code(s): J96.00 - Acute respiratory failure, unspecified whether with hypoxia or hypercapnia Status: Acute Assessment and Plan: Intubated, as per ICU team (5) Rhabdomyolysis: Qualifiers: Rhabdomyolysis type: non-traumatic Qualified Code(s): M62.82 - Rhabdomyolysis Code(s): M62.82 - Rhabdomyolysis Status: Acute Assessment and Plan: CK levels are improving (6) Diabetes: Qualifiers: Diabetes mellitus type: type 2 Diabetes mellitus custodial insulin use: without custodial use Diabetes mellitus complication status: with other specified complication Qualified Code(s): E11.69 - Type 2 diabetes mellitus with other specified complication Code(s): E11.9 - Type 2 diabetes mellitus without complications Status: Acute Assessment and Plan: Management per primary service. Subjective Date/time seen: 01/28/24 09:56 Interval history: Reason for visit: Cardiomyopathy HPI: Patient is a 73-year-old male with a past medical history syncope for hypertension, diverticulitis, hyperlipidemia, seizure disorder, history of alcohol abuse, history of nonobstructive CAD with preserved EF 55% by echocardiogram 02/2023 who presented the emergency department 01/20/2024 with altered mental status concern for seizures reported urinary incontinence with waxing and waning mental status and agitation.? Patient unable to provide any history as he is intubated, sedated on mechanical ventilatory support.? History obtained through review electronic medical record discussed with critical care and supporting staff.? He was found to be dehydrated with rhabdomyolysis, acute kidney injury [place] [address] for which he received IV fluid boluses.? Urine drug screen positive for cannabinoids.? Patient was started on Keppra and underwent LP for concern for meningitis.? Neurology was consulted.? Patient had leukocytos
[2024-01-28] MEDS: FUROSEMIDE INJ 40 MG/4 ML VIAL IV PUSH (09:59)
--- NOTE | 2024-01-28 11:00 | PCNFU ---
Nutrition Follow-Up Complete: Inadequate energy intake related to increased needs from mechanical ventilation, NPO as evidenced by need for full tube feeding Goal: Meet estimated protein energy needs Patient has limited progress towards goal. We will continue current goal. Pt current nutrition is Vital AF 1.2 Nutrition recommendation: 10 ml/hr. Last recorded weight is 89.1 kg, up from 79.6 kg on admit Bowel Motility: Last BM reported 01/23 Labs Reviewed:Na 136, Alb 2.4,Hct 30.6,Hgb 10.0 Meds Noted: Reglan, Keppra, Lovenox, Folic Acid, MVI, Lopressor Skin: WNL Additional Notes: Patient remains on mechanical vent and tube feedings have been restarted at 10 ml/hr. Patient had high residuals reported over night at 10 ml/hr. Reglan given. Recommending tube feedings 65 ml/hr when able to reach goal. Flush 30 ml q 4 hours. Monitoring labs, weights, tube feeding tolerance, plan of care Follow daily in ICU rounds, reassess Tuesdays and Fridays per policy
[2024-01-28] MEDS: ACETAMINOPHEN ELIXIR 325 MG/10.15 ML UDC 650 MG FEED TUBE (13:50)
[2024-01-28 14:09] LABS: Alveolar/Arterial O2 Gradient 103.4 mmHg; Base Excess ABG 2.1 mEq/l (+/-2.0); Fractional Inspired Oxygen 30 %; HCO3 ABG 25.3 mEq/l (22.0-26.0); Oxygen Content ABG 16.4 %vol (16.0-22.0); Oxygen Saturation ABG 95.2 % (95.0-100.0); PCO2 ABG 34.8 mmHg (35.0-45.0); PO2 ABG 69.6 mmHg (80.0-100.0); PO2 FiO2 Ratio Arterial Blood 2.32 %; Total Hemoglobin 12.5 g/dL (12.0-18.0)
[2024-01-28 14:10] LABS: Device VENTILATOR; Modified Allen's Test Pass; Site Drawn RIGHT RADIAL
[2024-01-28 14:11] LABS: Arterial Blood Gas PEEP 5 cmH2O; Arterial Blood Gas Vent Mode SPONTANEOUS
[2024-01-28 14:12] LABS: Arterial Blood Gas Pressure Support 5 cmH2O
[2024-01-29] VITALS (25 sets, daily range): BP systolic 96–139; BP diastolic 63–94; PULSE 79–96; RESP 15–25; TEMP 36.6–38.9; O2SAT 94–100; BMI 10.0
[2024-01-29] MEDS: cefTRIAXone 2 GM/NS 100 ML 2 GM/100 ML BAG IVPB ×2 (01:15→22:20)
[2024-01-29] MEDS: IPRATROPIUM 0.5 MG/ALBUTEROL SULFATE 2.5 MG AMPUL.NEB 3 ML (02:01)
[2024-01-29] MEDS: IPRATROPIUM 0.5 MG/ALBUTEROL SULFATE 2.5 MG AMPUL.NEB 3 ML INHALATION ×2 (02:01→07:35)
[2024-01-29 05:03] LABS: Basophils Percent Auto 0.2 % (0.2-1.2); Eosinophils Percent Auto 0.2 % (0-4.4); Hematocrit 35.2 % (42.0-52.0); Hemoglobin 11.4 g/dL (14.0-18.0); Immature Granulocyte Absolute 0.05 K/mm3 (0.00-0.031); Immature Granulocyte Percent A 0.5 % (0-0.5); Lymphocytes Absolute Auto 1.33 K/mm3 (0.9-3.2); Lymphocytes Percent Auto 13.2 % (18.3-44.2); Mean Corpuscular HGB Conc 32.4 g/dl (32-36); Mean Corpuscular Hemoglobin 30.9 pg (26-34); Mean Corpuscular Volume 95.4 fl (80-100); Mean Platelet Volume 10.1 fl (7.4-10.4); Monocytes Percent Auto 9.9 % (2.6-8.5); Neutrophils Absolute Auto 7.6 K/mm3 (1.3-6.7); Platelet Count Result 306 k/mm3 (150-375); Red Blood Count 3.69 M/mm3 (4.6-6.20); Red Cell Distribution Width 15.6 % (11.5-14.5)
[2024-01-29 05:12] LABS: Triglycerides 131 mg/dL (<150)
[2024-01-29 05:16] LABS: Alanine Aminotransferase 139 U/L (6-50); Alkaline Phosphatase 167 U/L (38-126); Anion Gap 7 mmol/L (4-12); Aspartate Amino Transferase 107 U/L (17-59); Bilirubin,Total 0.9 mg/dL (0.2-1.3); Blood Urea Nitrogen 7 mg/dL (9-20); Calcium 8.4 mg/dL (8.4-10.2); Carbon Dioxide 24 mmol/L (22-30); Chloride 105 mmol/L (98-107); Creatine Kinase 1485 U/L (55-170); Estimated CRCL calculation 78 ml/min; Estimated Glomerular Filt Rate > 60; Glucose 92 mg/dL (65-110); Phosphorus 3.4 mg/dL (2.5-4.5); Potassium 3.3 mmol/L (3.4-5.0); Sodium 136 mmol/L (137-145)
[2024-01-29 05:33] LABS: Alveolar/Arterial O2 Gradient 146.3 mmHg; Base Excess ABG 0.3 mEq/l (+/-2.0); Carboxyhemoglobin 0.2 % THb (0-2.0); Fractional Inspired Oxygen 36 %; HCO3 ABG 23.7 mEq/l (22.0-26.0); Methemoglobin ABG 0.4 %THb (0-1.5); Oxygen Content ABG 16.7 %vol (16.0-22.0); Oxygen Saturation ABG 95.1 % (95.0-100.0); Oxyhemoglobin 92.4 % THb (90.0-100.0); PCO2 ABG 34.4 mmHg (35.0-45.0); PO2 ABG 70.5 mmHg (80.0-100.0); PO2 FiO2 Ratio Arterial Blood 1.96 %; Total Hemoglobin 12.8 g/dL (12.0-18.0); pH ABG 7.456 (7.350-7.450)
[2024-01-29 05:34] LABS: Device NASAL CANNULA; Modified Allen's Test Pass; Site Drawn RIGHT RADIAL
--- NOTE | 2024-01-29 08:40 | WPDINTPN ---
Progress Note: A&P Assessment and Plan (1) Acute respiratory failure: Code(s): J96.00 - Acute respiratory failure, unspecified whether with hypoxia or hypercapnia Status: Acute Assessment and Plan: Patient with acute respiratory failure likely related to pulmonary edema, aspiration pneumonia, altered mental status, 01/22: Patient intubated for airway protection and hypoxia and increasing oxygen requirement /2 extubated after a successful weaning trial 01/28 on 3 L nasal, weak cough p.r.n. suctioning, incentive spirometer, get him up in chair and have Physical therapy work with him Chest x-ray reviewed Since patient had more than 7 later urine output in last 24 hours will hold Lasix at this time and resume from tomorrow -continue bronchodilators p.r.n. (2) Altered mental status: Qualifiers: Altered mental status type: delirium Qualified Code(s): R41.0 - Disorientation, unspecified Code(s): R41.82 - Altered mental status, unspecified Status: Acute Assessment and Plan: Altered mental status could be multifactorial, seizure activity versus possible alcohol withdrawal (but patient has cut down alcohol significantly according the family), according the patient's daughter she states that he has been having some cognitive impairment, early dementia -patient presented with elevated WBC count, lactic acidosis, sepsis -01/22 LP was performed by [facility]iology -01/22: CSF Gram stain did not show any organisms, rare wbc's -01/22: CSF cultures pending negative till now -CSF analysis : WBC of 1, CSF neutrophils 14, CSF glucose is 94, CSF total protein 58 does not reflect bacterial meningitis, could be viral meningitis/encephalitis -CSF EBV, CSF herpes 1 and CSF herpes 2 1 not detected, [place] RNA negative -CSF cryptococcus Ag not detected -CSF VDRL pending -Continue abx as under -brain MRI was negative -ammonia has normalized -patient does have history of seizures and is on Keppra -patient now AO x3 (3) Sepsis: Qualifiers: Sepsis type: sepsis due to unspecified organism Sepsis acute organ dysfunction status: unspecified Qualified Code(s): A41.9 - Sepsis, unspecified organism Code(s): A41.9 - Sepsis, unspecified organism Status: Acute Assessment and Plan: Patient presented with lactic acidosis, leukocytosis, altered mental status, rhabdomyolysis - could be meningitis versus pneumonia -LP as above -patient was initially started on ceftriaxone, vancomycin, Unasyn, acyclovir (01/22) -lactic acid has normalized, patient has received adequate amount of IV fluids -continue to monitor urine output, maintain adequate blood pressures -01/19: Blood cultures negative x2 -01/23: Sputum culture growing staph aureus (MSSA), pansensitive -continue ceftriaxone but off of other antiviral and antibiotics - mOff vasopressors (4) Seizure disorder: Code(s): G40.909 - Epilepsy, unspecified, not intractable, without status epilepticus Status: Acute Assessment and Plan: Patient has a history of seizures in the past with negative MRI and negative EEG -this admission again suspect seizure activity given elevated lactic acidosis, tremor-like movements observed by family -01/22: EEG normal but slow, no seizure activities were noted -continue Keppra 500 IV q.12 hours -no seizure activities since admission (5) Rhabdomyolysis: Qualifiers: Rhabdomyolysis type: non-traumatic Qualified Code(s): M62.82 - Rhabdomyolysis Code(s): M62.82 - Rhabdomyolysis Status: Acute Assessment and Plan: Patient presented with rhabdomyolysis likely related to possible seizure activity or being unresponsive on the bed. -CK levels trending down nicely, continue to monitor -nephrology following the patient -renal function is within normal limits -off IV fluids (6) Alcohol withdrawal delirium: Code(s): F10.931 - Alcohol use, unspecified with withdrawal de
[2024-01-29] MEDS: ENOXAPARIN 40 MG/0.4 ML SYRINGE SUB-Q (09:02)
[2024-01-29] MEDS: KCL 40 MEQ/WATER 100 ML 100 ML 25 ML IVPB (09:02)
[2024-01-29] MEDS: levETIRAcetam 500MG/NACL 100ML 500 MG/100 ML BAG 400 MG IVPB ×2 (09:03→22:20)
[2024-01-29] MEDS: THIAMINE HCL 200 MG/2 ML VIAL 100 MG IV PUSH (09:03)
[2024-01-29] MEDS: PANTOPRAZOLE SODIUM IV 40 MG VIAL IV PUSH (09:03)
[2024-01-29] MEDS: FOLIC ACID 1 MG/0.2 ML INJ IV PUSH (09:03)
[2024-01-29] MEDS: CENTRAL LINE FLUSH 10 ML IV PUSH ×3 (09:04→22:20)
[2024-01-29 11:46] LABS: VDRL Quantitative CSF Nonreactive (Nonreactive)
--- NOTE | 2024-01-29 13:31 | PCSTNOTE ---
Please refer to the Modified Barium Swallow Evaluation in the EMR. The pt was seated for a lateral view and presented with thin liquids in 5cc amounts via a spoon, pudding via a spoon, thin liquid via a cup (controlled), and thin liquids via a straw. Solids were not tested due to pt is on a puree diet at baseline. Oral preparatory and transit stages were essentially within functional limits; however premature spill occurred with thin liquid upon the initial trial. Pharyngeal stage symptoms: poor tongue base retraction as evidenced by vallecular residue which was severe at times; reduced laryngeal elevation as evidenced by: 1) laryngeal penetration during the swallow of thin liquids (intermittent) which the pt was able to clear; & 2) trace/mild pyriform sinus residue. The pt independently triggered (delayed) dry swallows which partially cleared residual. The chin tuck posture was used to reduced vallecular residue but it was not effective. Transglottic aspiration was not exhibited but it is felt the pt is at risk. Swallow guidelines will be need to be adhered to in order to prevent aspiration. Impressions: mild/moderate dysphagia Recommendations: pureed diet; thin liquids, position pt upright with all oral intake, small sips and bites and extra dry swallow between sips/bites.
--- NOTE | 2024-01-29 14:10 | PCNFU ---
Nutrition Follow-Up Complete: Inadequate energy intake related to increased needs from mechanical ventilation, NPO as evidenced by need for full tube feeding Goal: Meet estimated protein energy needs Patient has limited progress to goal. We will continue current goal. Pt current nutrition is Health Healthy/Pureed Level 4. Nutrition recommendation: Ensure Enlive TID Last recorded weight is 78.6 kg, down from 79.6 kg on admit. Bowel Motility: +Bm reported 01/28 Labs Reviewed:K 3.3,Na 136, Alb 3.0 Meds Noted:Miralax, Thiamine, Keppra, ,Lovenox, Lopressor Skin: WNL Additional Notes: Patient extubated 01/27. Bedside swallow performed /-recommending MBS. MBS /-recommending pureed, Level 4 diet. MD Orders for Ensure Enlive TID providing an additional 350 kcals and 20 gms protein. Agree with diet orders. Monitoring labs, weights, tube feeding tolerance, plan of care Follow daily in ICU rounds, reassess every 3 days per policy
--- NOTE | 2024-01-29 15:32 | PM.IMPN ---
Progress Note: A&P Assessment and Plan (1) Acute respiratory failure: Code(s): J96.00 - Acute respiratory failure, unspecified whether with hypoxia or hypercapnia Status: Acute (2) Alcohol withdrawal delirium: Code(s): F10.931 - Alcohol use, unspecified with withdrawal delirium Status: Acute (3) Seizure: Code(s): R56.9 - Unspecified convulsions Status: Acute (4) Sepsis: Code(s): A41.9 - Sepsis, unspecified organism Status: Acute (5) Rhabdomyolysis: Qualifiers: Rhabdomyolysis type: non-traumatic Qualified Code(s): M62.82 - Rhabdomyolysis Code(s): M62.82 - Rhabdomyolysis Status: Acute Plan (1) Acute respiratory failure: ?Code(s): J96.00 - Acute respiratory failure, unspecified whether with hypoxia or hypercapnia ?Status:?Acute ?Assessment and Plan: Patient with acute respiratory failure likely related to pulmonary edema, aspiration pneumonia, altered mental status, 01/22:? Patient intubated for airway protection and hypoxia and increasing oxygen requirement 4/2 extubated after a successful weaning trial 01/28 on 3 L nasal, weak cough p.r.n. suctioning, incentive spirometer, get him up in chair and have Physical therapy work with him Chest x-ray reviewed Since patient had more than 7 later urine output in last 24 hours will hold Lasix at this time and resume from tomorrow -continue?bronchodilators p.r.n. Patient tolerated extubation well (2) Altered mental status: ?Qualifiers: ?Altered mental status type:?delirium? Qualified Code(s):?R41.0 - Disorientation, unspecified ?Code(s): R41.82 - Altered mental status, unspecified ?Status:?Acute ?Assessment and Plan: Altered mental status could be multifactorial, seizure activity versus possible alcohol withdrawal (but patient has cut down alcohol significantly according the family), according the patient's daughter she states that he has been having some cognitive impairment, early dementia -patient presented with elevated WBC count, lactic acidosis, sepsis -01/22 LP was performed by intervention Radiology -01/22: CSF Gram stain did not show any organisms, rare wbc's -01/22: CSF cultures pending negative till now -CSF analysis : WBC of 1, CSF neutrophils 14, CSF glucose is 94, CSF total protein 58 does not reflect bacterial meningitis, could be viral meningitis/encephalitis -CSF EBV, CSF herpes 1 and CSF herpes 2 1 not detected, [place] RNA negative -CSF cryptococcus Ag not detected -CSF VDRL pending -Continue abx as under -brain MRI was negative -ammonia has normalized -patient does have history of seizures and is on Keppra -patient now AO x3 (3) Sepsis: ?Qualifiers: ?Sepsis type:?sepsis due to unspecified organism??Sepsis acute organ dysfunction status:?unspecified? Qualified Code(s):?A41.9 - Sepsis, unspecified organism ?Code(s): A41.9 - Sepsis, unspecified organism ?Status:?Acute ?Assessment and Plan: Patient presented with lactic acidosis, leukocytosis, altered mental status, rhabdomyolysis - could be meningitis versus pneumonia -LP as above -patient was initially started on?ceftriaxone, vancomycin, Unasyn, acyclovir (01/22) -lactic acid has normalized, patient has received adequate amount of IV fluids -continue to monitor urine output, maintain adequate blood pressures -01/19:? Blood cultures negative x2 -01/23:? Sputum culture growing staph aureus (MSSA), pansensitive -continue ceftriaxone but off of other antiviral and antibiotics - mOff vasopressors 01/28: pt has fever in the past 48 hrs cxr no consultation Repeat urine analysis, repeat blood culture Continue ceftriaxone IV (4) Seizure disorder: ?Code(s): G40.909 - Epilepsy, unspecified, not intractable, without status epilepticus ?Status:?Acute ?Assessment and Plan: Patient has a history of seizures in the past with negative MRI and negative EEG -this admission ag
[2024-01-29] MEDS: ACETAMINOPHEN ELIXIR 325 MG/10.15 ML UDC 650 MG FEED TUBE (16:00)
[2024-01-29 16:38] LABS: Appearance Urine Clear (Clear); Bacteria Urine None Seen /hpf; Bilirubin Urine Negative (Negative); Blood Urine 1+ (Negative); Color Urine Yellow (Yellow); Glucose Urine UA Negative (Negative); Ketones Urine 3+ mg/dL (Negative); Leukocyte Esterase Ur Negative LEU/UL (Negative); Nitrate Urine Negative (Negative); Non Pathogenic Casts 0-2; Protein Urine Negative (Negative); RBC Urine 0-2 /hpf (0-2); Specific Grav Ur 1.013 (1.001-1.035); Squamous Epithelial Cell Urine None Seen /hpf (Few); Urobilinogen Urine 0.2 mg/dL (<2.0); WBC Urine 0-5 /hpf (0-3); pH Urine 6.5 (5.0-9.0)
[2024-01-29 16:44] LABS: Add Urine Microscopic? YES
--- NOTE | 2024-01-29 18:25 | PC.NURSE ---
This patient, Wes Townsend, was transferred to [[id number]] on 01/29/24 at 1825. Personal belongings sent with patient. Report given to [Michaela LUTZ]. Appropriate documentation sent with patient. Daughter January was called and notified of patient moving to new room
[2024-01-30] VITALS (17 sets, daily range): BP systolic 106–124; BP diastolic 59–78; PULSE 80–102; RESP 20–32; TEMP 36.3–37.2; O2SAT 91–99
[2024-01-30 05:30] LABS: Basophils Percent Auto 0.2 % (0.2-1.2); Eosinophils Absolute Auto 0.1 K/mm3 (0-0.3); Eosinophils Percent Auto 0.4 % (0-4.4); Hematocrit 35.9 % (42.0-52.0); Hemoglobin 12.1 g/dL (14.0-18.0); Immature Granulocyte Absolute 0.06 K/mm3 (0.00-0.031); Immature Granulocyte Percent A 0.4 % (0-0.5); Lymphocytes Absolute Auto 1.41 K/mm3 (0.9-3.2); Lymphocytes Percent Auto 9.9 % (18.3-44.2); Mean Corpuscular HGB Conc 33.7 g/dl (32-36); Mean Corpuscular Hemoglobin 31.5 pg (26-34); Mean Corpuscular Volume 93.5 fl (80-100); Mean Platelet Volume 10.2 fl (7.4-10.4); Monocytes Absolute Auto 1.1 K/mm3 (0.1-0.6); Monocytes Percent Auto 7.7 % (2.6-8.5); Neutrophils Absolute Auto 11.6 K/mm3 (1.3-6.7); Neutrophils Percent Auto 81.4 % (45.5-73.1); Platelet Count Result 363 k/mm3 (150-375); Red Blood Count 3.84 M/mm3 (4.6-6.20); Red Cell Distribution Width 15.4 % (11.5-14.5); White Blood Count 14.3 K/mm3 (4.5-10.0)
[2024-01-30] MEDS: CENTRAL LINE FLUSH 10 ML IV PUSH ×3 (05:50→23:38)
[2024-01-30 05:56] LABS: Alanine Aminotransferase 121 U/L (6-50); Alkaline Phosphatase 159 U/L (38-126); Anion Gap 3 mmol/L (4-12); Aspartate Amino Transferase 89 U/L (17-59); Bilirubin,Total 1.1 mg/dL (0.2-1.3); Blood Urea Nitrogen 8 mg/dL (9-20); Calcium 8.4 mg/dL (8.4-10.2); Carbon Dioxide 29 mmol/L (22-30); Chloride 104 mmol/L (98-107); Estimated CRCL calculation 78 ml/min; Estimated Glomerular Filt Rate > 60; Glucose 109 mg/dL (65-110); Phosphorus 2.7 mg/dL (2.5-4.5); Potassium 3.8 mmol/L (3.4-5.0); Sodium 136 mmol/L (137-145)
[2024-01-30] MEDS: PANTOPRAZOLE SODIUM IV 40 MG VIAL IV PUSH (09:04)
[2024-01-30] MEDS: THIAMINE HCL 200 MG/2 ML VIAL 100 MG IV PUSH (09:04)
[2024-01-30] MEDS: ENOXAPARIN 40 MG/0.4 ML SYRINGE SUB-Q (09:04)
[2024-01-30] MEDS: levETIRAcetam 500MG/NACL 100ML 500 MG/100 ML BAG 400 MG IVPB ×2 (09:09→22:00)
[2024-01-30] MEDS: FOLIC ACID 1 MG/0.2 ML INJ IV PUSH (09:18)
--- NOTE | 2024-01-30 09:45 | PM.IMPN ---
Progress Note: A&P Assessment and Plan (1) Acute respiratory failure: Code(s): J96.00 - Acute respiratory failure, unspecified whether with hypoxia or hypercapnia Status: Acute (2) Alcohol withdrawal delirium: Code(s): F10.931 - Alcohol use, unspecified with withdrawal delirium Status: Acute (3) Seizure: Code(s): R56.9 - Unspecified convulsions Status: Acute (4) Sepsis: Code(s): A41.9 - Sepsis, unspecified organism Status: Acute (5) Rhabdomyolysis: Qualifiers: Rhabdomyolysis type: non-traumatic Qualified Code(s): M62.82 - Rhabdomyolysis Code(s): M62.82 - Rhabdomyolysis Status: Acute Plan (1) Acute respiratory failure: ?Code(s): J96.00 - Acute respiratory failure, unspecified whether with hypoxia or hypercapnia ?Status:?Acute ?Assessment and Plan: Patient with acute respiratory failure likely related to pulmonary edema, aspiration pneumonia, altered mental status, 01/22:? Patient intubated for airway protection and hypoxia and increasing oxygen requirement 4/2 extubated after a successful weaning trial 01/28 on 3 L nasal, weak cough p.r.n. suctioning, incentive spirometer, get him up in chair and have Physical therapy work with him Chest x-ray reviewed Since patient had more than 7 later urine output in last 24 hours will hold Lasix at this time and resume from tomorrow -continue?bronchodilators p.r.n. Patient tolerated extubation well (2) Altered mental status: ?Qualifiers: ?Altered mental status type:?delirium? Qualified Code(s):?R41.0 - Disorientation, unspecified ?Code(s): R41.82 - Altered mental status, unspecified ?Status:?Acute ?Assessment and Plan: Altered mental status could be multifactorial, seizure activity versus possible alcohol withdrawal (but patient has cut down alcohol significantly according the family), according the patient's daughter she states that he has been having some cognitive impairment, early dementia -patient presented with elevated WBC count, lactic acidosis, sepsis -01/22 LP was performed by intervention Radiology -01/22: CSF Gram stain did not show any organisms, rare wbc's -01/22: CSF cultures pending negative till now -CSF analysis : WBC of 1, CSF neutrophils 14, CSF glucose is 94, CSF total protein 58 does not reflect bacterial meningitis, could be viral meningitis/encephalitis -CSF EBV, CSF herpes 1 and CSF herpes 2 1 not detected, West Nile RNA negative -CSF cryptococcus Ag not detected -CSF VDRL pending -Continue abx as under -brain MRI was negative -ammonia has normalized -patient does have history of seizures and is on Keppra (3) Sepsis: ?Qualifiers: ?Sepsis type:?sepsis due to unspecified organism??Sepsis acute organ dysfunction status:?unspecified? Qualified Code(s):?A41.9 - Sepsis, unspecified organism ?Code(s): A41.9 - Sepsis, unspecified organism ?Status:?Acute ?Assessment and Plan: Patient presented with lactic acidosis, leukocytosis, altered mental status, rhabdomyolysis - could be meningitis versus pneumonia -LP as above -patient was initially started on?ceftriaxone, vancomycin, Unasyn, acyclovir (01/22) -lactic acid has normalized, patient has received adequate amount of IV fluids -continue to monitor urine output, maintain adequate blood pressures -01/19:? Blood cultures negative x2 -01/23:? Sputum culture growing staph aureus (MSSA), pansensitive -continue ceftriaxone but off of other antiviral and antibiotics - mOff vasopressors 01/28: pt has fever in the past 48 hrs cxr no consultation Repeat urine analysis, repeat blood culture Continue ceftriaxone IV Mouth thrush, sputum culture grows yeast Start clotrimazole eh 10 mg 5 times daily for 14 days Aspiration pneumonia Patient was noted choking today, Repeated CXR 01/29 showed New nodular consolidation right upper lobe, likely worsening pneumonia. Continue ceftriaxone 2 g I
--- NOTE | 2024-01-30 09:58 | PM.PNCARD ---
Progress Note: A&P Assessment and Plan (1) Cardiomyopathy: Code(s): I42.9 - Cardiomyopathy, unspecified Status: Acute Assessment and Plan: New moderate LV systolic dysfunction EF 30-35%, previously EF greater than 55% by echocardiogram February 2023.? Nonobstructive CAD by [facility] 02/2023.? Patient presented critically ill with multiorgan system failure, rhabdomyolysis, altered mental status, acute respiratory failure requiring intubation, concern for meningitis versus pneumonia and septic shock requiring pressor support.? LV dysfunction may be secondary to acute critical illness; no clear evidence for acute myocardial infarction.? Unable to initiate guideline directed medical therapy at this time as patient is not able to swallow pills currently.? When able, will initiate guideline directed medical therapy with further recommendations to follow as appropriate.? Continue conservative medical management at present.? Will give him a one time dose of IV Lasix today. (2) CAD (coronary artery disease): Code(s): I25.10 - Atherosclerotic heart disease of ramona coronary artery without angina pectoris Status: Acute Assessment and Plan: History of nonobstructive CAD by [facility] 02/2023.? Continue Aspirin 81 mg daily, resume Atorvastatin when LFTs improve.? (3) Septic shock: Code(s): A41.9 - Sepsis, unspecified organism; R65.21 - Severe sepsis with septic shock Status: Acute Assessment and Plan: Off of pressors now. (4) Acute respiratory failure: Code(s): J96.00 - Acute respiratory failure, unspecified whether with hypoxia or hypercapnia Status: Acute Assessment and Plan: Extubated 01/27. (5) Rhabdomyolysis: Qualifiers: Rhabdomyolysis type: non-traumatic Qualified Code(s): M62.82 - Rhabdomyolysis Code(s): M62.82 - Rhabdomyolysis Status: Acute Assessment and Plan: CK levels are improving (6) Diabetes: Qualifiers: Diabetes mellitus type: type 2 Diabetes mellitus longterm insulin use: without longterm use Diabetes mellitus complication status: with other specified complication Qualified Code(s): E11.69 - Type 2 diabetes mellitus with other specified complication Code(s): E11.9 - Type 2 diabetes mellitus without complications Status: Acute Assessment and Plan: Management per primary service. Subjective Date/time seen: 01/30/24 09:58 Interval history: Reason for visit: Cardiomyopathy HPI: Patient is a 73-year-old male with a past medical history syncope for hypertension, diverticulitis, hyperlipidemia, seizure disorder, history of alcohol abuse, history of nonobstructive CAD with preserved EF 55% by echocardiogram 02/2023 who presented the emergency department 01/20/2024 with altered mental status concern for seizures reported urinary incontinence with waxing and waning mental status and agitation.? Patient unable to provide any history as he is intubated, sedated on mechanical ventilatory support.? History obtained through review electronic medical record discussed with critical care and supporting staff.? He was found to be dehydrated with rhabdomyolysis, acute kidney injury with [place] greater [place] [address] for which he received IV fluid boluses.? Urine drug screen positive for cannabinoids.? Patient was started on Keppra and underwent LP for concern for meningitis.? Neurology was consulted.? Patient had leukocytosis with subsequent developed acute respiratory distress with intermittent bradycardia and altered mental status gurgling respirations for which he was intubated.? He remains on pressors but has been unresponsive even off sedation of late.? A 2D echocardiogram was repeated on 01/24/2024 which revealed EF of 30-35% RV enlargement and hypokinesis which is changed from his prior study from 2022.? Initial troponin negative at 0.021.? He has been maintained on IV ceftriaxone, ampicillin, and vancomycin with bilate
[2024-01-30 10:19] LABS: Creatine Kinase 674 U/L (55-170)
[2024-01-30] MEDS: FUROSEMIDE INJ 40 MG/4 ML VIAL IV PUSH (12:31)
[2024-01-30] MEDS: metroNIDAZOLE 500 MG/ISO 100ML 500 MG/100 ML BAG 100 MG IVPB ×2 (12:36→22:35)
[2024-01-30] MEDS: CLOTRIMAZOLE 10 MG TROC PO (12:42)
--- NOTE | 2024-01-30 15:38 | PCPTNOTE ---
Attempted to see patient 2x today for PT. Per RN patient too lethargic to participate in A.M. and OT with patient in P.M. for evaluation. PT will continue to follow per plan of care.
--- NOTE | 2024-01-30 18:46 | WPDNEUROPN ---
Progress Note: A&P Assessment and Plan (1) History of seizure: Code(s): Z87.898 - Personal history of other specified conditions Status: Acute (2) Alcohol withdrawal delirium: Code(s): F10.931 - Alcohol use, unspecified with withdrawal delirium Status: Acute Plan Patient has been through a fairly extensive intensive care and has survived with aggressive management of his sepsis and other metabolic problem. He is still not in a position to take medication by mouth and hands after discussion with the nursing staff out suggest to continue with the Keppra to 1000 mg twice a day. Subjective Date/time seen: 01/30/24 18:46 Interval history: patient has not been transferred from ICU to regular floor however is not able to communicate very much. He is still very confused and unable to take things by mouth. He is on Keppra 2000 mg twice a day. Cardiology has been following up closely. he is now extubated and able to maintain his oxygen saturation is on breathing. Previous records were reviewed. Exam Narrative: Patient awake but confused does communicate partly. Able to move both upper and lower limbs. No involuntary movements are seen. No facial asymmetry. Extraocular movements are intact. Objective Data Vital Signs Vital Signs: Vital Signs - 24 hr 01/29/24 19:51 01/29/24 20:00 01/29/24 23:52 Temperature 36.6 C 36.9 C Pulse Rate 89 89 81 Respiratory Rate 20 20 20 Blood Pressure 96/63 L 115/63 Pulse Oximetry 96 96 99 Oxygen Delivery Nasal Cannula Oxygen Flow Rate 3 Fraction of Inspired Oxygen 30 01/30/24 00:00 01/29/24 20:00 01/29/24 22:00 Temperature Pulse Rate 81 85 92 Respiratory Rate 20 Blood Pressure Pulse Oximetry 99 Oxygen Delivery Nasal Cannula Oxygen Flow Rate 3 Fraction of Inspired Oxygen 30 01/30/24 00:00 01/30/24 02:00 01/30/24 04:00 Temperature 36.3 C L Pulse Rate 91 93 96 Respiratory Rate 20 Blood Pressure 122/77 Pulse Oximetry 97 Oxygen Delivery Oxygen Flow Rate Fraction of Inspired Oxygen 01/30/24 04:00 01/30/24 04:00 01/30/24 06:00 Temperature Pulse Rate 96 89 96 Respiratory Rate 20 Blood Pressure Pulse Oximetry 97 Oxygen Delivery Nasal Cannula Oxygen Flow Rate 3 Fraction of Inspired Oxygen 30 01/30/24 07:53 01/30/24 09:38 01/30/24 08:00 Temperature 36.9 C Pulse Rate 94 90 Respiratory Rate 32 H Blood Pressure 121/76 Pulse Oximetry 94 93 Oxygen Delivery Nasal Cannula Oxygen Flow Rate 3 Fraction of Inspired Oxygen 01/30/24 08:00 01/30/24 11:45 01/30/24 10:00 Temperature 36.7 C Pulse Rate 87 87 Respiratory Rate 32 H 28 H Blood Pressure 115/63 Pulse Oximetry 93 95 Oxygen Delivery Nasal Cannula Oxygen Flow Rate 3 Fraction of Inspired Oxygen 01/30/24 12:00 01/30/24 12:00 01/30/24 14:00 Temperature Pulse Rate 95 92 Respiratory Rate Blood Pressure Pulse Oximetry 95 Oxygen Delivery Nasal Cannula Oxygen Flow Rate 3 Fraction of Inspired Oxygen 30 Intake/Output Intake/Output: Intake & Output 01/27/24 01/28/24 01/29/24 01/30/24 23:59 23:59 23:59 23:59 Intake Total 2726.6 873.9 320 320 Output Total 6600 6300 5301 825 [facility]3873.4 -5426.1 -4981 -505 Meds/Results Medications: Active Medications Generic Name Dose Route Start Last Admin Trade Name Freq PRN Reason Stop Dose Admin Acetaminophen 650 mg 01/23/24 15:32 01/29/24 16:00 Acetaminophen Elixir 325 Mg/10.15 Ml Udc FEED TUBE 650 mg Q6H PRN Administration Mild Pain (1-3) or Fever Albuterol/Ipratropium 3 ml 01/29/24 07:40 Ipratropium 0.5 Mg/Albuterol Sulfate 2.5 Mg Ampul.Neb 3 Ml INHALATION Q6HRT PRN Wheezing or SOB Aspirin 81 mg 01/29/24 09:00 01/30/24 12:15 Aspirin 81 Mg Enteric Tablet PO Not Given QAM MARSHA Dextrose 12.5 gm 01/21/24 23:58 Dextrose 50% 25 Gm/50 Ml Syringe IV PUSH PRN PRN
[2024-01-30] MEDS: cefTRIAXone 2 GM/NS 100 ML 2 GM/100 ML BAG IVPB (22:00)
[2024-01-31] VITALS (17 sets, daily range): BP systolic 96–121; BP diastolic 62–70; PULSE 74–91; RESP 16–22; TEMP 36.4–37.2; O2SAT 91–99
[2024-01-31] MEDS: metroNIDAZOLE 500 MG/ISO 100ML 500 MG/100 ML BAG 100 MG IVPB ×3 (06:30→21:36)
--- NOTE | 2024-01-31 09:27 | PM.PNCARD ---
Progress Note: A&P Assessment and Plan (1) Cardiomyopathy: Code(s): I42.9 - Cardiomyopathy, unspecified Status: Acute Plan 73-year-old man with biventricular systolic dysfunction asymptomatic of CHF and known not to have coronary artery disease by angiogram last year. He should be started on some guideline directed medical therapy for his systolic dysfunction we cannot do that until he is able to swallow medication orally. Family was asking if there are intravenous alternatives and I told them that intravenous medications can be used if this is an urgent matter but since he is not in decompensated heart failure that is not necessary in this setting. We will continue to follow with you and if/when he can start medication for systolic dysfunction we will do so Isauro Capellan MD [facility] Subjective Date/time seen: Date of service: 01/31/24 09:27 Interval history: Reason for visit: Cardiomyopathy HPI: Patient is a 73-year-old male with a past medical history syncope for hypertension, diverticulitis, hyperlipidemia, seizure disorder, history of alcohol abuse, history of nonobstructive CAD with preserved EF 55% by echocardiogram 02/2023 who presented the emergency department 01/20/2024 with altered mental status concern for seizures reported urinary incontinence with waxing and waning mental status and agitation.? Patient unable to provide any history as he is intubated, sedated on mechanical ventilatory support.? History obtained through review electronic medical record discussed with critical care and supporting staff.? He was found to be dehydrated with rhabdomyolysis, acute kidney injury [place] [address] for which he received IV fluid boluses.? Urine drug screen positive for cannabinoids.? Patient was started on Keppra and underwent LP for concern for meningitis.? Neurology was consulted.? Patient had leukocytosis with subsequent developed acute respiratory distress with intermittent bradycardia and altered mental status gurgling respirations for which he was intubated.? He remains on pressors but has been unresponsive even off sedation of late.? A 2D echocardiogram was repeated on 01/24/2024 which revealed EF of 30-35% RV enlargement and hypokinesis which is changed from his prior study from 2022.? Initial troponin negative at 0.021.? He has been maintained on IV ceftriaxone, ampicillin, and vancomycin with bilateral infiltrates and concern for pneumonia versus meningitis.? Blood cultures have been negative x2 thus far.? EEG did not reveal seizure activity but diffuse slowing noted otherwise normal. Date of service 01/27: Remains intubated. Remains on Levophed. He diuresed quite well yesterday with a dose of IV Lasix. Repeat dose of IV Lasix given today. Tele stable. Date of service 01/29: Wes was extubated yesterday, pressors stopped, and transferred out of the ICU. Has issues with swallowing. Tele stable. Date of service 01/31/2024: Patient is more lucid today he is asking a variety of questions that are related to noncardiac issues such as NPO status wishing to change a contact lens and have eyedrops etcetera according to Neurology human resources consultant he is still not safe to swallow medications. Exam Narrative: General: Elderly male lying upright in bed, intubated, unresponsive on sedation, no apparent distress comfortable. Head: atraumatic, normocephalic Eyes: sclerae anicteric, conjunctivae unremarkable Ears/Nose: external inspection of ears and nose were grossly normal Mouth/Throat: oral mucosa pink and moist orotracheal intubation Neck: supple, normal range of motion, no jugular venous distention or carotid bruits, thyroid nonpalpable, trachea midline. Cardiac: Regular rate and rhythm, normal S1-S2, soft systolic murmur No gallops or rubs. Lungs: Diminished breath sounds diffusely rhonchorous sounds right base faint wheezing no obvious rales Abdomen: Soft, nontender, nondistend
[2024-01-31] MEDS: levETIRAcetam 500MG/NACL 100ML 500 MG/100 ML BAG 400 MG IVPB ×2 (09:33→20:14)
[2024-01-31] MEDS: PANTOPRAZOLE SODIUM IV 40 MG VIAL IV PUSH (09:33)
[2024-01-31] MEDS: ENOXAPARIN 40 MG/0.4 ML SYRINGE SUB-Q (09:33)
[2024-01-31] MEDS: CENTRAL LINE FLUSH 10 ML IV PUSH ×3 (09:33→21:37)
[2024-01-31] MEDS: THIAMINE HCL 200 MG/2 ML VIAL 100 MG IV PUSH (09:34)
[2024-01-31] MEDS: FOLIC ACID 1 MG/0.2 ML INJ IV PUSH (09:38)
--- NOTE | 2024-01-31 09:57 | PM.IMPN ---
Progress Note: A&P Assessment and Plan (1) Acute respiratory failure: Code(s): J96.00 - Acute respiratory failure, unspecified whether with hypoxia or hypercapnia Status: Acute (2) Alcohol withdrawal delirium: Code(s): F10.931 - Alcohol use, unspecified with withdrawal delirium Status: Acute (3) Seizure: Code(s): R56.9 - Unspecified convulsions Status: Acute (4) Sepsis: Code(s): A41.9 - Sepsis, unspecified organism Status: Acute (5) Rhabdomyolysis: Qualifiers: Rhabdomyolysis type: non-traumatic Qualified Code(s): M62.82 - Rhabdomyolysis Code(s): M62.82 - Rhabdomyolysis Status: Acute Plan (1) Acute respiratory failure: ?Code(s): J96.00 - Acute respiratory failure, unspecified whether with hypoxia or hypercapnia ?Status:?Acute ?Assessment and Plan: Patient with acute respiratory failure likely related to pulmonary edema, aspiration pneumonia, altered mental status, 01/22:? Patient intubated for airway protection and hypoxia and increasing oxygen requirement 4/2 extubated after a successful weaning trial 01/28 on 3 L nasal, weak cough p.r.n. suctioning, incentive spirometer, get him up in chair and have Physical therapy work with him Chest x-ray reviewed Since patient had more than 7 later urine output in last 24 hours will hold Lasix at this time and resume from tomorrow -continue?bronchodilators p.r.n. Patient tolerated extubation well (2) Altered mental status: ?Qualifiers: ?Altered mental status type:?delirium? Qualified Code(s):?R41.0 - Disorientation, unspecified ?Code(s): R41.82 - Altered mental status, unspecified ?Status:?Acute ?Assessment and Plan: Altered mental status could be multifactorial, seizure activity versus possible alcohol withdrawal (but patient has cut down alcohol significantly according the family), according the patient's daughter she states that he has been having some cognitive impairment, early dementia -patient presented with elevated WBC count, lactic acidosis, sepsis -01/22 LP was performed by intervention Radiology -01/22: CSF Gram stain did not show any organisms, rare wbc's -01/22: CSF cultures pending negative till now -CSF analysis : WBC of 1, CSF neutrophils 14, CSF glucose is 94, CSF total protein 58 does not reflect bacterial meningitis, could be viral meningitis/encephalitis -CSF EBV, CSF herpes 1 and CSF herpes 2 1 not detected, West Nile RNA negative -CSF cryptococcus Ag not detected -CSF VDRL pending -Continue abx as under -brain MRI was negative -ammonia has normalized -patient does have history of seizures and is on Keppra (3) Sepsis: ?Qualifiers: ?Sepsis type:?sepsis due to unspecified organism??Sepsis acute organ dysfunction status:?unspecified? Qualified Code(s):?A41.9 - Sepsis, unspecified organism ?Code(s): A41.9 - Sepsis, unspecified organism ?Status:?Acute ?Assessment and Plan: Patient presented with lactic acidosis, leukocytosis, altered mental status, rhabdomyolysis - could be meningitis versus pneumonia -LP as above -patient was initially started on?ceftriaxone, vancomycin, Unasyn, acyclovir (01/22) -lactic acid has normalized, patient has received adequate amount of IV fluids -continue to monitor urine output, maintain adequate blood pressures -01/19:? Blood cultures negative x2 -01/23:? Sputum culture growing staph aureus (MSSA), pansensitive -continue ceftriaxone but off of other antiviral and antibiotics - mOff vasopressors 01/28: pt has fever in the past 48 hrs cxr no consultation Repeat urine analysis, no pyuria on January 28 repeated blood culture on January 28 does not have bacteria growth in blood Continue ceftriaxone IV, Flagyl IV, dc oral fluconazole during NPO, start fluconazole 200 mg IV daily Mouth thrush, sputum culture grows yeast Start clotrimazole eh 10 mg 5 times daily for 14 days s/w fluconazole 400 mg daily
--- NOTE | 2024-01-31 11:07 | PCSTNOTE ---
Please refer to the Modified Barium Swallow Evaluation in the EMR. Pt was seen for a repeat MBS due to complaints of increased difficulty swallowing (gurgly vocal quality) with previously recommended diet. The pt was seated for a lateral view; noted to have increased confusion and more somnolent c/t previous test. Pt exhibited difficulty maintaining sitting upright & required repositioning assist throughout testing. Pt was presented with thin liquids, mildly thick liquids, pudding, and a crumbled cracker all in controlled amounts, 1 tsp or less. The oral stages were essentially intact; no leakage, pocketing, or residue was exhibited. Pharyngeal stage symptoms included: reduced tongue base retraction (also decreased epiglottic inversion noted) as evidenced by vallecular residue (severe at times); reduced laryngeal elevation as evidenced by laryngeal penetration during the swallow and pyriform sinus residue (severe at times); reduced pharyngeal squeeze as evidenced by min coating on the pharyngeal wall. Trace aspiration was noted after the swallow during testing; however, given the severity of residual it is felt during an actual meal context, aspiration would likely be significant. Defer to EMR MBS report for specific outcomes with each consistency. Impression: severe dysphagia Recommendation: Non Oral Feeding; a trial of dysphagia therapy will be initiated.
[2024-01-31 11:29] LABS: Hematocrit 35.1 % (42.0-52.0); Hemoglobin 11.3 g/dL (14.0-18.0); Mean Corpuscular HGB Conc 32.2 g/dl (32-36); Mean Corpuscular Hemoglobin 30.5 pg (26-34); Mean Corpuscular Volume 94.9 fl (80-100); Mean Platelet Volume 10.3 fl (7.4-10.4); Platelet Count Result 390 k/mm3 (150-375); White Blood Count 14.8 K/mm3 (4.5-10.0)
[2024-01-31 12:23] LABS: Anion Gap 5 mmol/L (4-12); Blood Urea Nitrogen 17 mg/dL (9-20); Calcium 8.6 mg/dL (8.4-10.2); Carbon Dioxide 29 mmol/L (22-30); Chloride 104 mmol/L (98-107); Estimated CRCL calculation 78 ml/min; Estimated Glomerular Filt Rate > 60; Glucose 123 mg/dL (65-110); Potassium 3.6 mmol/L (3.4-5.0); Sodium 138 mmol/L (137-145)
--- NOTE | 2024-01-31 13:25 | PCNFU ---
Nutrition Follow-Up Complete: Swallowing difficulties related to dysphagia as evidenced by MBS results and speech recommendation for non oral feedings Goal:Meet estimated protein energy needs Pt current nutrition is Pureed level 4. Nutrition recommendation: NPO, consider tube feeding for nutrition support following [employer] recommendations and MBS results. Last recorded weight is 76.3 kg. Bowel Motility: +BM 4/5 Labs Reviewed: Hgb: 12.1, HCT:35.9, Alb:3.0, NA:136, BUN:8 Meds Noted: thiamine, lovenox, reglan, lasix Skin: no skin issues noted Additional Notes: Pt failed an MBS this morning, recommendations for non oral feedings. Recommend to initiate tube feedings via NG. Recommendation would be for Jevity 1.5 at a goal rate of 55ml/hr to provide 1815kcals, 77g protein, 920ml free water. Recommend a 150ml flush q 4 hrs for a total of 1820ml free water per day. Initiate tube feeding at 20ml/hr, advance by 10ml q 4 hrs to goal rate. Monitoring diet orders, labs, weights, plan of care Follow up in 3 days.
--- NOTE | 2024-01-31 13:36 | PCDIET ---
Possible Tube feeding need due to failed MBS. Recommendation would be for Jevity 1.5 at a goal rate of 55ml/hr to provide 1815kcals, 77g protein, 920ml free water. Recommend a 150ml flush q 4 hrs for a total of 1820ml free water per day. Initiate tube feeding at 20ml/hr, advance by 10ml q 4 hrs to goal rate.
[2024-01-31] MEDS: DEXTROSE 5%/LACTATED RINGERS 1,000 ML 75 ML IV CONT (17:18)
[2024-01-31] MEDS: FLUCONAZOLE 400 MG/NACL 200 ML 400 MG/200 ML BAG 100 MG IVPB (17:18)
[2024-01-31] MEDS: cefTRIAXone 2 GM/NS 100 ML 2 GM/100 ML BAG IVPB (21:37)
[2024-02-01] VITALS (15 sets, daily range): BP systolic 115–130; BP diastolic 67–80; PULSE 73–85; RESP 16–22; TEMP 36.6–37.2; O2SAT 90–100
[2024-02-01] MEDS: metroNIDAZOLE 500 MG/ISO 100ML 500 MG/100 ML BAG 100 MG IVPB ×3 (06:20→21:51)
[2024-02-01] MEDS: DEXTROSE 5%/LACTATED RINGERS 1,000 ML 75 ML IV CONT ×2 (06:21→20:38)
[2024-02-01] MEDS: CENTRAL LINE FLUSH 10 ML IV PUSH ×3 (06:21→20:38)
[2024-02-01 06:56] LABS: Estimated CRCL calculation 78 ml/min; Estimated Glomerular Filt Rate > 60
[2024-02-01] MEDS: ENOXAPARIN 40 MG/0.4 ML SYRINGE SUB-Q (10:06)
[2024-02-01] MEDS: FOLIC ACID 1 MG/0.2 ML INJ IV PUSH (10:06)
[2024-02-01] MEDS: PANTOPRAZOLE SODIUM IV 40 MG VIAL IV PUSH (10:07)
[2024-02-01] MEDS: THIAMINE HCL 200 MG/2 ML VIAL 100 MG IV PUSH (10:07)
[2024-02-01] MEDS: levETIRAcetam 500MG/NACL 100ML 500 MG/100 ML BAG 400 MG IVPB ×2 (10:07→20:37)
[2024-02-01] MEDS: FLUCONAZOLE 200 MG/NACL 100 ML 200 MG/100 ML BAG 100 MG IVPB (10:08)
--- NOTE | 2024-02-01 10:49 | PM.IMPN ---
Progress Note: A&P Assessment and Plan (1) Pneumonia: Code(s): J18.9 - Pneumonia, unspecified organism Status: Acute Assessment and Plan: Currently receiving ceftriaxone, metronidazole, fluconazole for aspiration pneumonia and yeast in sputum Continues to be high risk for aspiration 01/31 WBC trending up at 14.8 (2) Acute respiratory failure: Code(s): J96.00 - Acute respiratory failure, unspecified whether with hypoxia or hypercapnia Status: Acute Assessment and Plan: Hypoxia secondary to pneumonia Wean oxygen as possible (3) Acute alteration in mental status: Code(s): R41.82 - Altered mental status, unspecified Status: Acute Assessment and Plan: Possibly a combination of alcohol withdrawal delirium and metabolic encephalopathy secondary to sepsis Continue PT/OT Clinically improving (4) Dysphagia: Code(s): R13.10 - Dysphagia, unspecified Status: Acute Assessment and Plan: No stroke by CT or MRI Possibly related to his metabolic encephalopathy Continue ST 01/31 discussed need for nutrition with patient and sister at bedside, discussed risk versus benefit including increased risk of aspiration pneumonia and they wished to proceed with NG feeding tube insertion (5) Alcohol use, unspecified with unspecified alcohol-induced disorder: Code(s): F10.99 - Alcohol use, unspecified with unspecified alcohol-induced disorder Status: Acute Assessment and Plan: No signs of acute withdrawal (6) Cardiomyopathy: Code(s): I42.9 - Cardiomyopathy, unspecified Status: Acute Assessment and Plan: EF 30-35% Consider resuming cardiac meds once NG feeding tube is in place and tube feedings tolerated (7) Protein calorie malnutrition: Code(s): E46 - Unspecified protein-calorie malnutrition Status: Acute Assessment and Plan: 01/31 Began nutrition through feeding tube Subjective Date/time seen: 02/01/24 10:49 Interval history: Feeling better today. Sister at bedside. Only pain his chronic pain in his right shoulder with use. He attributed to an old football injury. Denied shortness of breath. Tolerating nasal cannula oxygen. No edema. No abdominal pain. No nausea or vomiting. Hungry. No abnormal bleeding. Bowels moved today. Tolerating Nam catheter. Review of Systems Review of Systems: All systems reviewed & are unremarkable except as noted in HPI and below Exam Narrative: HEENT: PERRL, sclerae nonicteric, pharyngeal mucosa pink and intact NECK: No JVD CHEST: Coarse breath sounds. Normal effort. HEART: NL S1/S2, regular, no murmur ABDOMEN: BS+, soft, nontender, no mass, no bruits EXTREMITIES: No cyanosis, edema, or clubbing NEUROLOGIC: CN intact and symmetric to inspection. MUSCULOSKELETAL: Tone and strength symmetric. PSYCH: Alert. Oriented to person, place, and year, not to month per day. Conversation is a bit tangential. Objective Data Vital Signs Vital Signs: Vital Signs - 24 hr 01/31/24 11:28 01/31/24 12:00 01/31/24 12:00 Temperature 98.1 F Pulse Rate 78 89 Respiratory Rate 21 H Blood Pressure 96/70 L Pulse Oximetry 95 95 Oxygen Delivery Nasal Cannula Oxygen Flow Rate 2 01/31/24 14:00 01/31/24 16:00 01/31/24 16:00 Temperature 97.9 F Pulse Rate 89 88 75 Respiratory Rate 17 Blood Pressure 96/66 L Pulse Oximetry 95 Oxygen Delivery Oxygen Flow Rate 01/31/24 16:00 01/31/24 18:00 01/31/24 20:25 Temperature 99.0 F Pulse Rate 88 81 Respiratory Rate 16 Blood Pressure 115/68 Pulse Oximetry 95 99 Oxygen Delivery Nasal Cannula Oxygen Flow Rate 2 01/31/24 20:00 01/31/24 23:54 01/31/24 20:00 Temperature 98.1 F Pulse Rate 82 82 Respiratory Rate 16 Blood Pressure 104/67 Pulse Oximetry 99 91 Oxygen Delivery Nasal Cannula Oxygen Flow Rate 2 01/31/24 22:00 02/01/24 00:00 02/01/24 00:00 Temperature
--- NOTE | 2024-02-01 19:48 | PC.NURSE ---
On 02/01/24, the clinical nursing intern, Yvette Gross, provided care and completed [facility] documentation on this patient. I have reviewed the student's documentation and agree with the findings.
[2024-02-01] MEDS: cefTRIAXone 2 GM/NS 100 ML 2 GM/100 ML BAG IVPB (20:37)
[2024-02-01] MEDS: cycloSPORINE 0.4 ML OPHTH SOLUTION 1 DROP EACH EYE (20:38)
[2024-02-02] VITALS (13 sets, daily range): BP systolic 111–142; BP diastolic 61–75; PULSE 79–86; RESP 18–22; TEMP 36.7–37.1; O2SAT 94–98
[2024-02-02 04:08] LABS: Basophils Percent Auto 0.2 % (0.2-1.2); Eosinophils Absolute Auto 0.2 K/mm3 (0-0.3); Eosinophils Percent Auto 2.4 % (0-4.4); Hematocrit 33.1 % (42.0-52.0); Hemoglobin 10.8 g/dL (14.0-18.0); Immature Granulocyte Absolute 0.06 K/mm3 (0.00-0.031); Immature Granulocyte Percent A 0.6 % (0-0.5); Lymphocytes Percent Auto 17.1 % (18.3-44.2); Mean Corpuscular HGB Conc 32.6 g/dl (32-36); Mean Corpuscular Hemoglobin 30.6 pg (26-34); Mean Corpuscular Volume 93.8 fl (80-100); Monocytes Absolute Auto 0.8 K/mm3 (0.1-0.6); Monocytes Percent Auto 8.3 % (2.6-8.5); Neutrophils Absolute Auto 7.1 K/mm3 (1.3-6.7); Neutrophils Percent Auto 71.4 % (45.5-73.1); Platelet Count Result 488 k/mm3 (150-375); Red Blood Count 3.53 M/mm3 (4.6-6.20); Red Cell Distribution Width 15.1 % (11.5-14.5); White Blood Count 9.9 K/mm3 (4.5-10.0)
[2024-02-02 04:15] LABS: Hemoglobin A1C 5.6 % (<5.7)
[2024-02-02 04:17] LABS: Prothrombin Time 14.1 Seconds (11.1-14.7)
[2024-02-02 04:19] LABS: Alanine Aminotransferase 78 U/L (6-50); Albumin Level 2.8 g/dL (3.5-5.1); Alkaline Phosphatase 140 U/L (38-126); Anion Gap 2 mmol/L (4-12); Aspartate Amino Transferase 57 U/L (17-59); Bilirubin,Total 0.4 mg/dL (0.2-1.3); Blood Urea Nitrogen 9 mg/dL (9-20); Calcium 8.1 mg/dL (8.4-10.2); Carbon Dioxide 29 mmol/L (22-30); Chloride 104 mmol/L (98-107); Estimated CRCL calculation 78 ml/min; Estimated Glomerular Filt Rate > 60; Glucose 156 mg/dL (65-110); Magnesium 2.1 mg/dL (1.6-2.3); Phosphorus 3.3 mg/dL (2.5-4.5); Potassium 3.3 mmol/L (3.4-5.0); Sodium 135 mmol/L (137-145)
[2024-02-02 04:38] LABS: Prealbumin 6.9 mg/dL (17.6-36.0)
[2024-02-02] MEDS: metroNIDAZOLE 500 MG/ISO 100ML 500 MG/100 ML BAG 100 MG IVPB ×3 (05:19→22:28)
[2024-02-02] MEDS: CENTRAL LINE FLUSH 10 ML IV PUSH ×3 (05:22→20:53)
[2024-02-02] MEDS: ENOXAPARIN 40 MG/0.4 ML SYRINGE SUB-Q (09:09)
[2024-02-02] MEDS: THIAMINE HCL 200 MG/2 ML VIAL 100 MG IV PUSH (09:10)
[2024-02-02] MEDS: PANTOPRAZOLE SODIUM IV 40 MG VIAL IV PUSH (09:10)
[2024-02-02] MEDS: PARoxetine 10 MG TABLET 30 MG PO (09:15)
[2024-02-02] MEDS: POTASSIUM CHLORIDE 20 MEQ PACKET (FOR LIQUID) 40 MEQ FEED TUBE (09:21)
[2024-02-02] MEDS: cycloSPORINE 0.4 ML OPHTH SOLUTION 1 DROP EACH EYE ×2 (09:22→20:52)
[2024-02-02] MEDS: FLUCONAZOLE 200 MG/NACL 100 ML 200 MG/100 ML BAG 100 MG IVPB (09:23)
[2024-02-02] MEDS: levETIRAcetam 500MG/NACL 100ML 500 MG/100 ML BAG 100 MG IVPB ×2 (09:24→20:52)
[2024-02-02] MEDS: MULTIVIT W/ IRON, MINERALS 15 ML LIQUID (*BKC) FEED TUBE (12:41)
[2024-02-02] MEDS: DEXTROSE 5%/LACTATED RINGERS 1,000 ML 75 ML IV CONT (13:00)
[2024-02-02] MEDS: ASPIRIN 81 MG CHEWABLE TABLET FEED TUBE (13:00)
[2024-02-02] MEDS: FOLIC ACID 1 MG/0.2 ML INJ IV PUSH (13:43)
--- NOTE | 2024-02-02 17:52 | PC.NURSE ---
1740- orders for medical floor- report given to Jossy RN- pt transferred via bed accompanied by staff to room 256- daughter January notified of transfer;
--- NOTE | 2024-02-02 17:54 | PM.IMPN ---
Progress Note: A&P Assessment and Plan (1) Pneumonia: Code(s): J18.9 - Pneumonia, unspecified organism Status: Acute Assessment and Plan: Currently receiving ceftriaxone, metronidazole, fluconazole for aspiration pneumonia and yeast in sputum Continues to be high risk for aspiration WBC 01/31 14.8, 02/01 9.9 (2) Acute respiratory failure: Code(s): J96.00 - Acute respiratory failure, unspecified whether with hypoxia or hypercapnia Status: Acute Assessment and Plan: Hypoxia secondary to pneumonia Wean oxygen as possible (3) Acute alteration in mental status: Code(s): R41.82 - Altered mental status, unspecified Status: Acute Assessment and Plan: Possibly a combination of alcohol withdrawal delirium and metabolic encephalopathy secondary to sepsis Continue PT/OT Clinically improving (4) Dysphagia: Code(s): R13.10 - Dysphagia, unspecified Status: Acute Assessment and Plan: No stroke by CT or MRI Possibly related to his metabolic encephalopathy Continue ST 01/31 discussed need for nutrition with patient and sister at bedside, discussed risk versus benefit including increased risk of aspiration pneumonia and they wished to proceed with NG feeding tube insertion 02/01 Will likely benefit from f/u swallow evaluation soon (5) Alcohol use, unspecified with unspecified alcohol-induced disorder: Code(s): F10.99 - Alcohol use, unspecified with unspecified alcohol-induced disorder Status: Acute Assessment and Plan: No signs of acute withdrawal (6) Cardiomyopathy: Code(s): I42.9 - Cardiomyopathy, unspecified Status: Acute Assessment and Plan: EF 30-35% Consider resuming cardiac meds once NG feeding tube is in place and tube feedings tolerated (7) Protein calorie malnutrition: Code(s): E46 - Unspecified protein-calorie malnutrition Status: Acute Assessment and Plan: 01/31 Began nutrition through feeding tube (8) Hypokalemia: Code(s): E87.6 - Hypokalemia Status: Acute Assessment and Plan: K 3.3, KCl via NG ordered Subjective Date/time seen: 02/02/24 17:54 Interval history: Tolerating TF. Denied shortness of breath. Tolerating nasal cannula oxygen. No edema. No abdominal pain. No nausea or vomiting. No abnormal bleeding. Bowels moved today. Tolerating Nam catheter. Review of Systems Review of Systems: All systems reviewed & are unremarkable except as noted in HPI and below Exam Narrative: HEENT: PERRL, sclerae nonicteric, pharyngeal mucosa pink, NG tube in left naris. NECK: No JVD CHEST: Coarse breath sounds. Normal effort. HEART: NL S1/S2, regular, no murmur ABDOMEN: BS+, soft, nontender, no mass, no bruits EXTREMITIES: No cyanosis, edema, or clubbing NEUROLOGIC: CN intact and symmetric to inspection. MUSCULOSKELETAL: Tone and strength symmetric. PSYCH: Alert. Oriented to person, place, and year, not to month per day. Conversation is a bit tangential. Objective Data Vital Signs Vital Signs: Vital Signs - 24 hr 02/01/24 18:00 02/01/24 19:27 02/01/24 20:00 Temperature 98.6 F Pulse Rate 75 81 Respiratory Rate 20 Blood Pressure 130/80 Pulse Oximetry 100 95 Oxygen Delivery Nasal Cannula Oxygen Flow Rate 2 02/02/24 00:11 02/02/24 00:00 02/01/24 20:00 Temperature 98.3 F Pulse Rate 80 80 Respiratory Rate Blood Pressure Pulse Oximetry 94 Oxygen Delivery Nasal Cannula Oxygen Flow Rate 2 02/01/24 22:00 02/02/24 00:00 02/02/24 02:00 Temperature Pulse Rate 79 85 82 Respiratory Rate Blood Pressure Pulse Oximetry Oxygen Delivery Oxygen Flow Rate 02/02/24 04:33 02/02/24 04:00 02/02/24 04:00 Temperature 98.5 F Pulse Rate 86 85 Respiratory Rate 20 Blood Pressure 111/61 Pulse Oximetry 94 94 Oxygen Delivery Nasal Cannula Oxygen Flow Rate 2 02/02/24 06:00 02/02/24
[2024-02-02] MEDS: cefTRIAXone 2 GM/NS 100 ML 2 GM/100 ML BAG IVPB (20:04)
[2024-02-02] MEDS: ATORVASTATIN 40 MG TABLET 80 MG PO (20:04)
[2024-02-03] VITALS (7 sets, daily range): BP systolic 116–136; BP diastolic 64–76; PULSE 78–87; RESP 16–18; TEMP 36.6–37.1; O2SAT 93–97
[2024-02-03] MEDS: DEXTROSE 5%/LACTATED RINGERS 1,000 ML 75 ML IV CONT ×2 (04:29→18:53)
[2024-02-03 04:55] LABS: Basophils Absolute Auto 0.1 K/mm3 (0.0-0.1); Basophils Percent Auto 0.5 % (0.2-1.2); Eosinophils Absolute Auto 0.3 K/mm3 (0-0.3); Eosinophils Percent Auto 2.4 % (0-4.4); Hematocrit 34.9 % (42.0-52.0); Hemoglobin 11.4 g/dL (14.0-18.0); Immature Granulocyte Absolute 0.05 K/mm3 (0.00-0.031); Immature Granulocyte Percent A 0.5 % (0-0.5); Lymphocytes Absolute Auto 2.15 K/mm3 (0.9-3.2); Lymphocytes Percent Auto 19.9 % (18.3-44.2); Mean Corpuscular HGB Conc 32.7 g/dl (32-36); Mean Corpuscular Hemoglobin 30.3 pg (26-34); Mean Corpuscular Volume 92.8 fl (80-100); Neutrophils Absolute Auto 7.3 K/mm3 (1.3-6.7); Neutrophils Percent Auto 67.7 % (45.5-73.1); Platelet Count Result 580 k/mm3 (150-375); Red Blood Count 3.76 M/mm3 (4.6-6.20); Red Cell Distribution Width 14.9 % (11.5-14.5); White Blood Count 10.8 K/mm3 (4.5-10.0)
[2024-02-03 05:06] LABS: Anion Gap 4 mmol/L (4-12); Blood Urea Nitrogen 11 mg/dL (9-20); Calcium 8.5 mg/dL (8.4-10.2); Carbon Dioxide 29 mmol/L (22-30); Chloride 105 mmol/L (98-107); Estimated CRCL calculation 90 ml/min; Estimated Glomerular Filt Rate > 60; Glucose 153 mg/dL (65-110); Potassium 4.1 mmol/L (3.4-5.0); Sodium 138 mmol/L (137-145)
[2024-02-03] MEDS: metroNIDAZOLE 500 MG/ISO 100ML 500 MG/100 ML BAG 100 MG IVPB ×2 (05:09→13:31)
[2024-02-03] MEDS: CENTRAL LINE FLUSH 10 ML IV PUSH ×3 (05:09→21:17)
--- NOTE | 2024-02-03 05:25 | PC.NURSE ---
Patient presents as agitated and non-compliant. Patient continually yelling at patient sitter and staff development manager. Patient attempted to throw himself out of the bed; patient sitter called staff development manager to assist in keeping the patient in bed safely. Call to physician placed; RN will await for callback.
[2024-02-03] MEDS: ASPIRIN 81 MG CHEWABLE TABLET FEED TUBE (08:59)
[2024-02-03] MEDS: PARoxetine 10 MG TABLET 30 MG PO (08:59)
[2024-02-03] MEDS: PANTOPRAZOLE SODIUM IV 40 MG VIAL IV PUSH (09:00)
[2024-02-03] MEDS: THIAMINE HCL 200 MG/2 ML VIAL 100 MG IV PUSH (09:00)
[2024-02-03] MEDS: MULTIVIT W/ IRON, MINERALS 15 ML LIQUID (*BKC) FEED TUBE (09:00)
[2024-02-03] MEDS: ENOXAPARIN 40 MG/0.4 ML SYRINGE SUB-Q (09:01)
[2024-02-03] MEDS: levETIRAcetam 500MG/NACL 100ML 500 MG/100 ML BAG 400 MG IVPB ×2 (09:02→21:17)
[2024-02-03] MEDS: cycloSPORINE 0.4 ML OPHTH SOLUTION 1 DROP EACH EYE ×2 (09:24→21:17)
[2024-02-03] MEDS: FLUCONAZOLE 200 MG/NACL 100 ML 200 MG/100 ML BAG 100 MG IVPB (09:30)
[2024-02-03] MEDS: FOLIC ACID 1 MG/0.2 ML INJ IV PUSH (09:30)
--- NOTE | 2024-02-03 11:01 | PCNFU ---
Nutrition Follow-Up Complete: Inadequate energy intake related to increased needs from mechanical ventilation, NPO as evidenced by need for full tube feeding - Resolved Inadequate oral intake related to swallowing difficulty as evidenced by MBSS, need for NPO, full tube feedings Goal: Meet estimated protein energy needs _ Meeting goal with tube feeding Pt current nutrition is NG tube feedings: Jevity 1.2 - bolus 240 mls q 4 hours with 30 ml flushes q 4 hours. 1710 kcal, 79 g protein, 1146 ml free water. 180 ml free water from flushes. D5-LR running at 75 ml/h. Meeting estimated 95% EER and 100% estimated protein needs currently. Nutrition recommendation: Follow up with swallow eval today and consider PEG if pt is not able to resume safe PO intake. Last recorded weight is 71.6 kg. Bowel Motility: Last BM recorded +1 BM 02/03/24 Labs Reviewed: Hgb 11.4, Hct 34.9, Cre 0.6, Glu 153 Meds Noted: Thiamine, lopressor, Keppra, lovenox, protonix Skin: No pressure injury Additional Notes: Tolerating tube feedings, electrolytes look good. No bloating, diarrhea, distension. Awaiting follow up swallow eval to determine further plans. Monitoring labs, weights, tube feeding tolerance, plan of care Follow ups Tuesdays and Fridays per policy
[2024-02-03] MEDS: ATORVASTATIN 40 MG TABLET 80 MG PO (21:16)
--- NOTE | 2024-02-03 21:52 | PM.IMPN ---
Progress Note: A&P Assessment and Plan (1) Protein calorie malnutrition: Code(s): E46 - Unspecified protein-calorie malnutrition Status: Acute (2) Alcohol use, unspecified with unspecified alcohol-induced disorder: Code(s): F10.99 - Alcohol use, unspecified with unspecified alcohol-induced disorder Status: Acute (3) Dysphagia: Code(s): R13.10 - Dysphagia, unspecified Status: Acute (4) Pneumonia: Code(s): J18.9 - Pneumonia, unspecified organism Status: Acute (5) CAD (coronary artery disease): Code(s): I25.10 - Atherosclerotic heart disease of [place] coronary artery without angina pectoris Status: Acute Plan #aspiration pneumonia -will complete a couple more days of diflucan for 12 days -completed 12 days or rocephin and >7 days of flagyl, will stop -aspirated on barium swallow -continue NGT for feeds and meds -unclear etiology of dysphagia, CVA ruled out, possibly from metabolic encephalopathy -if no improvement, may need to consider G-tube #LUE lesion on forearm -lesion on arm is likely from infiltrated IV -continue local wound care with mepelix -wound care team following #chronic conditions -cardiomopathy: EF 30-40% -alcohol abuse: continue thiamine, -anxiety: paxil, PRN ativan -GI ppx: protonix -HTN: metoprolol -seizure disorder? keppra -HLD: aspirin, statin Diet: NPO, tube feeding only DVT ppx: Lovenox Code status: Full code Disposition: > 3 days Subjective Date/time seen: 02/03/24 21:52 Interval history: Patient seen and examined. He appears to be doing well. I examined the lesion on his left forearm with wound care team. Wound likely from previously infiltrated IV. Appears superficial, will continue local wound care with mepelix dressing. NGT was pulled and new tube was placed appropriately. We are continuing tube feeds. He continues to be on rocephin, flagyl, diflucan, will complete 7 days of dlflucan. He appears to have completed 12 days of rocephin, and >7 days of flagyl. We have weaned O2 to room air. He will need further swallow evaluations. He denies fever, chills, N/V/D, chest pain. Exam Narrative: - GENERAL: Pleasant male in no acute distress - EYES: EOMI. Anicteric. - HENT: Moist mucous membranes. NGT in place - LUNGS: Clear to auscultation bilaterally, no wheezing, rhonchi, or rales. - CARDIOVASCULAR: Regular rate and rhythm. No murmur. No JVD. - ABDOMEN: Soft, non-tender and non-distended. No palpable masses. - EXTREMITIES: No edema. Peripheral pulses 2+. Non-tender. LUE lesion examined, indurated no fluctulance - NEUROLOGIC: No focal neurological deficits. CN II-XII grossly intact. - PSYCHIATRIC: Awake, Alert and oriented x 3. Appropriate mood and affect. - SKIN: No rashes or lesions. Warm. - LYMPH: No cervical lymphadenopathy. Objective Data Vital Signs Vital Signs: Vital Signs - 24 hr 02/03/24 00:00 02/03/24 03:37 02/03/24 09:01 Temperature 37.1 C 37.1 C Pulse Rate 81 87 Respiratory Rate 18 18 18 Blood Pressure 126/74 136/76 Pulse Oximetry 93 95 95 Oxygen Delivery Room Air 02/03/24 08:00 02/03/24 12:00 02/03/24 16:00 Temperature 37.0 C 36.6 C 36.6 C Pulse Rate 86 86 86 Respiratory Rate 18 16 16 Blood Pressure 134/75 116/64 120/70 Pulse Oximetry 96 97 96 Oxygen Delivery 02/03/24 20:00 02/03/24 21:20 Temperature 36.8 C Pulse Rate 78 Respiratory Rate 18 Blood Pressure 131/68 Pulse Oximetry 96 Oxygen Delivery Room Air Intake/Output Intake/Output: Intake & Output 01/31/24 02/01/24 02/02/24 02/03/24 23:59 23:59 23:59 23:59 Intake Total 700 2678.8 2540.0 4410.0 Output Total 950 1900 4500 2450 Balance -250 778.8 -1960.0 1960.0 Meds/Results Medications: Active Medications Generic Name Dose Route Start Last Admin Trade Name Freq PRN Reason Stop Dose Admin Acetaminophen 650 mg 01/23/24 15:32 01/29/24 16:00 Acetaminophen Elixir 325 Mg/10.15 Ml Udc FEED TUBE 650 mg
[2024-02-04] VITALS (9 sets, daily range): BP systolic 105–125; BP diastolic 70–85; PULSE 80–89; RESP 16–34; TEMP 36.1–37.1; O2SAT 90–95
[2024-02-04 04:45] LABS: Basophils Absolute Auto 0.1 K/mm3 (0.0-0.1); Basophils Percent Auto 0.5 % (0.2-1.2); Eosinophils Absolute Auto 0.3 K/mm3 (0-0.3); Eosinophils Percent Auto 2.6 % (0-4.4); Hemoglobin 11.5 g/dL (14.0-18.0); Immature Granulocyte Absolute 0.04 K/mm3 (0.00-0.031); Immature Granulocyte Percent A 0.4 % (0-0.5); Lymphocytes Absolute Auto 1.92 K/mm3 (0.9-3.2); Lymphocytes Percent Auto 18.4 % (18.3-44.2); Mean Corpuscular HGB Conc 31.9 g/dl (32-36); Mean Corpuscular Hemoglobin 29.9 pg (26-34); Mean Corpuscular Volume 93.8 fl (80-100); Mean Platelet Volume 10.2 fl (7.4-10.4); Monocytes Absolute Auto 0.8 K/mm3 (0.1-0.6); Monocytes Percent Auto 7.6 % (2.6-8.5); Neutrophils Absolute Auto 7.4 K/mm3 (1.3-6.7); Neutrophils Percent Auto 70.5 % (45.5-73.1); Platelet Count Result 692 k/mm3 (150-375); Red Blood Count 3.84 M/mm3 (4.6-6.20); Red Cell Distribution Width 15.2 % (11.5-14.5); White Blood Count 10.5 K/mm3 (4.5-10.0)
[2024-02-04 04:59] LABS: Anion Gap 3 mmol/L (4-12); Blood Urea Nitrogen 13 mg/dL (9-20); Calcium 8.9 mg/dL (8.4-10.2); Carbon Dioxide 28 mmol/L (22-30); Chloride 105 mmol/L (98-107); Estimated CRCL calculation 78 ml/min; Estimated Glomerular Filt Rate > 60; Glucose 156 mg/dL (65-110); Potassium 4.4 mmol/L (3.4-5.0); Sodium 136 mmol/L (137-145)
--- NOTE | 2024-02-04 07:14 | PM.PNCARD ---
Progress Note: A&P Assessment and Plan (1) Cardiomyopathy: Code(s): I42.9 - Cardiomyopathy, unspecified Status: Acute Assessment and Plan: Biventricular sytolic dysfunction, 30-35%, previously EF greater than 55% by echocardiogram February 2023.? Nonobstructive CAD by [facility] 02/2023.? Patient presented critically ill with multiorgan system failure, rhabdomyolysis, altered mental status, acute respiratory failure requiring intubation, concern for meningitis versus pneumonia and septic shock requiring pressor support.? LV dysfunction may be secondary to acute critical illness; no clear evidence for acute myocardial infarction.? Will initiate GDMT with Entresto today If BP tolerates this well, can resume metoprolol tomorrow, but shift to ToprolXL in light of his cardiomyopathy Ideally would like to add spironolactone and SGLT2i at some point No evidence of decompensates heart failure, so no need for diuretics (2) CAD (coronary artery disease): Code(s): I25.10 - Atherosclerotic heart disease of [place] coronary artery without angina pectoris Status: Acute Assessment and Plan: History of nonobstructive CAD by [facility] 02/2023.? Continue Aspirin 81 mg daily, atorvastatin 80mg daily. (3) Septic shock: Code(s): A41.9 - Sepsis, unspecified organism; R65.21 - Severe sepsis with septic shock Status: Acute Assessment and Plan: Off pressors now. Subjective Date/time seen: 02/04/24 07:14 Interval history: Reason for visit: Cardiomyopathy HPI: Patient is a 73-year-old male with a past medical history syncope for hypertension, diverticulitis, hyperlipidemia, seizure disorder, history of alcohol abuse, history of nonobstructive CAD with preserved EF 55% by echocardiogram 02/2023 who presented the emergency department 01/20/2024 with altered mental status concern for seizures reported urinary incontinence with waxing and waning mental status and agitation.? Patient unable to provide any history as he is intubated, sedated on mechanical ventilatory support.? History obtained through review electronic medical record discussed with critical care and supporting staff.? He was found to be dehydrated with rhabdomyolysis, acute kidney [place] [address] for which he received IV fluid boluses.? Urine drug screen positive for cannabinoids.? Patient was started on Keppra and underwent LP for concern for meningitis.? Neurology was consulted.? Patient had leukocytosis with subsequent developed acute respiratory distress with intermittent bradycardia and altered mental status gurgling respirations for which he was intubated.? He remains on pressors but has been unresponsive even off sedation of late.? A 2D echocardiogram was repeated on 01/24/2024 which revealed EF of 30-35% RV enlargement and hypokinesis which is changed from his prior study from 2022.? Initial troponin negative at 0.021.? He has been maintained on IV ceftriaxone, ampicillin, and vancomycin with bilateral infiltrates and concern for pneumonia versus meningitis.? Blood cultures have been negative x2 thus far.? EEG did not reveal seizure activity but diffuse slowing noted otherwise normal. Date of service 01/27: Remains intubated. Remains on Levophed. He diuresed quite well yesterday with a dose of IV Lasix. Repeat dose of IV Lasix given today. Tele stable. Date of service 01/29: Wes was extubated yesterday, pressors stopped, and transferred out of the ICU. Has issues with swallowing. Tele stable. Date of service 01/31/2024: Patient is more lucid today he is asking a variety of questions that are related to noncardiac issues such as NPO status wishing to change a contact lens and have eyedrops etcetera according to Neurology computer consultant he is still not safe to swallow medications. Date of service 02/04/2024: Very confused this morning. However does not have any complaints. Denies any shortness of breath. Review of Systems Review of Systems:
[2024-02-04] MEDS: SACUBITRIL/VALSARTAN 24-26 MG TABLET 1 TAB PO ×2 (09:59→20:45)
[2024-02-04] MEDS: FOLIC ACID 1 MG/0.2 ML INJ IV PUSH (09:59)
[2024-02-04] MEDS: ASPIRIN 81 MG CHEWABLE TABLET FEED TUBE (09:59)
[2024-02-04] MEDS: ENOXAPARIN 40 MG/0.4 ML SYRINGE SUB-Q (10:01)
[2024-02-04] MEDS: FLUCONAZOLE 200 MG/NACL 100 ML 200 MG/100 ML BAG 100 MG IVPB (10:08)
[2024-02-04] MEDS: MULTIVIT W/ IRON, MINERALS 15 ML LIQUID (*BKC) FEED TUBE (10:09)
[2024-02-04] MEDS: PANTOPRAZOLE SODIUM IV 40 MG VIAL IV PUSH (10:10)
[2024-02-04] MEDS: THIAMINE HCL 200 MG/2 ML VIAL 100 MG IV PUSH (10:10)
[2024-02-04] MEDS: PARoxetine 10 MG TABLET 30 MG PO (10:27)
[2024-02-04] MEDS: levETIRAcetam 500MG/NACL 100ML 500 MG/100 ML BAG 400 MG IVPB ×2 (10:34→20:45)
--- NOTE | 2024-02-04 11:52 | PCNFU ---
Nutrition Follow-Up Complete: Goal:Meet estimated protein energy needs - meeting goal currently with tube feedings. Pt current nutrition is Jevity 1.2 - bolus 240 mls q 4 hours with 30 ml flushes q 4 hours. This provides 1710 kcal, 79 g protein, 1146 ml free water. 180 ml free water from flushes. Meeting estimated 95% EER and 100% estimated protein needs currently. Nutrition recommendation: Continue with current plan of care Last recorded weight is 69 kg. Bowel Motility: +BM 02/03 Labs Reviewed: Hgb:11.5, HCT:36, NA:136, glu:156 Meds Noted: lovenox, protonix, thiamine Skin: no skin issues noted Additional Notes: Pt continues on tube feedings, tolerating well. Noted speech evaluation recommends for non oral feedings to continue. NG tube at this time. Monitoring labs, weights, tube feeding tolerance, plan of care Follow up every Saturday and Saturday per policy
[2024-02-04] MEDS: cycloSPORINE 0.4 ML OPHTH SOLUTION 1 DROP EACH EYE ×2 (12:13→20:56)
--- NOTE | 2024-02-04 13:00 | PCOTNOTE ---
Per RN, Patient is not following directions, has a sitter due to puling on NG tube. Patient unable to participate in services at this time.
--- NOTE | 2024-02-04 15:59 | PM.IMPN ---
Progress Note: A&P Assessment and Plan (1) Protein calorie malnutrition: Code(s): E46 - Unspecified protein-calorie malnutrition Status: Acute (2) Alcohol use, unspecified with unspecified alcohol-induced disorder: Code(s): F10.99 - Alcohol use, unspecified with unspecified alcohol-induced disorder Status: Acute (3) Dysphagia: Code(s): R13.10 - Dysphagia, unspecified Status: Acute (4) Pneumonia: Code(s): J18.9 - Pneumonia, unspecified organism Status: Acute (5) CAD (coronary artery disease): Code(s): I25.10 - Atherosclerotic heart disease of [place] coronary artery without angina pectoris Status: Acute (6) Delirium: Code(s): R41.0 - Disorientation, unspecified Status: Acute Plan #delirium - increasing confusion - despite treatment of infections patient is still having worsening confusion - patient confusion worsens when moved to different room - starting seroquel nightly to see if that helps with his restlessness #aspiration pneumonia -will complete a couple more days of diflucan for 7 day total -completed 12 days or rocephin and >7 days of flagyl, will stop -aspirated on barium swallow -continue NGT for feeds and meds -unclear etiology of dysphagia, CVA ruled out, possibly from metabolic encephalopathy -if no improvement, may need to consider G-tube #LUE lesion on forearm -lesion on arm is likely from infiltrated IV -continue local wound care with mepelix -wound care team following #chronic conditions -cardiomopathy: EF 30-40% -alcohol abuse: continue thiamine, -anxiety: paxil, PRN ativan -GI ppx: protonix -HTN: metoprolol -seizure disorder? keppra -HLD: aspirin, statin Diet:?NPO, tube feeding only DVT ppx:?Lovenox Code status:?Full code Disposition:?> 3 days Social: sister Deepika Cleary updated Subjective Date/time seen: 02/04/24 15:59 Interval history: Patient seen and examined. He has worsening mentation compared to yesterday, more confusion. Likely has delirium. He had removed his NG tube yesterday which is replaced. Today continues to answer questions inappropriately and is disoriented. I called and updated patient's sister Deepika Cleary. for his mood we will start Seroquel nightly 25 mg. cardiology team is adjusting goal-directed therapy his heart failure reduced ejection fraction 30-35%. Review of Systems Review of Systems: unable to obtain review of systems due to mental status Exam Narrative: - GENERAL: Pleasant male in no acute distress - EYES: EOMI. Anicteric. - HENT: Moist mucous membranes. NGT in place - LUNGS: Clear to auscultation bilaterally, no wheezing, rhonchi, or rales. - CARDIOVASCULAR: Regular rate and rhythm. No murmur. No JVD. - ABDOMEN: Soft, non-tender and non-distended. No palpable masses. - EXTREMITIES: No edema. Peripheral pulses 2+. Non-tender. LUE lesion examined, indurated no fluctulance - NEUROLOGIC: No focal neurological deficits. CN II-XII grossly intact. - PSYCHIATRIC: Awake, Alert and oriented x 3. Appropriate mood and affect. - SKIN: No rashes or lesions. Warm. - LYMPH: No cervical lymphadenopathy. Objective Data Vital Signs Vital Signs: Vital Signs - 24 hr 02/03/24 16:00 02/03/24 20:00 02/03/24 21:20 Temperature 36.6 C 36.8 C Pulse Rate 86 78 Respiratory Rate 16 18 Blood Pressure 120/70 131/68 Pulse Oximetry 96 96 Oxygen Delivery Room Air Fraction of Inspired Oxygen 02/04/24 00:32 02/04/24 05:00 02/04/24 09:04 Temperature 36.8 C 36.3 C L Pulse Rate 80 80 Respiratory Rate 28 H 18 Blood Pressure 105/75 122/70 Pulse Oximetry 92 92 94 Oxygen Delivery Room Air Fraction of Inspired Oxygen 21 02/04/24 08:00 02/04/24 11:43 02/04/24 12:00 Temperature 36.7 C 36.9 C 36.9 C Pulse Rate 86 85 85 Respiratory Rate 16 16 16 Blood Pressure 116/77 106/78 106/78 Pulse Oximetry 94 95 95 Oxygen Delivery Fraction of Inspired Oxygen 02/04/24 08:00
[2024-02-04] MEDS: CENTRAL LINE FLUSH 10 ML IV PUSH ×2 (17:42→20:46)
[2024-02-04] MEDS: ATORVASTATIN 40 MG TABLET 80 MG PO (20:45)
[2024-02-04] MEDS: QUEtiapine FUMARATE 25 MG TABLET FEED TUBE (20:45)
[2024-02-05] VITALS (7 sets, daily range): BP systolic 94–115; BP diastolic 55–74; PULSE 71–99; RESP 18–22; TEMP 36.4–37.1; O2SAT 90–93
[2024-02-05] MEDS: CENTRAL LINE FLUSH 20 ML IV PUSH (05:59)
[2024-02-05] MEDS: CENTRAL LINE FLUSH 10 ML IV PUSH ×3 (05:59→21:42)
[2024-02-05 06:17] LABS: Basophils Absolute Auto 0.1 K/mm3 (0.0-0.1); Basophils Percent Auto 0.7 % (0.2-1.2); Eosinophils Absolute Auto 0.2 K/mm3 (0-0.3); Hematocrit 36.9 % (42.0-52.0); Hemoglobin 11.9 g/dL (14.0-18.0); Immature Granulocyte Absolute 0.05 K/mm3 (0.00-0.031); Immature Granulocyte Percent A 0.7 % (0-0.5); Lymphocytes Absolute Auto 1.51 K/mm3 (0.9-3.2); Lymphocytes Percent Auto 20.7 % (18.3-44.2); Mean Corpuscular HGB Conc 32.2 g/dl (32-36); Mean Corpuscular Hemoglobin 30.2 pg (26-34); Mean Corpuscular Volume 93.7 fl (80-100); Mean Platelet Volume 10.3 fl (7.4-10.4); Monocytes Absolute Auto 0.8 K/mm3 (0.1-0.6); Monocytes Percent Auto 10.4 % (2.6-8.5); Neutrophils Absolute Auto 4.7 K/mm3 (1.3-6.7); Neutrophils Percent Auto 64.5 % (45.5-73.1); Platelet Count Result 783 k/mm3 (150-375); Red Blood Count 3.94 M/mm3 (4.6-6.20); Red Cell Distribution Width 15.2 % (11.5-14.5); White Blood Count 7.3 K/mm3 (4.5-10.0)
[2024-02-05 06:28] LABS: Anion Gap 6 mmol/L (4-12); Blood Urea Nitrogen 17 mg/dL (9-20); Calcium 8.9 mg/dL (8.4-10.2); Carbon Dioxide 26 mmol/L (22-30); Chloride 106 mmol/L (98-107); Estimated CRCL calculation 69 ml/min; Estimated Glomerular Filt Rate > 60; Glucose 218 mg/dL (65-110); Potassium 4.8 mmol/L (3.4-5.0); Sodium 138 mmol/L (137-145)
[2024-02-05] MEDS: ENOXAPARIN 40 MG/0.4 ML SYRINGE SUB-Q (09:52)
[2024-02-05] MEDS: MULTIVIT W/ IRON, MINERALS 15 ML LIQUID (*BKC) FEED TUBE (09:52)
[2024-02-05] MEDS: SACUBITRIL/VALSARTAN 24-26 MG TABLET 1 TAB PO ×2 (09:52→21:41)
[2024-02-05] MEDS: PARoxetine 10 MG TABLET 30 MG PO (09:52)
[2024-02-05] MEDS: ASPIRIN 81 MG CHEWABLE TABLET FEED TUBE (09:52)
[2024-02-05] MEDS: THIAMINE HCL 200 MG/2 ML VIAL 100 MG IV PUSH (09:56)
[2024-02-05] MEDS: FOLIC ACID 1 MG/0.2 ML INJ IV PUSH (09:56)
[2024-02-05] MEDS: PANTOPRAZOLE SODIUM IV 40 MG VIAL IV PUSH (09:57)
[2024-02-05] MEDS: levETIRAcetam 500MG/NACL 100ML 500 MG/100 ML BAG 400 MG IVPB ×2 (10:10→21:41)
[2024-02-05] MEDS: FLUCONAZOLE 200 MG/NACL 100 ML 200 MG/100 ML BAG 100 MG IVPB (11:00)
[2024-02-05] MEDS: cycloSPORINE 0.4 ML OPHTH SOLUTION 1 DROP EACH EYE ×2 (11:15→21:42)
--- NOTE | 2024-02-05 11:15 | PM.IMPN ---
Progress Note: A&P Assessment and Plan (1) Protein calorie malnutrition: Code(s): E46 - Unspecified protein-calorie malnutrition Status: Acute (2) Alcohol use, unspecified with unspecified alcohol-induced disorder: Code(s): F10.99 - Alcohol use, unspecified with unspecified alcohol-induced disorder Status: Acute (3) Dysphagia: Code(s): R13.10 - Dysphagia, unspecified Status: Acute (4) Pneumonia: Code(s): J18.9 - Pneumonia, unspecified organism Status: Acute (5) CAD (coronary artery disease): Code(s): I25.10 - Atherosclerotic heart disease of [place] coronary artery without angina pectoris Status: Acute (6) Delirium: Code(s): R41.0 - Disorientation, unspecified Status: Acute Plan #delirium, resolved - Confusion appears to have resolved - despite treatment of infections patient is still having worsening confusion - patient confusion worsens when moved to different room - will continue Seroquel as it appears to be helping with his mood #aspiration pneumonia #dysphagia -completed course of rocephin and flagyl, diflucan -aspirated on barium swallow -continue NGT for feeds and meds -unclear etiology of dysphagia, CVA ruled out, possibly from metabolic encephalopathy -plan for repeat speech evaluation -if no improvement, may need to consider G-tube #LUE lesion on forearm -lesion on arm is likely from infiltrated IV -continue local wound care with mepelix -wound care team following #chronic conditions -cardiomopathy: EF 30-35%, started entresto, will monitor BP, likely start toprol xl soon -alcohol abuse: continue thiamine, -anxiety: paxil, PRN ativan -GI ppx: protonix -HTN: metoprolol -seizure disorder? keppra -HLD: aspirin, statin Diet:?NPO, tube feeding only DVT ppx:?Lovenox Code status:?Full code Disposition:?> 3 days Social: sister Deepika Cleary updated 02/04 Subjective Date/time seen: 02/05/24 11:15 Interval history: patient seen and examined. It appears his confusion has gotten much better. His delirium may have resolved. labs continue improved leukocytosis resolved. For his low EF cardiology started Entresto and now his blood pressure is slightly low, will continue to monitor. I hope speech therapy can follow-up on a dysphagia evaluation With a repeat swallow study. family updated. patient expresses his frustration being stuck in hospital otherwise denies fever, chills, nausea, vomiting, diarrhea. Review of Systems Review of Systems: 10 point ROS complete, negative other than what is specified in HPI. Exam Narrative: - GENERAL: Pleasant male in no acute distress - EYES: EOMI. Anicteric. - HENT: Moist mucous membranes. NGT in place - LUNGS: Clear to auscultation bilaterally, no wheezing, rhonchi, or rales. - CARDIOVASCULAR: Regular rate and rhythm. No murmur. No JVD. - ABDOMEN: Soft, non-tender and non-distended. No palpable masses. - EXTREMITIES: No edema. Peripheral pulses 2+. Non-tender. dressing over wound - NEUROLOGIC: No focal neurological deficits. CN II-XII grossly intact. - PSYCHIATRIC: Awake, Alert and oriented x 3. Appropriate mood and affect. no longer confused, answering questions appropriately - SKIN: No rashes or lesions. Warm. - LYMPH: No cervical lymphadenopathy. Objective Data Vital Signs Vital Signs: Vital Signs - 24 hr 02/04/24 11:43 02/04/24 12:00 02/04/24 16:00 Temperature 36.9 C 36.9 C 37.1 C Pulse Rate 85 85 89 Respiratory Rate 16 16 20 Blood Pressure 106/78 106/78 125/85 Pulse Oximetry 95 95 94 Oxygen Delivery Fraction of Inspired Oxygen 02/04/24 20:00 02/04/24 20:35 02/04/24 23:55 Temperature 36.7 C 36.1 C L Pulse Rate 89 89 Respiratory Rate 16 34 H Blood Pressure 109/75 105/70 Pulse Oximetry 94 90 Oxygen Delivery Room Air Fraction of Inspired Oxygen 21 02/05/24 05:35 02/05/24 07:51 Temperature 36.5 C 37.1 C Pulse Rate 98 71 Respiratory Rate 20 20
--- NOTE | 2024-02-05 12:04 | PM.PNCARD ---
Progress Note: A&P Assessment and Plan (1) Cardiomyopathy: Code(s): I42.9 - Cardiomyopathy, unspecified Status: Acute Assessment and Plan: Biventricular sytolic dysfunction, 30-35%, previously EF greater than 55% by echocardiogram February 2023.? Nonobstructive CAD by [facility] 02/2023.? Patient presented critically ill with multiorgan system failure, rhabdomyolysis, altered mental status, acute respiratory failure requiring intubation, concern for meningitis versus pneumonia and septic shock requiring pressor support.? LV dysfunction may be secondary to acute critical illness; no clear evidence for acute myocardial infarction.? Tolerating Entresto, continue. Will start low dose Toprol. Further GDMT optimization can be done as outpatient. Euvolemic, so no need for diuretics Cardiology will sign off at this time. Will arrange outpatient follow up in our office. (2) CAD (coronary artery disease): Code(s): I25.10 - Atherosclerotic heart disease of [place] coronary artery without angina pectoris Status: Acute Assessment and Plan: History of nonobstructive CAD by [facility] 02/2023.? Continue Aspirin 81 mg daily, Atorvastatin 80mg daily. (3) Septic shock: Code(s): A41.9 - Sepsis, unspecified organism; R65.21 - Severe sepsis with septic shock Status: Acute Assessment and Plan: Off pressors now. Resolved. Subjective Date/time seen: 02/05/24 12:04 Interval history: Reason for visit: Cardiomyopathy HPI: Patient is a 73-year-old male with a past medical history syncope for hypertension, diverticulitis, hyperlipidemia, seizure disorder, history of alcohol abuse, history of nonobstructive CAD with preserved EF 55% by echocardiogram 02/2023 who presented the emergency department 01/20/2024 with altered mental status concern for seizures reported urinary incontinence with waxing and waning mental status and agitation.? Patient unable to provide any history as he is intubated, sedated on mechanical ventilatory support.? History obtained through review electronic medical record discussed with critical care and supporting staff.? He was found to be dehydrated with rhabdomyolysis, acute kidney [place] [address] for which he received IV fluid boluses.? Urine drug screen positive for cannabinoids.? Patient was started on Keppra and underwent LP for concern for meningitis.? Neurology was consulted.? Patient had leukocytosis with subsequent developed acute respiratory distress with intermittent bradycardia and altered mental status gurgling respirations for which he was intubated.? He remains on pressors but has been unresponsive even off sedation of late.? A 2D echocardiogram was repeated on 01/24/2024 which revealed EF of 30-35% RV enlargement and hypokinesis which is changed from his prior study from 2022.? Initial troponin negative at 0.021.? He has been maintained on IV ceftriaxone, ampicillin, and vancomycin with bilateral infiltrates and concern for pneumonia versus meningitis.? Blood cultures have been negative x2 thus far.? EEG did not reveal seizure activity but diffuse slowing noted otherwise normal. Date of service 01/27: Remains intubated. Remains on Levophed. He diuresed quite well yesterday with a dose of IV Lasix. Repeat dose of IV Lasix given today. Tele stable. Date of service 01/29: Wes was extubated yesterday, pressors stopped, and transferred out of the ICU. Has issues with swallowing. Tele stable. Date of service 01/31/2024: Patient is more lucid today he is asking a variety of questions that are related to noncardiac issues such as NPO status wishing to change a contact lens and have eyedrops etcetera according to Neurology curriculum consultant he is still not safe to swallow medications. Date of service 02/04/2024: Very confused this morning. However does not have any complaints. Denies any shortness of breath. Date of service 02/04: Feeling well. Tolerating Entresto. Exam Const:
[2024-02-05] MEDS: METOPROLOL SUCCINATE EXT REL 25 MG TABCR PO (12:59)
[2024-02-05] MEDS: DEXTROSE 5%/LACTATED RINGERS 1,000 ML 75 ML IV CONT ×2 (15:30→21:41)
[2024-02-05] MEDS: ATORVASTATIN 40 MG TABLET 80 MG PO (21:41)
[2024-02-05] MEDS: QUEtiapine FUMARATE 25 MG TABLET FEED TUBE (21:41)
[2024-02-06] VITALS (7 sets, daily range): BP systolic 106–150; BP diastolic 50–96; PULSE 75–84; RESP 18–24; TEMP 35.9–36.9; O2SAT 91–96
[2024-02-06] MEDS: CENTRAL LINE FLUSH 10 ML IV PUSH ×2 (05:39→22:51)
[2024-02-06 06:16] LABS: Basophils Absolute Auto 0.1 K/mm3 (0.0-0.1); Basophils Percent Auto 0.7 % (0.2-1.2); Eosinophils Absolute Auto 0.3 K/mm3 (0-0.3); Eosinophils Percent Auto 3.2 % (0-4.4); Hematocrit 35.9 % (42.0-52.0); Hemoglobin 11.6 g/dL (14.0-18.0); Immature Granulocyte Absolute 0.03 K/mm3 (0.00-0.031); Immature Granulocyte Percent A 0.4 % (0-0.5); Lymphocytes Percent Auto 27.4 % (18.3-44.2); Mean Corpuscular HGB Conc 32.3 g/dl (32-36); Mean Corpuscular Hemoglobin 30.3 pg (26-34); Mean Corpuscular Volume 93.7 fl (80-100); Mean Platelet Volume 10.2 fl (7.4-10.4); Monocytes Absolute Auto 0.9 K/mm3 (0.1-0.6); Monocytes Percent Auto 11.6 % (2.6-8.5); Neutrophils Absolute Auto 4.5 K/mm3 (1.3-6.7); Neutrophils Percent Auto 56.7 % (45.5-73.1); Platelet Count Result 819 k/mm3 (150-375); Red Blood Count 3.83 M/mm3 (4.6-6.20); Red Cell Distribution Width 15.5 % (11.5-14.5)
[2024-02-06 06:35] LABS: Anion Gap 7 mmol/L (4-12); Blood Urea Nitrogen 17 mg/dL (9-20); Calcium 8.9 mg/dL (8.4-10.2); Carbon Dioxide 24 mmol/L (22-30); Chloride 107 mmol/L (98-107); Estimated CRCL calculation 69 ml/min; Estimated Glomerular Filt Rate > 60; Glucose 194 mg/dL (65-110); Potassium 4.8 mmol/L (3.4-5.0); Sodium 138 mmol/L (137-145)
[2024-02-06] MEDS: levETIRAcetam 500MG/NACL 100ML 500 MG/100 ML BAG 400 MG IVPB ×2 (07:50→22:50)
[2024-02-06] MEDS: PANTOPRAZOLE SODIUM IV 40 MG VIAL IV PUSH (07:51)
[2024-02-06] MEDS: THIAMINE HCL 200 MG/2 ML VIAL 100 MG IV PUSH (07:52)
[2024-02-06] MEDS: cycloSPORINE 0.4 ML OPHTH SOLUTION 1 DROP EACH EYE ×2 (07:59→22:51)
[2024-02-06] MEDS: ASPIRIN 81 MG CHEWABLE TABLET FEED TUBE (08:02)
[2024-02-06] MEDS: ENOXAPARIN 40 MG/0.4 ML SYRINGE SUB-Q (08:02)
[2024-02-06] MEDS: SACUBITRIL/VALSARTAN 24-26 MG TABLET 1 TAB PO ×2 (08:03→22:50)
[2024-02-06] MEDS: PARoxetine 10 MG TABLET 30 MG PO (08:03)
[2024-02-06] MEDS: MULTIVIT W/ IRON, MINERALS 15 ML LIQUID (*BKC) FEED TUBE (08:03)
[2024-02-06] MEDS: FOLIC ACID 1 MG/0.2 ML INJ IV PUSH (08:06)
--- NOTE | 2024-02-06 12:08 | PM.IMPN ---
Progress Note: A&P Assessment and Plan (1) Protein calorie malnutrition: Code(s): E46 - Unspecified protein-calorie malnutrition Status: Acute (2) Alcohol use, unspecified with unspecified alcohol-induced disorder: Code(s): F10.99 - Alcohol use, unspecified with unspecified alcohol-induced disorder Status: Acute (3) Dysphagia: Code(s): R13.10 - Dysphagia, unspecified Status: Acute (4) Pneumonia: Code(s): J18.9 - Pneumonia, unspecified organism Status: Acute (5) CAD (coronary artery disease): Code(s): I25.10 - Atherosclerotic heart disease of [place] coronary artery without angina pectoris Status: Acute (6) Delirium: Code(s): R41.0 - Disorientation, unspecified Status: Acute Plan #aspiration pneumonia #dysphagia -completed course of rocephin and flagyl, diflucan -aspirated on barium swallow -continue NGT for feeds and meds -unclear etiology of dysphagia, CVA ruled out, possibly from metabolic encephalopathy -plan for repeat speech evaluation with MBS -if no improvement, may need to consider G-tube # diarrhea -patient has had 17 episodes of diarrhea last 24 hours -Will check C diff, stool cultures, patient has had numerous antibiotics recently - overhead irrigator does not believe Jevity should cause his loose stools #delirium, resolved - Confusion appears to have resolved - despite treatment of infections patient is still having worsening confusion - patient confusion worsens when moved to different room - will continue Seroquel as it appears to be helping with his mood #LUE lesion on forearm -lesion on arm is likely from infiltrated IV -continue local wound care with mepelix -wound care team following #chronic conditions -cardiomopathy: EF 30-35%, entresto, will switch back to lopressor (when he can tolerate PO intake will switch back to toprol XL) -alcohol abuse: continue thiamine -anxiety: paxil, PRN ativan -GI ppx: protonix -HTN: metoprolol -seizure disorder: keppra -HLD: aspirin, statin Diet:?NPO, tube feeding only, will have MBS soon with speech therapy DVT ppx:?Lovenox Code status:?Full code Disposition:?> 3 days Social: sister Deepika Cleary updated bedside Subjective Date/time seen: 02/06/24 12:08 Interval history: Patient seen and examined. His confusion appears to have improved , will continue Seroquel. we will need to do repeat modified barium swallow study either today or tomorrow. We will try taking Nma catheter out. He has had increased diarrhea 17 episodes, will check C diff, stool studies, added banatrol to tube feeds. At the glucose checks q.6 hours while on tube feeds. Discussed with Cardiology that we need to go back from Toprol-XL to Lopressor due to tube feeds. when patient can tolerate p.o. intake we will transition back. patient denies fever, chills, nausea, vomiting. He endorses diarrhea. Family updated bedside. Review of Systems Review of Systems: 10 point ROS complete, negative other than what is specified in HPI. Exam Narrative: - GENERAL: Pleasant male in no acute distress - EYES: EOMI. Anicteric. - HENT: Moist mucous membranes. NGT in place with tube feeds - LUNGS: Clear to auscultation bilaterally, no wheezing, rhonchi, or rales. - CARDIOVASCULAR: Regular rate and rhythm. No murmur. No JVD. - ABDOMEN: Soft, non-tender and non-distended. No palpable masses. - EXTREMITIES: No edema. Peripheral pulses 2+. Non-tender. dressing over wound - NEUROLOGIC: No focal neurological deficits. CN II-XII grossly intact. - PSYCHIATRIC: Awake, Alert and oriented. Appropriate mood and affect. no longer confused, answering questions appropriately - SKIN: No rashes or lesions. Warm. - LYMPH: No cervical lymphadenopathy. Objective Data Vital Signs Vital Signs: Vital Signs - 24 hr 02/05/24 12:59 02/05/24 15:51 02/05/24 21:15 Temperature 36.4 C 36.6 C Pulse Rate 98 99 84 Respiratory Rate 20 18
--- NOTE | 2024-02-06 12:57 | PCDIET ---
Nutrition recommendation to add Banatrol TID via Tube feeding due to frequent and loose stool.
[2024-02-06] MEDS: METOPROLOL TARTRATE 25 MG TABLET FEED TUBE ×2 (13:47→22:50)
[2024-02-06 16:21] LABS: Glucose Point of Care 170 mg/dl (65-105)
[2024-02-06] MEDS: DEXTROSE 5%/LACTATED RINGERS 1,000 ML 75 ML IV CONT (19:38)
[2024-02-06] MEDS: QUEtiapine FUMARATE 25 MG TABLET FEED TUBE (22:49)
[2024-02-06] MEDS: ATORVASTATIN 40 MG TABLET 80 MG PO (22:50)
[2024-02-07 02:20] VITALS: BP 105/61; PULSE 78; RESP 24; TEMP 36; O2SAT 92
[2024-02-07 02:25] LABS: Glucose Point of Care 227 mg/dl (65-105)
[2024-02-07 05:25] VITALS: BP 91/71; PULSE 73; RESP 16; TEMP 36.3; O2SAT 97
[2024-02-07 05:33] LABS: Glucose Point of Care 240 mg/dl (65-105)
[2024-02-07 06:17] LABS: Basophils Absolute Auto 0.1 K/mm3 (0.0-0.1); Basophils Percent Auto 0.9 % (0.2-1.2); Eosinophils Absolute Auto 0.3 K/mm3 (0-0.3); Eosinophils Percent Auto 4.2 % (0-4.4); Hematocrit 34.9 % (42.0-52.0); Hemoglobin 11.4 g/dL (14.0-18.0); Immature Granulocyte Absolute 0.02 K/mm3 (0.00-0.031); Immature Granulocyte Percent A 0.3 % (0-0.5); Lymphocytes Absolute Auto 1.98 K/mm3 (0.9-3.2); Lymphocytes Percent Auto 29.6 % (18.3-44.2); Mean Corpuscular HGB Conc 32.7 g/dl (32-36); Mean Corpuscular Hemoglobin 30.6 pg (26-34); Mean Corpuscular Volume 93.6 fl (80-100); Mean Platelet Volume 10.3 fl (7.4-10.4); Monocytes Absolute Auto 0.9 K/mm3 (0.1-0.6); Monocytes Percent Auto 13.5 % (2.6-8.5); Neutrophils Absolute Auto 3.5 K/mm3 (1.3-6.7); Neutrophils Percent Auto 51.5 % (45.5-73.1); Platelet Count Result 808 k/mm3 (150-375); Red Blood Count 3.73 M/mm3 (4.6-6.20); Red Cell Distribution Width 15.6 % (11.5-14.5); White Blood Count 6.7 K/mm3 (4.5-10.0)
[2024-02-07 06:26] LABS: Anion Gap 5 mmol/L (4-12); Blood Urea Nitrogen 16 mg/dL (9-20); Calcium 8.7 mg/dL (8.4-10.2); Carbon Dioxide 26 mmol/L (22-30); Chloride 106 mmol/L (98-107); Estimated CRCL calculation 78 ml/min; Estimated Glomerular Filt Rate > 60; Glucose 248 mg/dL (65-110); Potassium 4.8 mmol/L (3.4-5.0); Sodium 137 mmol/L (137-145)
[2024-02-07] MEDS: CENTRAL LINE FLUSH 10 ML IV PUSH ×3 (06:30→21:58)
[2024-02-07 08:00] VITALS: BP 98/54; PULSE 55; RESP 16; TEMP 36.9; O2SAT 96
[2024-02-07] MEDS: ASPIRIN 81 MG CHEWABLE TABLET FEED TUBE (08:17)
[2024-02-07] MEDS: levETIRAcetam 500MG/NACL 100ML 500 MG/100 ML BAG 400 MG IVPB ×2 (08:17→21:55)
[2024-02-07] MEDS: ENOXAPARIN 40 MG/0.4 ML SYRINGE SUB-Q (08:17)
[2024-02-07] MEDS: PARoxetine 10 MG TABLET 30 MG PO (08:17)
[2024-02-07] MEDS: FOLIC ACID 1 MG/0.2 ML INJ IV PUSH (08:18)
[2024-02-07] MEDS: THIAMINE HCL 200 MG/2 ML VIAL 100 MG IV PUSH (08:18)
[2024-02-07] MEDS: PANTOPRAZOLE SODIUM IV 40 MG VIAL IV PUSH (08:18)
[2024-02-07] MEDS: cycloSPORINE 0.4 ML OPHTH SOLUTION 1 DROP EACH EYE ×2 (08:18→21:55)
[2024-02-07] MEDS: MULTIVIT W/ IRON, MINERALS 15 ML LIQUID (*BKC) FEED TUBE (08:18)
--- NOTE | 2024-02-07 10:31 | PM.IMPN ---
Progress Note: A&P Assessment and Plan (1) Protein calorie malnutrition: Code(s): E46 - Unspecified protein-calorie malnutrition Status: Acute (2) Alcohol use, unspecified with unspecified alcohol-induced disorder: Code(s): F10.99 - Alcohol use, unspecified with unspecified alcohol-induced disorder Status: Acute (3) Dysphagia: Code(s): R13.10 - Dysphagia, unspecified Status: Acute (4) Pneumonia: Code(s): J18.9 - Pneumonia, unspecified organism Status: Acute (5) CAD (coronary artery disease): Code(s): I25.10 - Atherosclerotic heart disease of [place] coronary artery without angina pectoris Status: Acute (6) Delirium: Code(s): R41.0 - Disorientation, unspecified Status: Acute Plan #aspiration pneumonia #dysphagia -completed course of rocephin and flagyl, diflucan -continue NGT for feeds and meds, sliding scale insulin while on tube feeds -unclear etiology of dysphagia, CVA ruled out, possibly from metabolic encephalopathy -plan for repeat speech evaluation with MBS today -if no improvement, may need to consider G-tube # diarrhea, improving -will continue to monitor -started banatrol plus - pending C diff, stool cultures - cyber security consultant does not believe Jevity should cause his loose stools #delirium, resolved - Confusion appears to have resolved - despite treatment of infections patient is still having worsening confusion - patient confusion worsens when moved to different room - will continue Seroquel as it appears to be helping with his mood #LUE lesion on forearm -lesion on arm is likely from infiltrated IV -continue local wound care with mepelix -wound care team following #chronic conditions -cardiomopathy: EF 30-35%, entresto. with hypotension and bradycardia will hold metoprolol (in the future when he can tolerate PO he should start low dose toprol XL) -alcohol abuse: continue thiamine -anxiety: paxil, PRN ativan -GI ppx: protonix -HTN: metoprolol -seizure disorder: keppra, PRN ativan -HLD: aspirin, statin Diet:?NPO, tube feeding only, plan for MBS with speech therapy DVT ppx:?Lovenox Code status:?Full code Disposition:?> 3 days Social: sister Deepika Cleary. family updated Subjective Date/time seen: 02/07/24 10:31 Interval history: Patient seen and examined. Patient's blood sugars are elevated will stop IV fluids and add a sliding scale insulin low dose. Patient becoming hypotensive and bradycardic will hold patient's metoprolol. Will likely need to restart metoprolol in the future when more stable. Plan for modified barium swallow test today. she denies fever, chills, nausea vomiting. Diarrhea appears to be improving. Family updated bedside. Review of Systems Review of Systems: 10 point ROS complete, negative other than what is specified in HPI. Exam Narrative: - GENERAL: Pleasant male in no acute distress - EYES: EOMI. Anicteric. - HENT: Moist mucous membranes. NGT in place with tube feeds - LUNGS: Clear to auscultation bilaterally, no wheezing, rhonchi - CARDIOVASCULAR: Regular rate and rhythm. No murmur. - ABDOMEN: Soft, non-tender and non-distended. No palpable masses. - EXTREMITIES: No edema. Peripheral pulses 2+. Non-tender - NEUROLOGIC: No focal neurological deficits. CN II-XII grossly intact. - PSYCHIATRIC: Awake, Alert and oriented - SKIN: No rashes or lesions. Warm. - LYMPH: No cervical lymphadenopathy. Objective Data Vital Signs Vital Signs: Vital Signs - 24 hr 02/06/24 13:47 02/06/24 12:00 02/06/24 16:00 Temperature 35.9 C L 35.9 C L Pulse Rate 80 75 80 Respiratory Rate 18 18 Blood Pressure 150/50 H 120/60 Pulse Oximetry 96 96 02/06/24 20:55 02/07/24 02:20 02/07/24 05:25 Temperature 36.5 C 36.0 C L 36.3 C L Pulse Rate 81 78 73 Respiratory Rate 24 H 24 H 16 Blood Pressure 106/62 105/61 91/71 L Pulse Oximetry 96 92 97 02/07/24 08:00 Temperature 36.9 C Pulse Rate 55 L R
--- NOTE | 2024-02-07 11:18 | PCNFU ---
Nutrition Follow-Up Complete: Inadequate energy intake related to increased needs from mechanical ventilation, NPO as evidenced by need for full tube feeding Meet estimated protein energy needs Goal: Pt current nutrition is Jevity 1.2 Bolus 240 ml q 4 hours. 30 ml flushes. Nutrition recommendation: If pt is not able to swallow safely, consider PEG tube. Last recorded weight is 69.9 kg. Bowel Motility: Per nursing pt had 17 BMs yesterday. TF was held over night Labs Reviewed: Hgb 11.4, Hct 34.9, Glu 248 Meds Noted: thiamine protonix, keppra Skin: No pressure Additional Notes: Repeat barium swallow today to determine safe swallow. Banatrol TID was added yesterday for multiple episodes of diarrhea. No BMs since then; not able to send sample for C-diff yet because of no BM Monitoring labs, weights, tube feeding tolerance, plan of care Follow daily in ICU rounds, reassess Tuesdays and Fridays per policy
[2024-02-07] MEDS: INSULIN ASPART (*BKC) 100 UNITS/ML SUB-Q (11:32)
[2024-02-07 11:36] LABS: Glucose Point of Care 206 mg/dl (65-105)
[2024-02-07 12:00] VITALS: BP 140/70; PULSE 75; RESP 18; TEMP 35.8; O2SAT 96
--- NOTE | 2024-02-07 12:55 | PC.NURSE ---
Pt. taken down for swallow study via wheelchair.
[2024-02-07 13:21] LABS: Toxigenic C. Diff POSITIVE (NEGATIVE)
[2024-02-07 16:00] VITALS: BP 144/73; PULSE 74; RESP 18; TEMP 36.4; O2SAT 94
[2024-02-07] MEDS: VANCOMYCIN HCL 125 MG ORAL CAPSULE PO (17:20)
[2024-02-07 21:10] VITALS: BP 106/64; PULSE 79; RESP 24; TEMP 36.1; O2SAT 94
[2024-02-07] MEDS: SACUBITRIL/VALSARTAN 24-26 MG TABLET 1 TAB PO (21:54)
[2024-02-07] MEDS: QUEtiapine FUMARATE 25 MG TABLET PO (21:55)
[2024-02-07] MEDS: ATORVASTATIN 40 MG TABLET 80 MG PO (21:55)
[2024-02-08] MEDS: VANCOMYCIN HCL 125 MG ORAL CAPSULE PO ×4 (00:41→17:14)
[2024-02-08 00:45] VITALS: BP 99/59; PULSE 84; RESP 28; TEMP 36.1; O2SAT 93
[2024-02-08 05:10] VITALS: BP 111/66; PULSE 75; RESP 20; TEMP 35.8; O2SAT 95
[2024-02-08] MEDS: CENTRAL LINE FLUSH 10 ML IV PUSH ×3 (05:55→22:23)
[2024-02-08 06:07] LABS: Basophils Absolute Auto 0.1 K/mm3 (0.0-0.1); Basophils Percent Auto 0.6 % (0.2-1.2); Eosinophils Absolute Auto 0.3 K/mm3 (0-0.3); Eosinophils Percent Auto 3.5 % (0-4.4); Hemoglobin 11.7 g/dL (14.0-18.0); Immature Granulocyte Absolute 0.02 K/mm3 (0.00-0.031); Immature Granulocyte Percent A 0.3 % (0-0.5); Lymphocytes Absolute Auto 2.67 K/mm3 (0.9-3.2); Lymphocytes Percent Auto 34.3 % (18.3-44.2); Mean Corpuscular HGB Conc 32.5 g/dl (32-36); Mean Corpuscular Hemoglobin 30.3 pg (26-34); Mean Corpuscular Volume 93.3 fl (80-100); Mean Platelet Volume 10.2 fl (7.4-10.4); Monocytes Absolute Auto 0.9 K/mm3 (0.1-0.6); Monocytes Percent Auto 11.4 % (2.6-8.5); Neutrophils Absolute Auto 3.9 K/mm3 (1.3-6.7); Neutrophils Percent Auto 49.9 % (45.5-73.1); Platelet Count Result 852 k/mm3 (150-375); Red Blood Count 3.86 M/mm3 (4.6-6.20); Red Cell Distribution Width 15.6 % (11.5-14.5); White Blood Count 7.8 K/mm3 (4.5-10.0)
[2024-02-08 06:16] LABS: Anion Gap 6 mmol/L (4-12); Blood Urea Nitrogen 19 mg/dL (9-20); Calcium 9.2 mg/dL (8.4-10.2); Carbon Dioxide 27 mmol/L (22-30); Chloride 106 mmol/L (98-107); Estimated CRCL calculation 69 ml/min; Estimated Glomerular Filt Rate > 60; Glucose 115 mg/dL (65-110); Potassium 4.3 mmol/L (3.4-5.0); Sodium 139 mmol/L (137-145)
[2024-02-08 08:00] VITALS: BP 112/67; PULSE 74; RESP 16; TEMP 36.6; O2SAT 93
[2024-02-08] MEDS: ENOXAPARIN 40 MG/0.4 ML SYRINGE SUB-Q (09:04)
[2024-02-08] MEDS: PARoxetine 10 MG TABLET 30 MG PO (09:05)
[2024-02-08] MEDS: ASPIRIN 81 MG CHEWABLE TABLET PO (09:05)
[2024-02-08] MEDS: cycloSPORINE 0.4 ML OPHTH SOLUTION 1 DROP EACH EYE ×2 (09:05→22:23)
[2024-02-08] MEDS: SACUBITRIL/VALSARTAN 24-26 MG TABLET 1 TAB PO ×2 (09:05→22:23)
[2024-02-08] MEDS: FOLIC ACID 1 MG/0.2 ML INJ IV PUSH (09:05)
[2024-02-08] MEDS: PANTOPRAZOLE SODIUM IV 40 MG VIAL IV PUSH (09:06)
[2024-02-08] MEDS: THIAMINE HCL 200 MG/2 ML VIAL 100 MG IV PUSH (09:06)
[2024-02-08] MEDS: MULTIVIT W/ IRON, MINERALS 15 ML LIQUID (*BKC) PO (09:06)
[2024-02-08] MEDS: levETIRAcetam 500MG/NACL 100ML 500 MG/100 ML BAG 400 MG IVPB ×2 (09:06→22:23)
--- NOTE | 2024-02-08 11:07 | PM.IMPN ---
Progress Note: A&P Assessment and Plan (1) Delirium: Code(s): R41.0 - Disorientation, unspecified Status: Acute (2) C. difficile colitis: Code(s): A04.72 - Enterocolitis due to Clostridium difficile, not specified as recurrent Status: Acute (3) Dysphagia: Code(s): R13.10 - Dysphagia, unspecified Status: Acute (4) Pneumonia: Code(s): J18.9 - Pneumonia, unspecified organism Status: Acute Plan This morning patient tolerated pureed diet. Remove NG tube and advance diet to soft bite size. Patient denies any abdominal pain. Continue vancomycin p.o. for C diff colitis. Delirium has resolved Full code. Lovenox. Subjective Date/time seen: 02/08/24 11:07 Interval history: No acute overnight events. The patient rests comfortably in bed and was able to tolerate liquids for breakfast. He is amenable to pulling the NG tube believing he can in tolerate a pureed diet. Reports only a few loose stools Review of Systems Review of Systems: All systems reviewed & are unremarkable except as noted in HPI and below (Subjective) Exam Const: General: comfortable and no acute distress Eyes: Pupils: Equal, round and reactive pupils present Neck: Neck: supple Resp: Effort & Inspection: normal respiratory effort Auscultation: clear to auscultation bilaterally Cardio: Rate: regular rate Rhythm: regular rhythm GI: GI Palp: Yes Soft to palpation and No Tenderness to palpation present (GI) Extrem: General: no edema Objective Data Vital Signs Vital Signs: Vital Signs - 24 hr 02/07/24 12:00 02/07/24 16:00 02/07/24 21:10 Temperature 96.4 F L 97.6 F 96.9 F L Pulse Rate 75 74 79 Respiratory Rate 18 18 24 H Blood Pressure 140/70 144/73 H 106/64 Pulse Oximetry 96 94 94 Oxygen Delivery 02/08/24 00:45 02/08/24 05:10 02/08/24 08:00 Temperature 97 F L 96.5 F L 97.9 F Pulse Rate 84 75 74 Respiratory Rate 28 H 20 16 Blood Pressure 99/59 L 111/66 112/67 Pulse Oximetry 93 95 93 Oxygen Delivery 02/08/24 08:00 Temperature Pulse Rate Respiratory Rate Blood Pressure Pulse Oximetry Oxygen Delivery Room Air Intake/Output Intake/Output: Intake & Output 04/10/24 04/11/24 04/12/24 04/13/24 23:59 23:59 23:59 23:59 Intake Total 663.7 1200 1255 640 Output Total 8071 3990 1575 500 Balance -1311.3 -7930 -320 140 Meds/Results Medications: Active Medications Generic Name Dose Route Start Last Admin Trade Name Freq PRN Reason Stop Dose Admin Acetaminophen 650 mg 02/07/24 17:41 Acetaminophen Elixir 325 Mg/10.15 Ml Udc PO Q6H PRN Mild Pain (1-3) or Fever Albuterol/Ipratropium 3 ml 01/29/24 07:40 Ipratropium 0.5 Mg/Albuterol Sulfate 2.5 Mg Ampul.Neb 3 Ml INHALATION Q6HRT PRN Wheezing or SOB Aspirin 81 mg 02/08/24 08:00 02/08/24 09:05 Aspirin 81 Mg Chewable Tablet PO 81 mg DAILY@0800 MARSHA Administration Atorvastatin Calcium 80 mg 02/02/24 21:00 02/07/24 21:55 Atorvastatin 40 Mg Tablet PO 80 mg HS MARSHA Administration Cyclosporine 1 drop 02/01/24 21:00 02/08/24 09:05 Cyclosporine 0.4 Ml Ophth Solution EACH EYE 1 drop Q12HR MARSHA Administration Dextrose 12.5 gm 01/21/24 23:58 Dextrose 50% 25 Gm/50 Ml Syringe IV PUSH PRN PRN Hypoglycemia Protocol Enoxaparin Sodium 40 mg 01/24/24 09:00 02/08/24 09:04 Enoxaparin 40 Mg/0.4 Ml Syringe SUB-Q 40 mg DAILY MARSHA Administration Folic Acid 1 mg 01/24/24 09:00 02/08/24 09:05 Folic Acid 1 Mg/0.2 Ml Inj IV PUSH 1 mg QAM MARSHA Administration Glucagon 1 mg 01/21/24 23:58 Glucagon For Inj 1 Mg Vial IM PRN PRN Hypoglycemia Protocol Glucose 15 gm 01/21/24 23:58 Glucose Oral Gel 15 Gm Of Glucse In 37.5 Gm Tube PO PRN PRN Hypoglycemia Protocol Levetiracetam 500 mg in 100 mls @ 400 mls/hr 01/20/24 21:00 02/08/24 09:21 Keppra Iv IVPB Infused Q12HR MARSHA Infusion De
[2024-02-08 12:00] VITALS: BP 108/71; PULSE 87; RESP 18; TEMP 36.4; O2SAT 100
[2024-02-08 16:00] VITALS: BP 99/54; PULSE 64; RESP 16; TEMP 36.4; O2SAT 96
[2024-02-08 20:00] VITALS: BP 113/73; PULSE 74; RESP 18; TEMP 36.6; O2SAT 96
[2024-02-08] MEDS: ATORVASTATIN 40 MG TABLET 80 MG PO (22:22)
[2024-02-08] MEDS: QUEtiapine FUMARATE 25 MG TABLET PO (22:22)
[2024-02-09] VITALS: BP 105/76; PULSE 80; RESP 18; TEMP 36.8; O2SAT 96
[2024-02-09] MEDS: VANCOMYCIN HCL 125 MG ORAL CAPSULE PO ×4 (01:14→17:04)
[2024-02-09 04:00] VITALS: BP 91/66; PULSE 76; RESP 16; TEMP 36.5; O2SAT 95
[2024-02-09] MEDS: CENTRAL LINE FLUSH 10 ML IV PUSH ×3 (06:37→20:27)
[2024-02-09 07:09] LABS: Anion Gap 7 mmol/L (4-12); Blood Urea Nitrogen 21 mg/dL (9-20); Calcium 9.2 mg/dL (8.4-10.2); Carbon Dioxide 24 mmol/L (22-30); Chloride 106 mmol/L (98-107); Estimated CRCL calculation 62 ml/min; Estimated Glomerular Filt Rate > 60; Glucose 115 mg/dL (65-110); Potassium 4.3 mmol/L (3.4-5.0); Sodium 137 mmol/L (137-145)
[2024-02-09 07:38] LABS: Basophils Absolute Auto 0.1 K/mm3 (0.0-0.1); Basophils Percent Auto 0.8 % (0.2-1.2); Eosinophils Absolute Auto 0.2 K/mm3 (0-0.3); Eosinophils Percent Auto 3.3 % (0-4.4); Hematocrit 36.4 % (42.0-52.0); Hemoglobin 11.9 g/dL (14.0-18.0); Immature Granulocyte Absolute 0.04 K/mm3 (0.00-0.031); Immature Granulocyte Percent A 0.6 % (0-0.5); Lymphocytes Absolute Auto 2.35 K/mm3 (0.9-3.2); Lymphocytes Percent Auto 32.4 % (18.3-44.2); Mean Corpuscular HGB Conc 32.7 g/dl (32-36); Mean Corpuscular Hemoglobin 30.5 pg (26-34); Mean Corpuscular Volume 93.3 fl (80-100); Mean Platelet Volume 10.7 fl (7.4-10.4); Monocytes Absolute Auto 0.9 K/mm3 (0.1-0.6); Neutrophils Absolute Auto 3.7 K/mm3 (1.3-6.7); Neutrophils Percent Auto 50.9 % (45.5-73.1); Platelet Count Result 910 k/mm3 (150-375); Red Cell Distribution Width 15.6 % (11.5-14.5); White Blood Count 7.3 K/mm3 (4.5-10.0)
[2024-02-09] MEDS: PARoxetine 10 MG TABLET 30 MG PO (09:39)
[2024-02-09] MEDS: SACUBITRIL/VALSARTAN 24-26 MG TABLET 1 TAB PO ×2 (09:39→20:18)
[2024-02-09] MEDS: cycloSPORINE 0.4 ML OPHTH SOLUTION 1 DROP EACH EYE ×2 (09:40→20:27)
[2024-02-09] MEDS: ENOXAPARIN 40 MG/0.4 ML SYRINGE SUB-Q (09:40)
[2024-02-09] MEDS: ASPIRIN 81 MG CHEWABLE TABLET PO (09:40)
[2024-02-09] MEDS: levETIRAcetam 500MG/NACL 100ML 500 MG/100 ML BAG 400 MG IVPB ×2 (09:41→20:18)
[2024-02-09] MEDS: MULTIVIT W/ IRON, MINERALS 15 ML LIQUID (*BKC) PO (09:42)
[2024-02-09] MEDS: THIAMINE HCL 200 MG/2 ML VIAL 100 MG IV PUSH (09:42)
[2024-02-09] MEDS: PANTOPRAZOLE SODIUM IV 40 MG VIAL IV PUSH (09:42)
[2024-02-09] MEDS: FOLIC ACID 1 MG/0.2 ML INJ IV PUSH (09:50)
--- NOTE | 2024-02-09 10:59 | PM.IMPN ---
Progress Note: A&P Assessment and Plan (1) Delirium: Code(s): R41.0 - Disorientation, unspecified Status: Acute (2) C. difficile colitis: Code(s): A04.72 - Enterocolitis due to Clostridium difficile, not specified as recurrent Status: Acute (3) Dysphagia: Code(s): R13.10 - Dysphagia, unspecified Status: Acute (4) Pneumonia: Code(s): J18.9 - Pneumonia, unspecified organism Status: Acute Plan No acute overnight events. Patient sits up in a chair appears is more energetic today and converses with his family. He reports resolution of diarrhea and no issues his current diet and no choking. Discussion held with family would like to continue to consider SNF tomorrow with care coordination. NG tube removed on 02/08 and patient now tolerating diet. Protonix discontinued Continue vancomycin p.o. for C diff colitis. Delirium has resolved. Full code. Lovenox. To consider SNF tomorrow with care coordination. Continue to encourage participation with therapy and up with ambulation with assistance. Subjective Date/time seen: 02/09/24 10:59 Interval history: No acute overnight events. Patient sits up in a chair appears is more energetic today and converses with his family. He reports resolution of diarrhea and no issues his current diet and no choking. Discussion held with family would like to continue to consider SNF tomorrow with care coordination. Review of Systems Review of Systems: All systems reviewed & are unremarkable except as noted in HPI and below (Subjective) Exam Const: General: comfortable and no acute distress Eyes: Pupils: Equal, round and reactive pupils present Neck: Neck: supple Resp: Effort & Inspection: normal respiratory effort Auscultation: clear to auscultation bilaterally Cardio: Rate: regular rate Rhythm: regular rhythm GI: GI Palp: Yes Soft to palpation and No Tenderness to palpation present (GI) Extrem: General: no edema Objective Data Vital Signs Vital Signs: Vital Signs - 24 hr 02/08/24 12:00 02/08/24 16:00 02/08/24 20:00 Temperature 97.6 F 97.6 F 97.9 F Pulse Rate 87 64 74 Respiratory Rate 18 16 18 Blood Pressure 108/71 99/54 L 113/73 Pulse Oximetry 100 96 96 02/09/24 00:00 04/14/24 04:00 Temperature 98.2 F 97.7 F Pulse Rate 80 76 Respiratory Rate 18 16 Blood Pressure 105/76 91/66 L Pulse Oximetry 96 95 Intake/Output Intake/Output: Intake & Output 02/06/24 02/07/24 02/08/24 02/09/24 23:59 23:59 23:59 23:59 Intake Total 1200 1255 1820 1200 Output Total 3990 1575 500 Balance -2790 -320 1320 1200 Meds/Results Medications: Active Medications Generic Name Dose Route Start Last Admin Trade Name Freq PRN Reason Stop Dose Admin Acetaminophen 650 mg 02/07/24 17:41 Acetaminophen Elixir 325 Mg/10.15 Ml Udc PO Q6H PRN Mild Pain (1-3) or Fever Albuterol/Ipratropium 3 ml 01/29/24 07:40 Ipratropium 0.5 Mg/Albuterol Sulfate 2.5 Mg Ampul.Neb 3 Ml INHALATION Q6HRT PRN Wheezing or SOB Aspirin 81 mg 02/08/24 08:00 02/09/24 09:40 Aspirin 81 Mg Chewable Tablet PO 81 mg DAILY@0800 MARSHA Administration Atorvastatin Calcium 80 mg 02/02/24 21:00 02/08/24 22:22 Atorvastatin 40 Mg Tablet PO 80 mg HS MARSHA Administration Cyclosporine 1 drop 02/01/24 21:00 02/09/24 09:40 Cyclosporine 0.4 Ml Ophth Solution EACH EYE 1 drop Q12HR MARSHA Administration Dextrose 12.5 gm 01/21/24 23:58 Dextrose 50% 25 Gm/50 Ml Syringe IV PUSH PRN PRN Hypoglycemia Protocol Enoxaparin Sodium 40 mg 01/24/24 09:00 02/09/24 09:40 Enoxaparin 40 Mg/0.4 Ml Syringe SUB-Q 40 mg DAILY MARSHA Administration Folic Acid 1 mg 01/24/24 09:00 02/09/24 09:50 Folic Acid 1 Mg/0.2 Ml Inj IV PUSH 1 mg QAM MARSHA Administration Glucagon 1 mg 01/21/24 23:58 Glucagon For Inj 1 Mg Vial IM PRN PRN Hypoglycemia Protocol Glucose 15 gm 0
[2024-02-09 12:00] VITALS: BP 113/81; PULSE 84; RESP 16; TEMP 36.6; O2SAT 94
[2024-02-09 16:00] VITALS: BP 120/74; PULSE 86; RESP 18; TEMP 36.8; O2SAT 96
[2024-02-09 20:00] VITALS: BP 116/71; PULSE 76; RESP 16; TEMP 36.7; O2SAT 96
[2024-02-09] MEDS: ATORVASTATIN 40 MG TABLET 80 MG PO (20:18)
[2024-02-09] MEDS: QUEtiapine FUMARATE 25 MG TABLET PO (20:18)
[2024-02-09] MEDS: ALTEPLASE 2 MG VIAL (CATHFLO) IV PUSH ×2 (21:31→23:24)
[2024-02-10] VITALS: BP 98/60; PULSE 97; RESP 18; TEMP 36.7; O2SAT 96
[2024-02-10] MEDS: VANCOMYCIN HCL 125 MG ORAL CAPSULE PO ×5 (00:23→23:10)
[2024-02-10 04:00] VITALS: BP 93/57; PULSE 75; RESP 16; TEMP 36.5; O2SAT 91
[2024-02-10 04:40] LABS: Basophils Percent Auto 0.6 % (0.2-1.2); Eosinophils Absolute Auto 0.2 K/mm3 (0-0.3); Eosinophils Percent Auto 2.9 % (0-4.4); Hematocrit 35.7 % (42.0-52.0); Hemoglobin 11.6 g/dL (14.0-18.0); Immature Granulocyte Absolute 0.04 K/mm3 (0.00-0.031); Immature Granulocyte Percent A 0.6 % (0-0.5); Lymphocytes Absolute Auto 2.22 K/mm3 (0.9-3.2); Lymphocytes Percent Auto 35.4 % (18.3-44.2); Mean Corpuscular HGB Conc 32.5 g/dl (32-36); Mean Corpuscular Hemoglobin 30.4 pg (26-34); Mean Corpuscular Volume 93.7 fl (80-100); Mean Platelet Volume 10.4 fl (7.4-10.4); Monocytes Absolute Auto 0.8 K/mm3 (0.1-0.6); Monocytes Percent Auto 12.3 % (2.6-8.5); Neutrophils Percent Auto 48.2 % (45.5-73.1); Platelet Count Result 843 k/mm3 (150-375); Red Blood Count 3.81 M/mm3 (4.6-6.20); Red Cell Distribution Width 15.5 % (11.5-14.5); White Blood Count 6.3 K/mm3 (4.5-10.0)
[2024-02-10 04:53] LABS: Anion Gap 4 mmol/L (4-12); Blood Urea Nitrogen 20 mg/dL (9-20); Calcium 8.8 mg/dL (8.4-10.2); Carbon Dioxide 26 mmol/L (22-30); Chloride 105 mmol/L (98-107); Estimated CRCL calculation 62 ml/min; Estimated Glomerular Filt Rate > 60; Glucose 105 mg/dL (65-110); Sodium 135 mmol/L (137-145)
[2024-02-10] MEDS: CENTRAL LINE FLUSH 10 ML IV PUSH ×3 (05:15→21:02)
[2024-02-10 07:58] VITALS: BP 110/50; PULSE 89; RESP 16; TEMP 36.7; O2SAT 98
[2024-02-10] MEDS: cycloSPORINE 0.4 ML OPHTH SOLUTION 1 DROP EACH EYE ×2 (08:31→21:02)
[2024-02-10] MEDS: PARoxetine 10 MG TABLET 30 MG PO (08:31)
[2024-02-10] MEDS: THIAMINE HCL 200 MG/2 ML VIAL 100 MG IV PUSH (08:31)
[2024-02-10] MEDS: SACUBITRIL/VALSARTAN 24-26 MG TABLET 1 TAB PO ×2 (08:32→21:01)
[2024-02-10] MEDS: FOLIC ACID 1 MG/0.2 ML INJ IV PUSH (08:32)
[2024-02-10] MEDS: levETIRAcetam 500MG/NACL 100ML 500 MG/100 ML BAG 400 MG IVPB ×2 (08:32→21:02)
[2024-02-10] MEDS: ASPIRIN 81 MG CHEWABLE TABLET PO (08:32)
[2024-02-10] MEDS: ENOXAPARIN 40 MG/0.4 ML SYRINGE SUB-Q (08:32)
[2024-02-10 12:00] VITALS: BP 119/70; PULSE 85; RESP 14; TEMP 36.8; O2SAT 97
--- NOTE | 2024-02-10 14:55 | PM.IMPN ---
Progress Note: A&P Assessment and Plan (1) Delirium: Code(s): R41.0 - Disorientation, unspecified Status: Acute (2) C. difficile colitis: Code(s): A04.72 - Enterocolitis due to Clostridium difficile, not specified as recurrent Status: Acute (3) Dysphagia: Code(s): R13.10 - Dysphagia, unspecified Status: Acute (4) Pneumonia: Code(s): J18.9 - Pneumonia, unspecified organism Status: Acute Plan No acute overnight events. Patient sits up in a chair appears is more energetic today and converses with his family. He reports resolution of diarrhea and no issues his current diet and no choking. Discussion held with family would like to continue to consider SNF tomorrow with care coordination. NG tube removed on 02/08 and patient now tolerating diet. Protonix discontinued Continue vancomycin p.o. for C diff colitis. Delirium has resolved. February 09 update: Patient is participating with therapy. Hopefully discharge to SNF for rehab tomorrow. Continue diet as tolerated. Continue vancomycin. Discontinue Seroquel as it is giving him a sleep pain over per the patient. Was started on admission as he was presenting with delirium Full code. Lovenox. Midline in place. To consider SNF tomorrow with care coordination. Continue to encourage participation with therapy and up with ambulation with assistance. Subjective Date/time seen: 02/10/24 14:55 Interval history: No acute overnight events. Patient complains the Seroquel is giving him a sleep pain over in the morning. He is excited to participate with therapy and would like this medication stopped. Patient isn't quite willing to be discharged to a SNF for therapy but the daughter disagrees. Review of Systems Review of Systems: All systems reviewed & are unremarkable except as noted in HPI and below (Subjective) Exam Const: General: comfortable and no acute distress Eyes: Pupils: Equal, round and reactive pupils present Neck: Neck: supple Resp: Effort & Inspection: normal respiratory effort Auscultation: clear to auscultation bilaterally Cardio: Rate: regular rate Rhythm: regular rhythm GI: GI Palp: Yes Soft to palpation and No Tenderness to palpation present (GI) Extrem: General: no edema Objective Data Vital Signs Vital Signs: Vital Signs - 24 hr 02/09/24 16:00 02/09/24 20:00 02/10/24 00:00 Temperature 98.2 F 98.1 F 98.1 F Pulse Rate 86 76 97 Respiratory Rate 18 16 18 Blood Pressure 120/74 116/71 98/60 L Pulse Oximetry 96 96 96 02/10/24 04:00 02/10/24 07:58 02/10/24 12:00 Temperature 97.7 F 98.1 F 98.3 F Pulse Rate 75 89 85 Respiratory Rate 16 16 14 Blood Pressure 93/57 L 110/50 L 119/70 Pulse Oximetry 91 98 97 Intake/Output Intake/Output: Intake & Output 02/07/24 02/08/24 02/09/24 02/10/24 23:59 23:59 23:59 23:59 Intake Total 1255 1820 3880 1460 Output Total 1575 500 600 Balance -320 1320 3880 860 Meds/Results Medications: Active Medications Generic Name Dose Route Start Last Admin Trade Name Freq PRN Reason Stop Dose Admin Acetaminophen 650 mg 02/07/24 17:41 Acetaminophen Elixir 325 Mg/10.15 Ml Udc PO Q6H PRN Mild Pain (1-3) or Fever Albuterol/Ipratropium 3 ml 01/29/24 07:40 Ipratropium 0.5 Mg/Albuterol Sulfate 2.5 Mg Ampul.Neb 3 Ml INHALATION Q6HRT PRN Wheezing or SOB Alteplase, Recombinant 2 mg 02/09/24 21:12 02/09/24 23:24 Alteplase 2 Mg Vial (Cathflo) IV PUSH 2 mg ONCE PRN Administration Line Occlusion Aspirin 81 mg 02/08/24 08:00 02/10/24 08:32 Aspirin 81 Mg Chewable Tablet PO 81 mg DAILY@0800 MARSHA Administration Atorvastatin Calcium 80 mg 02/02/24 21:00 02/09/24 20:18 Atorvastatin 40 Mg Tablet PO 80 mg HS MARSHA Administration Cyclosporine 1 drop 02/01/24 21:00 02/10/24 08:31 Cyclosporine 0.4 Ml Ophth Solution EACH EYE 1 drop Q12HR MARSHA Administration Dextrose 12.5 gm 0
[2024-02-10 16:00] VITALS: BP 125/52; PULSE 90; RESP 16; TEMP 36.7; O2SAT 98
[2024-02-10] MEDS: ATORVASTATIN 40 MG TABLET 80 MG PO (21:01)
[2024-02-10 22:00] VITALS: BP 131/67; PULSE 72; RESP 16; TEMP 36.9; O2SAT 94
[2024-02-10] MEDS: LORazepam INJ (*CRX) 2 MG/ML VIAL IV PUSH (23:11)
[2024-02-11] MEDS: VANCOMYCIN HCL 125 MG ORAL CAPSULE PO ×3 (05:29→18:07)
[2024-02-11] MEDS: CENTRAL LINE FLUSH 10 ML IV PUSH ×3 (05:29→21:39)
[2024-02-11 05:46] LABS: Basophils Percent Auto 0.7 % (0.2-1.2); Eosinophils Absolute Auto 0.2 K/mm3 (0-0.3); Eosinophils Percent Auto 2.9 % (0-4.4); Hematocrit 35.6 % (42.0-52.0); Hemoglobin 11.7 g/dL (14.0-18.0); Immature Granulocyte Absolute 0.02 K/mm3 (0.00-0.031); Immature Granulocyte Percent A 0.3 % (0-0.5); Lymphocytes Absolute Auto 1.78 K/mm3 (0.9-3.2); Lymphocytes Percent Auto 30.6 % (18.3-44.2); Mean Corpuscular HGB Conc 32.9 g/dl (32-36); Mean Corpuscular Hemoglobin 30.3 pg (26-34); Mean Corpuscular Volume 92.2 fl (80-100); Mean Platelet Volume 10.4 fl (7.4-10.4); Monocytes Absolute Auto 0.8 K/mm3 (0.1-0.6); Monocytes Percent Auto 14.1 % (2.6-8.5); Neutrophils Percent Auto 51.4 % (45.5-73.1); Platelet Count Result 839 k/mm3 (150-375); Red Blood Count 3.86 M/mm3 (4.6-6.20); Red Cell Distribution Width 15.5 % (11.5-14.5); White Blood Count 5.8 K/mm3 (4.5-10.0)
[2024-02-11 06:00] VITALS: BP 100/75; PULSE 84; RESP 14; TEMP 36.6; O2SAT 97
[2024-02-11 06:00] LABS: Anion Gap 5 mmol/L (4-12); Blood Urea Nitrogen 15 mg/dL (9-20); CRP 0.6 mg/dL (<1.0); Calcium 9.1 mg/dL (8.4-10.2); Carbon Dioxide 27 mmol/L (22-30); Chloride 105 mmol/L (98-107); Estimated CRCL calculation 60 ml/min; Estimated Glomerular Filt Rate > 60; Glucose 112 mg/dL (65-110); Potassium 3.8 mmol/L (3.4-5.0); Sodium 137 mmol/L (137-145)
[2024-02-11 06:58] LABS: Erythrocyte Sedimentation Rate 51 mm/hr (0-20)
[2024-02-11] MEDS: ASPIRIN 81 MG CHEWABLE TABLET PO (08:36)
[2024-02-11] MEDS: THIAMINE HCL 200 MG/2 ML VIAL 100 MG IV PUSH (08:36)
[2024-02-11] MEDS: PARoxetine 10 MG TABLET 30 MG PO (08:36)
[2024-02-11] MEDS: ENOXAPARIN 40 MG/0.4 ML SYRINGE SUB-Q (08:36)
[2024-02-11] MEDS: levETIRAcetam 500MG/NACL 100ML 500 MG/100 ML BAG 400 MG IVPB ×2 (08:37→21:39)
[2024-02-11] MEDS: cycloSPORINE 0.4 ML OPHTH SOLUTION 1 DROP EACH EYE ×2 (08:37→21:39)
[2024-02-11] MEDS: FOLIC ACID 1 MG/0.2 ML INJ IV PUSH (08:37)
[2024-02-11] MEDS: SACUBITRIL/VALSARTAN 24-26 MG TABLET 1 TAB PO ×2 (08:37→21:39)
--- NOTE | 2024-02-11 10:57 | PCNFU ---
Nutrition Follow-Up Complete: Inadequate energy intake related to increased needs from mechanical ventilation, NPO as evidenced by need for full tube feeding Goal:Meet estimated protein energy needs - Pt now meeting goal via PO intake, Tube feeding is d/c'd. Continue with same goal. Pt current nutrition is soft and bite sized level 6, mildly thick level 2. Nutrition recommendation: Add ensure compact BID for supplement for an additional 220kcals, 9g protein per shake Last recorded weight is 66.4 kg - down from 71.6kg on admission Bowel Motility: +BM 02/09 - diarrhea is resolving Labs Reviewed: Hgb:11.7, HCT:35.6, Glu:112 Meds Noted: lovenox, thiamin Skin: WNL Additional Notes: Pt has been started on a soft and bite sized level 6 diet, level 2 thickened liquids. Intake is good and pt is tolerating well. No more tube feedings at this time. Diarrhea is resolving from c.diff. Will add Ensure compact BID, consistency is level 2 when chilled, or thicken to mildly thick level 2. Monitoring labs, weights, tube feeding tolerance, plan of care Follow up in 5 days.
[2024-02-11 12:59] LABS: Iron 63 ug/dL (49-181)
--- NOTE | 2024-02-11 13:02 | PDONCCN ---
HPI - Date of Consult Date/Time: 02/11/24 16:49 <Bruce Florez - 02/11/24 16:50> 02/11/24 13:02 <RobyPayal - 02/11/24 13:03> Requesting Physician: Kevin Scott MD <Bruce Florez - 02/11/24 16:50> Kevin Scott MD <Payal Ca - 02/11/24 13:03> Primary Care Provider: Jorge Luis Samanta <Bruce Florez - 02/11/24 16:50> Jorge Luis Samanta <RobyPayal 02/11/24 13:03> - Consult Narrative Reason for consult: Thrombocytosis <RobyPayal 02/11/24 13:03> Narrative: Wes Townsend is a 73 year old male <Bruce Florez - 02/11/24 16:50> Wes Townsend is a 73 year old male with a past medical history of HTN, HLD, depression/anxiety, who was admitted for AMS after falling out of bed and seizure like activity. He has had extensive medical treatment since he has been admitted and s/p intubation and NG tube. He now has an active c/diff infection due to abx use. He has an increased platelet count since early January 2024. His sister and him have never heard of increased platelets before. He drinks alcohol occasionally. 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 He reports his mentation is stable and only forgets little things. Denies any history of blood clots. <Payal Ca 02/11/24 13:12> Review of Systems - Review of Systems All systems reviewed & are unremarkable except as noted in HPI and bel <RobyPayal 02/11/24 13:12> - Neurologic Reports system reviewed and no additional complaints, except as documented, Reports confusion <RobyPayal 02/11/24 13:03> [facility] Medical History: Medical History (Last Updated 02/08/24 @ 11:10 by Brenda Benitez MD) Alcohol use, unspecified with unspecified alcohol-induced disorder C. difficile colitis Diverticulitis Hyperlipidemia Hypertension Prediabetes Seizure Small bowel obstruction <Bruce FlorezSheri - 02/11/24 16:50> Medical History (Last Updated 02/08/24 @ 11:10 by Brenda Benitez MD) Alcohol use, unspecified with unspecified alcohol-induced disorder C. difficile colitis Diverticulitis Hyperlipidemia Hypertension Prediabetes Seizure Small bowel obstruction <Payal Ca - 02/11/24 13:03> Surgical History: Surgical History (Last Reviewed 01/25/24 @ 10:06 by Alex Erwin MD) History of appendectomy History of cardiac catheterization Onset Date: 06/2023 Nonobstructive coronary artery disease, slow flow noted in LAD. History of exploratory laparotomy History of incisional hernia repair History of partial colectomy History of tonsillectomy <Bruce FlorezSheri - 02/11/24 16:50> Surgical History (Last Reviewed 01/25/24 @ 10:06 by Alex Erwin MD) History of appendectomy History of cardiac catheterization Onset Date: 06/2023 Nonobstructive coronary artery disease, slow flow noted in LAD. History of exploratory laparotomy History of incisional hernia repair History of partial colectomy History of tonsillectomy <MoisésnéstorSatnfordPayal - 02/11/24 13:03> Family History: Family History (Last Reviewed 01/25/24 @ 10:06 by Alex Erwin MD) Other Acute myocardial infarction Alzheimer's dementia Breast cancer Hypertension <Bruce FlorezSheri - 02/11/24 16:50> Family History (Last Reviewed 01/25/24 @ 10:06 by Alex Erwin MD) Other Acute myocardial infarction Alzheimer's dementia Breast cancer Hypertension <Stanford Cane - 02/11/24 13:03> - Social History Social History: Social History (Last Reviewed 01/25/24 @ 10:06 by Alex Erwin MD) Alcohol Use: Alcohol intake: current Drinks per week: 3 Substance Use: Substance use: current Substance use type: marijuana Last use: 07/14/23 Others: Spiritual care concerns: No Living Arrangements: Living arrangements: with family Smoking Status: S
[2024-02-11 13:08] LABS: Percent Iron Saturation 24 % (20-50)
[2024-02-11 14:00] VITALS: BP 120/65; PULSE 65; RESP 16; TEMP 36.3; O2SAT 98
--- NOTE | 2024-02-11 16:40 | PM.IMPN ---
Progress Note: A&P Assessment and Plan (1) Delirium: Code(s): R41.0 - Disorientation, unspecified Status: Acute (2) C. difficile colitis: Code(s): A04.72 - Enterocolitis due to Clostridium difficile, not specified as recurrent Status: Acute (3) Dysphagia: Code(s): R13.10 - Dysphagia, unspecified Status: Acute (4) Pneumonia: Code(s): J18.9 - Pneumonia, unspecified organism Status: Acute Plan 73-year-old male with multiple medical comorbidities and alcohol abuse presented with altered mental status. #aspiration pneumonia #dysphagia -completed course of rocephin and flagyl, diflucan -NG to discontinue. Tolerating diet. Appreciated speech therapy recommendations # diarrhea, improving C diff positive. Continue vancomycin. 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 Metoprolol held for hypotension and bradycardia. And restart when appropriate. -alcohol abuse: continue thiamine -anxiety: paxil -GI ppx: protonix -HTN: metoprolol -seizure disorder: keppra, -HLD: aspirin, statin Diet:? Diet as tolerated DVT ppx:?Lovenox Code status:?Full code Disposition:? Therapy recommended patient can return home safely with home health. For discharge tomorrow as care coordination is arranging. Subjective Date/time seen: 02/11/24 16:40 Interval history: No acute overnight events. Patient was given Ativan last night apparently for sleep and he did not like that he was groggy in the morning. Wants to discontinue this. Review of Systems Review of Systems: All systems reviewed & are unremarkable except as noted in HPI and below (Subjective) Exam Const: General: comfortable and no acute distress Eyes: Pupils: Equal, round and reactive pupils present Neck: Neck: supple Resp: Effort & Inspection: normal respiratory effort Auscultation: clear to auscultation bilaterally Cardio: Rate: regular rate Rhythm: regular rhythm GI: GI Palp: Yes Soft to palpation and No Tenderness to palpation present (GI) Extrem: General: no edema Objective Data Vital Signs Vital Signs: Vital Signs - 24 hr 02/10/24 20:00 02/10/24 22:00 02/11/24 06:00 Temperature 98.5 F 97.8 F Pulse Rate 72 84 Respiratory Rate 16 14 Blood Pressure 131/67 100/75 Pulse Oximetry 94 97 Oxygen Delivery Room Air Intake/Output Intake/Output: Intake & Output 02/08/24 02/09/24 02/10/24 02/11/24 23:59 23:59 23:59 23:59 Intake Total 1820 3880 2860 940 Output Total 389 662 8791 Balance 1320 3880 2260 -110 Meds/Results Medications: Active Medications Generic Name Dose Route Start Last Admin Trade Name Freq PRN Reason Stop Dose Admin Acetaminophen 650 mg 02/07/24 17:41 Acetaminophen Elixir 325 Mg/10.15 Ml Udc PO Q6H PRN Mild Pain (1-3) or Fever Albuterol/Ipratropium 3 ml 01/29/24 07:40 Ipratropium 0.5 Mg/Albuterol Sulfate 2.5 Mg Ampul.Neb 3 Ml INHALATION Q6HRT PRN Wheezing or SOB Alteplase, Recombinant 2 mg 02/09/24 21:12 02/09/24 23:24 Alteplase 2 Mg Vial (Cathflo) IV PUSH 2 mg ONCE PRN Administration Line Occlusion Aspirin 81 mg 02/08/24 08:00 02/11/24 08:36 Aspirin 81 Mg Chewable Tablet PO 81 mg DAILY@0800 MARSHA Administration Atorvastatin Calcium 80 mg 02/02/24 21:00 02/10/24 21:01 Atorvastatin 40 Mg Tablet PO 80 mg HS MARSHA Administration Cyclosporine 1 drop 02/01/24 21:00 02/11/24 08:37 Cyclosporine 0.4 Ml Ophth Solution EACH EYE 1 drop Q12HR MARSHA Administration Dextrose 12.5 gm 01/21/24 23:58 Dextrose 50% 25 Gm/50 Ml Syringe IV PUSH PRN PRN Hypoglycemia Protocol Enoxaparin Sodium 40 mg 01/24/24 09:00 02/11/24 08:36 Enoxaparin 40 Mg/0.4 Ml Syringe SUB-Q 40 mg DAILY MARSHA Administration Folic Acid 1 mg 01/24/24 09:00 02/11/24 08:37 Folic Acid 1 Mg/0.2
[2024-02-11 21:07] VITALS: BP 114/63; PULSE 86; RESP 16; TEMP 36.6; O2SAT 97
[2024-02-11] MEDS: ATORVASTATIN 40 MG TABLET 80 MG PO (21:39)
[2024-02-12] MEDS: VANCOMYCIN HCL 125 MG ORAL CAPSULE PO ×5 (00:19→23:24)
[2024-02-12] MEDS: CENTRAL LINE FLUSH 10 ML IV PUSH ×3 (05:46→22:00)
[2024-02-12 06:11] VITALS: BP 94/67; PULSE 85; RESP 16; TEMP 36.9; O2SAT 97
[2024-02-12 08:00] VITALS: O2SAT 97
--- NOTE | 2024-02-12 08:28 | PM.IMPN ---
Progress Note: A&P Assessment and Plan (1) Delirium: Code(s): R41.0 - Disorientation, unspecified Status: Acute (2) C. difficile colitis: Code(s): A04.72 - Enterocolitis due to Clostridium difficile, not specified as recurrent Status: Acute (3) Dysphagia: Code(s): R13.10 - Dysphagia, unspecified Status: Acute (4) Pneumonia: Code(s): J18.9 - Pneumonia, unspecified organism Status: Acute Plan 73-year-old male with multiple medical comorbidities and alcohol abuse presented with altered mental status. #aspiration pneumonia #dysphagia -completed course of rocephin and flagyl, diflucan -NG to discontinue. Tolerating diet. Appreciated speech therapy recommendations # diarrhea, improving C diff positive. Continue vancomycin. 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 Metoprolol held for hypotension and bradycardia. And restart when appropriate. -alcohol abuse: continue thiamine -anxiety: paxil -GI ppx: protonix -HTN: metoprolol -seizure disorder: keppra, -HLD: aspirin, statin Diet:? Diet as tolerated DVT ppx:?Lovenox Code status:?Full code Disposition:? Therapy recommended patient can return home safely with home health. For discharge as care coordination is arranging. Subjective Date/time seen: 02/12/24 08:28 Interval history: I saw exam patient today, patient denies diarrhea, abdomen pain, nausea vomiting. Patient still has general weakness, patient is afebrile, blood pressure stable, no O2 desaturation over the night Exam Narrative: - GENERAL: Pleasant male in no acute distress - EYES: EOMI. Anicteric. - HENT: Moist mucous membranes. NGT in place with tube feeds - LUNGS: Clear to auscultation bilaterally, no wheezing, rhonchi - CARDIOVASCULAR: Regular rate and rhythm. No murmur. - ABDOMEN: Soft, non-tender and non-distended. No palpable masses. - EXTREMITIES: No edema. Peripheral pulses 2+. Non-tender - NEUROLOGIC: No focal neurological deficits. CN II-XII grossly intact. - PSYCHIATRIC: Awake, Alert and oriented - SKIN: No rashes or lesions. Warm. - LYMPH: No cervical lymphadenopathy. Objective Data Vital Signs Vital Signs: Vital Signs - 24 hr 02/11/24 14:00 02/11/24 21:07 02/11/24 20:00 Temperature 97.3 F L 97.9 F Pulse Rate 65 86 Respiratory Rate 16 16 Blood Pressure 120/65 114/63 Pulse Oximetry 98 97 Oxygen Delivery Room Air 02/12/24 06:11 Temperature 98.5 F Pulse Rate 85 Respiratory Rate 16 Blood Pressure 94/67 L Pulse Oximetry 97 Oxygen Delivery Intake/Output Intake/Output: Intake & Output 02/09/24 02/10/24 02/11/24 02/12/24 23:59 23:59 23:59 23:59 Intake Total 3880 2860 1280 120 Output Total 600 1500 400 Balance 3880 2260 -220 -280 Meds/Results Medications: Active Medications Generic Name Dose Route Start Last Admin Trade Name Freq PRN Reason Stop Dose Admin Acetaminophen 650 mg 02/07/24 17:41 Acetaminophen Elixir 325 Mg/10.15 Ml Udc PO Q6H PRN Mild Pain (1-3) or Fever Albuterol/Ipratropium 3 ml 01/29/24 07:40 Ipratropium 0.5 Mg/Albuterol Sulfate 2.5 Mg Ampul.Neb 3 Ml INHALATION Q6HRT PRN Wheezing or SOB Alteplase, Recombinant 2 mg 02/09/24 21:12 02/09/24 23:24 Alteplase 2 Mg Vial (Cathflo) IV PUSH 2 mg ONCE PRN Administration Line Occlusion Aspirin 81 mg 02/08/24 08:00 02/11/24 08:36 Aspirin 81 Mg Chewable Tablet PO 81 mg DAILY@0800 MARSHA Administration Atorvastatin Calcium 80 mg 02/02/24 21:00 02/11/24 21:39 Atorvastatin 40 Mg Tablet PO 80 mg HS MARSHA Administration Cyclosporine 1 drop 02/01/24 21:00 02/11/24 21:39 Cyclosporine 0.4 Ml Ophth Solution EACH EYE 1 drop Q12HR MARSHA Administration Dextrose 12.5 gm 01/21/24 23:58 Dextrose 50% 25 Gm/50 Ml Syringe IV PUSH PRN PRN Hypoglycemia P
[2024-02-12] MEDS: levETIRAcetam 500MG/NACL 100ML 500 MG/100 ML BAG 400 MG IVPB ×2 (09:16→21:16)
[2024-02-12] MEDS: PARoxetine 10 MG TABLET 30 MG PO (09:17)
[2024-02-12] MEDS: cycloSPORINE 0.4 ML OPHTH SOLUTION 1 DROP EACH EYE ×2 (09:17→21:18)
[2024-02-12] MEDS: SACUBITRIL/VALSARTAN 24-26 MG TABLET 1 TAB PO ×2 (09:17→21:16)
[2024-02-12] MEDS: MULTIVITAMINS THERAPEUTIC TAB (*BKC) 1 TABLET PO (09:17)
[2024-02-12] MEDS: FOLIC ACID 1 MG/0.2 ML INJ IV PUSH (09:17)
[2024-02-12] MEDS: ASPIRIN 81 MG CHEWABLE TABLET PO (09:18)
[2024-02-12] MEDS: ENOXAPARIN 40 MG/0.4 ML SYRINGE SUB-Q (09:19)
[2024-02-12] MEDS: THIAMINE HCL 200 MG/2 ML VIAL 100 MG IV PUSH (10:09)
[2024-02-12 14:00] VITALS: BP 109/83; PULSE 81; RESP 18; TEMP 37.1; O2SAT 96
[2024-02-12 20:00] VITALS: PULSE 81; RESP 16; O2SAT 93
[2024-02-12 20:29] VITALS: BP 109/82; PULSE 81; RESP 16; TEMP 36.1; O2SAT 93
[2024-02-12] MEDS: ATORVASTATIN 40 MG TABLET 80 MG PO (21:16)
[2024-02-12] MEDS: ACETAMINOPHEN ELIXIR 325 MG/10.15 ML UDC 650 MG PO (21:26)
[2024-02-13 04:45] VITALS: BP 115/59; PULSE 71; RESP 16; TEMP 36.2; O2SAT 97
[2024-02-13] MEDS: VANCOMYCIN HCL 125 MG ORAL CAPSULE PO ×2 (06:42→11:59)
[2024-02-13] MEDS: CENTRAL LINE FLUSH 10 ML IV PUSH (06:45)
--- NOTE | 2024-02-13 09:12 | PM.IMPN ---
Progress Note: A&P Assessment and Plan (1) Delirium: Code(s): R41.0 - Disorientation, unspecified Status: Acute (2) C. difficile colitis: Code(s): A04.72 - Enterocolitis due to Clostridium difficile, not specified as recurrent Status: Acute (3) Dysphagia: Code(s): R13.10 - Dysphagia, unspecified Status: Acute (4) Pneumonia: Code(s): J18.9 - Pneumonia, unspecified organism Status: Acute Plan 73-year-old male with multiple medical comorbidities and alcohol abuse presented with altered mental status. #aspiration pneumonia #dysphagia -completed course of rocephin and flagyl, diflucan -NG to discontinue. Tolerating diet. Appreciated speech therapy recommendations # diarrhea, improving C diff positive. Continue vancomycin. 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 Metoprolol held for hypotension and bradycardia. And restart when appropriate. -alcohol abuse: continue thiamine -anxiety: paxil -GI ppx: protonix -HTN: metoprolol -seizure disorder: keppra, -HLD: aspirin, statin patient will be discharged to rehab today Subjective Date/time seen: 02/13/24 09:13 Interval history: I saw and exam patient today, patient has no new issue or event over the night, patient denies diarrhea, abdomen pain, nausea vomiting. Patient still has general weakness, patient is afebrile, blood pressure stable, no O2 desaturation over the night Exam Narrative: - GENERAL: Pleasant male in no acute distress - EYES: EOMI. Anicteric. - HENT: Moist mucous membranes. NGT in place with tube feeds - LUNGS: Clear to auscultation bilaterally, no wheezing, rhonchi - CARDIOVASCULAR: Regular rate and rhythm. No murmur. - ABDOMEN: Soft, non-tender and non-distended. No palpable masses. - EXTREMITIES: No edema. Peripheral pulses 2+. Non-tender - NEUROLOGIC: No focal neurological deficits. CN II-XII grossly intact. - PSYCHIATRIC: Awake, Alert and oriented - SKIN: No rashes or lesions. Warm. - LYMPH: No cervical lymphadenopathy. Objective Data Vital Signs Vital Signs: Vital Signs - 24 hr 02/12/24 10:32 02/12/24 14:00 02/12/24 20:29 Temperature 98.8 F 97 F L Pulse Rate 81 81 Respiratory Rate 18 16 Blood Pressure 109/83 109/82 Pulse Oximetry 96 93 Oxygen Delivery Room Air Fraction of Inspired Oxygen 02/12/24 20:00 02/13/24 04:45 Temperature 97.1 F L Pulse Rate 81 71 Respiratory Rate 16 16 Blood Pressure 115/59 L Pulse Oximetry 93 97 Oxygen Delivery Room Air Fraction of Inspired Oxygen 21 Intake/Output Intake/Output: Intake & Output 02/10/24 02/11/24 02/12/24 02/13/24 23:59 23:59 23:59 23:59 Intake Total 2860 1280 1760 Output Total 600 1500 1150 675 Balance 2260 -220 610 -675 Meds/Results Medications: Active Medications Generic Name Dose Route Start Last Admin Trade Name Freq PRN Reason Stop Dose Admin Acetaminophen 650 mg 02/07/24 17:41 02/12/24 21:26 Acetaminophen Elixir 325 Mg/10.15 Ml Udc PO 650 mg Q6H PRN Administration Mild Pain (1-3) or Fever Albuterol/Ipratropium 3 ml 01/29/24 07:40 Ipratropium 0.5 Mg/Albuterol Sulfate 2.5 Mg Ampul.Neb 3 Ml INHALATION Q6HRT PRN Wheezing or SOB Alteplase, Recombinant 2 mg 02/09/24 21:12 02/09/24 23:24 Alteplase 2 Mg Vial (Cathflo) IV PUSH 2 mg ONCE PRN Administration Line Occlusion Aspirin 81 mg 02/08/24 08:00 02/12/24 09:18 Aspirin 81 Mg Chewable Tablet PO 81 mg DAILY@0800 MARSHA Administration Atorvastatin Calcium 80 mg 02/02/24 21:00 02/12/24 21:16 Atorvastatin 40 Mg Tablet PO 80 mg HS MARSHA Administration Cyclosporine 1 drop 02/01/24 21:00 02/12/24 21:18 Cyclosporine 0.4 Ml Ophth Solution EACH EYE 1 drop Q12HR MARSHA Administration Dextrose 12.5 gm 01/21/24 23:58 Dextrose 50% 25 Gm/50 Ml Syringe IV PUS
--- NOTE | 2024-02-13 09:14 | P.DS_ITS ---
DS: Admitting Diagnosis Discharge Date 02/13/24 Admitting Diagnosis (1) Delirium: ?Code(s): R41.0 - Disorientation, unspecified ?Status:?Acute (2) C. difficile colitis: ?Code(s): A04.72 - Enterocolitis due to Clostridium difficile, not specified as recurrent ?Status:?Acute (3) Dysphagia: ?Code(s): R13.10 - Dysphagia, unspecified ?Status:?Acute (4) Pneumonia: ?Code(s): J18.9 - Pneumonia, unspecified organism ?Status:?Acute DS: Discharge Diagnosis Discharge Diagnosis (1) Delirium: Code(s): R41.0 - Disorientation, unspecified Status: Acute (2) C. difficile colitis: Code(s): A04.72 - Enterocolitis due to Clostridium difficile, not specified as recurrent Status: Acute (3) Dysphagia: Code(s): R13.10 - Dysphagia, unspecified Status: Acute (4) Pneumonia: Code(s): J18.9 - Pneumonia, unspecified organism Status: Acute DS: Summary Hospital Course Hospital Course: 73-year-old male with multiple medical comorbidities and alcohol abuse presented with altered mental status. #aspiration pneumonia #dysphagia -completed course of rocephin and flagyl, diflucan -NG to discontinue. Tolerating diet. Appreciated speech therapy recommendat ions # diarrhea, improving C diff positive. Continue vancomycin. 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 Metoprolol held for hypotension and bradycardia. And restart when appropriate. -alcohol abuse: continue thiamine -anxiety: paxil -GI ppx: protonix -HTN: metoprolol -seizure disorder: stefanie, -HLD: aspirin, statin patient will be discharged to rehab today Time Spent with Patient Time attestation: Total time spent providing and/or coordinating discharge services: Exam Narrative: - GENERAL: Pleasant male in no acute dis tress - EYES: EOMI. Anicteric. - HENT: Moist mucous membranes. NGT in p lace with tube feeds - LUNGS: Clear to auscultation bilateral ly, no wheezing, rhonchi - CARDIOVASCULAR: Regular rate and rhyth m. No murmur. - ABDOMEN: Soft, non-tender and non-dist ended. No palpable masses. - EXTREMITIES: No edema. Peripheral puls es 2+. Non-tender - NEUROLOGIC: No focal neurological defi cits. CN II-XII grossly intact. - PSYCHIATRIC: Awake, Alert and oriented - SKIN: No rashes or lesions. Warm. - LYMPH: No cervical lymphadenopathy. DS: Data Data Completed and Pending Completed studies during hospitalization: Pending at discharge 01/23/24 12:44 Cytology [PTH] Routine Labs on day of discharge: Preliminary micro results at discharge 01/23/24 14:02 Fungal Culture and Stain - Preliminary Cerebral Spinal Fluid Discharge Plan Discharge Attending physician on discharge: Cyril Molina Consulting providers: Amberly Jones; Lacho
--- NOTE | 2024-02-13 09:14 | PM.DS ---
DS: Admitting Diagnosis Discharge Date 02/13/24 Admitting Diagnosis (1) Delirium: ?Code(s): R41.0 - Disorientation, unspecified ?Status:?Acute (2) C. difficile colitis: ?Code(s): A04.72 - Enterocolitis due to Clostridium difficile, not specified as recurrent ?Status:?Acute (3) Dysphagia: ?Code(s): R13.10 - Dysphagia, unspecified ?Status:?Acute (4) Pneumonia: ?Code(s): J18.9 - Pneumonia, unspecified organism ?Status:?Acute DS: Discharge Diagnosis Discharge Diagnosis (1) Delirium: Code(s): R41.0 - Disorientation, unspecified Status: Acute (2) C. difficile colitis: Code(s): A04.72 - Enterocolitis due to Clostridium difficile, not specified as recurrent Status: Acute (3) Dysphagia: Code(s): R13.10 - Dysphagia, unspecified Status: Acute (4) Pneumonia: Code(s): J18.9 - Pneumonia, unspecified organism Status: Acute DS: Summary Hospital Course Hospital Course: 73-year-old male with multiple medical comorbidities and alcohol abuse presented with altered mental status. #aspiration pneumonia #dysphagia -completed course of rocephin and flagyl, diflucan -NG to discontinue. Tolerating diet. Appreciated speech therapy recommendations # diarrhea, improving C diff positive. Continue vancomycin. 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 Metoprolol held for hypotension and bradycardia. And restart when appropriate. -alcohol abuse: continue thiamine -anxiety: paxil -GI ppx: protonix -HTN: metoprolol -seizure disorder: stefanie, -HLD: aspirin, statin patient will be discharged to rehab today Time Spent with Patient Time attestation: Total time spent providing and/or coordinating discharge services: Exam Narrative: - GENERAL: Pleasant male in no acute distress - EYES: EOMI. Anicteric. - HENT: Moist mucous membranes. NGT in place with tube feeds - LUNGS: Clear to auscultation bilaterally, no wheezing, rhonchi - CARDIOVASCULAR: Regular rate and rhythm. No murmur. - ABDOMEN: Soft, non-tender and non-distended. No palpable masses. - EXTREMITIES: No edema. Peripheral pulses 2+. Non-tender - NEUROLOGIC: No focal neurological deficits. CN II-XII grossly intact. - PSYCHIATRIC: Awake, Alert and oriented - SKIN: No rashes or lesions. Warm. - LYMPH: No cervical lymphadenopathy. DS: Data Data Completed and Pending Completed studies during hospitalization: Pending at discharge 01/23/24 12:44 Cytology [PTH] Routine Labs on day of discharge: Preliminary micro results at discharge 01/23/24 14:02 Fungal Culture and Stain - Preliminary Cerebral Spinal Fluid Discharge Plan Discharge Attending physician on discharge: Cyril Molina Consulting providers: Amberly Jones; Pham Rebollar; Mauricio Bush; Isauro Capellan; Bruce Florez Discharging Clinician: Cyril Molina Anticipated Discharge Date/Time: 02/13/24 09:14 Patient Disposition: Home Health Service Activity: as tolerated Diet: as tolerated and heart healthy Discharge Instructions: Patient was given office information to follow up with an appointment at the [place] [address] [place] upon discharge. Please call our office number ([phone]) to make a follow up appointment regarding high platelet count. Please continue to use thickener with all beverages to help prevent aspiration. Thicken to a nectar consistency, also known as mildly thickened liquids. Per Care Coordination: [facility] has been arranged to follow at discharge. [facility] will contact you prior to their first visit. [facility] will follow for RN and PT/OT/ST eval and treat. [facility] can be contacted at [phone]. Nursing please fax discharge paperwork to [phone]
[2024-02-13] MEDS: PARoxetine 10 MG TABLET 30 MG PO (09:38)
[2024-02-13] MEDS: FOLIC ACID 1 MG/0.2 ML INJ IV PUSH (09:38)
[2024-02-13] MEDS: THIAMINE HCL 200 MG/2 ML VIAL 100 MG IV PUSH (09:39)
[2024-02-13] MEDS: cycloSPORINE 0.4 ML OPHTH SOLUTION 1 DROP EACH EYE (09:39)
[2024-02-13] MEDS: levETIRAcetam 500MG/NACL 100ML 500 MG/100 ML BAG 400 MG IVPB (09:39)
[2024-02-13] MEDS: ENOXAPARIN 40 MG/0.4 ML SYRINGE SUB-Q (09:39)
[2024-02-13] MEDS: ASPIRIN 81 MG CHEWABLE TABLET PO (09:40)
[2024-02-13] MEDS: MULTIVITAMINS THERAPEUTIC TAB (*BKC) 1 TABLET PO (09:40)
[2024-02-13] MEDS: NEOMYCIN/POLYMYXIN/BACITRACIN OINTMENT PACKET 1 PACKET (11:59)
[2024-02-13] MEDS: SACUBITRIL/VALSARTAN 24-26 MG TABLET 1 TAB PO (12:59)
[2024-02-20 23:14] LABS: Block/Specimen ID NG; CALR Exon 9 Mutation NOT DETECTED (NOT DETECTED); CSF3R Exon 14/17 Mutation NOT DETECTED (NOT DETECTED); Clinical Indication NG; JAK2 Exon 12 Mutation NOT DETECTED (NOT DETECTED); JAK2 V617F Mutation NOT DETECTED (NOT DETECTED); MPL Exon 10 Mutation NOT DETECTED (NOT DETECTED)
== END 2024-02-13 13:30 | disposition home health service (06) | DRG 870 ==
LOC: ANHED 13:40 → ANHIMU 14:08 → ANHICU 01-23 11:04 → ANHIMU 01-29 18:33 → ANH2MED 02-02 17:32 → ANH3MEDSUR 02-04 00:02
PROVIDERS: Family Medicine; Internal Medicine; Internal Medicine Nephrology; Nurse Practitioner Family; Physician Assistant; Student in an Organized Health Care Education/Training Program; Admitting Provider Internal Medicine; Emergency Provider Emergency Medicine; Visit Provider Hospitalist
DX: A41.9 Sepsis, unspecified organism (principal); R65.21 Severe sepsis with septic shock; J18.9 Pneumonia, unspecified organism; J69.0 Pneumonitis due to inhalation of food and vomit; G93.41 Metabolic encephalopathy; J96.01 Acute respiratory failure with hypoxia; F10.131 Alcohol abuse with withdrawal delirium; G40.89 Other seizures; A04.72 Enterocolitis due to Clostridium difficile, not specified as recurrent; I42.9 Cardiomyopathy, unspecified; M62.82 Rhabdomyolysis; N17.9 Acute kidney failure, unspecified; B37.0 Candidal stomatitis; E46 Unspecified protein-calorie malnutrition; G40.909 Epilepsy, unspecified, not intractable, without status epilepticus; Z20.822 Contact with and (suspected) exposure to COVID-19; R13.10 Dysphagia, unspecified; D75.839 Thrombocytosis, unspecified; R32 Unspecified urinary incontinence; F41.9 Anxiety disorder, unspecified; I25.10 Atherosclerotic heart disease of native coronary artery without angina pectoris; I10 Essential (primary) hypertension; E78.5 Hyperlipidemia, unspecified; E87.6 Hypokalemia; L98.8 Other specified disorders of the skin and subcutaneous tissue; F32.A Depression, unspecified; R73.03 Prediabetes; E86.0 Dehydration; K70.9 Alcoholic liver disease, unspecified; I25.2 Old myocardial infarction; Z90.49 Acquired absence of other specified parts of digestive tract; Z68.22 Body mass index [BMI] 22.0-22.9, adult
CPT/HCPCS: 36415; 36569; 36600; 62328; 70450; 70553; 71045; 74018; 74019; 76705; 80048; 80053; 80069; 80074; 80076; 80202; 80307; 81001; 81219; 81270; 81279; 81339; 81479; 82140; 82375; 82550; 82565; 82607; 82728; 82805; 82945; 82948; 83036; 83050; 83540; 83550; 83605; 83630; 83690; 83735; 83993; 84100; 84134; 84157; 84443; 84478; 84484; 85025; 85027; 85610; 85652; 85730; 86140; 86235; 86403; 86592; 86787; 86788; 87015; 87040; 87045; 87070; 87077; 87102; 87116; 87181; 87205; 87206; 87255; 87427; 87449; 87493; 87529; 87637; 87641; 87798; 88108; 89051; 92526; 92610; 92611; 93005; 93306; 94002; 94003; 94640; 95816; 96361; 96372; 96375; 97110; 97116; 97161; 97164; 97167; 97530; 97535; 99285; A9270; A9577; C9113; G0378; J0133; J0295; J0696; J1450; J1630; J1650; J1815; J1836; J1940; J1953; J2060; J2250; J2371; J2704; J2765; J2997; J3010; J3370; J3411; J3475; J3480; J7030; J7050; J7060; J7070; J7120; J7121

== ENCOUNTER 2024-03-12 11:15 | Outpatient (CLI) | payer OTHER, MEDICAID, SELFPAY ==
[2024-03-12 11:33] LABS: Hematocrit 41.8 % (42.0-52.0); Hemoglobin 13.6 g/dL (14.0-18.0); Mean Corpuscular HGB Conc 32.5 g/dl (32-36); Mean Corpuscular Hemoglobin 30.2 pg (26-34); Mean Corpuscular Volume 92.9 fl (80-100); Mean Platelet Volume 10.6 fl (7.4-10.4); Platelet Count Result 301 k/mm3 (150-375); Red Cell Distribution Width 14.8 % (11.5-14.5)
[2024-03-12 11:43] LABS: Band Neutrophils Percent 1 % (0-6); Eosinophils Absolute Manual 0.18 K/mm3 (0.02-0.50); Eosinophils Percent Manual 2 % (0-4); Lymphocytes Absolute Manual 4.95 K/mm3 (1.1-4.5); Monocytes Absolute Manual 0.63 K/mm3 (0.1-0.90); Monocytes Percent Manual 7 % (3-9); Neutrophils Absolute Manual 3.24 K/mm3 (1.3-6.7); Neutrophils Percent Manual 35 % (46-73); Platelet Estimate Adequate (Adequate); Schistocytes None Seen; Total Cells Counted 100
[2024-03-12 11:44] LABS: Atypical Lymphocytes Present; Giant Platelets Present
[2024-03-12 12:33] LABS: Alanine Aminotransferase 27 U/L (6-50); Albumin Level 4.3 g/dL (3.5-5.1); Alkaline Phosphatase 111 U/L (38-126); Anion Gap 5 mmol/L (4-12); Aspartate Amino Transferase 28 U/L (17-59); Bilirubin,Total 0.4 mg/dL (0.2-1.3); Blood Urea Nitrogen 19 mg/dL (9-20); CRP < 0.5 mg/dL (<1.0); Calcium 9.1 mg/dL (8.4-10.2); Carbon Dioxide 26 mmol/L (22-30); Chloride 107 mmol/L (98-107); Estimated Glomerular Filt Rate > 60; Glucose 77 mg/dL (65-110); Potassium 4.6 mmol/L (3.4-5.0); Sodium 138 mmol/L (137-145)
[2024-03-12 13:27] LABS: Iron 75 ug/dL (49-181)
[2024-03-12 13:38] LABS: Percent Iron Saturation 23 % (20-50)
== END 2024-03-12 11:16 | disposition home or self-care (01) ==
LOC: ANHLAB 11:17
PROVIDERS: Visit Provider Internal Medicine Hematology & Oncology
DX: D47.3 Essential (hemorrhagic) thrombocythemia (principal)
CPT/HCPCS: 36415; 80053; 82728; 83540; 83550; 85025; 86140

== ENCOUNTER 2024-05-28 14:43 | Outpatient (CLI) | payer OTHER, MEDICAID, SELFPAY ==
[2024-05-28 14:55] LABS: Basophils Absolute Auto 0.1 K/mm3 (0.0-0.1); Basophils Percent Auto 0.5 % (0.2-1.2); Eosinophils Absolute Auto 0.4 K/mm3 (0-0.3); Eosinophils Percent Auto 3.9 % (0-4.4); Hematocrit 45.7 % (42.0-52.0); Hemoglobin 15.2 g/dL (14.0-18.0); Immature Granulocyte Absolute 0.01 K/mm3 (0.00-0.031); Immature Granulocyte Percent A 0.1 % (0-0.5); Lymphocytes Absolute Auto 5.19 K/mm3 (0.9-3.2); Lymphocytes Percent Auto 50.8 % (18.3-44.2); Mean Corpuscular HGB Conc 33.3 g/dl (32-36); Mean Corpuscular Hemoglobin 29.6 pg (26-34); Mean Corpuscular Volume 88.9 fl (80-100); Mean Platelet Volume 10.2 fl (7.4-10.4); Monocytes Absolute Auto 0.9 K/mm3 (0.1-0.6); Monocytes Percent Auto 9.2 % (2.6-8.5); Neutrophils Absolute Auto 3.6 K/mm3 (1.3-6.7); Neutrophils Percent Auto 35.5 % (45.5-73.1); Platelet Count Result 291 k/mm3 (150-375); Red Blood Count 5.14 M/mm3 (4.6-6.20); Red Cell Distribution Width 14.2 % (11.5-14.5); White Blood Count 10.2 K/mm3 (4.5-10.0)
== END 2024-05-28 14:44 | disposition home or self-care (01) ==
LOC: ANHLAB 14:45
PROVIDERS: PCP Family Medicine; Visit Provider Internal Medicine Hematology & Oncology
DX: D47.3 Essential (hemorrhagic) thrombocythemia (principal)
CPT/HCPCS: 36415; 85025

== ENCOUNTER 2024-07-16 16:57 | Emergency (ER) | payer OTHER, MEDICAID, SELFPAY ==
--- NOTE | ~2024-07-16 | CT_ITS ---
CT brain wo con Ordering provider: Berta Kaufman PA-C History: 74 years Male with . fall, hi . Comparison: January 20, 2024 Technique: CT of the head without contrast. Radiation reduction technique utilized. DLP is 605.33 mGy -cm. FINDINGS: BRAIN PARENCHYMA AND CSF SPACES: Mild leukoaraiosis and diffuse cortical atrophy. Mild atheromatous d isease. Old infarct in the right cerebellar hemisphere posteriorly. No midline shift, mass effect or hemorrhage. The brain parenchyma and CSF spaces are otherwise normal. VISUALIZED PARANASAL SINUSES: Well aerated. MASTOIDS: Well aerated. BONES: The bones appear intact. SOFT TISSUES: Visualized nasopharynx is normal. Scalp hematoma in the frontal scalp. Scalp hematoma in the right occipital area. Otherwise, Superficial soft tissues are normal. IMPRESSION: No acute intracranial findings. Reviewed, dictated and finalized at location A.
--- NOTE | ~2024-07-16 | CT_ITS ---
CT facial & cervical spine wo Ordering provider: Berta Kaufman PA-C History: . fall, [place], facial injuries . Comparison: None. Technique: Thin slice axial CT of the facial bones was performed without contrast. Coronal and sagit karlene reformatted images were also obtained. . Automated exposure control and iterative reconstruction technique were employed. The dose-length product was 389.62 mGy-cm. FINDINGS: PARANASAL SINUSES: Well aerated. BONES: Bilateral nasal bone fractures. Right nasal septal deviation. Ostiomeatal complexes are patent . ORBITS AND SUPERFICIAL SOFT TISSUES: The optic globes and orbits are normal. Frontal scalp hematoma. Air in the subcutaneous tissues in the nasal area. Otherwise, The superficial soft tissues are normal . VISUALIZED MASTOIDS: Well aerated. LIMITED VISUALIZED BRAIN PARENCHYMA: Normal. IMPRESSION: Bilateral nasal bone fractures. CT facial & cervical spine wo Ordering provider: Berta Kaufman PA-C History: . fall, [place], facial injuries . Comparison: None. Technique: CT of the cervical spine was performed without contrast. Sagittal and coronal reformatted images were also obtained and reviewed. Automated exposure control and iterative reconstruction vero hnique were employed. The dose-length product was 389.62 mGy-cm. FINDINGS: VERTEBRAE: No subluxation or acute fracture. The occipital condyles are intact. DISC SPACES: Narrowing of the disc C5-C6 and C6-C7. Multilevel facet joint disease. Multilevel uncove rtebral joint osteoarthritic changes. Multilevel intervertebral foraminal narrowing. PARASPINOUS SOFT TISSUES: Normal. Emphysematous changes of the lungs. IMPRESSION: No acute osseous abnormality cervical spine. Reviewed, dictated and finalized at location A. IMPRESSION: Bilateral nasal bone fractures. CT facial & cervical spine wo Ordering provider: Berta Kaufman PA-C History: . fall, [place], facial injuries . Comparison: None. Technique: CT of the cervical spine was performed without contrast. Sagittal a nd coronal reformatted images were also obtained and reviewed. Automated expos ure control and iterative reconstruction technique were employed. The dose-gael th product was 389.62 mGy-cm. FINDINGS: VERTEBRAE: No subluxation or acute fracture. The occipital condyles are intact. DISC SPACES: Narrowing of the disc C5-C6 and C6-C7. Multilevel facet joint dise ase. Multilevel uncovertebral joint osteoarthritic changes. Multilevel interver tebral foraminal narrowing. PARASPINOUS SOFT TISSUES: Normal. Emphysematous changes of the lungs.
[2024-07-16 17:00] VITALS: BP 134/86; PULSE 62; RESP 16; TEMP 36.7; O2SAT 98
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
== END 2024-07-16 22:55 | disposition left against medical advice (07) ==
PROVIDERS: Emergency Provider Physician Assistant; PCP Family Medicine
DX: S02.2XXA Fracture of nasal bones, initial encounter for closed fracture (principal); S00.31XA Abrasion of nose, initial encounter; E78.5 Hyperlipidemia, unspecified; I10 Essential (primary) hypertension; R73.03 Prediabetes; Z90.49 Acquired absence of other specified parts of digestive tract; V11.0XXA Pedal cycle driver injured in collision with other pedal cycle in nontraffic accident, initial encounter; Y93.55 Activity, bike riding
CPT/HCPCS: 70450; 70486; 72125; 99284

== ENCOUNTER 2024-10-27 08:58 | Inpatient (IN) | payer OTHER, MEDICAID, SELFPAY ==
[2024-10-27] VITALS (9 sets, daily range): BP systolic 103–155; BP diastolic 51–78; PULSE 70–90; RESP 16–25; TEMP 36.7–38.1; O2SAT 92–96; BMI 21.4
--- NOTE | ~2024-10-27 | CT_ITS ---
Non-contrast Head CT History: Seizure COMPARISON: 07/16/2024 Technique: Axial non-contrast imaging of the brain was performed. Dose reduction technique was used on this scan by utilizing automated exposure control and iterative reconstruction technique. The dose -length product (DLP) was 983.67 mGy-cm. Findings: There is no evidence of intracranial hemorrhage, mass lesion, or acute infarct. Chronic ri ght cerebellar infarct is unchanged. The ventricles and subarachnoid spaces are normal in size. The calvarium appears normal. The visualized paranasal sinuses and mastoid air cells are clear. Impression: No acute abnormality seen. Chronic right cerebellar infarct. Reviewed, dictated and finalized at location . ORK ACCOUNT MANAGER Impression: No acute abnormality seen. Chronic right cerebellar infarct.
--- NOTE | ~2024-10-27 | XR_ITS ---
Clinical Indication: Weakness AP and lateral views of the chest: Comparison: 01/30/2024 Findings: The lungs are clear, aside from calcified right midlung granuloma, without evidence of foca l consolidation or pleural effusion. Cardiomediastinal silhouette is within normal limits. Compressi on fracture of midthoracic vertebral body present, probably T8 or T9. Impression: No acute abnormality in the lungs. Compression fracture, as above. Reviewed, dictated and finalized at location . NG BOOKKEEPER Impression: No acute abnormality in the lungs. Compression fracture, as above.
--- NOTE | ~2024-10-27 | US_ITS ---
EXAMINATION: US carotid duplex BI DATE: 10/29/2024 09:50 INDICATION: Carotid atherosclerosis. Peripheral vascular disease. Seizure. Hyperlipidemia. Cerebral a therosclerosis. TECHNIQUE: Grayscale, color Doppler, and pulsed Doppler images of the cervical carotid arteries were obtained. The degree of vessel stenosis is placed in one of the following categories: normal, <50%, 5 0-69%, >=70% but less than near-occlusion, near-occlusion, or total occlusion. Note that percent sten osis relative to normal distal artery lumen diameter is indirectly measured from velocity measurement s as described by Bonilla, et al. Radiology 2003; 229:340-346. COMPARISON: None. FINDINGS: RIGHT: The right common carotid artery (CCA) peak systolic velocity (PSV) is 57 cm/s. The right internal car otid artery (ICA) PSV is 58 cm/s. The right ICA end-diastolic velocity (EDV) is 26 cm/s. The right IC A/CCA PSV ratio is 1.0. Grayscale and color Doppler images yield an estimate of <50% diameter reducti on from plaque in the ICA. The external carotid artery (ECA) PSV is 56 cm/s. There is antegrade flow in the right vertebral artery. LEFT: The left CCA PSV is 90 cm/s. The left ICA PSV is 70 cm/s. The left ICA EDV is 15 cm/s. The left ICA/C CA PSV ratio is 0.8. Grayscale and color Doppler images yield an estimate of <50% diameter reduction from plaque in the ICA. The ECA PSV is 118 cm/s. There is antegrade flow in the left vertebral artery . IMPRESSION: 1. <50% stenosis in the right internal carotid artery. 2. <50% stenosis in the left internal carotid artery. Reviewed, dictated and finalized at location B. EXTENSION AGENT
--- NOTE | ~2024-10-27 | CT_ITS ---
EXAMINATION: CT brain wo con DATE: 10/27/2024 15:53 INDICATION: fall in hospital, possibly struck head . TECHNIQUE: Computed tomography (CT) of the head was performed without intravenous contrast. The mA wa s adjusted according to patient size. Iterative reconstruction technique was employed. The dose-lengt h product was 605.33 mGy-cm. COMPARISON: Same date at 12:39 PM. FINDINGS: No acute intracranial hemorrhage or extra-axial fluid collection. No hydrocephalus, mass, or herniation. No acute ischemic infarct. Unremarkable dural venous sinus attenuation. No acute osseous abnormality. Ethmoid maxillary and sphenoid mucosal thickening. Aerated secretions in the sphenoid sinuses. The re maining aerated spaces are clear. Mild atrophy and chronic white matter change. Atherosclerotic intracranial calcification. Old right c erebellar infarct. IMPRESSION: No acute intracranial process. Aerated secretions in the sphenoid sinuses may represent acute sinusitis in the appropriate clinical context. Reviewed, dictated and finalized at location K. INSPECTOR
--- NOTE | ~2024-10-27 | CT_ITS ---
EXAMINATION: CT cervical spine wo con DATE: 10/27/2024 15:53 INDICATION: fall in hospital, possibly struck head TECHNIQUE: Computed tomography (CT) of the cervical spine was performed without intravenous contrast. Automated exposure control and iterative reconstruction technique were employed. The dose-length pro duct was 431.76 mGy-cm. COMPARISON: Same date at 12:43 PM. FINDINGS: Vertebral Body Alignment: Intact. Craniocervical and atlantoaxial alignment: Moderate degenerative change. Alignment intact. Osseous structures/fracture: No evidence of a lytic or blastic process in the visualized spine. No e vidence of acute fracture. Cervical soft tissues: The paraspinal soft tissues planes are maintained. Biapical pleural scarring. Degenerative changes: Multilevel degenerative disease and facet arthropathy. Multilevel severe bilate ral neural foraminal narrowing. No severe central canal narrowing. IMPRESSION: No acute fracture or traumatic malalignment in the cervical spine. Reviewed, dictated and finalized at location K. TRUCTION ASSISTANT
--- NOTE | ~2024-10-27 | CT_ITS ---
Noncontrast CT scan of the cervical spine Technique: Multiple contiguous axial [address] images of the cervical spine were obtained and rec onstructed in 2D sagittal and coronal planes on the acquisition scanner. Dose reduction technique was used on this scan by utilizing automated exposure control, adjustment of the mA and/or kV according to patient size. The dose-length product (DLP) was 359.47 mGy-cm. Clinical History: Pain Findings: No fractures or dislocations. There is advanced degenerative disc narrowing at C5-C6 and C 6-C7. There is left facet arthropathy at C2-C3 with possible minimal left neural foraminal narrowing. There is right neural foraminal narrowing at C3-C4 is right facet arthropathy. There is left neural foraminal narrowing at C4-C5 with left facet arthropathy. There is bilateral neural foraminal narrowi ng at C5-C6 with disc osteophyte complex present. There is bilateral neural foraminal narrowing at C6 -C7, with disc osteophyte complex present. No prevertebral soft tissue swelling. Impression: No fracture or subluxation of the cervical spine. Degenerative change, as above. Reviewed, dictated and finalized at [facility]. TROLLER Impression: No fracture or subluxation of the cervical spine. Degenerative change, as above.
--- NOTE | ~2024-10-27 | CT_ITS ---
EXAMINATION: CT abdomen pelvis wo con DATE: 10/27/2024 15:53 INDICATION: microscopic hematuria TECHNIQUE: Computed tomography (CT) of the abdomen and pelvis was performed without intravenous contr ast. Automated exposure control and iterative reconstruction technique were employed. The dose-length product was 673.88 mGy-cm. COMPARISON: CT cap 03/03/2023. FINDINGS: Lower thorax: Coronary artery calcifications. Granulomatous pulmonary calcification. Right lower lobe air cysts. Dependent atelectasis Liver: Normal. Biliary/Gallbladder: Gallbladder is mildly distended, without wall thickening or inflammatory change. No bile duct dilation. Pancreas: No mass or duct dilation. Spleen: Normal. Adrenals:No mass. Kidneys: No suspicious mass, obstructing stone, or hydronephrosis. Punctate nonobstructing right yong l calcifications. GI tract: Small uncomplicated duodenal diverticulum. No small or large bowel dilation. Appendix not c onfidently visualized. No right lower quadrant inflammatory change. Diverticulosis without diverticul itis. Mesentery/Peritoneum: No ascites, mass, or free air. Retroperitoneum: No mass. Atherosclerotic abdominal aortic and/or arterial calcifications. Pelvis: No urinary bladder wall thickening, inflammatory change, or mass. Mild prostatomegaly. Soft Tissues: Soft tissues and body wall unremarkable. Bones: No acute osseous finding. Multilevel chronic compression deformities. IMPRESSION: Gallbladder distention which may be secondary to fasting. Acute cholecystitis less likely. Reviewed, dictated and finalized at location K. ITE CONTROL TECHNICIAN IMPRESSION: Gallbladder distention which may be secondary to fasting. Acute cholecystitis l ess likely.
[2024-10-27 09:16] LABS: Basophils Absolute Auto 0.1 K/mm3 (0.0-0.1); Basophils Percent Auto 0.5 % (0.2-1.2); Eosinophils Absolute Auto 0.4 K/mm3 (0-0.3); Eosinophils Percent Auto 3.4 % (0-4.4); Hematocrit 46.3 % (42.0-52.0); Hemoglobin 15.6 g/dL (14.0-18.0); Immature Granulocyte Absolute 0.02 K/mm3 (0.00-0.031); Immature Granulocyte Percent A 0.2 % (0-0.5); Lymphocytes Absolute Auto 3.62 K/mm3 (0.9-3.2); Lymphocytes Percent Auto 35.5 % (18.3-44.2); Mean Corpuscular HGB Conc 33.7 g/dl (32-36); Mean Platelet Volume 10.3 fl (7.4-10.4); Monocytes Absolute Auto 1.1 K/mm3 (0.1-0.6); Neutrophils Absolute Auto 5.1 K/mm3 (1.3-6.7); Neutrophils Percent Auto 49.4 % (45.5-73.1); Platelet Count Result 269 k/mm3 (150-375); Red Blood Count 5.03 M/mm3 (4.6-6.20); Red Cell Distribution Width 13.9 % (11.5-14.5); White Blood Count 10.2 K/mm3 (4.5-10.0)
[2024-10-27 09:25] LABS: Alanine Aminotransferase 27 U/L (6-50); Albumin Level 4.4 g/dL (3.5-5.1); Alkaline Phosphatase 115 U/L (38-126); Anion Gap 11 mmol/L (4-12); Aspartate Amino Transferase 31 U/L (17-59); Bilirubin,Total 0.6 mg/dL (0.2-1.3); Blood Urea Nitrogen 17 mg/dL (9-20); Calcium 9.3 mg/dL (8.4-10.2); Carbon Dioxide 17 mmol/L (22-30); Chloride 109 mmol/L (98-107); Estimated CRCL calculation 48 ml/min; Estimated Glomerular Filt Rate 59; Glucose 151 mg/dL (65-110); Potassium 4.2 mmol/L (3.4-5.0); Sodium 137 mmol/L (137-145)
--- NOTE | 2024-10-27 10:54 | PC.NURSE ---
when family walked into room they were concerned pt just had another seizure and approached nurses station to make RN aware. Dr. Castro at bedside. pt diaphoretic and postictal.
--- NOTE | 2024-10-27 11:00 | ED_ITS ---
HPI - Seizure General Chief Complaint: Seizure Stated Complaint: altered Time Seen by Provider: 10/27/24 09:47 Source: patient, family and EMS Mode of arrival: EMS Limitations: altered mental status and clinical condition History of Present Illness HPI Narrative: Patient presents after reportedly having was presumed to be a seizure. He has a history of seizures. EMS found him to be alert oriented x3. It did appear the patient had been incontinent of bowel. Home medications include Entresto and metoprolol for cardiomyopathy, atorvastatin paroxetine aspirin. Family and patient are initially unsure of patient's antiepileptic medication although he does have a pill bilateral for left trace attempt/Keppra. Daughter notes that he is not always compliant with his medications and he did have heavy drinking last known to be several beers and several shots few days ago and unknown if there is any subsequent drinking. Related Data Home Medications ?Medication ?Instructions ?Recorded ?Confirmed ?Last Taken ?Type paroxetine HCl 30 mg tablet 30 mg PO DAILY 02/27/23 10/27/24 07/16/23 History zolpidem 10 mg tablet 10 mg PO HS PRN Insomnia 02/27/23 10/27/24 Unknown History atorvastatin 80 mg tablet 80 mg PO HS 01/20/24 10/27/24 Unknown History tramadol 50 mg tablet 50 mg PO Q6H PRN pain 10/27/24 10/27/24 Unknown History Allergies Allergy/AdvReac Type Severity Reaction Status Date / Time No Known Allergies Allergy Verified 07/16/24 19:38 [facility] Past Medical History Medical History (Updated 10/28/24 @ 06:37 by Karena Castro MD) Cardiomyopathy Diet-controlled diabetes mellitus Right ventricular systolic dysfunction without heart failure Combined systolic and diastolic congestive heart failure C. difficile colitis Alcohol use, unspecified with unspecified alcohol-induced disorder Prediabetes Small bowel obstruction Diverticulitis Seizure Hyperlipidemia Hypertension Surgical History Surgical History History of cardiac catheterization (06/2023) Nonobstructive coronary artery disease, slow flow noted in LAD. History of partial colectomy History of incisional hernia repair History of tonsillectomy History of appendectomy History of exploratory laparotomy Family History Family History Other Acute myocardial infarction Alzheimer's dementia Breast cancer Hypertension Social History Social History Social History: Surrogate medical decision maker: Briana Townsend, daughter. Code status: Full code. Smoking status: Never smoker Alcohol intake: current Drinks per week: 3 Substance use: current Substance use type: marijuana Last use: 07/14/23 Do You Feel Safe in your Home?: Yes Lack of Transportation: No Lack of Food: Never True Current Housing: I Have Housing Concerned About Future Housing: No Difficulty Paying Gas/Electric Bills: No Difficulty Paying for Meds: No Currently Unemployed: No Education: High School Diploma/GED Difficulty w/ Childcare or Family Care: No Living arrangements: with family Spiritual care concerns: No Exam 2 Narrative: GENERAL: Well-appearing, well-nourished HEAD: Normocephalic, atraumatic. EYES: Non injected, non icteric. Pupils equal. ENT: Nares clear, no rhinorrhea or epistaxis. Poor dentition; missing upper front teeth. NECK: Supple. CHEST: Deep breath but not tachypneic and breathing with his cheeks puffing out. Appropriate oxygen saturation. HEART: Regular rate and rhythm. . ABDOMEN: Soft, nondistended. EXTREMITIES: Normal range of motion. No lower extremity edema. SKIN: Warm, dry, no rash. NEURO: No focal deficits. Alert but not oriented at initial assessment. PSYCH: Normal mood and affect. Course Vital Signs Vital signs: Vital Signs Temperature 98.1 F 10/27/24 08:51 Pulse Rate 80 10/27/24 08:51 Respiratory Rate 20 10/27/24 08:51 Blood Pressure 139/78 10/27/24 08:51 Pulse Oximetry 92 10/27/24 08:51 Oxygen Delivery Room Air 10/27/24 08:51 Temperature 98.7 F 10/28/24 05:25 Pulse Rate 77 10/28/24 05:25 Respiratory Rate 20 10/28/24 05:25 Blood Pressure 131/69 10/28/24 05:25 Pulse Oximetry 98 10/28/24 05:25 Oxygen Delivery Room Air 10/27/24 20:00 MDM - Seizure MDM Narrative Medical decision making narrative: Patient presents after reportedly having a possible seizure as family heard a thud and found him to be confused which has been consistent with his known history of seizure disorder and postictal period. In the emergency department they are afebrile with vital signs within normal limits. I am called to the bedside as patient was noted to be breathing heavily and altered. He does appear to be postictal. He had not yet been seen by myself prior to this and thus had not received any antiepileptic drugs thus technically not status epilepticus as there was report that he had returned to baseline by the tech who had seen him in the interim between first seizure this morning and while in the ED initially. Given BZD and will Keppra load at 60mg/kg up to max. Family notes that he occasionally becomes more agitated with administration of Ativan. Upon reassessment awhile later, he is more alert, but remains confused, speaking in sentences but occasionally using either inappropriate words or not using clear words at all. Family notes that he does sometimes have a prolonged postictal period. Nevertheless, will proceed with further altered mental status work up including head CT. Patient is later found standing outside his room when urinating on the floor. He is helped back to bed and given a urinal. At approximately 3:30 p.m. patient is found on the ground beside the bed. He continues to be confused. He states he was getting out of bed to urinate. He is informed that he has urinal at bedside but he states a journal? He is also now febrile; acetaminophen ordered. Will also order CT brain (repeat) and C spine because of some erythema on neck after the fall. He has microscopic hematuria on urinalysis. Because he is unable to give meaningful information, will proceed with CT noncon abd/pelvis. Workup without clear etiology for symptoms but does not appear that he is back to his baseline. Will be admitted and likely continue to require a sitter for the time being. Differential Diagnosis Differential diagnosis: Likely intractable seizure disorder, focal seizure, generalized seizure, epileptic seizure, status epilepticus and other (Prolonged postictal period; altered mental status / encephalopathy of other etiologies such as infection, intracranial hemorrhage, electrolyte abnormalities; acute viral syndrome, drug alcohol use or withdrawal; ) Lab Data Attestation: I reviewed the patient's lab results. Lab results narrative: Very mild leukocytosis 10/28/24 05:28 10/28/24 05:28 Labs: Lab Results 10/27/24 10/27/24 10/27/24 Range/Units 09:10 11:16 13:29 WBC 10.2 H (4.5-10.0) K/mm3 RBC 5.03 (4.6-6.20) M/mm3 Hgb 15.6 (14.0-18.0) g/dL Hct 46.3 (42.0-52.0) % MCV 92.0 (80-100) fl MCH 31.0 (26-34) pg MCHC 33.7 (32-36) g/dl RDW 13.9 (11.5-14.5) % Plt Count 269 (150-375) k/mm3 MPV 10.3 (7.4-10.4) fl Immature Gran % (Auto) 0.2 (0-0.5) % Neut % (Auto) 49.4 (45.5-73.1) % Lymph % (Auto) 35.5 (18.3-44.2) % Spencer % (Auto) 11.0 H (2.6-8.5) % Eos % (Auto) 3.4 (0-4.4) % Baso % (Auto) 0.5 (0.2-1.2) % Lymph # (Auto) 3.62 H (0.9-3.2) K/mm3 Spencer # (Auto) 1.1 H (0.1-0.6) K/mm3 Eos # (Auto) 0.4 H (0-0.3) K/mm3 Baso # (Auto) 0.1 (0.0-0.1) K/mm3 Abs Immat Gran (auto) 0.02 (0.00-0.031) K/mm3 Absolute Neuts (auto) 5.1 (1.3-6.7) K/mm3 Absolute Nucleated RBC 0.000 (0.0-0.012) K/mm3 Nucleated RBC % 0.0 (0.0-0.2) % Sodium 137 (137-145) mmol/L Potassium 4.2 (3.4-5.0) mmol/L Chloride 109 H (98-107) mmol/L Carbon Dioxide 17 L (22-30) mmol/L Anion Gap 11 (4-12) mmol/L BUN 17 (9-20) mg/dL Creatinine 1.20 (0.7-1.3) mg/dL Estim Creat Clear Calc 48 ml/min Estimated GFR 59 (59 - ) Glucose 151 H (65-110) mg/dL Lactic Acid 12.8 H* (0.7-2.0) mmol/L Calcium 9.3 (8.4-10.2) mg/dL Total Bilirubin 0.6 (0.2-1.3) mg/dL AST 31 (17-59) U/L ALT 27 (6-50) U/L Alkaline Phosphatase 115 (38-126) U/L Ammonia (9-30) umol/L Total Creatine Kinase 494 H (55-170) U/L Total Protein 7.0 (6.3-8.2) g/dL Albumin 4.4 (3.5-5.1) g/dL Urine Color (Yellow) Urine Appearance (Clear) Urine pH (5.0-9.0) Ur Specific [place] (1.001-1.035) Urine Protein (Negative) mg/dL Urine Glucose (UA) (Negative) mg/dL Urine Ketones (Negative) mg/dL Ur Blood (Man) (Negative) Urine Nitrate (Negative) Urine Bilirubin (Negative) Urine Urobilinogen (<2.0) mg/dL Add Ur Microanalysis Leukocyte Esterase Rfl (Negative) HENOK/UL Urine RBC (0-2) /hpf Urine WBC (0-3) /hpf Ur Squamous Epith Cells (Few) /hpf Urine Bacteria /hpf Urine Casts Salicylates (2-20) mg/dL Urine Opiates Screen (Negative) Urine Methadone Screen (Negative) Acetaminophen (10-30) ug/mL Ur Barbiturates Screen (Negative) Levetiracetam Pending Ur Phencyclidine Scrn (Negative) Ur Amphetamine Screen (Negative) U Benzodiazepines Scrn (Negative) Urine Cocaine Screen (Negative) U Cannabinoids Screen (Negative) Ethyl Alcohol < 10 (<10) mg/dL Influenza A (RT-PCR) Negative (Negative) Influenza B (RT-PCR) Negative (Negative) RSV (RT-PCR) Positive A (Negative) SARS-CoV-2 RNA (RT-PCR) Negative (Negative) 10/27/24 10/27/24 10/27/24 Range/Units 14:13 14:21 15:15 WBC (4.5-10.0) K/mm3 RBC (4.6-6.20) M/mm3 Hgb (14.0-18.0) g/dL Hct (42.0-52.0) % MCV (80-100) fl MCH (26-34) pg MCHC (32-36) g/dl RDW (11.5-14.5) % Plt Count (150-375) k/mm3 MPV (7.4-10.4) fl Immature Gran % (Auto) (0-0.5) % Neut % (Auto) (45.5-73.1) % Lymph % (Auto) (18.3-44.2) % Spencer % (Auto) (2.6-8.5) % Eos % (Auto) (0-4.4) % Baso % (Auto) (0.2-1.2) % Lymph # (Auto) (0.9-3.2) K/mm3 Spencer # (Auto) (0.1-0.6) K/mm3 Eos # (Auto) (0-0.3) K/mm3 Baso # (Auto) (0.0-0.1) K/mm3 Abs Immat Gran (auto) (0.00-0.031) K/mm3 Absolute Neuts (auto) (1.3-6.7) K/mm3 Absolute Nucleated RBC (0.0-0.012) K/mm3 Nucleated RBC % (0.0-0.2) % Sodium (137-145) mmol/L Potassium (3.4-5.0) mmol/L Chloride (98-107) mmol/L Carbon Dioxide (22-30) mmol/L Anion Gap (4-12) mmol/L BUN (9-20) mg/dL Creatinine (0.7-1.3) mg/dL Estim Creat Clear Calc ml/min Estimated GFR (59 - ) Glucose (65-110) mg/dL Lactic Acid 1.1 (0.7-2.0) mmol/L Calcium (8.4-10.2) mg/dL Total Bilirubin (0.2-1.3) mg/dL AST (17-59) U/L ALT (6-50) U/L Alkaline Phosphatase (38-126) U/L Ammonia < 9 L (9-30) umol/L Total Creatine Kinase (55-170) U/L Total Protein (6.3-8.2) g/dL Albumin (3.5-5.1) g/dL Urine Color Yellow (Yellow) Urine Appearance Cloudy H (Clear) Urine pH 5.0 (5.0-9.0) Ur Specific [place] 1.024 (1.001-1.035) Urine Protein 2+ H (Negative) mg/dL Urine Glucose (UA) Negative (Negative) mg/dL Urine Ketones Trace H (Negative) mg/dL Ur Blood (Man) 3+ H (Negative) Urine Nitrate Negative (Negative) Urine Bilirubin Negative (Negative) Urine Urobilinogen 0.2 (<2.0) mg/dL Add Ur Microanalysis Reviewed Leukocyte Esterase Rfl Negative (Negative) HENOK/UL Urine RBC 0-2 (0-2) /hpf Urine WBC 0-5 (0-3) /hpf Ur Squamous Epith Cells None seen (Few) /hpf Urine Bacteria None seen /hpf Urine Casts 0-2 Salicylates < 1.0 L (2-20) mg/dL Urine Opiates Screen Negative (Negative) Urine Methadone Screen Negative (Negative) Acetaminophen < 10 L (10-30) ug/mL Ur Barbiturates Screen Negative (Negative) Levetiracetam Ur Phencyclidine Scrn Negative (Negative) Ur Amphetamine Screen Negative (Negative) U Benzodiazepines Scrn Negative (Negative) Urine Cocaine Screen Negative (Negative) U Cannabinoids Screen Positive A (Negative) Ethyl Alcohol (<10) mg/dL Influenza A (RT-PCR) (Negative) Influenza B (RT-PCR) (Negative) RSV (RT-PCR) (Negative) SARS-CoV-2 RNA (RT-PCR) (Negative) Imaging Data Radiologist's impression: Impressions Chest X-Ray 10/27/24 09:44 Impression: No acute abnormality in the lungs. Compression fracture, as above. Head CT 10/27/24 12:54 Impression: No acute abnormality seen. Chronic right cerebellar infarct. Cervical Spine CT 10/27/24 13:09 Impression: No fracture or subluxation of the cervical spine. Degenerative change, as above. Head CT 10/27/24 16:00 IMPRESSION: No acute intracranial process. Aerated secretions in the sphenoid sinuses may represent acute sinusitis in the appropriate clinical context. Cervical Spine CT 10/27/24 16:33 IMPRESSION: No acute fracture or traumatic malalignment in the cervical spine. Abdomen/Pelvis CT 10/27/24 16:36 IMPRESSION: Gallbladder distention which may be secondary to fasting. Acute cholecystitis less likely. ECG Data EKG #1: Attestation: I personally reviewed and interpreted this ECG as follows: ECG completion date: 10/27/24 ECG completion time: 09:09 Interpretation: Normal sinus rhythm at a rate of 79 beats per minute. [place] interval 200. QRS 81. QT/QTC 392/427. Good R-wave progression across the precordial leads. No T- wave inversions. Normal axis. Normal ECG. Discharge Plan Discharge Clinical Impression: Epileptic seizure, Crush fracture of thoracic vertebra, RSV infection, Fall during current hospitalization, Microscopic hematuria, Marijuana use, Altered mental state Patient Disposition: Still a Patient Condition: Stable
[2024-10-27] MEDS: LORazepam INJ (*CRX) 2 MG/ML VIAL IV PUSH (11:04)
[2024-10-27] MEDS: levETIRAcetam IV 4,500 MG in DEXTROSE 5% 100 ML 870 MG IVPB (11:22)
[2024-10-27 11:37] LABS: Ethanol < 10 mg/dL (<10)
[2024-10-27 11:44] LABS: Creatine Kinase 494 U/L (55-170)
[2024-10-27 11:54] LABS: Lactic Acid Reflex 12.8 mmol/L (0.7-2.0)
[2024-10-27] MEDS: SODIUM CHLORIDE 0.9% IV 1,000 ML 999 ML IV CONT (12:16)
[2024-10-27 14:22] LABS: Reflex Lactic Acid Yes or No Add Lactic
[2024-10-27 14:22] LABS: Influenza A QL RT-PCR Negative (Negative); Influenza B QL RT-PCR Negative (Negative); RSV RNA, RT-PCR Positive (Negative); SARS-CoV-2 RNA PCR Negative (Negative)
[2024-10-27 14:30] LABS: Acetaminophen < 10 ug/mL (10-30); Ammonia < 9 umol/L (9-30); Salicylate < 1.0 mg/dL (2-20)
[2024-10-27 14:37] LABS: Add Urine Microscopic? YES; Appearance Urine Cloudy (Clear); Bacteria Urine None Seen /hpf; Bilirubin Urine Negative (Negative); Blood Urine 3+ (Negative); Color Urine Yellow (Yellow); Glucose Urine UA Negative (Negative); Ketones Urine Trace mg/dL (Negative); Leukocyte Esterase Ur Negative LEU/UL (Negative); Need Manual Microscopic Reviewed; Nitrate Urine Negative (Negative); Non Pathogenic Casts 0-2; Protein Urine 2+ mg/dL (Negative); RBC Urine 0-2 /hpf (0-2); Specific Grav Ur 1.024 (1.001-1.035); Squamous Epithelial Cell Urine None Seen /hpf (Few); Urobilinogen Urine 0.2 mg/dL (<2.0); WBC Urine 0-5 /hpf (0-3)
[2024-10-27 14:46] LABS: Amphetamine Screen Urine Negative (Negative); Barbiturate Screen Urine Negative (Negative); Benzodiazepines Screen Urine Negative (Negative); Cannabinoid Screen Urine Positive (Negative); Cocaine Screen Urine Negative (Negative); Methadone Screen Urine Negative (Negative); Opiate Screen Urine Negative (Negative); Phencyclidine Screen Urine Negative (Negative)
[2024-10-27 15:36] LABS: Lactic Acid 1.1 mmol/L (0.7-2.0)
[2024-10-27] MEDS: ACETAMINOPHEN 500 MG TABLET 1000 MG PO (15:55)
[2024-10-27] MEDS: HALOPERIDOL LACTATE 5 MG/ML VIAL 2.5 MG IV PUSH (15:55)
--- NOTE | 2024-10-27 20:35 | P.HP_ITS ---
H&P: HPI History of Present Illness Date/Time: 10/27/24 19:30 Chief Complaint: Seizure. Narrative: This is a 74-year-old male with a history of seizures (normal brain MRI and EEG in February 2023) on levetiracetam, alcohol abuse however he has reportedly cut back and now drinks in moderation although he did not give specifics, combined systolic and diastolic congestive heart failure, right-sided heart failure, hyp ertension, hyperlipidemia, depression, and anxiety presented to the emergency department via EMS home for evaluation after seizure. He is now more alert and is able to provide some history however some of the following is obtained via a review of his EMR as well as information provided by his family members. He lives with his daughter who heard noise coming from the other room and when she went to check on the patient he was confused. She then presumed that he probably had a seizure which would explain the noise that she had heard and his state of confusion. EMS was summoned and they report the patient was combative en route. Upon my evaluation he is groggy but alert and oriented x3; he does not really remember what happened earlier today. He has no current complaints aside from the fact that he is thirsty and hungry. He has had some mild rhinorrhea. He denies headache, vertigo, vision changes, focal weakness, paresthesias, chest pain, shortness of breath, myalgias, sinus congestion, sore throat, cough, abdominal pain, nausea, vomiting, diarrhea, and dysuria. He states compliance with his home medications. He denies drinking in excess recently. In the ED: Vital signs were stable on arrival. Labs were significant for WBC count of 10.2, carbon dioxide 17, lactic acid 12.8, total CK 497, ammonia less than 9. Urine drug screen was positive for cannabinoids. Ethyl alcohol level wa s less than 10. He tested positive for RSV. Brain CT and cervical spine CT were without acute findings. He had another seizure in the ED which was treated with lorazepam 2 mg IV and he was loaded with levetiracetam 4500 mg. Not long thereafter he apparently got up to go to the bathroom on the floor and he sustained a fall. Repeat imaging of the head and cervical spine were without acute findings. He is being admitted in this setting for further monitoring and neurology consultation. Review of Systems Review of Systems: 12 systems were reviewed and are negativ e except for as per HPI. [facility] Past Medical History Medical History (Updated 10/28/24 @ 01:10 by Lorena Paniagua PA-C) Diet-controlled diabetes mellitus Right ventricular systolic dysfunction without heart failure Combined systolic and diastolic congestive heart failure C. difficile colitis Alcohol use, unspecified with unspecified alcohol-induced disorder Prediabetes Small bowel obstruction Diverticulitis Seizure Hyperlipidemia Hypertension Surgical History Surgical History History of cardiac catheterization (06/2023) Nonobstructive coronary artery disease, slow flow noted in LAD. History of partial colectomy History of incisional hernia repair History of tonsillectomy History of appendectomy History of exploratory laparotomy Family History Family History Other Acute myocardial infarction Alzheimer's dementia Breast cancer Hypertension Social History Social History Social History: Surrogate medical decision maker: Briana Townsend, daughter. Code status: Full code. Smoking status: Never smoker Alcohol intake: current Drinks per week: 3 Substance use: current Substance use type: marijuana Last use: 07/14/23 Do You Feel Safe in your Home?: Yes Lack of Transportation: No Lack of Food: Never True Current Housing: I Have Housing Concerned About Future Housing: No Difficulty Paying Gas/Electric Bills: No Difficulty Paying for Meds: No Currently Unemployed: No Education: High School Diploma/GED Difficulty w/ Childcare or Family Care: No Living arrangements: with family Spiritual care concerns: No Meds Home Medications and Allergies Home Medications ?Medication ?Instructions ?Recorded ?Confirmed ?Type paroxetine HCl 30 mg tablet 30 mg PO DAILY 02/27/23 10/27/24 History zolpidem 10 mg tablet 10 mg PO HS PRN Insomnia 02/27/23 10/27/24 History aspirin 81 mg tablet,delayed 81 mg PO QAM 30 days #30 tabs 03/09/23 10/27/24 Rx release metoprolol tartrate 25 mg tablet 25 mg PO Q12HR 30 days #60 tabs 03/09/23 10/27/24 Rx atorvastatin 80 mg tablet 80 mg PO HS 01/20/24 10/27/24 History sacubitril 24 mg-valsartan 26 mg 1 tablet PO Q12HR #60 tabs 02/13/24 10/27/24 Rx tablet (Entresto) levetiracetam 1,000 mg tablet 1,000 mg PO BID #180 tabs 06/18/24 10/27/24 Rx (Keppra) tramadol 50 mg tablet 50 mg PO Q6H PRN pain 10/27/24 10/27/24 History Allergies Allergy/AdvReac Type Severity Reaction Status Date / Time No Known Allergies Allergy Verified 07/16/24 19:38 Vital Signs Vital Signs - 24 hr 10/27/24 08:51 10/27/24 09:08 10/27/24 09:16 Temperature 98.1 F Pulse Rate 80 77 Respiratory Rate 20 Blood Pressure 139/78 Pulse Oximetry 92 Oxygen Delivery Room Air Room Air 10/27/24 09:54 10/27/24 10:53 10/27/24 11:00 Temperature Pulse Rate 70 77 Respiratory Rate 16 25 H Blood Pressure 110/73 145/78 H Pulse Oximetry 93 95 Oxygen Delivery Room Air 10/27/24 14:12 10/27/24 15:15 10/27/24 17:50 Temperature 100.6 F H 99.5 F Pulse Rate 72 77 90 Respiratory Rate 20 16 20 Blood Pressure 155/76 H 105/51 L 113/69 Pulse Oximetry 95 93 96 Oxygen Delivery 10/27/24 20:07 Temperature 99.2 F Pulse Rate 74 Respiratory Rate 20 Blood Pressure 103/63 Pulse Oximetry 95 Oxygen Delivery Exam Narrative: General: Moderately ill-appearing gentleman supine in bed. Weight: 69.6 kg. BMI: 21.4. HEENT: Pupils are reactive. Extraocular motions are intact. Sclera anicteric. Conjunctiva mildly injected. Tacky mucous membranes. Several missing teeth. Neck: Supple. No midline vertebral tenderness. No obvious carotid bruits. Respiratory: Respirations are nonlabored and lungs sounds clear to auscultation. Cardiovascular: Tachycardic with normal S1-S2. Gastrointestinal: Abdomen is soft, nontender, and nondistended with positive bowel sounds. Skin: Warm and dry. Extremities: No cyanosis, clubbing, or edema. Radial and pedal pulses intact. Spine: No midline vertebral tenderness. Neurological: Alert and oriented x3; he is a bit confused regarding situation earlier today. Cranial nerves 2-12 are grossly intact. No to move upper and lower extremities without obvious limitations. Hand director of global talent and foot pushes equal bilaterally. Gait not assessed. Psychiatric: Cooperative with appropriate mood and slightly odd affect. H&P: Results Labs Labs: Short CBC 10/27/24 Range/Units 09:10 WBC 10.2 H (4.5-10.0) K/mm3 Hgb 15.6 (14.0-18.0) g/dL Hct 46.3 (42.0-52.0) % Plt Count 269 (150-375) k/mm3 BMP 10/27/24 09:10 Sodium 137 Potassium 4.2 Chloride 109 H Carbon Dioxide 17 L BUN 17 Creatinine 1.20 Glucose 151 H Calcium 9.3 Cardiac Enzymes 10/27/24 Range/Units 11:16 Total Creatine Kinase 494 H (55-170) U/L Liver Function 10/27/24 Range/Units 09:10 Total Bilirubin 0.6 (0.2-1.3) mg/dL AST 31 (17-59) U/L ALT 27 (6-50) U/L Alkaline Phosphatase 115 (38-126) U/L Albumin 4.4 (3.5-5.1) g/dL Urine 10/27/24 Range/Units 14:21 Urine Color Yellow (Yellow) Urine Appearance Cloudy H (Clear) Urine pH 5.0 (5.0-9.0) Ur Specific [place] 1.024 (1.001-1.035) Urine Protein 2+ H (Negative) mg/dL Urine Glucose (UA) Negative (Negative) mg/dL Impressions Chest X-Ray 10/27/24 09:44 Impression: No acute abnormality in the lungs. Compression fracture, as above. Head CT 10/27/24 12:54 Impression: No acute abnormality seen. Chronic right cerebellar infarct. Cervical Spine CT 10/27/24 13:09 Impression: No fracture or subluxation of the cervical spine. Degenerative change, as above. Head CT 10/27/24 16:00 IMPRESSION: No acute intracranial process. Aerated secretions in the sphenoid sinuses may represent acute sinusitis in the appropriate clinical context. Cervical Spine CT 10/27/24 16:33 IMPRESSION: No acute fracture or traumatic malalignment in the cervical spine. Abdomen/Pelvis CT 10/27/24 16:36 IMPRESSION: Gallbladder distention which may be secondary to fasting. Acute cholecystitis less likely. Assessment and Plan Assessment and plan (1) Seizure: Code(s): R56.9 - Unspecified convulsions Status: Acute (2) RSV infection: Code(s): B33.8 - Other specified viral diseases Status: Acute (3) Thoracic compression fracture: Code(s): S22.000A - Wedge compression fracture of unspecified thoracic vertebra, initial encounter for closed fracture Status: Acute (4) Lactic acidosis: Code(s): E87.20 - Acidosis, unspecified Status: Acute (5) Microscopic hematuria: Code(s): R31.29 - Other microscopic hematuria Status: Acute (6) Hypertension: Code(s): I10 - Essential (primary) hypertension Status: Chronic (7) Combined systolic and diastolic congestive heart failure: Code(s): I50.40 - Unspecified combined systolic (congestive) and diastolic (congestive) heart failure Status: Acute (8) Right ventricular systolic dysfunction without heart failure: Code(s): I51.89 - Other ill-defined heart diseases Status: Acute Plan The patient presented to the emergency department for evaluation after suspected seizure earlier today and another witnessed seizure in the emergency department as detailed in HPI. Labs, imaging, EKG, and all reports were personally reviewed. His postictal state is now wearing off and he is much more alert and oriented. He states compliance with his levetiracetam but was bolused in the ED. Neurology has been consulted for their opinion. Lactic acid level has normalized. CK is up a bit and will be monitored. Initiate seizure precautions and fall precautions. He states he is not drinking much however he will be monitored closely with [facility] protocol. He tested positive for RSV and will be treated symptomatically. CT scan for evaluation of microscopic hematuria was relatively unrevealing; possibly related to seizure. Blood pressures were reviewed and they are stable. Volume status is euvolemic; avoid over-hydration. His home medications will be reviewed and resumed as appropriate. Findings and treatment plan were discussed with the patient. Questions were solicited and answered to satisfaction. The patient's medical management will be taken over by the hospitalist team in a.m. Quality VTE Prophylaxis VTE prophylaxis: mechanical ordered If No VTE Prophylaxis Answer both mechanical and pharmacologic: Reason no pharmacologic proph: medical contraindication (fall risk) The patient has been admitted under observation status. Hospitalist [facility] Advance Care Plan I have confirmed that the patient's Advanced Care Plan is present, code status is documented, or surrogate decision maker is listed in patient medical record.: Yes Medication Reconciliation I have utilized all available resources to obtain, update and review the patients current medications (includes all prescriptions, OTC, herbals, cannabis, and nutritional supplements).: Yes
--- NOTE | 2024-10-27 22:47 | ADMGEN ---
This patient, Wes Townsend, was admitted to Medical Room 246-01. Patient/family oriented to hospital policies and general routines including ID bracelet, bed and alarms, visiting hours, pain management, procedures, bathroom and other care routines, personal items, smoking policy, room service/diet, and visiting hours. Information on how to activate the Rapid Response Team has been discussed. Patient/Family are encouraged to report perceived risks to care and to ask questions if they do not understand what they are told or what they should do.
[2024-10-28] VITALS (8 sets, daily range): BP systolic 103–131; BP diastolic 63–77; PULSE 61–77; RESP 18–20; TEMP 36.8–37.1; O2SAT 98
[2024-10-28 05:50] LABS: Hematocrit 40.5 % (42.0-52.0); Hemoglobin 13.8 g/dL (14.0-18.0); Mean Corpuscular HGB Conc 34.1 g/dl (32-36); Mean Platelet Volume 10.6 fl (7.4-10.4); Platelet Count Result 239 k/mm3 (150-375); Red Blood Count 4.45 M/mm3 (4.6-6.20); Red Cell Distribution Width 13.7 % (11.5-14.5); White Blood Count 10.1 K/mm3 (4.5-10.0)
[2024-10-28 06:13] LABS: Anion Gap 4 mmol/L (4-12); Blood Urea Nitrogen 13 mg/dL (9-20); Calcium 8.8 mg/dL (8.4-10.2); Carbon Dioxide 21 mmol/L (22-30); Chloride 112 mmol/L (98-107); Estimated CRCL calculation 56 ml/min; Estimated Glomerular Filt Rate > 60; Glucose 98 mg/dL (65-110); Magnesium 2.1 mg/dL (1.6-2.3); Potassium 3.5 mmol/L (3.4-5.0); Sodium 137 mmol/L (137-145)
[2024-10-28 06:36] LABS: Creatine Kinase 4267 U/L (55-170)
[2024-10-28] MEDS: ASPIRIN 81 MG ENTERIC TABLET PO (08:41)
[2024-10-28] MEDS: levETIRAcetam 500 MG TABLET 1000 MG PO ×2 (08:41→20:12)
[2024-10-28] MEDS: SACUBITRIL/VALSARTAN 24-26 MG TABLET 1 TAB PO ×2 (08:42→20:12)
[2024-10-28] MEDS: PARoxetine 10 MG TABLET 30 MG PO (08:42)
[2024-10-28] MEDS: METOPROLOL TARTRATE 25 MG TABLET PO ×2 (08:42→20:12)
--- NOTE | 2024-10-28 11:07 | P.PNIM_ITS ---
Progress Note: A&P Assessment and Plan (1) Seizure: Code(s): R56.9 - Unspecified convulsions Status: Acute Assessment and Plan: * The patient presented to the emergency department for evaluation after suspected seizure earlier today and another witnessed seizure in the emergency department. * Seizure precautions. * Levetiracetam level pending. * Levetiracetam 1,000 mg PO q12 * Neurology consult (2) RSV infection: Code(s): B33.8 - Other specified viral diseases Status: Acute Assessment and Plan: * Droplet precautions. * Treat symptoms. (3) Thoracic compression fracture: Code(s): S22.000A - Wedge compression fracture of unspecified thoracic vertebra, initial encounter for closed fracture Status: Acute Assessment and Plan: * Tylenol for pain as needed. (4) Lactic acidosis: Code(s): E87.20 - Acidosis, unspecified Status: Acute Assessment and Plan: * Lactic acid has normalized (12.8>1.1). (5) Microscopic hematuria: Code(s): R31.29 - Other microscopic hematuria Status: Acute Assessment and Plan: * monitor urine and any urinary symptoms * Encourage water (6) Hypertension: Code(s): I10 - Essential (primary) hypertension Status: Chronic Assessment and Plan: * Blood pressure 131/69. * Continue Metoprolol 25 mg PO q 12 and Sacubitril/ Valsartan 24-26 mg 1 tab oral q 12. 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 * 01/24/24 Echo EF 30-35%. * Echocardiogram. (8) Right ventricular systolic dysfunction without heart failure: Code(s): I51.89 - Other ill-defined heart diseases Status: Acute Assessment and Plan: * Continue Metoprolol 25 mg PO q 12 and Sacubitril/ Valsartan 24-26 mg 1 tab oral q 12. (9) Alcohol abuse: Code(s): F10.10 - Alcohol abuse, uncomplicated Status: Acute Assessment and Plan: * CIWA (10) Headache: Code(s): R51.9 - Headache, unspecified Status: Acute Assessment and Plan: * Tylenol PRN. Subjective Date/time seen: 10/28/24 11:07 Interval history: Patient sitting up in chair. Patient denies chest pain, palpitations, shortness of breath, or dizziness. Patient reports a headache that is a 2 , frequent, and pressure. Patient states that he does not have any symptoms prior to seizures in the past. The last seizure he had prior to the seizure this time was on 01/20/24 according to patient. Review of Systems Review of Systems: All systems reviewed & are unremarkable except as noted in HPI and below Exam Const: General: no acute distress and uncomfortable HENMT: Other: hard of hearing Eyes: Sclera: sclerae normal Resp: Effort & Inspection: normal respiratory effort Auscultation: clear to auscultation bilaterally Cardio: Rate: regular rate Rhythm: regular rhythm GI: GI Palp: Yes Soft to palpation Auscultation: normal bowel sounds Skin: General skin exam: no rashes or lesions noted Neuro: Speech: normal speech Extrem: General: no pedal edema Psych: Affect: normal affect Objective Data Vital Signs Vital Signs: Vital Signs - 24 hr 10/27/24 14:12 10/27/24 15:15 10/27/24 17:50 Temperature 100.6 F H 99.5 F Pulse Rate 72 77 90 Respiratory Rate 20 16 20 Blood Pressure 155/76 H 105/51 L 113/69 Pulse Oximetry 95 93 96 Oxygen Delivery 10/27/24 20:00 10/27/24 20:07 10/28/24 01:13 Temperature 99.2 F Pulse Rate 74 74 Respiratory Rate 20 20 Blood Pressure 103/63 103/63 Pulse Oximetry 95 95 Oxygen Delivery Room Air 10/28/24 04:00 10/28/24 05:25 10/28/24 08:00 Temperature 98.7 F Pulse Rate 77 Respiratory Rate 20 Blood Pressure 103/63 131/69 Pulse Oximetry 98 98 Oxygen Delivery Room Air 10/28/24 08:42 Temperature Pulse Rate 70 Respiratory Rate Blood Pressure Pulse Oximetry Oxygen Delivery Intake/Output Intake/Output: Intake & Output 10/25/24 10/26/24 10/27/24 10/28/24 23:59 23:59 23:59 23:59 Intake Total 1145 480 Output Total 50 975 Balance 1095 -495 Meds/Results Medications: Active Medications Generic Name Dose Route Start Last Admin Trade Name Freq PRN Reason Stop Dose Admin Acetaminophen 650 mg 10/27/24 17:11 Acetaminophen 325 Mg Tablet PO Q4H PRN Mild Pain (1-3) or Fever Aspirin 81 mg 10/28/24 09:00 10/28/24 08:41 Aspirin 81 Mg Enteric Tablet PO 81 mg QAM MARSHA Administration Atorvastatin Calcium 80 mg 10/28/24 21:00 Atorvastatin 40 Mg Tablet PO HS MARSHA Levetiracetam 1,000 mg 10/28/24 09:00 10/28/24 08:41 Levetiracetam 500 Mg Tablet PO 1,000 mg Q12HR MARSHA Administration Metoprolol Tartrate 25 mg 10/28/24 09:00 10/28/24 08:42 Metoprolol Tartrate 25 Mg Tablet PO 25 mg Q12HR MARSHA Administration Ondansetron HCl 4 mg 10/27/24 17:11 Ondansetron Inj 4 Mg/2 Ml Vial IV PUSH Q4H PRN Nausea Paroxetine HCl 30 mg 10/28/24 09:00 10/28/24 08:42 Paroxetine 10 Mg Tablet PO 30 mg DAILY MARSHA Administration Sacubitril/Valsartan 1 tab 10/28/24 09:00 10/28/24 08:42 Sacubitril/Valsartan 24-26 Mg Tablet PO 1 tab Q12HR MARSHA Administration Tramadol HCl 50 mg 10/28/24 01:14 Tramadol Hcl (*Crx) 50 Mg Tablet PO Q6H PRN pain 4-6 Radiology Results: ITS Impressions Chest X-Ray 10/27/24 09:44 Impression: No acute abnormality in the lungs. Compression fracture, as above. Head CT 10/27/24 16:00 IMPRESSION: No acute intracranial process. Aerated secretions in the sphenoid sinuses may represent acute sinusitis in the appropriate clinical context. Cervical Spine CT 10/27/24 16:33 IMPRESSION: No acute fracture or traumatic malalignment in the cervical spine. Abdomen/Pelvis CT 10/27/24 16:36 IMPRESSION: Gallbladder distention which may be secondary to fasting. Acute cholecystitis less likely. Labs Labs: Laboratory Results - last 24 hr 10/27/24 10/27/24 10/27/24 11:16 13:29 14:13 WBC RBC Hgb Hct MCV MCH MCHC RDW Plt Count MPV Sodium Potassium Chloride Carbon Dioxide Anion Gap BUN Creatinine Estim Creat Clear Calc Estimated GFR Glucose Lactic Acid 12.8 H* Calcium Magnesium Ammonia < 9 L Total Creatine Kinase 494 H Urine Color Urine Appearance Urine pH Ur Specific [place] Urine Protein Urine Glucose (UA) Urine Ketones Ur Blood (Man) Urine Nitrate Urine Bilirubin Urine Urobilinogen Add Ur Microanalysis Leukocyte Esterase Rfl Urine RBC Urine WBC Ur Squamous Epith Cells Urine Bacteria Urine Casts Salicylates < 1.0 L Urine Opiates Screen Urine Methadone Screen Acetaminophen < 10 L Ur Barbiturates Screen Ur Phencyclidine Scrn Ur Amphetamine Screen U Benzodiazepines Scrn Urine Cocaine Screen U Cannabinoids Screen Ethyl Alcohol < 10 Influenza A (RT-PCR) Negative Influenza B (RT-PCR) Negative RSV (RT-PCR) Positive A SARS-CoV-2 RNA (RT-PCR) Negative 10/27/24 10/27/24 10/28/24 14:21 15:15 05:28 WBC 10.1 H RBC 4.45 L Hgb 13.8 L Hct 40.5 L MCV 91.0 MCH 31.0 MCHC 34.1 RDW 13.7 Plt Count 239 MPV 10.6 H Sodium 137 Potassium 3.5 Chloride 112 H Carbon Dioxide 21 L Anion Gap 4 BUN 13 Creatinine 1.00 Estim Creat Clear Calc 56 Estimated GFR > 60 Glucose 98 Lactic Acid 1.1 Calcium 8.8 Magnesium 2.1 Ammonia Total Creatine Kinase 4267 H Urine Color Yellow Urine Appearance Cloudy H Urine pH 5.0 Ur Specific [place] 1.024 Urine Protein 2+ H Urine Glucose (UA) Negative Urine Ketones Trace H Ur Blood (Man) 3+ H Urine Nitrate Negative Urine Bilirubin Negative Urine Urobilinogen 0.2 Add Ur Microanalysis Reviewed Leukocyte Esterase Rfl Negative Urine RBC 0-2 Urine WBC 0-5 Ur Squamous Epith Cells None seen Urine Bacteria None seen Urine Casts 0-2 Salicylates Urine Opiates Screen Negative Urine Methadone Screen Negative Acetaminophen Ur Barbiturates Screen Negative Ur Phencyclidine Scrn Negative Ur Amphetamine Screen Negative U Benzodiazepines Scrn Negative Urine Cocaine Screen Negative U Cannabinoids Screen Positive A Ethyl Alcohol Influenza A (RT-PCR) Influenza B (RT-PCR) RSV (RT-PCR) SARS-CoV-2 RNA (RT-PCR) Quality VTE Prophylaxis VTE prophylaxis: mechanical ordered
--- NOTE | 2024-10-28 16:13 | P.CONNEU_ITS ---
Assessment and Plan Assessment and plan (1) Seizure disorder: Code(s): G40.909 - Epilepsy, unspecified, not intractable, without status epilepticus Status: Acute Assessment and Plan: the patient is supposed to be on Keppra 1000 mg twice a day. It appears that he does sometimes does forget to take medications. He admits to it. I emphasized to him that he needs to stay compliant with the medications. We should check his blood level and despite a normal level if he has any seizure he may need a higher dose of medications however given the history it appears that he probably needs to lay out his medications so that he does not forget to take the medications. He also was under the impression that he does not always have take the medications and I had some discussion with him regarding this given the previous history and the current history he must take his medications regularly. If necessary we can increase the dose of Keppra further to 1500 mg twice a day however side effect of the medications could be a barrier and hence we should check his blood level and try to improve his compliance and emphasized that through his family members To keep an eye on the compliance. CT scan of brain did not show any significant abnormalities. An EEG performed on 01/23/2024 did not show any focal or paroxysmal epileptiform abnormalities. MRI of the brain was performed on 03/06/2023 which has shown mild white matter changes. Hence out suggest a carotid Doppler study and lipid profile. He should also avoid taking Ultram since this can increase risk of seizures. (2) Alcohol abuse: Code(s): F10.10 - Alcohol abuse, uncomplicated Status: Acute Assessment and Plan: he does not show any signs of alcohol withdrawal at this time. According to the records he has stopped drinking however this will require some follow-up. 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 (6) RSV infection: Code(s): B33.8 - Other specified viral diseases Status: Acute Assessment and Plan: Currently patient is in isolation. (7) Rhabdomyolysis: Qualifiers: Rhabdomyolysis type: non-traumatic Qualified Code(s): M62.82 - Rhabdomyolysis Code(s): M62.82 - Rhabdomyolysis Status: Acute Assessment and Plan: This would appear to be due to the fall he had which led to the discovery of having a seizure after that he was confused. Plan As discussed above she takes carotid Doppler study and lipid profile and Keppra level. Also discontinue Ultram In view of history of seizures. He should continue the Keppra 1000 mg twice a day. We should discuss with the family members to keep an his compliance and patient should be encouraged to stay of alcohol and continue the medication as directed for now. He should be followed up in Neurology Clinic periodically. Consult date: 10/28/24 HPI: Wes Townsend is a 74 year old male With history of seizure disorder and alcohol abuse and cardiomyopathy was seen for neurologic consultation. Apparently he has had 2 seizures and 1 of them he was found have had a fall. CPK is high in fact has gone up since admission to 4267. Lactic acid level was high at 12.8 and gone down to 1.[address] scan of brain was normal. Patient to is also somewhat hard of hearing. He has been on Keppra 2000 mg a day and he states that he does forget to take the medications sometimes. He did not know that he is supposed to take it on a regular basis and we had some discussion about it. He in fact show me after discharge from the hospital on 06/18/2024 in my office and I had requested for some blood work including a Keppra level but he never got this done. He apparently has cut back on alcohol. He was extremely sick when I 1st saw him in December or January of 2023 when he was admitted to ICU and subsequently improved. He also history of hypertension, hyperlipidemia, depression and anxiety. He lives with his daughter who heard the noise coming from the other room and she went to check on him and he appeared to confused. The daughter thought that he probably has had a seizure that could explain the noise that she heard. The EMS has reported that he was combative EN route to the hospital. His urine drug screen was positive for cannabis. It high alcohol level was less than 10. He tested positive for RSV. He is currently in isolation for that CT scan of the brain and cervical spine were negative for any acute findings. He had another seizure in emergency room for which he was given lorazepam 2 mg IV and was given a loading dose of levetiracetam to 4500 mg. After that he was set on levetiracetam 1000 mg twice a day. He has not had any seizure thereafter and in fact has been fairly pleasant and cooperative according to the nursing staff. Review of Systems 2 Constitutional: Constitutional: Denies chills, Denies fever(s) and Denies weight loss Eyes: Eyes: Denies diplopia and Denies loss of vision ENT: Denies dizziness and Reports hearing loss Cardiovascular: Cardiovascular: Denies chest pain, Denies syncope and Denies dyspnea Comments: Patient has history of cardiomyopathy but is currently controlled with medications. Records reflect he has had a right heart failure also. Respiratory: Respiratory: Denies cough, Denies dyspnea and Denies wheezing Gastrointestinal: Gastrointestinal: Denies abdominal pain, Denies change in bowel habits and Denies vomiting Genitourinary: Genitourinary: Denies urinary incontinence Integumentary/Breasts: Skin/Breast: Denies rash Neurologic: Reports as per HPI, Denies dizziness and Denies loss of vision Comments: In between seizures he states that he is fairly active and has not had any difficulty walking or balance he regular writes a bike he states that he does not get short of breath while writing. 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 difficile colitis Alcohol use, unspecified with unspecified alcohol-induced disorder Prediabetes Small bowel obstruction Diverticulitis Seizure Hyperlipidemia Hypertension Surgical History Surgical History History of cardiac catheterization (06/2023) Nonobstructive coronary artery disease, slow flow noted in LAD. History of partial colectomy History of incisional hernia repair History of tonsillectomy History of appendectomy History of exploratory laparotomy Family History Family History Other Acute myocardial infarction Alzheimer's dementia Breast cancer Hypertension Social History Social History Social History: Surrogate medical decision maker: Briana Townsend, daughter. Code status: Full code. Smoking status: Never smoker Alcohol intake: current Drinks per week: 3 Substance use: current Substance use type: marijuana Last use: 07/14/23 Do You Feel Safe in your Home?: Yes Lack of Transportation: No Lack of Food: Never True Current Housing: I Have Housing Concerned About Future Housing: No Difficulty Paying Gas/Electric Bills: No Difficulty Paying for Meds: No Currently Unemployed: No Education: High School Diploma/GED Difficulty w/ Childcare or Family Care: No Living arrangements: with family Spiritual care concerns: No Meds Home Medications and Allergies Home Medications ?Medication ?Instructions ?Recorded ?Confirmed ?Type paroxetine HCl 30 mg tablet 30 mg PO DAILY 02/27/23 10/27/24 History zolpidem 10 mg tablet 10 mg PO HS PRN Insomnia 02/27/23 10/27/24 History aspirin 81 mg tablet,delayed 81 mg PO QAM 30 days #30 tabs 03/09/23 10/27/24 Rx release metoprolol tartrate 25 mg tablet 25 mg PO Q12HR 30 days #60 tabs 03/09/23 10/27/24 Rx atorvastatin 80 mg tablet 80 mg PO HS 01/20/24 10/27/24 History sacubitril 24 mg-valsartan 26 mg 1 tablet PO Q12HR #60 tabs 02/13/24 10/27/24 Rx tablet (Entresto) levetiracetam 1,000 mg tablet 1,000 mg PO BID #180 tabs 06/18/24 10/27/24 Rx (Keppra) tramadol 50 mg tablet 50 mg PO Q6H PRN pain 10/27/24 10/27/24 History Allergies Allergy/AdvReac Type Severity Reaction Status Date / Time No Known Allergies Allergy Verified 07/16/24 19:38 Vital Signs Vital Signs - 24 hr 10/27/24 17:50 10/27/24 20:00 10/27/24 20:07 Temperature 99.5 F 99.2 F Pulse Rate 90 74 74 Respiratory Rate 20 20 20 Blood Pressure 113/69 103/63 Pulse Oximetry 96 95 95 Oxygen Delivery Room Air 10/28/24 01:13 10/28/24 04:00 10/28/24 05:25 Temperature 98.7 F Pulse Rate 77 Respiratory Rate 20 Blood Pressure 103/63 103/63 131/69 Pulse Oximetry 98 Oxygen Delivery 10/28/24 08:00 10/28/24 08:42 10/28/24 14:00 Temperature 98.2 F Pulse Rate 70 61 Respiratory Rate 20 Blood Pressure 122/77 Pulse Oximetry 98 98 Oxygen Delivery Room Air Exam 2 Const: General: no acute distress Orientation/consciousness: oriented to person, oriented to place and oriented to time Other: Patient is somewhat hard of hearing but still able to communicate and is very pleasant and cooperative. HENMT: Head: normocephalic and atraumatic Ears: external ears normal F rossy/Nose/Sinus: Normal external nose present Mouth: Yes Normal oral and palatal mucosa present Eyes: General: appearance normal, both eyes and all related structures E yelids: eyelids normal Conjunctivae: conjunctivae normal Pupils: Equal, round and reactive pupils present EOM: No Nystagmus present Neck: Neck: normal visual inspection Resp: Effort & Inspection: normal respiratory effort Skin: General skin exam: normal color Neuro: General: oriented to person, oriented to place and oriented to time Cranial nerves: Yes CN's II-XII intact bilaterally, Yes Equal, round and reactive pupils present, Yes Bilaterally intact EOM present, Yes Nystagmus not present, Yes Normal facial strength present, Yes facial symmetry, Yes Midline tongue present, Yes Symmetric palate elevation present, Yes Ability to bilaterally elevate shoulders present and No Nystagmus present Speech: normal speech Motor exam (neuro): 5/5 motor strength present throughout, Normal motor muscle tone present throughout and Motor abnormalities not present S ensory Exam: normal sensation Deep tendon reflexes (DTR's): Right triceps reflex intensity grade: 1+, Left triceps reflex intensity grade: 1+, Rt Biceps (C5, C6): 1+, Left biceps reflex intensity grade: 1+, Right brachioradialis reflex intensity grade: 1+, Left brachioradialis reflex intensity grade: 1+, Right patellar reflex intensity grade: 1+, Left patellar reflex intensity grade: 1+, Right ankle reflex intensity grade: 0 and Left ankle reflex intensity grade: 0 Coordination: [id number] test normal Extrem: General: normal to inspection Psych: Appearance: grossly normal Mental Status: mental status grossly normal Affect: normal affect Attitude: cooperative Results Labs 10/28/24 05:28 10/28/24 05:28 Labs: Short CBC 10/28/24 Range/Units 05:28 WBC 10.1 H (4.5-10.0) K/mm3 Hgb 13.8 L (14.0-18.0) g/dL Hct 40.5 L (42.0-52.0) % Plt Count 239 (150-375) k/mm3 BMP 10/28/24 05:28 Sodium 137 Potassium 3.5 Chloride 112 H Carbon Dioxide 21 L BUN 13 Creatinine 1.00 Glucose 98 Calcium 8.8 Cardiac Enzymes 10/28/24 Range/Units 05:28 Total Creatine Kinase 4267 H (55-170) U/L
[2024-10-28 19:14] LABS: Cholesterol 112 mg/dL (0-200); HDL Direct 37 mg/dL; Magnesium 2.1 mg/dL (1.6-2.3); Triglycerides 105 mg/dL (<150)
[2024-10-28 19:25] LABS: LDL Cholesterol Direct 48 mg/dL
[2024-10-28] MEDS: ACETAMINOPHEN 325 MG TABLET 650 MG PO (20:12)
[2024-10-28] MEDS: ATORVASTATIN 40 MG TABLET 80 MG PO (20:12)
[2024-10-28 20:21] LABS: Folic Acid 9.8 ng/mL (2.76->20)
[2024-10-29] VITALS (9 sets, daily range): BP systolic 111–123; BP diastolic 57–63; PULSE 56–74; RESP 17–20; TEMP 36.4–36.8; O2SAT 95–98
[2024-10-29 05:57] LABS: Basophils Absolute Auto 0.1 K/mm3 (0.0-0.1); Basophils Percent Auto 0.6 % (0.2-1.2); Eosinophils Absolute Auto 0.4 K/mm3 (0-0.3); Eosinophils Percent Auto 4.2 % (0-4.4); Hematocrit 45.2 % (42.0-52.0); Hemoglobin 15.1 g/dL (14.0-18.0); Immature Granulocyte Absolute 0.03 K/mm3 (0.00-0.031); Immature Granulocyte Percent A 0.3 % (0-0.5); Lymphocytes Absolute Auto 3.47 K/mm3 (0.9-3.2); Lymphocytes Percent Auto 38.6 % (18.3-44.2); Mean Corpuscular HGB Conc 33.4 g/dl (32-36); Mean Corpuscular Hemoglobin 31.3 pg (26-34); Mean Corpuscular Volume 93.6 fl (80-100); Mean Platelet Volume 10.5 fl (7.4-10.4); Monocytes Absolute Auto 1.1 K/mm3 (0.1-0.6); Monocytes Percent Auto 12.7 % (2.6-8.5); Neutrophils Absolute Auto 3.9 K/mm3 (1.3-6.7); Neutrophils Percent Auto 43.6 % (45.5-73.1); Platelet Count Result 252 k/mm3 (150-375); Red Blood Count 4.83 M/mm3 (4.6-6.20); Red Cell Distribution Width 13.8 % (11.5-14.5)
[2024-10-29 06:02] LABS: Alanine Aminotransferase 41 U/L (6-50); Albumin Level 3.9 g/dL (3.5-5.1); Alkaline Phosphatase 98 U/L (38-126); Anion Gap 2 mmol/L (4-12); Aspartate Amino Transferase 105 U/L (17-59); Bilirubin,Total 0.8 mg/dL (0.2-1.3); Blood Urea Nitrogen 16 mg/dL (9-20); Calcium 9.1 mg/dL (8.4-10.2); Carbon Dioxide 27 mmol/L (22-30); Chloride 110 mmol/L (98-107); Estimated CRCL calculation 50 ml/min; Estimated Glomerular Filt Rate > 60; Glucose 106 mg/dL (65-110); Potassium 4.1 mmol/L (3.4-5.0); Sodium 139 mmol/L (137-145)
[2024-10-29] MEDS: PARoxetine 10 MG TABLET 30 MG PO (08:12)
[2024-10-29] MEDS: ASPIRIN 81 MG ENTERIC TABLET PO (08:12)
[2024-10-29] MEDS: levETIRAcetam 500 MG TABLET 1000 MG PO ×2 (08:12→20:54)
[2024-10-29] MEDS: METOPROLOL TARTRATE 25 MG TABLET PO ×2 (08:12→20:54)
[2024-10-29] MEDS: SACUBITRIL/VALSARTAN 24-26 MG TABLET 1 TAB PO ×2 (08:12→20:53)
[2024-10-29 09:11] LABS: Creatine Kinase 2612 U/L (55-170)
--- NOTE | 2024-10-29 09:58 | P.PNIM_ITS ---
Progress Note: A&P Assessment and Plan (1) Seizure: Code(s): R56.9 - Unspecified convulsions Status: Acute Assessment and Plan: * The patient presented to the emergency department for evaluation after suspected seizure earlier today and another witnessed seizure in the emergency department. * Seizure precautions. * Levetiracetam level pending. * Levetiracetam 1,000 mg PO q12 * Neurology consult * Carotid dopplers: IMPRESSION: 1. <50% stenosis in the right internal carotid artery. 2. <50% stenosis in the left internal carotid artery. * CK improvin>2612 (2) RSV infection: Code(s): B33.8 - Other specified viral diseases Status: Acute Assessment and Plan: * Droplet precautions. * Treat symptoms. (3) Thoracic compression fracture: Code(s): S22.000A - Wedge compression fracture of unspecified thoracic vertebra, initial encounter for closed fracture Status: Acute Assessment and Plan: * Tylenol for pain as needed. (4) Lactic acidosis: Code(s): E87.20 - Acidosis, unspecified Status: Acute Assessment and Plan: * Lactic acid has normalized (12.8>1.1). (5) Microscopic hematuria: Code(s): R31.29 - Other microscopic hematuria Status: Acute Assessment and Plan: * monitor urine and any urinary symptoms * Encourage water (6) Hypertension: Code(s): I10 - Essential (primary) hypertension Status: Chronic Assessment and Plan: * Blood pressure 112/62. * Continue Metoprolol 25 mg PO q 12 and Sacubitril/ Valsartan 24-26 mg 1 tab oral q 12. 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 * 01/24/24 Echo EF 30-35%. * Echocardiogram. (8) Right ventricular systolic dysfunction without heart failure: Code(s): I51.89 - Other ill-defined heart diseases Status: Acute Assessment and Plan: * Continue Metoprolol 25 mg PO q 12 and Sacubitril/ Valsartan 24-26 mg 1 tab oral q 12. (9) Alcohol abuse: Code(s): F10.10 - Alcohol abuse, uncomplicated Status: Acute Assessment and Plan: * RUSS Subjective Date/time seen: 10/29/24 09:58 Interval history: Patient sitting up in bed. Patient denies chest pain, palpitations, headache, dizziness, nausea, or vomiting. Review of Systems Review of Systems: All systems reviewed & are unremarkable except as noted in HPI and below Exam Const: General: comfortable and no acute distress Eyes: Sclera: sclerae normal Resp: Effort & Inspection: normal respiratory effort Auscultation: clear to auscultation bilaterally Cardio: Rate: regular rate Rhythm: regular rhythm GI: GI Palp: Yes Soft to palpation Auscultation: normal bowel sounds Skin: General skin exam: no rashes or lesions noted Neuro: Speech: normal speech Extrem: General: no pedal edema Psych: Mental Status: mental status grossly normal Affect: normal affect Objective Data Vital Signs Vital Signs: Vital Signs - 24 hr 10/28/24 14:00 10/28/24 20:00 10/28/24 20:00 Temperature 98.2 F Pulse Rate 61 62 Respiratory Rate 20 18 Blood Pressure 122/77 116/63 Pulse Oximetry 98 98 Oxygen Delivery Room Air 10/28/24 20:24 10/29/24 00:00 10/29/24 04:00 Temperature 98.2 F Pulse Rate 62 Respiratory Rate 18 Blood Pressure 116/63 116/63 116/63 Pulse Oximetry 98 Oxygen Delivery 10/29/24 05:10 10/29/24 08:00 10/29/24 08:12 Temperature 97.7 F Pulse Rate 60 70 Respiratory Rate 20 Blood Pressure 112/62 Pulse Oximetry 98 98 Oxygen Delivery Room Air Intake/Output Intake/Output: Intake & Output 10/26/24 10/27/24 10/28/24 10/29/24 23:59 23:59 23:59 23:59 Intake Total 1145 1200 710 Output Total 50 975 Balance 1095 225 710 Meds/Results Medications: Active Medications Generic Name Dose Route Start Last Admin Trade Name Freq PRN Reason Stop Dose Admin Acetaminophen 650 mg 10/27/24 17:11 10/28/24 20:12 Acetaminophen 325 Mg Tablet PO 650 mg Q4H PRN Administration Mild Pain (1-3) or Fever Aspirin 81 mg 10/28/24 09:00 10/29/24 08:12 Aspirin 81 Mg Enteric Tablet PO 81 mg QAM MARSHA Administration Atorvastatin Calcium 80 mg 10/28/24 21:00 10/28/24 20:12 Atorvastatin 40 Mg Tablet PO 80 mg HS MARSHA Administration Levetiracetam 1,000 mg 10/28/24 09:00 10/29/24 08:12 Levetiracetam 500 Mg Tablet PO 1,000 mg Q12HR MARSHA Administration Metoprolol Tartrate 25 mg 10/28/24 09:00 10/29/24 08:12 Metoprolol Tartrate 25 Mg Tablet PO 25 mg Q12HR MARSHA Administration Ondansetron HCl 4 mg 10/27/24 17:11 Ondansetron Inj 4 Mg/2 Ml Vial IV PUSH Q4H PRN Nausea Paroxetine HCl 30 mg 10/28/24 09:00 10/29/24 08:12 Paroxetine 10 Mg Tablet PO 30 mg DAILY MARSHA Administration Perflutren Lipid Microsphere 0 ml 10/28/24 13:12 Perflutren Lipid Microspheres 1.5 Ml Vial Diluted To 10 Ml Total Volume IV PUSH 10/31/24 13:12 ONCE PRN adequate visualization Protocol Sacubitril/Valsartan 1 tab 10/28/24 09:00 10/29/24 08:12 Sacubitril/Valsartan 24-26 Mg Tablet PO 1 tab Q12HR MARSHA Administration Radiology Results: ITS Impressions Chest X-Ray 10/27/24 09:44 Impression: No acute abnormality in the lungs. Compression fracture, as above. Head CT 10/27/24 16:00 IMPRESSION: No acute intracranial process. Aerated secretions in the sphenoid sinuses may represent acute sinusitis in the appropriate clinical context. Cervical Spine CT 10/27/24 16:33 IMPRESSION: No acute fracture or traumatic malalignment in the cervical spine. Abdomen/Pelvis CT 10/27/24 16:36 IMPRESSION: Gallbladder distention which may be secondary to fasting. Acute cholecystitis less likely. Carotid Doppler Study 10/29/24 09:53 IMPRESSION: 1. <50% stenosis in the right internal carotid artery. 2. <50% stenosis in the left internal carotid artery. Labs Labs: Laboratory Results - last 24 hr 10/28/24 10/29/24 10/29/24 18:58 05:18 05:21 WBC 9.0 RBC 4.83 Hgb 15.1 Hct 45.2 MCV 93.6 MCH 31.3 MCHC 33.4 RDW 13.8 Plt Count 252 MPV 10.5 H Immature Gran % (Auto) 0.3 Neut % (Auto) 43.6 L Lymph % (Auto) 38.6 [place] % (Auto) 12.7 H Eos % (Auto) 4.2 Baso % (Auto) 0.6 Lymph # (Auto) 3.47 H [place] # (Auto) 1.1 H Eos # (Auto) 0.4 H Baso # (Auto) 0.1 Abs Immat Gran (auto) 0.03 Absolute Neuts (auto) 3.9 Absolute Nucleated RBC 0.000 Nucleated RBC % 0.0 Sodium 139 Potassium 4.1 Chloride 110 H Carbon Dioxide 27 Anion Gap 2 L BUN 16 Creatinine 1.10 Estim Creat Clear Calc 50 Estimated GFR > 60 Glucose 106 Hemoglobin A1c 6.0 H Calcium 9.1 Magnesium 2.1 Total Bilirubin 0.8 AST 105 H ALT 41 Alkaline Phosphatase 98 Total Creatine Kinase 2612 H Total Protein 7.0 Albumin 3.9 Triglycerides 105 Cholesterol 112 LDL Cholesterol Direct 48 HDL Direct 37 Vitamin B12 649.0 Vitamin D 25-Hydroxy 32.0 Folate 9.8 Quality VTE Prophylaxis VTE prophylaxis: mechanical ordered
[2024-10-29 16:14] LABS: Levetiracetam Keppra <2.0 mcg/mL (6.0-46.0)
[2024-10-29] MEDS: ATORVASTATIN 40 MG TABLET 80 MG PO (20:53)
[2024-10-30] VITALS: PULSE 62
--- NOTE | 2024-10-30 | ECHO_ITS ---
Patient Info Name: Wes Townsend Age: 74 years : 1950 Gender: Male Ht: 71 in Wt: 151 lbs BSA: 1.85 m2 HR: 62 bpm BP: 123 / 57 mmHg Heart Rhythm: Sinus Rhythm Technical Quality: Good Exam Date: 10/30/2024 11:14 AM Exam Location: Echo Lab Exam Room: [facility] Patient Status: Inpatient Admit Date: 10/28/2024 Staff Ordering Physician: Afsaneh Wahl APRN Attendant [employer]: Francia Morrow RDCS Attending Provider: Abad Talley MD Referring Physician: Vish MOLINA; Exam Type: CA echo doppler color flow Study Info Complete two-dimensional, color flow and Doppler transthoracic echocardiogram is performed. Summary 1. Complete two-dimensional, color flow and Doppler transthoracic echocardiogram is performed. 2. Left ventricular chamber dimension is normal. 3. Left ventricular systolic function is normal, estimated at 55-60%. 4. There is no increased left ventricular wall thickness. 5. Left ventricular wall motion is normal. 6. The left ventricular diastolic function is grade I diastolic dysfunction. 7. Right ventricular chamber dimension is normal. 8. Right ventricular systolic function is reduced. 9. Normal inferior vena cava with >50% collapse upon inspiration consistent with normal right atrial pressure, 3 mmHg. 10. The aortic root size at the sinus of Valsalva is dilated. 11. There is mild pulmonic regurgitation. 12. There is mild tricuspid valve regurgitation. 13. No pulmonary hypertension, estimated pulmonary arterial systolic pressure is 43 mmHg. Left Ventricle Left ventricular chamber dimension is normal. Left ventricular systolic function is normal, estimated at 55-60%. There is no increased left ventricular wall thickness. Left ventricular wall motion is normal. The left ventricular diastolic function is grade I diastolic dysfunction. Right Ventricle Right ventricular chamber dimension is normal. Right ventricular systolic function is reduced. Left Atria Left atrial chamber dimension is normal. Right Atria Right atrial chamber dimension is normal. Aortic Valve The aortic valve is trileaflet. There is no aortic valve sclerosis. There is no aortic valve stenosis. There is no aortic valve regurgitation. Pulmonic Valve The pulmonic valve is normal. There is no pulmonic valve stenosis. There is mild pulmonic regurgitation. Mitral Valve The mitral valve has normal leaflets. There is no mitral valve stenosis. There is no mitral valve regurgitation. Tricuspid Valve The tricuspid valve leaflets are normal. There is no significant tricuspid valve stenosis. There is mild tricuspid valve regurgitation. No pulmonary hypertension, estimated pulmonary arterial systolic pressure is 43 mmHg. Pericardium/Pleural The pericardium appears normal. There is no pericardial effusion. Inferior Vena Cava Normal inferior vena cava with >50% collapse upon inspiration consistent with normal right atrial pressure, 3 mmHg. Aorta The aortic root size at the sinus of Valsalva is dilated. The prox ascending aorta size is normal. Left Ventricular Outflow Tract Name Value Normal LVOT 2D LVOT Diameter 2.5 cm LVOT Doppler LVOT Peak Gradient 4 mmHg LVOT Mean Gradient 2 mmHg LVOT VTI 21 cm LVOT VTI/AV VTI Ratio 1.2 LVOT Stroke Volume 102 ml LVOT CO 5.8 l/min LVOT CI 3.1 l/min/m2 Pulmonic Valve Name Value Normal PV Doppler PV Peak Gradient 2 mmHg PV Regurgitation Doppler IA Peak End Diastolic Velocity 125 cm/s Mitral Valve Name Value Normal MV Doppler MV Peak Gradient 4 mmHg MV Mean Gradient 1 mmHg MV Decel [place] 123 cm/s2 MV PHT 102 ms MV Area (PHT) 2.2 cm2 4.0-5.0 MV Area (Cont Eq VTI) 4.1 cm2 MV Diastolic Function MV E Peak Velocity 43 cm/s MV A Peak Velocity 84 cm/s MV E/A 0.5 MV Decel Time 353 ms MV Annular TDI MV E/e' (Septal) 10.1 <=8.0 MV E/e' (Lateral) 7.0 <=8.0 MV E/e' (Average) 8.5 Tricuspid Valve Name Value Normal TV Regurgitation Doppler TR Peak Velocity 316 cm/s TR Peak Gradient 40 mmHg Estimated PAP/RSVP RA Pressure 3 mmHg <=5 PA Systolic Pressure 43 mmHg <36 RV Systolic Pressure 43 mmHg <36 Aortic Valve Name Value Normal AV Doppler AV Peak Velocity 94 cm/s AV Peak Gradient 4 mmHg AV Mean Gradient 2 mmHg AV VTI 18 cm AV Area (Cont Eq VTI) 5.7 cm2 >=3.0 AV Area (Cont Eq [place]) 4.9 cm2 AV Regurgitation 2D LVOT Area 4.8 cm2 Ventricles Name Value Normal LV Dimensions 2D/MM IVS Diastolic Thickness (2D) 0.6 cm 0.6-1.0 LVID Diastole (2D) 4.7 cm 4.2-5.8 LVIW Diastolic Thickness (2D) 0.8 cm 0.6-1.0 LVID Systole (2D) 3.4 cm 2.5-4.0 LVOT Diameter 2.5 cm LV Mass (2D Cubed) 100.55 g 88.00-224.00 LV Mass Index (2D Cubed) 54 g/m2 49-115 Relative Wall Thickness (2D) 0.32 LV Fractional Shortening/Ejection Fraction 2D/MM LV Fractional Shortening (2D) 28 % 25-43 LV EF (2D Teicholz) 54 % 52-72 LV Diastolic Volume (4C MOD) 107 ml LV EF (4C MOD) 66 % LV Diastolic Length (4C) 8.0 cm LV Systolic Length (4C) 6.9 cm LV Stroke Volume (4C MOD) 70 ml Report Signatures
[2024-10-30 05:07] VITALS: BP 121/69; PULSE 62; RESP 17; TEMP 36.8; O2SAT 98
[2024-10-30 06:47] LABS: Basophils Absolute Auto 0.1 K/mm3 (0.0-0.1); Basophils Percent Auto 0.6 % (0.2-1.2); Eosinophils Absolute Auto 0.3 K/mm3 (0-0.3); Eosinophils Percent Auto 2.8 % (0-4.4); Immature Granulocyte Absolute 0.04 K/mm3 (0.00-0.031); Immature Granulocyte Percent A 0.4 % (0-0.5); Lymphocytes Absolute Auto 3.84 K/mm3 (0.9-3.2); Lymphocytes Percent Auto 38.7 % (18.3-44.2); Mean Corpuscular HGB Conc 33.3 g/dl (32-36); Mean Corpuscular Hemoglobin 30.4 pg (26-34); Mean Corpuscular Volume 91.1 fl (80-100); Mean Platelet Volume 10.9 fl (7.4-10.4); Monocytes Absolute Auto 1.1 K/mm3 (0.1-0.6); Monocytes Percent Auto 10.7 % (2.6-8.5); Neutrophils Absolute Auto 4.6 K/mm3 (1.3-6.7); Neutrophils Percent Auto 46.8 % (45.5-73.1); Platelet Count Result 271 k/mm3 (150-375); Red Blood Count 4.94 M/mm3 (4.6-6.20); Red Cell Distribution Width 13.5 % (11.5-14.5); White Blood Count 9.9 K/mm3 (4.5-10.0)
[2024-10-30 06:58] LABS: Alanine Aminotransferase 39 U/L (6-50); Albumin Level 3.7 g/dL (3.5-5.1); Alkaline Phosphatase 106 U/L (38-126); Anion Gap 5 mmol/L (4-12); Aspartate Amino Transferase 71 U/L (17-59); Bilirubin,Total 0.9 mg/dL (0.2-1.3); Blood Urea Nitrogen 14 mg/dL (9-20); Calcium 9.1 mg/dL (8.4-10.2); Carbon Dioxide 22 mmol/L (22-30); Chloride 111 mmol/L (98-107); Creatine Kinase 986 U/L (55-170); Estimated CRCL calculation 55 ml/min; Estimated Glomerular Filt Rate > 60; Glucose 106 mg/dL (65-110); Potassium 4.1 mmol/L (3.4-5.0); Sodium 138 mmol/L (137-145)
[2024-10-30] MEDS: PARoxetine 10 MG TABLET 30 MG PO (09:47)
[2024-10-30] MEDS: ASPIRIN 81 MG ENTERIC TABLET PO (09:47)
[2024-10-30] MEDS: levETIRAcetam 500 MG TABLET 1000 MG PO (09:47)
[2024-10-30] MEDS: SACUBITRIL/VALSARTAN 24-26 MG TABLET 1 TAB PO (09:47)
[2024-10-30 09:48] VITALS: PULSE 70
[2024-10-30] MEDS: METOPROLOL TARTRATE 25 MG TABLET PO (09:48)
[2024-10-30 10:03] LABS: Homocysteine 12.8 umol/L (<11.4)
--- NOTE | 2024-10-30 10:46 | P.DS_ITS ---
DS: Admitting Diagnosis Discharge Date 10/30/2024 Admitting Diagnosis Seizure DS: Discharge Diagnosis Discharge Diagnosis (1) Seizure: Code(s): R56.9 - Unspecified convulsions Status: Acute (2) RSV infection: Code(s): B33.8 - Other specified viral diseases Status: Acute (3) Thoracic compression fracture: Code(s): S22.000A - Wedge compression fracture of unspecified thoracic vertebra, initial encounter for closed fracture Status: Acute (4) Lactic acidosis: Code(s): E87.20 - Acidosis, unspecified Status: Acute (5) Combined systolic and diastolic congestive heart failure: Code(s): I50.40 - Unspecified combined systolic (congestive) and diastolic (congestive) heart failure Status: Acute (6) Microscopic hematuria: Code(s): R31.29 - Other microscopic hematuria Status: Acute (7) Hypertension: Code(s): I10 - Essential (primary) hypertension Status: Chronic DS: Summary Hospital Course Hospital Course: In the ED: Vital signs were stable on arrival. Labs were significant for WBC count of 10.2, carbon dioxide 17, lactic acid 12.8, total CK 497, ammonia less than 9. Urine drug screen was positive for cannabinoids. Ethyl alcohol level was less than 10. He tested positive for RSV. Brain CT and cervical spine CT were without acute findings. He had another seizure in the ED which was treated with lorazepam 2 mg IV and he was loaded with levetiracetam 4500 mg. Not long thereafter he apparently got up to go to the bathroom on the floor and he sustained a fall. Repeat imaging of the head and cervical spine were without acute findings. Levetiracetam level <2.0 on 10/27 and 23.5 on 10/28/24. Patient admitted that he had not been taking his Keppra. Neurology consulted during visit. Tramadol discontinued. Patient to follow up outpatient with Dr. Vásquez. Carotid dopplers negative. Patient educated about importance of medication compliance. Status at Discharge Functional status at discharge: independent ambulation Overall status at discharge: patient is progressing back to baseline Time Spent with Patient Time attestation: Total time spent providing and/or coordinating discharge services: Time spent: Greater than 30 minutes Exam Const: General: comfortable and no acute distress Resp: Effort & Inspection: normal respiratory effort Auscultation: clear to auscultation bilaterally Cardio: Rate: regular rate Rhythm: regular rhythm GI: GI Palp: Yes Soft to palpation Auscultation: normal bowel sounds Skin: General skin exam: no rashes or lesions noted Neuro: General: gait normal Extrem: General: no pedal edema Psych: Mental Status: mental status grossly normal Affect: normal affect DS: Data Data Completed and Pending Labs on day of discharge: Labs from last 24 hours 10/30/24 10/28/24 10/27/24 05:42 18:58 11:16 WBC 9.9 RBC 4.94 Hgb 15.0 Hct 45.0 MCV 91.1 MCH 30.4 MCHC 33.3 RDW 13.5 Plt Count 271 MPV 10.9 H Immature Gran % (Auto) 0.4 Neut % (Auto) 46.8 Lymph % (Auto) 38.7 [place] % (Auto) 10.7 H Eos % (Auto) 2.8 Baso % (Auto) 0.6 Lymph # (Auto) 3.84 H [place] # (Auto) 1.1 H Eos # (Auto) 0.3 Baso # (Auto) 0.1 Abs Immat Gran (auto) 0.04 H Absolute Neuts (auto) 4.6 Absolute Nucleated RBC 0.000 Nucleated RBC % 0.0 Sodium 138 Potassium 4.1 Chloride 111 H Carbon Dioxide 22 Anion Gap 5 BUN 14 Creatinine 1.00 Estim Creat Clear Calc 55 Estimated GFR > 60 Glucose 106 Calcium 9.1 Total Bilirubin 0.9 AST 71 H ALT 39 Alkaline Phosphatase 106 Total Creatine Kinase 986 H Total Protein 7.0 Albumin 3.7 Homocysteine 12.8 H Levetiracetam <2.0 L Discharge Plan Discharge Attending physician on discharge: Jerry Cannon Consulting providers: Mino Villegas Discharging Clinician: Afsaneh Wahl Anticipated Discharge Date/Time: 10/30/24 13:00 Patient Disposition: Home, Self-Care Activity: may shower and as tolerated Diet: regular Discharge Instructions: * TAKE KEPPRA PRESCRIBED. DO NOT MISS ANY DOSES. * Follow up with Dr. Vásquez on 12/28/24 at 1:00 PM. * Follow up with primary in a week. * Stop Tramadol, it can increase seizure risk. Thank you for entrusting [facility] with your healthcare! Patient Instructions: Antibiotic Form, Levetiracetam (By mouth), Recurrent Seizures in Adults (DC) Patient Language: [place] Stand Alone Forms: General Discharge Information Follow-up/Referrals: Samanta,Jorge Luis Armando, [Primary Care Provider] - 1 Week To Vásquez MD [Physician] - 12/28/24 1:00 pm Discharge Medications: Continued levetiracetam [Keppra] 1,000 mg tablet 1,000 mg PO BID Qty: 180 4RF paroxetine HCl 30 mg tablet 30 mg PO DAILY zolpidem 10 mg tablet 10 mg PO HS PRN (Reason: Insomnia) aspirin 81 mg Tablet,Delayed Release (Dr/Ec) 81 mg PO QAM 30 Days Qty: 30 0RF metoprolol tartrate 25 mg Tablet 25 mg PO Q12HR 30 Days Qty: 60 0RF atorvastatin 80 mg tablet 80 mg PO HS sacubitril-valsartan [Entresto] 24-26 mg Tablet 1 tablet PO Q12HR Qty: 60 0RF Discontinued tramadol 50 mg tablet 50 mg PO Q6H PRN (Reason: pain) Date of admission: 10/28/24 07:51 Primary Care Provider: Samanta,Jorge Luis Armando Admitting Provider: Abad Talley Attending physician on admission: Abad Talley Condition: Stable Hospitalist MIPS Heart Failure (Exclusion) Patient has history of Heart Transplant or Left Ventricular Assistive Device?: No IF YES, STOP HERE Heart Failure (Qualifier) Patient has current or prior documentation of LVEF less than or equal to 40%, or mod/servere depressed LVSF?: Yes IF NO, STOP HERE If Yes, Heart Failure (Qualifier) Patient was prescribed or already taking an Angiotensin-Converting Enzyme (GERARD) Inhibitor, or Antiotensin Receptor Annie (ARB): Yes Patient was prescribed or already taking bisoprolol, carvedilol, or sustained release metoprolol succinate: Yes
[2024-10-30 10:59] LABS: Levetiracetam Keppra 23.5 mcg/mL (6.0-46.0)
[2024-10-31 14:17] LABS: Methylmalonic Acid 86 nmol/L (69-390)
== END 2024-10-30 15:30 | disposition home or self-care (01) | DRG 101 ==
LOC: ANHED 10:44 → ANH2MED 19:04
PROVIDERS: Physician Assistant; Psychiatry & Neurology Neurology; Admitting Provider Internal Medicine; Emergency Provider Student in an Organized Health Care Education/Training Program; PCP Family Medicine; Visit Provider Nurse Practitioner Family
DX: G40.909 Epilepsy, unspecified, not intractable, without status epilepticus (principal); S22.000A Wedge compression fracture of unspecified thoracic vertebra, initial encounter for closed fracture; I50.42 Chronic combined systolic (congestive) and diastolic (congestive) heart failure; M62.82 Rhabdomyolysis; I42.9 Cardiomyopathy, unspecified; E87.21 Acute metabolic acidosis; B97.4 Respiratory syncytial virus as the cause of diseases classified elsewhere; I11.0 Hypertensive heart disease with heart failure; R31.29 Other microscopic hematuria; E78.5 Hyperlipidemia, unspecified; F32.A Depression, unspecified; F41.9 Anxiety disorder, unspecified; R73.03 Prediabetes; F10.10 Alcohol abuse, uncomplicated; F12.90 Cannabis use, unspecified, uncomplicated; W19.XXXA Unspecified fall, initial encounter; Z90.49 Acquired absence of other specified parts of digestive tract; Z79.82 Long term (current) use of aspirin
CPT/HCPCS: 36415; 70450; 71046; 72125; 74176; 80048; 80053; 80061; 80143; 80177; 80179; 80307; 81001; 82077; 82140; 82306; 82550; 82607; 82746; 83036; 83090; 83605; 83735; 83921; 84425; 85025; 85027; 87637; 93005; 93306; 93880; 96374; 96375; 99285; A9270; G0378; J1630; J1953; J2060; J7030

== ENCOUNTER 2024-12-10 12:52 | Outpatient (CLI) | payer OTHER, MEDICAID, SELFPAY ==
--- OUTSIDE RECORDS SUMMARY | 2024-12-10 12:59 | XMS_ITS | Clinical Summary ---
Author Organization [facility] [address] Address [address] [place] [address] Care Team Providers Care Commercial Door Installer Name Role Phone Jorge Luis England DO Primary Care Prov ider Allergies No known active allergies Medications aspirin 81 mg enteric coated tablet Take 1 tablet (81 mg total) by mouth daily Active metoprolol tartrate (LOPRESSOR) 25 mg immediate release tablet Take 0.5 tablets (12.5 mg total) by mouth 2 (two) times a day Active traMADoL (ULTRAM) 50 mg tablet Take by mouth every 8 (eight) hours as needed 3 Active PARoxetine (PAXIL) 30 mg tablet Take 1 tablet (30 mg total) by mouth daily 3 Active zolpidem (AMBIEN) 10 mg tablet Take 1 tablet (10 mg total) by mouth nightly 3 Active trpyfvpk14-etke -Lmfolate-algal 27 mg iron-1.13 mg-581.92 mg capsule Take by mouth Active levETIRAcetam (KEPPRA) 1,000 mg tablet Take 1 tablet (1,000 mg total) by mouth 2 (two) times a day Active Entresto 24-26 mg tablet Take by mouth 2 (two) times a day 4 Active atorvastatin (LIPITOR) 80 mg tablet Take 1 tablet (80 mg total) by mouth daily 90 tablet 5 Active atorvastatin (LIPITOR) 80 mg tablet Take 1 tablet (80 mg total) by mouth daily 90 tablet 3 3 12/07/19 25 Discontinu ed(Reorder ) Active Problems Problem Noted Date Diagnosed Date Coronary artery disease invo lving [place] coronary artery of [place] heart without angina pectoris 08/13/2023 Elevated troponin I level 06/11/2023 Primary hypertension 06/11/2023 Mixed hyperlipidemia 06/11/2023 Abnormal echocardiogram 06/11/2023 Chronic fatigue 06/11/2023 Myocardial infarction type 2 06/11/2023 Surgical History Surgery Date Site/Laterality Comments BOWEL RESECTION 10/28/1992 - 10/27/1993 Medical History Medical History Date Comments JOSELUIS (acute kidney injury) (HCC) Syncope Sepsis, unspecified organism (HCC) Hypokalemia Respiratory failure (CMS/HCC) (HCC) NSTEMI (non-ST elevated myocardial infarction) ( CMS/HCC) (HCC) Alcohol abuse Hypertension Family History Medical History Relation Name Comments Alzheimer's disease Father CABG Mother Relation Name Status Comments Father Mother Social History Tobacco Use Types Packs/Day Years Used Date Smoking Tobacco: Never Smokeless Tobacco: Never Tobacco Cessation:Counseling Given: Not Answered Personal Safety Answer Date Recorded Getting School Help Needed Not on file 10/10 Sex and Gender Information Value Date Recorded Sex Assigned at Not on file Legal Sex 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 Gender Identity Not on file Sexual Orientation Not on file Obstetrics History Last Filed Vital Signs Vital Sign Reading Time Taken Comments Blood Pressure 112/64 05/19/2024 11:10 AM CDT Pulse 54 04/16/2024 10:41 AM CDT Temperature - - Respiratory Rate - - Oxygen Saturation 96% 04/16/2024 10:06 AM CDT Inhaled Oxygen Concentration - - Weight 71.7 kg (158 lb) 04/16/2024 10:06 AM CDT Height 180.3 cm (5' 11 ) 04/16/2024 10:06 AM CDT Body Mass Index 22.04 04/16/2024 10:06 AM CDT Plan of Treatment Health Maintenance Due Date Last Done Comments Albumin Creatinine Ratio, Urine 1950 Colon Cancer Screening-Colonoscopy 1950 Depression Screening 1950 Fall Risk Assessment 1950 Hemoglobin A1C 1950 Hepatitis C Screening 1950 eGFR 1950 Dilated Eye Exam 1950 Foot Exam 1950 DTaP/Tdap/Td Vaccine (1 - Tdap) 1961 Hepatitis B Screening 1968 Well Visit 65+ 2015 Covid-19 Vaccine (6 2023-2 5 season) 2024 08/19/2022, 07/09/2022, 08/03/2021, Additional history exists Influenza Vaccine (#1) 2024 , 07/09/2022, 07/26/2021, Additional history exists Lipid Panel 10/10/2024 10/10/2023, 06/29, 06/11/2023, Additional history exists Zoster Vaccine Completed 09/05/2021, 06/20/2021 Pneumococcal vaccine 65+ Completed 024, 12/17/2017, 08/25/2015 Procedures Procedure Name Priority Date/Time Associated Diagnosis Comments LIPID PANEL Routine 10/10/2023 12:12 PM NAPHTHALENE OPERATOR HELPER Mixed hyperlipidemia from Last 3 Months or Most Recently Relevant to Health Maintenance Results * (ABNORMAL) Lipid panel (10/10/2023 12:12 PM NAPHTHALENE OPERATOR HELPER) Cholesterol 147 30 - 199 mg/dL [facility] Comment: Interpretive Data Ages < or = 19 years Acceptable: <170 mg/dL Borderline high: 170-199 mg/dL High: >or= 200 mg/dL Ages > or = 20 years Desirable: <200 mg/dL Borderline high: 200-239 mg/dL High: >or= 240 mg/dL Literature References: 1. Expert Panel on Integrated Guidelines for Cardiovascular Health and Risk Reduction in Children and Adolescents. Pediatrics 2011;128:S213 2. NCEP Expert Panel. Circulation 2004;110:227 Current Interpretive Data was last revised on 2018. Triglycerides 95 <=149 mg/dL [facility] Comment: Interpretive Data Ages < or = 9 years Acceptable: <75 mg/dL Borderline high: 75-99 mg/dL High: >or= 100 mg/dL Ages 10 to 20 years Acceptable: <90 mg/dL Borderline high: 90-129 mg/dL High: >or= 130 mg/dL Ages > or = 20 years Desirable: <150 mg/dL Borderline high: 150-199 mg/dL High: 200-499 mg/dL Very high: >or= 499 mg/dL Literature References: 1. Expert Panel on Integrated Guidelines for Cardiovascular Health and Risk Reduction in Children and Adolescents. Pediatrics 2011;128:S213 2. NCEP Expert Panel. Circulation 2004;110:227 Current Interpretive Data was last revised on 2018. HDL 39(L) >=40 mg/dL [facility] Comment: Interpretive Data Ages < or = 19 years Acceptable: >45 mg/dL Borderline low: 40-45 mg/dL Low: <40 mg/dL Ages > or = 20 years Desirable: >or= 60 mg/dL Low: <40 mg/dL Literature References: 1. Expert Panel on Integrated Guidelines for Cardiovascular Health and Risk Reduction in Children and Adolescents. Pediatrics 2011;128:S213 2. NCEP Expert Panel. Circulation 2004;110:227 Current Interpretive Data was last revised on 2018. LDL, calculated 89 <=129 mg/dL [facility] Comment: Interpretive Data Ages < or = 19 years Acceptable: <110 mg/dL Borderline high: 110-129 mg/dL High: >or= 130 mg/dL Ages > or = 20 years Optimal: <100 mg/dL Near optimal: 100-129 mg/dL Borderline high: 130-159 mg/dL High: >160 mg/dL Literature References: 1. Expert Panel on Integrated Guidelines for Cardiovascular Health and Risk Reduction in Children and Adolescents. Pediatrics 2011;128:S213 2. NCEP Expert Panel. Circulation 2004;110:227 Current Interpretive Data was last revised on 2018. Non-HDL Cholesterol 108 mg/dL [facility] Comment: Interpretive Data Ages < or = 19 years Acceptable: <120 mg/dL Borderline high: 120-144 mg/dL High: >145 mg/dL Ages > or = 20 years When triglycerides are >200 mg/dL, Non-HDL cholesterol is a secondary target of therapy with treatment goals that are 30 mg/dL greater than the LDL cholesterol target. Literature References: 1. Expert Panel on Integrated Guidelines for Cardiovascular Health and Risk Reduction in Children and Adolescents. Pediatrics 2011;128:S213 2. NCEP Expert Panel. Circulation 2003;110:227 Current Interpretive Data was last revised on 2018. Chol/HDL ratio 4 [facility] Blood 10/10/2023 12:1 2 PM NAPHTHALENE OPERATOR HELPER 10/10/2023 9:14 PM NAPHTHALENE OPERATOR HELPER Alex Erwin MD LAB BLOOD ORDERABLES Fin al Result Performing Organization Address City/State/[facility] [place] [id number] [address] Department [place] [address] from Last 3 Months or Most Recently Relevant to Health Maintenance Insurance [facility] Care Teams Commercial Door Installer Relationship Specialty Start Date End Date Jorge Luis England DO [address] [place] [address] PCP - General Family Medicine 06/11/23
--- OUTSIDE RECORDS SUMMARY | 2024-12-10 12:59 | XMS_ITS | Clinical Summary ---
Author Organization [facility] Address [address] [place] [address] Care Team Providers Care Business Support Professional Name Role Phone WallaceshashaYuri Jorge Luis Primary Care Provide r Allergies No known active allergies Medications sacubitriL-vals eli (Entresto) 24-26 mg Tablet Take by mouth 2 times daily. Active levETIRAcetam (KEPPRA) 1,000 mg tablet Take 1,000 mg by mouth 2 times daily. Active METOPROLOL TARTRATE ORAL Take 12.5 mg by mouth 2 times daily. Active PARoxetine HCl (PAXIL) 30 mg tablet Take 30 mg by mouth daily. Active traMADoL (ULTRAM) 50 mg tablet Take 50 mg by mouth every 6 hours as needed for Pain. Active zolpidem (AMBIEN) 10 mg tablet Take 10 mg by mouth nightly as needed for Insomnia. Active aspirin (CLOVER CHEWABLE) 81 mg Tablet, Chewable Take 81 mg by mouth daily. Active Active Problems No known active problems Encounters Date Type Department Care Team Description 11/24/2024 External Device Data [facility] ABSTRACTION Provider, Abstract 11/18/2024 External Device Data [facility] ABSTRACTION Provider, Abstract 11/18/2024 External Device Data [facility]STRA[facility] Provider, Abstract 11/11/2024 External Device Data [facility]STRACTION Provider, Abstract from Last 3 Months Family History Medical History Relation Name Comments Diabetes Brother Hyperlipidemia Brother No Known Problems Child 1 No Known Problems Child 2 No Known Problems Child 3 Heart Disease Father Breast Cancer Mother Cervical Cancer Mother Ovarian Cancer Mother Diabetes Sister Relation Name Status Comments Brother Child 1 Alive Child 2 Alive Child 3 Alive Father Mother Sister Alive Social History Tobacco Use Types Packs/Day Years Used Date Smoking Tobacco: Never Tobacco Cessation:Counseling Given: Not Answered Alcohol Use Standard Drinks/Week Comments Not Currently 0 (1 standard drink = 0.6 oz pure alcohol) used to socially drink but not anymore Sex and Gender Information Value Date Recorded Sex Assigned at Not on file Legal Sex Male 9:57 AM CDT Gender Identity Not on file Sexual Orientation Not on file Last Filed Vital Signs Vital Sign Reading Time Taken Comments Blood Pressure 99/62 05/28/2024 2:59 PM CDT Pulse 54 05/28/2024 2:59 PM CDT Temperature 36.5 C (97.7 F) 05/28/2024 2:59 PM CDT Respiratory Rate 16 05/28/2024 2:59 PM CDT Oxygen Saturation 93% 05/28/2024 2:59 PM CDT Inhaled Oxygen Concentration - - Weight 69.4 kg (153 lb) 05/28/2024 2:59 PM CDT Height 180.3 cm (5' 11 ) 03/12/2024 10:46 AM CDT Body Mass Index 21.34 03/12/2024 10:46 AM CDT Plan of Treatment Health Maintenance Due Date Last Done Comments DTAP/TDAP/TD VACCINES (1 - Tdap) 1969 COLORECTAL SCREENING 1995 Colorectal Cancer Screening 1995 FIT-DNA Q 3 years 1995 FIT/FOBT Q 1 year 1995 Flex Sig/CT Colonography Q 5 years 1995 ZOSTER VACCINE (1 of 2) 2000 RSV VACCINE (60+ or ) (1 - Risk 60-74 years 1-dose series) 2010 INFLUENZA VACCINE (#1) 2024 07/18/2023 PNEUMOCOCCAL VACCINE 65+ YEARS Completed 12/11/2023 [place] [address] [facility] Care Teams Business Support Professional Relationship Specialty Start Date End Date Jorge Luis England DO [address] [place] [address] PCP - General Family Practice 03/12/24
--- OUTSIDE RECORDS SUMMARY | 2024-12-10 12:59 | XMS_ITS | Clinical Summary ---
Author Organization [facility] Address [facility] [place] [address] Care Team Providers Care Business Leader Name Role Phone VimalAllanJorge Luis ku Primary Care Provide r Allergies No known active allergies Medications atorvastatin (LIPITOR) 20 MG tablet Take 1 tablet by mouth daily. 2 Active PARoxetine (PAXIL) 30 MG tablet Take 1 tablet by mouth daily. 2 Active traMADol (ULTRAM) 50 MG tablet Take 50 mg by mouth every 8 (eight) hours as needed. 3 Active triamterene-hyd roCHLOROthiazid e (DYAZIDE) 37.5-25 MG capsule Take 1 capsule by mouth daily. 2 Active zolpidem (AMBIEN) 10 MG tablet Take 10 mg by mouth nightly as needed. 2 Active Blood Pressure Monitor KitIndications: Hypertension Take blood pressure daily and report finding to nurse Dx hypertension 1 kit 3 Active Active Problems Problem Noted Date Diagnosed Date Atherosclerosis of aorta 12/24/2022 Essential hypertension 12/24/2022 Mixed hyperlipidemia 12/24/2022 Family History Medical History Relation Comments Alzheimers Father CHF Father Heart Attack Father Hypertension Father CABG Mother x3 Coronary artery disease Mother Hypertension Mother Relation Status Comments Brother Alive Father (Age 81) Maternal Grandfather Maternal Grandmother Mother (Age 92) Paternal Grandfather Paternal Grandmother Sister Alive Social History Tobacco Use Types Packs/Day Years Used Date Smoking Tobacco: Never Smokeless Tobacco: Never Alcohol Use Standard Drinks/Week Comments Yes 15 (1 standard drink = 0.6 oz pu re alcohol) Sex and Gender Information Value Date Recorded Sex Assigned at Not on file Legal Sex Male 6:57 PM CDT Gender Identity Not on file Sexual Orientation Not on file Occupation Industry Job Start Date Job End Date Not on file Not on file Not on file Not on file Last Filed Vital Signs Vital Sign Reading Time Taken Comments Blood Pressure 160/80 02/25/2023 11:34 AM CDT Pulse 65 02/25/2023 11:34 AM CDT Temperature - - Respiratory Rate - - Oxygen Saturation 96% 02/25/2023 11:34 AM CDT Inhaled Oxygen Concentration - - Weight 77.6 kg (171 lb) 02/25/2023 11:34 AM CDT Height 177.8 cm (5' 10 ) 02/25/2023 11:34 AM CDT Body Mass Index 24.54 02/25/2023 11:34 AM CDT Plan of Treatment Health Maintenance Due Date Last Done Comments ASCVD Statin 1950 Colorectal Cancer Screening Colonoscopy (10 Years) 1950 Hepatitis C 1968 DTaP, Tdap and Td Vaccines (1 - Tdap) 1969 AAA SCREENING 2015 Annual Medicare Wellness Visit 2015 ASCVD LDL 11/06/2023 11/06/2022 COVID-19 Vaccine ( season) 2024 08/19/2022, 07/09/2022, 08/03/2021, Additional history exists Influenza Adult (#1) 2024 06/11/2021, 08/13/2018, 09/03/2017, Additional history exists RSV Immunization or 60+ Years (1 - 1-dose 75+ series) 2025 Pneumococcal Vaccine: 65+ Years Completed 12/17/2017, 08/25/2015 Zoster Vaccines Completed 09/05/2021, 06/20/2021 Meningococcal B Vaccine Aged Out No l onger eligible based on patient's age to complete this topic Meningococcal Vaccine Aged Out No maria jason eligible based on patient's age to complete this topic RSV Immunizations Under 20 Months Aged Out No longer eligible based on patient's age to complete this topic Procedures Procedure Name Priority Date/Time Associated Diagnosis Comments LIPID PANEL Routine 11/06/2022 from Last 3 Months or Most Recently Relevant to Health Maintenance Results * LIPID PANEL (11/06/2022) CHOLESTEROL 184 TRIGLYCERIDES 124 HDL 63 LDL (CALCULATED) 96 us Default History Genericprovider LABORATORY Edited Result - Final from Last 3 Months or Most Recently Relevant to Health Maintenance Insurance [employer] Care Teams Business Leader Relationship Specialty Start Date End Date Jorge Luis England DO [facility] [place] [address] PCP - General FAMILY PRACTICE 11/07/22
--- OUTSIDE RECORDS SUMMARY | 2024-12-10 12:59 | XMS_ITS | Referral Summary ---
Author Organization [facility] [address] Address [address] [place] [address] Care Team Providers Care Analytical Data Scientist Name Role Phone Jorge Luis England DO [...] mg total) by mouth nightly 3 Active wvbparfg48-idyl -Lmfolate-algal 27 mg iron-1.13 mg-581.92 mg capsule [...] Diagnosed Date Coronary artery disease invo lving [place] coronary artery of [place] heart without angina pectoris 08/13/2023 Elevated troponin I level 06/11/2023 Primary hypertension 06/11/2023 Mixed hyperlipidemia 06/11/2023 Abnormal echocardiogram 06/11/2023 Chronic fatigue 06/11/2023 Myocardial infarction type 2 06/11/2023 Social History Tobacco Use Types Packs/Day Years Used Date Smoking Tobacco: Never Smokeless Tobacco: Never Tobacco Cessation:Counseling Given: Not Answered Personal Safety Answer Date Recorded Getting School Help Needed Not on file 10/10 Sex and Gender Information Value Date Recorded Sex Assigned at Not on file Legal 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 Triglycerides 95 <=149 mg/dL [facility] Comment: Interpretive Data Ages < [...] on 2018. Non-HDL Cholesterol 108 mg/dL [facility] Comment: Interpretive Data Ages < [...] revised on 2018. Chol/HDL ratio 4 [facility] Blood 10/10/2023 12:1 2 PM CHEMICAL PLANT WORKER 10/10/2023 9:14 PM CHEMICAL PLANT WORKER us Alex Erwin MD LAB BLOOD ORDERABLES Fin al Result [facility] [id number] Department [place] [address] from Last 3 Months or Most Recently Relevant to Health Maintenance Insurance [facility] [place] [address] Care Teams Analytical Data Scientist Relationship Specialty Start Date End Date Jorge Luis England DO [address] [place] [address] PCP - General Family Medicine 06/11/23
--- OUTSIDE RECORDS SUMMARY | 2024-12-10 12:59 | XMS_ITS | Encounter Summary ---
Author Organization [facility] Address [address] [place] [id number] Care Team Providers Care Plunger Scoop Operator Name Role Phone MitchpazYuri Jorge Lusi Primary Care Provide r Encounter Details Date Type Department Care Team (Late st Contact Info) Description 12/28/2022 Abstract [facility] [facility], [address] [address] Shiraz Mcdonnell MA Social History Tobacco Use Types Packs/Day Years [...] file Not on file Not on file COVID-19 Exposure Response Date Recorded In the last 10 days, have yo u been in contact with someone who was confirmed or suspected to have Coronavirus/COVID-19? 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 documented as of this encounter Plan of Treatment Not on file documented as of this encounter Procedures Procedure Name Priority Date/Time Associated Diagnosis Comments HEMOGLOBIN, GLYCOSYLATED Routine 11/06/2022 COMPREHENSIVE METABOLIC PANEL Routine 11/06/2022 LIPID PANEL Routine 11/06/2022 CBC, MANUAL DIFF Routine 11/06/2022 THYROID STIM HORMONE TSH Routine 11/06/2022 MAGNESIUM Routine 11/06/2022 documented in this encounter Results * COMPREHENSIVE METABOLIC PANEL (11/06/2022) SODIUM S/P/B 137 GLUCOSE 123 mg/dL AST 32 BUN 20 CREATININE S/P/B 1.16 0.7 - 1.3 CALCIUM S/P/B 10.0 POTASSIUM S/P/B 4.4 CHLORIDE S/P/B 101 ALT 35 GFR ESTIMATE 67 us Default History Genericprovider LABORATORY Edited Result - Final * LIPID PANEL (11/06/2022) CHOLESTEROL 184 TRIGLYCERIDES 124 HDL 63 LDL (CALCULATED) 96 us Default History Genericprovider LABORATORY Edited Result - Final * CBC, MANUAL DIFF (11/06/2022) WBC 10.98 HGB 16.5 HCT 51.0 PLT 309 us Default History Genericprovider LABORATORY Edited Result - Final * HEMOGLOBIN, GLYCOSYLATED (11/06/2022) HGB A1C 6.1 % us Default History Genericprovider LABORATORY Edited Result - Final * THYROID STIM HORMONE, TSH (11/06/2022) TSH 0.92 us Default History Genericprovider LABORATORY Edited Result - Final * MAGNESIUM (11/06/2022) MAGNESIUM 1.9 us Default History Genericprovider LABORATORY Edited Result - Final documented in this encounter Visit Diagnoses Not on filedocumented in this encounter Care Teams Plunger Scoop Operator Relationship Specialty Start Date End Date Jorge Luis England DO [address] [place] [phone] PCP - General FAMILY PRACTICE 11/07/22 documented as of this encounter
--- OUTSIDE RECORDS SUMMARY | 2024-12-10 12:59 | XMS_ITS | Encounter Summary ---
Author Organization [facility] Address [address] [place] [address] Care Team Providers Care Mechanical Manager Name Role Phone Jorge Luis England DO Primary Care Prov ider Encounter Details Date Type Department Care Team (Late st Contact Info) Description 12/11/2023 Orders Only [facility] [address] [place] [phone] Scanning, Provider Social History Tobacco Use Types Packs/Day Years Used Date Smoking Tobacco: Never Smokeless Tobacco: Never Personal Safety Answer Date Recorded Getting School Help Needed Not on file 10/10 Sex and Gender Information Value Date Recorded Sex Assigned at Not on file Legal Sex Male 3:57 AM UNDERWRITING DIRECTOR Gender Identity Not on file Sexual Orientation Not on file documented as of this encounter Plan of Treatment Not on file documented as of this encounter Procedures Procedure Name Priority Date/Time Associated Diagnosis Comments SCAN - LABS 12/11/2023 documented in this encounter Results * SCAN - LABS (12/11/2023) us Provider Scanning Final Result documented in this encounter Visit Diagnoses Not on filedocumented in this encounter Care Teams Mechanical Manager Relationship Specialty Start Date End Date Jorge Luis England DO [address] [place] [id number] PCP - General Family Medicine 06/11/23 documented as of this encounter
[2024-12-10 13:47] LABS: Basophils Percent Auto 0.3 % (0.2-1.2); Eosinophils Absolute Auto 0.2 K/mm3 (0-0.3); Eosinophils Percent Auto 2.2 % (0-4.4); Hematocrit 43.7 % (42.0-52.0); Hemoglobin 14.2 g/dL (14.0-18.0); Immature Granulocyte Absolute 0.02 K/mm3 (0.00-0.031); Immature Granulocyte Percent A 0.2 % (0-0.5); Lymphocytes Percent Auto 48.8 % (18.3-44.2); Mean Corpuscular HGB Conc 32.5 g/dl (32-36); Mean Corpuscular Hemoglobin 30.8 pg (26-34); Mean Corpuscular Volume 94.8 fl (80-100); Monocytes Absolute Auto 0.7 K/mm3 (0.1-0.6); Monocytes Percent Auto 7.5 % (2.6-8.5); Neutrophils Absolute Auto 3.5 K/mm3 (1.3-6.7); Platelet Count Result 277 k/mm3 (150-375); Red Blood Count 4.61 M/mm3 (4.6-6.20); Red Cell Distribution Width 14.9 % (11.5-14.5); White Blood Count 8.6 K/mm3 (4.5-10.0)
[2024-12-10 14:10] LABS: Alanine Aminotransferase 22 U/L (6-50); Albumin Level 4.3 g/dL (3.5-5.1); Alkaline Phosphatase 103 U/L (38-126); Anion Gap 10 mmol/L (4-12); Aspartate Amino Transferase 24 U/L (17-59); Bilirubin,Total 0.7 mg/dL (0.2-1.3); Blood Urea Nitrogen 15 mg/dL (9-20); Calcium 9.4 mg/dL (8.4-10.2); Carbon Dioxide 28 mmol/L (22-30); Chloride 105 mmol/L (98-107); Estimated Glomerular Filt Rate > 60; Glucose 94 mg/dL (65-110); Potassium 4.5 mmol/L (3.4-5.0); Sodium 143 mmol/L (137-145)
[2024-12-11 15:14] LABS: Levetiracetam Keppra 42.6 mcg/mL (6.0-46.0)
[2024-12-12 21:03] LABS: Red Blood Cell Folate 451 ng/mL RBC (>280)
[2024-12-15 09:59] LABS: Methylmalonic Acid 99 nmol/L (69-390)
[2024-12-15 18:38] LABS: Vitamin D 1,25 (OH)2 Total 30 pg/mL (18-72); Vitamin D2 1,25 (OH)2 <8 pg/mL; Vitamin D3 1,25 (OH)2 30 pg/mL
== END 2024-12-10 12:53 | disposition home or self-care (01) ==
PROVIDERS: PCP Family Medicine; Visit Provider Psychiatry & Neurology Neurology
DX: E55.9 Vitamin D deficiency, unspecified (principal); G40.909 Epilepsy, unspecified, not intractable, without status epilepticus; F10.10 Alcohol abuse, uncomplicated
CPT/HCPCS: 36415; 80053; 80177; 82607; 82652; 82747; 83921; 85025

== ENCOUNTER 2025-06-14 08:07 | Outpatient (CLI) | payer OTHER, MEDICAID, SELFPAY ==
--- OUTSIDE RECORDS SUMMARY | 2025-06-14 08:18 | XMS_ITS | Encounter Summary ---
Author Organization [facility] Healthcare Address [address] [place] [address] Care Team Providers Care Teletypist Name Role Phone Jorge Luis England DO Primary Care Prov ider Encounter Details Date Type Department Care Team (Late st Contact Info) Description 10/28/2024 Orders Only [facility] Health Information Management [address] [place] [phone] Scanning, Provider Social History Tobacco Use Types Packs/Day Years Used Date Smoking Tobacco: Never Smokeless Tobacco: Never Sex and Gender Information Value Date Recorded Sex Assigned at Not on file Legal Sex Male 3:57 AM LOCKSTITCH 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 Gender Identity Not on file Sexual Orientation Not on file documented as of this encounter Plan of Treatment Not on file documented as of this encounter Procedures Procedure Name Priority Date/Time Associated Diagnosis Comments CARDIOLOGY DOCUMENT SCAN 10/28/2024 documented in this encounter Results * Cardiology Document Scan (10/28/2024) Anatomical Region Laterality Modality Other us Provider Scanning CV CARDIAC SERVICES PROCEDURES Final Result documented in this encounter Visit Diagnoses Not on filedocumented in this encounter Care Teams Teletypist Relationship Specialty Start Date End Date Jorge Luis England DO PCP - General Family Medicine 06/11/23 documented as of this encounter
--- OUTSIDE RECORDS SUMMARY | 2025-06-14 08:18 | XMS_ITS | Clinical Summary ---
Author Organization [facility] [id number] Address [address] [place] [address] Care Team Providers Care Telephone Directory Distributor Driver Name Role Phone Jorge Luis England DO Primary Care Prov ider Allergies Active Allergy Reactions Criticality Noted Date Comments Lorazepam Unknown 02/19/2024 Medications aspirin 81 mg enteric coated tablet Take 1 tablet (81 mg total) by mouth daily Active traMADoL (ULTRAM) 50 mg tablet Take by mouth every 8 (eight) hours as needed 3 Active PARoxetine (PAXIL) 30 mg tablet Take 1 tablet (30 mg total) by mouth daily 3 Active zolpidem (AMBIEN) 10 mg tablet Take 1 tablet (10 mg total) by mouth nightly 3 Active lyqiwifr98-zhz c-Ktczuxog-uym al 27 mg iron-1.13 mg-581.92 mg capsule Take by mouth Active levETIRAcetam (KEPPRA) 1,000 mg tablet Take 1 tablet (1,000 mg total) by mouth 2 (two) times a day Active Entresto 24-26 mg tablet Take by mouth 2 (two) times a day 4 Active metoprolol XL (TOPROL-XL) 25 mg extended release tablet Take 1 tablet (25 mg total) by mouth daily 90 tablet 2 5 02/05/20 26 Active atorvastatin (LIPITOR) 80 mg tablet TAKE 1 TABLET(80 MG) BY MOUTH DAILY 90 tablet 5 Active atorvastatin (LIPITOR) 80 mg tablet TAKE 1 TABLET(80 MG) BY MOUTH DAILY 90 tablet 06/03/20 25 Discontinued Active Problems Problem Noted Date Diagnosed Date Coronary artery disease invo 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 08/13/2023 Elevated troponin I level 06/11/2023 Primary hypertension 06/11/2023 Mixed hyperlipidemia 06/11/2023 Abnormal echocardiogram 06/11/2023 Chronic fatigue 06/11/2023 Myocardial infarction type 2 06/11/2023 Surgical History Surgery Date Site/Laterality Comments BOWEL RESECTION 10/28/1992 - 10/27/1993 Medical History Medical History Date Comments JOSELUIS (acute kidney injury) Syncope Sepsis, unspecified organism (HCC) Hypokalemia Respiratory failure (HCC) NSTEMI (non-ST elevated myocardial infarction) ( HCC) Alcohol abuse Hypertension Family History Medical History Relation Name Comments Alzheimer's disease Father CABG Mother Relation Name Status Comments Father Mother Social History Tobacco Use Types Packs/Day Years Used Date Smoking Tobacco: Never Smokeless Tobacco: Never Tobacco Cessation:Counseling Given: Not Answered Sex and Gender Information Value Date Recorded Sex Assigned at Not on file Legal Sex Male 3:57 AM [employer] Gender Identity Not on file Sexual Orientation Not on file Obstetrics History Last Filed Vital Signs Vital Sign Reading Time Taken Comments Blood Pressure 110/60 02/04/2025 11:00 AM CDT Pulse 52 02/04/2025 11:00 AM CDT Temperature - - Respiratory Rate - - Oxygen Saturation 96% 02/04/2025 11:00 AM CDT Inhaled Oxygen Concentration - - Weight 74.2 kg (163 lb 9.6 oz) 02/04/2025 11:00 AM CDT Height 180.3 cm (5' 11) 02/04/2025 11:00 AM CDT Body Mass Index 22.82 02/04/2025 11:00 AM CDT Plan of Treatment Health Maintenance Due Date Last Done Comments Colon Cancer Screening-Colonoscopy 1950 Depression Screening 1950 Fall Risk Assessment 1950 Hepatitis C Screening 1950 DTaP/Tdap/Td Vaccine (1 - Tdap) 1961 Hepatitis B Screening 1968 Well Visit 65+ 2015 Covid-19 Vaccine (2023-2 5 season) 2024 08/19/2022, 07/09/2022, 08/03/2021, Additional history exists Influenza Vaccine (#1) 2025 , 07/09/2022, 07/26/2021, Additional history exists Zoster Vaccine Completed 09/05/2021, 06/20/2021 Pneumococcal vaccine 65+ Completed 024, 12/17/2017, 08/25/2015 Insurance [facility] Care Teams Telephone Directory Distributor Driver Relationship Specialty Start Date End Date Jorge Luis England DO PCP - General Family Medicine 06/11/23
[2025-06-14 09:07] LABS: Cholesterol 141 mg/dL (0-200); HDL Direct 44 mg/dL; Triglycerides 136 mg/dL (<150)
== END 2025-06-14 08:08 | disposition home or self-care (01) ==
LOC: ANHLAB 08:11
PROVIDERS: PCP Family Medicine; Visit Provider Psychiatry & Neurology Neurology
DX: G40.909 Epilepsy, unspecified, not intractable, without status epilepticus (principal); I10 Essential (primary) hypertension
CPT/HCPCS: 36415; 80061; 80177